=== PATIENT | female | born 1940 | race Caucasian/White ===

== ENCOUNTER 2016-03-27 18:59 | Inpatient (IN) | payer OTHER, BC ==
[~2016-03-27] VITALS: Ht 162.6 cm; Wt 83.5 kg
[~2016-03-27 18:59] MED LIST: AMLO-114 PO; ASCA500 PO; BISA10SU7 RE; BUSP15TA70 PO; CALC500C27 PO; CARB0.5D28 OPB; CLON0.5T3 PO; DOCU-94 PO; FENT1DIS85 TD; FLUO40CA8 PO; FOLI1TAB7 PO; FRRS300 PO; GABA600T PO; HYDR-4079 PO; IBAN150T PO; IBUP-1450 PO; LACT10SO17 PO; MIRT30TA2 PO; OMEG10007 PO; OMEP40CA PO; PRD/1 PO; PRED1SUS3 OPB; SUVO1TAB PO; TRAM-10 PO; VTMD PO
[2016-03-27 20:26] LABS: BUN/CREATININE RATIO 11.2 (10-20); CREATININE 0.92 mg/dl (0.60-1.20); POTASSIUM 4.3 mmol/L (3.5-5.1)
[2016-03-27 20:28] LABS: ALB/GLOB RATIO 0.8 (0.9-2)
[2016-03-27 20:29] LABS: BASO % 0.1 %; BASO ABS # 0.01 K/uL (0-0.2); COMPLETE YES; EOS % 2.5 %; IG% 0.2 %; LYMPH % 4.7 %; LYMPH ABS # 0.38 K/uL (1.2-3.4); MEAN CELL VOLUME 86.2 fL (80-100); MEAN CORPUSCULAR HEMOGLOBIN 27.4 pg (25-34); MEAN CORPUSCULAR HGB CONC 31.8 g/dl (32-36); MEAN PLATELET VOLUME 8.3 fL (7.4-10.4); MONO % 6.3 %; NEUT % 86.2 %; PLATELET COUNT 190 K/uL (130-400); RED BLOOD COUNT 4.64 M/uL (4.2-5.4); WHITE BLOOD COUNT 8.06 K/uL (4.8-10.8)
[2016-03-27] MEDS ORDERED: SODIUM CHLORIDE 0.9% 1000ML 1,000 ML IV STA ×2 (20:52)
[2016-03-27] MEDS ORDERED: FAMOTIDINE 20MG/102 ML D5W IV STA (20:52)
[2016-03-27] MEDS ORDERED: PROMETHAZINE HCL INJ 6.25 MG in SODIUM CHLORIDE 0.9% 50ML 50 ML IV STA (20:52)
[2016-03-27] MEDS ORDERED: ONDANSETRON INJ 2 MG/ML 2 ML VIAL IV STA ×2 (20:52→23:06)
[2016-03-27] MEDS ORDERED: HYDROCORTISONE SOD SUCCINATE 100 MG/2 ML VIAL IV STA (20:52)
[2016-03-27] MEDS ORDERED: MoRPHine SULFATE 4 MG/ML 1 ML CARP\\VIAL IV PRN (21:00)
[2016-03-27] MEDS ORDERED: PROMETHAZINE HCL INJ 25 MG/ML 1 ML VIAL ONE (21:01)
--- NOTE | 2016-03-27 21:02 | EMERGENCY ROOM VISIT NOTE ---
History Report prepared by Delta: Issac Rueda Under the Supervision of: Dr. Stevie Serrano M.D. First contact with patient: 20:47 Chief Complaint: GI ASSESSMENT Stated Complaint: FLU LIKE SX, VOMITING Nursing Triage Summary: patient brought in by ems patient from [facility] and patient reports incontinent diarrhea five times patient had episode of vomiting x4 in room History of Present Illness The patient is a 75 year old female who presents to the Emergency Room via EMS from [facility] with complaints of persistent diarrhea beginning several hours prior to arrival. She associates nausea, vomiting, and abdominal pain with today 's symptoms. The patient states she has experienced five episodes of diarrhea today. She began vomiting in the ED. The patient notes her vomit appeared black , but she eats chocolate daily. She notes she did not feel well yesterday. The patient notes she has been in contact with sick people in her senior community. She states she has chronic pain issues, for which, she has a 37 mcg Fentanyl patch. The patient notes she tried taking TUMS without relief today. She denies a fever, chills, cough, and urinary symptoms. It is noted the patient is DNR. 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 A total of 10 systems reviewed and were otherwise negative. Past Medical & Surgical Medical Problems: (1) Anxiety (2) COPD (chronic obstructive pulmonary disease) (3) Corticoadrenal insufficiency (4) Depression (5) Fever (6) Fibromyalgia (7) Hypertension Nos (8) Ileus (9) Mood disorder (10) Pneumonia involving right lung (11) Sepsis (12) Severe sepsis Surgical Problems: (1) Hx of tonsillectomy Family History Diabetes mellitus Lung cancer Pancreatic cancer FATHER Social History Smoking Status: Never Smoker Alcohol Use: none Drug Use: none Marital Status: Housing Status: fdc Occupation Status: retired Current/Historical Medications Scheduled Amlodipine (Norvasc), 10 MG PO QAM Ascorbic Acid (Vitamin C), 500 MG PO DAILY Carboxymethylcellulose Sodium (Refresh Tears), 1 DROP OPB QID Clonazepam (Klonopin), 0.5 MG PO HS Docusate Sodium (Colace), 1 CAP PO BID Ergocalciferol (Vitamin D), 50,000 INTERUNIT PO weekly Fentanyl (Fentanyl), 37.5 PATCH TD CQ72HR Ferrous Sulfate (Ferrous Sulfate), 325 MG PO TIDM Fish Oil ([place]-3), 1,000 MG PO DAILY@1700 Fluoxetine (Prozac), 40 MG PO DAILY Folic Acid (Folvite), 1 TAB PO DAILY@1700 Gabapentin (Neurontin), 600 MG PO TID Hydrocodone/Acetaminophen 10MG/325MG ([place] 10MG/325MG), 1 TAB PO BID Ibandronate Sodium (Boniva), 150 MG PO MONTHLY Ibuprofen (Motrin), 600 MG PO TIDM Lactulose (Chronulac), 15 ML PO TID Mirtazapine Soltab (Remeron Soltab), 30 MG PO HS Omeprazole (Prilosec), 40 MG PO DAILY Prednisolone Acetate 1% Oph (Pred Forte 1% Oph), 1 DROP OPB DAILY Prednisone (Prednisone), 1 MG PO DAILY Scheduled PRN Bisacodyl (Bisac-Evac), 1 SUPP RE DAILY PRN for Constipation Buspirone Hcl (Buspar), 7.5 MG PO BID PRN for Anxiety Calcium Carbonate (Antacid) (Chewable Antacid), 500-1,000 MG PO Q4 PRN for Heartburn Suvorexant (Belsomra), 5-15 MG PO HS PRN for Insomnia Tramadol (Ultram), 50 MG PO Q6H PRN for Pain Allergies Coded Allergies: No Known Allergies (Unverified , 03/27/16) Physical Exam Vital Signs Date Time Temp Pulse Resp B/P Pulse Ox O2 Delivery O2 Flow Rate FiO2 03/27/16 22:40 95 18 133/72 92 Nasal Cannula 2.0 03/27/16 19:42 103 03/27/16 19:18 37.4 125 18 177/94 92 Room Air Physical Exam GENERAL: Patient is in no acute distress. HEENT: No acute trauma, normocephalic atraumatic, mucous membranes dry, no nasal congestion, no scleral icterus. NECK: No stridor, no adenopathy, no meningismus, trachea is midline. LUNGS: Clear to auscultation bilaterally, no wheeze, no rhonchi, breath sounds equal. HEART: Tachycardic. No murmurs. Rhythm is regular. ABDOMEN: Soft, nontender, bowel sounds positive, no hernias, no peritonitis. EXTREMITIES: No cyanosis or edema, full range of motion of all the joints without pain or difficulty, no signs for acute trauma. NEUROLOGIC: Oriented x 3, no acute motor or sensory deficits, no focal weakness. SKIN: No rash, no jaundice, no diaphoresis. Medical Decision & Procedures ER Provider Diagnostic Interpretation: X-ray results as stated below per interpretation by me and the radiologist: CHEST AND ABDOMEN 2 VIEWS HISTORY: Generalized abdominal pain. Nausea. Vomiting. Diarrhea. COMPARISON: Chest 02/16/2016. Abdomen and pelvis CT 02/02/2016. FINDINGS: No pneumothorax. No pleural effusions. The heart remains mildly enlarged. There are coarse interstitial markings which are similar to the prior study. Right midlung zone and left basilar densities favor subsegmental atelectasis or scarring. No pneumoperitoneum. No pneumatosis. Moderate bilateral hip osteoarthritis. Round calcifications in the deep pelvis are consistent with phleboliths. Small fluid levels within the colon. Borderline dilated gas-filled loops of large and small bowel seen throughout the abdomen. IMPRESSION: 1. No change in the chronic interstitial thickening within the lungs. 2. Borderline distended gas-filled loops of large and small bowel. There are small fluid levels within the colon. Findings can be seen in the setting of an ileus or gastroenteritis. 3. No evidence for bowel obstruction. Electronically signed by: Delfin Gasca M.D. 03/27/2016 10:22 PM Dictated Date/Time: 03/27/2016 10:19 PM Laboratory Results 03/27/16 19:50 Red Blood Count 4.64, Mean Corpuscular Volume 86.2, Mean Corpuscular Hemoglobin 27.4, Mean Corpuscular Hemoglobin Concent 31.8, Mean Platelet Volume 8.3, Neutrophils (%) (Auto) 86.2, Lymphocytes (%) (Auto) 4.7, Monocytes (%) (Auto) 6.3, Eosinophils (%) (Auto) 2.5, Basophils (%) (Auto) 0.1, Neutrophils # (Auto) 6.94, Lymphocytes # (Auto) 0.38, Monocytes # (Auto) 0.51, Eosinophils # (Auto) 0.20, Basophils # (Auto) 0.01 03/27/16 19:50 Test 03/27/16 19:50 White Blood Count 8.06 K/uL (4.8-10.8) Red Blood Count 4.64 M/uL (4.2-5.4) Hemoglobin 12.7 g/dL (12.0-16.0) Hematocrit 40.0 % (37-47) Mean Corpuscular Volume 86.2 fL (80-100) Mean Corpuscular Hemoglobin 27.4 pg (25-34) Mean Corpuscular Hemoglobin Concent 31.8 g/dl (32-36) Platelet Count 190 K/uL (130-400) Mean Platelet Volume 8.3 fL (7.4-10.4) Neutrophils (%) (Auto) 86.2 % Lymphocytes (%) (Auto) 4.7 % Monocytes (%) (Auto) 6.3 % Eosinophils (%) (Auto) 2.5 % Basophils (%) (Auto) 0.1 % Neutrophils # (Auto) 6.94 K/uL (1.4-6.5) Lymphocytes # (Auto) 0.38 K/uL (1.2-3.4) Monocytes # (Auto) 0.51 K/uL (0.11-0.59) Eosinophils # (Auto) 0.20 K/uL (0-0.5) Basophils # (Auto) 0.01 K/uL (0-0.2) RDW Standard Deviation 50.2 fL (36.4-46.3) RDW Coefficient of Variation 15.8 % (11.5-14.5) Immature Granulocyte % (Auto) 0.2 % Immature Granulocyte # (Auto) 0.02 K/uL (0.00-0.02) Anion Gap 6.0 mmol/L (3-11) Est Creatinine Clear Calc Drug Dose 56.0 ml/min Estimated GFR () 70.6 Estimated GFR (Non- 60.9 BUN/Creatinine Ratio 11.2 (10-20) Calcium Level 9.0 mg/dl (8.5-10.1) Total Bilirubin 0.5 mg/dl (0.2-1) Aspartate Amino Transf (AST/SGOT) 14 U/L (15-37) Alanine Aminotransferase (ALT/SGPT) 18 U/L (12-78) Alkaline Phosphatase 90 U/L (45-117) Total Protein 7.3 gm/dl (6.4-8.2) Albumin 3.3 gm/dl (3.4-5.0) Globulin 4.0 gm/dl (2.5-4.0) Albumin/Globulin Ratio 0.8 (0.9-2) Lipase 72 U/L (73-393) Digoxin Level 0.2 ng/ml (0.8-2.0) Laboratory results reviewed by me. Medications Administered Medications (Trade) Dose Ordered Sig/Larry Route Start Time Stop Time Status Last Admin Dose Admin Sodium Chloride (Nss 1000ml) 1,000 ml @ 999 mls/hr Q1H1M STAT IV 03/27/16 20:52 03/27/16 21:52 DC 03/27/16 21:13 999 MLS/HR Ondansetron HCl (Zofran Inj) 4 mg NOW STAT IV 03/27/16 20:52 03/27/16 20:57 DC 03/27/16 21:13 4 MG Morphine Sulfate 4 mg 4 mg Q15M PRN IV 03/27/16 21:00 03/28/16 01:38 DC 03/27/16 21:14 4 MG Promethazine HCl/ Sodium Chloride (Phenergan Inj/ Nss 50ml) 50.25 ml @ 204 mls/hr NOW STAT IV 03/27/16 20:52 03/27/16 21:06 DC 03/27/16 21:13 204 MLS/HR Hydrocortisone Sodium Succinate (Solu-Cortef IV) 100 mg NOW STAT IV 03/27/16 20:52 03/27/16 20:57 DC 03/27/16 21:13 100 MG Famotidine 20 mg 20 mg ONE STAT IV 03/27/16 20:52 03/27/16 20:57 DC 03/27/16 21:13 20 MG Sodium Chloride (Nss 1000ml) 1,000 ml @ 200 mls/hr Q5H STAT IV 03/27/16 20:52 03/28/16 01:38 DC 03/27/16 20:52 200 MLS/HR Ondansetron HCl 4 mg 4 mg NOW STAT IV 03/27/16 23:06 03/27/16 23:07 DC 03/27/16 23:53 4 MG Sodium Chloride (Nss 500ml) 500 ml @ 999 mls/hr Q31M STAT IV 03/27/16 23:06 03/27/16 23:36 DC 03/27/16 23:06 999 MLS/HR ED Course 2047: The patient was evaluated in room A4B. A complete history and physical exam was performed. 2051: Ordered Sodium Chloride 1,000 ml @ 200 mls/hr IV, Famotidine 20 mg IV, Solu-Cortef IV 100 mg IV, Promethazine HCl 6.25 mg/Sodium Chloride 50.25 ml @ 204 mls/hr IV, Zofran Inj 4 mg IV, Sodium Chloride 1,000 ml @ 999 mls/hr IV. 2099: Ordered Morphine Sulfate 4 mg IV. 2301: Reevaluated the patient at this time and updated her on the treatment plan. She verbalized complete understanding and agreement. 2304: I spoke to EZ Becker (Hospitalist) about the patient's case, and he will follow the patient for further evaluation. 2305: Ordered Sodium Chloride 500 ml @ 999 mls/hr IV, Zofran Inj 4 mg IV. Medical Decision The differential diagnoses include but are not limited to: dehydration, viral illness, electrolyte imbalance, anemia, bowel obstruction, pneumonia, UTI, adrenal insufficiency. There is no leukocytosis or concerning anemia. No significant electrolyte abnormality, kidney failure or hepatitis. There is no pancreatitis. Digoxin level is not toxic. Obstruction series shows evidence for gastroenteritis, no bowel obstruction, free air or pneumonia. The patient received IV saline, IV Phenergan and IV Zofran, she required a second dose of IV Zofran. She received IV morphine for pain. The patient was given IV hydrocortisone as stress dose steroids. She received a dose of IV Pepcid. The patient presents tachycardic with vomiting, diarrhea and some abdominal pain. She appears to have a viral gastroenteritis. She remains symptomatic despite treatment in the emergency room, admission/observation is warranted. I spoke to the patient and case management. The on-call hospitalist was consulted. Consults Time Called: 2303 Consulting Physician: EZ Becker (Hospitalist) Returned Call: 2304 I spoke to EZ Becker (Hospitalist) about the patient's case, and he will follow the patient for further evaluation. Impression Primary Impression: Dehydration Additional Impression: Nausea, vomiting, and diarrhea Scribe Attestation The scribe's documentation has been prepared under my direction and personally reviewed by me in its entirety. I confirm that the note above accurately reflects all work, treatment, procedures, and medical decision making performed by me. Departure Information Dispostion Being Evaluated By Hospitalist (Dr. Lilly, [facility] (Hospitalist)) Referrals Kalie Bauer M.D. (PCP) Problem Qualifiers
--- NOTE | 2016-03-27 22:24 | DIAGNOSTIC IMAGING REPORT ---
CHEST AND ABDOMEN 2 VIEWS HISTORY: Generalized abdominal pain. Nausea. Vomiting. Diarrhea. COMPARISON: Chest 02/16/2016. Abdomen and pelvis CT 02/02/2016. FINDINGS: No pneumothorax. No pleural effusions. The heart remains mildly enlarged. There are coarse interstitial markings which are similar to the prior study. Right midlung zone and left basilar densities favor subsegmental atelectasis or scarring. No pneumoperitoneum. No pneumatosis. Moderate bilateral hip osteoarthritis. Round calcifications in the deep pelvis are consistent with phleboliths. Small fluid levels within the colon. Borderline dilated gas-filled loops of large and small bowel seen throughout the abdomen. IMPRESSION: 1. No change in the chronic interstitial thickening within the lungs. 2. Borderline distended gas-filled loops of large and small bowel. There are small fluid levels within the colon. Findings can be seen in the setting of an ileus or gastroenteritis. 3. No evidence for bowel obstruction. Electronically signed by: Delfin Gasca M.D. 03/27/2016 10:22 PM Dictated Date/Time: 03/27/2016 10:19 PM
[2016-03-27] MEDS ORDERED: SODIUM CHLORIDE 0.9% 500ML 500 ML IV STA (23:06)
[2016-03-28] MEDS ORDERED: SUVOREXANT 5 MG PO PRN (01:00)
[2016-03-28] MEDS ORDERED: TRAMADOL HCL 50 MG TAB PO PRN (01:00)
[2016-03-28] MEDS ORDERED: ACETAMINOPHEN 325 MG TAB PO PRN (01:00)
[2016-03-28] MEDS ORDERED: ONDANSETRON INJ 2 MG/ML 2 ML VIAL IV PRN (01:00)
[2016-03-28] MEDS ORDERED: BusPIRone 15 MG TAB PO PRN (01:00)
[2016-03-28] MEDS ORDERED: FENTANYL TD SCH (01:00)
[2016-03-28] MEDS ORDERED: ZOLPIDEM TARTRATE 5 MG TAB PO PRN (01:00)
[2016-03-28] MEDS: NSS + 20MEQ KCL 1000ML 1,000 ML IV SCH ×3 (01:30→11:39)
[2016-03-28 01:43] VITALS: BP 113/64; PULSE 93; TEMP 36.9; O2SAT 95; Ht 162.6 cm; Wt 83.5 kg
--- NOTE | 2016-03-28 02:38 | History and Physical ---
History & Physical Date & Time of Service: Mar 28, 2016 at 02:26 Chief Complaint: Ileus, Nausea, Vomiting, And Diarrhea Primary Care Physician: Kalie Bauer M.D. History of Present Illness Source: patient The patient is a 75-year-old female who presents to the emergency department via EMS from [facility] with persistent nausea, vomiting, abdominal pain and diarrhea that began earlier in the day today. She has had 5 episodes of diarrhea today. She reports that there are number of sick people in her senior community. She did try to take Tums today without relief. Past Medical/Surgical History Medical Problems: (1) Anxiety Status: Chronic (2) COPD (chronic obstructive pulmonary disease) Status: Chronic (3) Corticoadrenal insufficiency Status: Chronic (4) Depression Status: Chronic (5) Fibromyalgia Status: Chronic (6) Hypertension Nos Status: Chronic (7) Mood disorder Status: Chronic Surgical Problems: (1) Hx of tonsillectomy Status: Chronic Family History Diabetes mellitus Lung cancer Pancreatic cancer FATHER Social History Smoking Status: Never Smoker Smokeless Tobacco Use: No Alcohol Use: none Drug Use: none Marital Status: Housing status: skilled nursing Occupational Status: retired Multi-Drug Resistant Organisms History of MDRO: No Allergies Coded Allergies: No Known Allergies (Unverified , 03/27/16) Home Medications Scheduled Amlodipine (Norvasc), 10 MG PO QAM Ascorbic Acid (Vitamin C), 500 MG PO DAILY Carboxymethylcellulose Sodium (Refresh Tears), 1 DROP OPB QID Clonazepam (Klonopin), 0.5 MG PO HS Docusate Sodium (Colace), 1 CAP PO BID Ergocalciferol (Vitamin D), 50,000 INTERUNIT PO weekly Fentanyl (Fentanyl), 37.5 PATCH TD CQ72HR Ferrous Sulfate (Ferrous Sulfate), 325 MG PO TIDM Fish Oil ([place]-3), 1,000 MG PO DAILY@1700 Fluoxetine (Prozac), 40 MG PO DAILY Folic Acid (Folvite), 1 TAB PO DAILY@1700 Gabapentin (Neurontin), 600 MG PO TID Hydrocodone/Acetaminophen 10MG/325MG ([place] 10MG/325MG), 1 TAB PO BID Ibandronate Sodium (Boniva), 150 MG PO MONTHLY Ibuprofen (Motrin), 600 MG PO TIDM Lactulose (Chronulac), 15 ML PO TID Mirtazapine Soltab (Remeron Soltab), 30 MG PO HS Omeprazole (Prilosec), 40 MG PO DAILY Prednisolone Acetate 1% Oph (Pred Forte 1% Oph), 1 DROP OPB DAILY Prednisone (Prednisone), 1 MG PO DAILY Scheduled PRN Bisacodyl (Bisac-Evac), 1 SUPP RE DAILY PRN for Constipation Buspirone Hcl (Buspar), 7.5 MG PO BID PRN for Anxiety Calcium Carbonate (Antacid) (Chewable Antacid), 500-1,000 MG PO Q4 PRN for Heartburn Suvorexant (Belsomra), 5-15 MG PO HS PRN for Insomnia Tramadol (Ultram), 50 MG PO Q6H PRN for Pain Review of Systems The patient denies chest pain, palpitations, shortness of breath, cough, lower extremity swelling, vision change, hearing change, sore throat, fevers, chills, sweats, weight change, blood in urine or stool, dysuria, urinary frequency or urgency, lightheadedness, dizziness, headache, memory loss, rash, abnormal bruising or bleeding, imbalance, focal weakness, numbness or tingling in arms or legs, arthralgias or myalgias, any change in her chronic back or neck pain, night sweats, or allergy symptoms. The review of systems is otherwise negative other than for that already noted above, and at least 10 systems have been reviewed. Physical Exam Vital Signs Date Time Temp Pulse Resp B/P Pulse Ox O2 Delivery O2 Flow Rate FiO2 03/28/16 01:43 36.9 93 18 113/64 95 Nasal Cannula 2.0 03/28/16 00:14 90 18 128/68 96 Nasal Cannula 3.0 03/27/16 22:40 95 18 133/72 92 Nasal Cannula 2.0 03/27/16 19:42 103 03/27/16 19:18 37.4 125 18 177/94 92 Room Air The patient is awake, alert and oriented 3, normocephalic and atraumatic, lying in bed and in mild acute distress secondary to abdominal pain. HEENT--PERRL, EOMI, mucous membranes and oropharynx dry. Neck--supple, no JVD or bruits, thyroid normal, trachea midline, no adenopathy. Heart--normal S1 and S2, no extra beats, no murmurs, rubs or gallops. Lungs--clear bilaterally with good air movement, no respiratory distress, no accessory muscle use. Abdomen--normal bowel sounds and soft, nontender and mildly distended, mildly tympanitic. Extremities--no cyanosis, clubbing or edema. There are good distal pulses b/l. Dermatologic--normal skin turgor, normal color, warm and dry, no abnormal lymph nodes, no rash. Neurologic--cranial nerves II through XII grossly intact. Psychiatric--normal affect. Diagnostics Laboratory Results Results Past 24 Hours Test 03/27/16 19:50 Range/Units White Blood Count 8.06 4.8-10.8 K/uL Red Blood Count 4.64 4.2-5.4 M/uL Hemoglobin 12.7 12.0-16.0 g/dL Hematocrit 40.0 37-47 % Mean Corpuscular Volume 86.2 80-100 fL Mean Corpuscular Hemoglobin 27.4 25-34 pg Mean Corpuscular Hemoglobin Concent 31.8 32-36 g/dl Platelet Count 190 130-400 K/uL Mean Platelet Volume 8.3 7.4-10.4 fL Neutrophils (%) (Auto) 86.2 % Lymphocytes (%) (Auto) 4.7 % Monocytes (%) (Auto) 6.3 % Eosinophils (%) (Auto) 2.5 % Basophils (%) (Auto) 0.1 % Neutrophils # (Auto) 6.94 1.4-6.5 K/uL Lymphocytes # (Auto) 0.38 1.2-3.4 K/uL Monocytes # (Auto) 0.51 0.11-0.59 K/uL Eosinophils # (Auto) 0.20 0-0.5 K/uL Basophils # (Auto) 0.01 0-0.2 K/uL RDW Standard Deviation 50.2 36.4-46.3 fL RDW Coefficient of Variation 15.8 11.5-14.5 % Immature Granulocyte % (Auto) 0.2 % Immature Granulocyte # (Auto) 0.02 0.00-0.02 K/uL Sodium Level 139 136-145 mmol/L Potassium Level 4.3 3.5-5.1 mmol/L Chloride Level 102 98-107 mmol/L Carbon Dioxide Level 31 21-32 mmol/L Anion Gap 6.0 3-11 mmol/L Blood Urea Nitrogen 10 7-18 mg/dl Creatinine 0.92 0.60-1.20 mg/dl Est Creatinine Clear Calc Drug Dose 56.0 ml/min Estimated GFR () 70.6 Estimated GFR (Non- 60.9 BUN/Creatinine Ratio 11.2 10-20 Random Glucose 124 70-99 mg/dl Calcium Level 9.0 8.5-10.1 mg/dl Total Bilirubin 0.5 0.2-1 mg/dl Aspartate Amino Transf (AST/SGOT) 14 15-37 U/L Alanine Aminotransferase (ALT/SGPT) 18 12-78 U/L Alkaline Phosphatase 90 45-117 U/L Total Protein 7.3 6.4-8.2 gm/dl Albumin 3.3 3.4-5.0 gm/dl Globulin 4.0 2.5-4.0 gm/dl Albumin/Globulin Ratio 0.8 0.9-2 Lipase 72 73-393 U/L Digoxin Level 0.2 0.8-2.0 ng/ml Diagnostic Radiology Patient Name: GUSTAVO THIBODEAUX Unit Number: [id number] Dictated: 03/27/162218 Transcribed: 03/27/162218 [employer] Printed Date/Time: [~ rep prt dt]/[~ rep prt tm] [~ rep ct labl] - [~ rep ct ivnm] [facility] [place] [address] Dictated: 03/27/162218 Transcribed: 03/27/162218 [employer] Printed Date/Time: [~ rep prt dt]/[~ rep prt tm] [~ rep ct labl] - [~ rep ct ivnm] CHEST AND ABDOMEN 2 VIEWS HISTORY: Generalized abdominal pain. Nausea. Vomiting. Diarrhea. COMPARISON: Chest 02/16/2016. Abdomen and pelvis CT 02/02/2016. FINDINGS: No pneumothorax. No pleural effusions. The heart remains mildly enlarged. There are coarse interstitial markings which are similar to the prior study. Right midlung zone and left basilar densities favor subsegmental atelectasis or scarring. No pneumoperitoneum. No pneumatosis. Moderate bilateral hip osteoarthritis. Round calcifications in the deep pelvis are consistent with phleboliths. Small fluid levels within the colon. Borderline dilated gas-filled loops of large and small bowel seen throughout the abdomen. IMPRESSION: 1. No change in the chronic interstitial thickening within the lungs. 2. Borderline distended gas-filled loops of large and small bowel. There are small fluid levels within the colon. Findings can be seen in the setting of an ileus or gastroenteritis. 3. No evidence for bowel obstruction. Electronically signed by: Delfin Gasca M.D. 03/27/2016 10:22 PM Dictated Date/Time: 03/27/2016 10:19 PM The status of this report is Signed. Draft = Not yet reviewed or approved by Radiologist. Signed = Reviewed and approved by Radiologist. <AttendingPhy></AttendingPhy> <FamilyPhy>Kalie Bauer M.D.</FamilyPhy> < PrimaryPhy>Kalie Bauer M.D.</PrimaryPhy> <UnitNumber>[id number]</UnitNumber> < VisitNumber>[id number]</VisitNumber> <PatientName>GUSTAVO THIBODEAUX</PatientName > <DateOfBirth>1940</DateOfBirth> <Location>[facility]</Location> <ServiceDate> 03/27/16</ServiceDate> <MNE>ESINDI</MNE> <OrderingPhy>Stevie Serrano M.D.</ OrderingPhy> <OrderingPhyMNE>f rep ord dr meyer</OrderingPhyMNE> <DictatingPhyMNE> f rep dict dr meyer</DictatingPhyMNE> <CCListMNE>f rep ct mitch</CCListMNE> < AdmittingPhyMNE>f pt admit dr meyer</AdmittingPhyMNE> <AttendingPhyMNE>f pt attend dr meyer</AttendingPhyMNE> <ConsultingPhyMNE>f pt consult dr meyer</ConsultingPhyMNE> <FamilyPhyMNE>f pt fam dr meyer</FamilyPhyMNE> <OtherPhyMNE>f pt other dr meyer</OtherPhyMNE> < PrimaryPhyMNE>f pt prim care dr mne</PrimaryPhyMNE> <ReferringPhyMNE>f pt referring dr meyer</ReferringPhyMNE> Impression Assessment and Plan Ileus, with intractable nausea, vomiting, diarrhea and abdominal pain, with most probably a viral etiology. The patient will be admitted to the medical floor. She'll be placed on a full liquid diet, normal saline with potassium chloride 20 mEq at 100 mils per hour, Zofran 4 mg IV every 6 hours when necessary, pantoprazole 40 mg by mouth daily. Her diet will be advanced as she improves. Hypertension--continue amlodipine 10 mg by mouth every morning with hold parameters. Chronic pain syndrome/fibromyalgia/mood disorder--continue Klonopin 0.5 mg by mouth at bedtime, fentanyl patch 37.5 mg every 72 hours, fluoxetine 40 mg by mouth daily, gabapentin 600 mg by mouth 3 times a day, Remeron SolTab 30 mg by mouth at bedtime, [place] 10/325 one by mouth twice a day, prednisone 1 mg by mouth daily We'll hold ibuprofen 600 mg by mouth 3 times a day with meals. GERD--change omeprazole 40 mg by mouth daily to pantoprazole 40 mg by mouth daily for formulary interchange. Ophthalmology--continue Pred forte 1% ophthalmic solution, 1 drop OPB daily. Level of Care Med/Surg Advanced Directives Existing Advance Directive: Yes Existing Living Will: Yes Existing Power of Supervisor Denture Department: Yes Resuscitation Status DO NOT RESUSCITATE VTE Prophylaxis VTE Risk Assessment Done? Y/N: Yes Risk Level: Moderate Given or contraindicated: SCD's Social Service Consult Lives in Jail
[2016-03-28] MEDS ORDERED: HYDROCODONE/ACETAMI 10/325 TAB PO PRN (02:45)
[2016-03-28 07:20] VITALS: BP 108/63; PULSE 75; TEMP 36.8; O2SAT 96
[2016-03-28] MEDS ORDERED: NURSING DECISION MEDICATION ORDER SCH (07:45)
[2016-03-28 08:00] VITALS: O2SAT 96
[2016-03-28] MEDS ORDERED: SODIUM CHLORIDE 0.65% NA SOLN 45 ML (OCEAN) PRN (08:00)
[2016-03-28] MEDS: CHECK FENTANYL PATCH PLACEMENT SCH ×6 (08:00→23:59)
[2016-03-28] MEDS: PrednisoLONE ACET 1% OP SUSP 5 ML BTL OPB SCH (08:37)
[2016-03-28] MEDS: GABAPENTIN 600 MG TAB PO SCH ×3 (08:38→21:24)
[2016-03-28] MEDS: PANTOprazole SOD 40 MG TAB PO SCH (08:39)
[2016-03-28] MEDS: ARTIFICIAL TEARS OP SOLN OPB SCH ×8 (08:40→21:00)
[2016-03-28] MEDS: FLUOXETINE HCL 20 MG CAP PO SCH (08:40)
[2016-03-28] MEDS: AMLODIPINE BESYLATE 5 MG TAB PO SCH (08:57)
[2016-03-28] MEDS ORDERED: FENTANYL PATCH REMOVE & WASTE SCH ×2 (08:59)
[2016-03-28] MEDS ORDERED: FENTANYL 50 MCG/HR TDSY TD SCH (09:00)
[2016-03-28] MEDS ORDERED: FENTANYL 12 MCG/HR TDSY TD SCH ×2 (09:00→11:15)
[2016-03-28] MEDS ORDERED: FENTANYL 25 MCG/HR TDSY TD SCH (11:15)
[2016-03-28 11:34] VITALS: BP 136/62; PULSE 89; TEMP 36.9; O2SAT 96
--- NOTE | 2016-03-28 14:48 | Progress Note ---
Subjective Date of Service: Mar 28, 2016. Subjective Pt evaluation today including: conversation w/ patient, physical exam, lab review, review of inpatient medication list Pain: chronic back pain, stable, no abdominal pain PO Intake: adequate Voiding: no voiding problems no further diarrhea or vomiting since admission, ate half of her breakfast overall says she is feeling well, her primary concern is getting her Fentanyl patch she is still weak, appetite could be better, discussed that we will plan for d/ c tomorrow AM Problem List Medical Problems: (1) Abnormal WBC count Status: Acute (2) Adrenal insufficiency Status: Acute (3) Anemia Status: Acute (4) Chest pain Status: Acute (5) Dehydration Status: Acute (6) Febrile illness, acute Status: Acute (7) Hypokalemia Status: Acute (8) Hypoxia Status: Acute (9) Nausea, vomiting, and diarrhea Status: Acute (10) Pneumonia Status: Acute (11) Pneumonia Status: Acute Review of Systems Constitutional: + fatigue, + weakness Musculoskeletal: + joint pain All Other Systems: Reviewed and Negative Medications Current Inpatient Medications Medications (Trade) Dose Ordered Sig/Larry Route Start Time Stop Time Status Last Admin Dose Admin Acetaminophen (Tylenol Tab) 650 mg Q4H PRN PO 03/28/16 01:00 04/27/16 00:59 Zolpidem Tartrate (Ambien Tab) 5 mg HSZ PRN PO 03/28/16 01:00 04/27/16 00:59 Buspirone HCl (BusPAR TAB) 7.5 mg BID PRN PO 03/28/16 01:00 04/27/16 00:59 Clonazepam (Klonopin Tab) 0.5 mg HS PO 03/28/16 21:00 04/27/16 20:59 Fluoxetine HCl (Prozac Cap) 40 mg DAILY PO 03/28/16 09:00 04/27/16 08:59 03/28/16 08:40 40 MG Folic Acid (Folvite Tab) 1 mg DAILY@1700 PO 03/28/16 17:00 04/27/16 16:59 Gabapentin (Neurontin Tab) 600 mg TID PO 03/28/16 09:00 04/27/16 08:59 03/28/16 13:53 600 MG Prednisolone Acetate (Pred Forte 1% Oph Susp) 1 drops DAILY OPB 03/28/16 09:00 04/27/16 08:59 03/28/16 08:37 1 DROPS Prednisone (PredniSONE TAB) 1 mg DAILY PO 03/28/16 09:00 04/27/16 08:59 03/28/16 08:39 1 MG Tramadol HCl (Ultram Tab) 50 mg Q6H PRN PO 03/28/16 01:00 04/27/16 00:59 Artificial Tears (Artificial Tears) 1 drops QID OPB 03/28/16 09:00 04/27/16 08:59 03/28/16 13:53 1 DROPS Mirtazapine (Remeron Tab) 30 mg HS PO 03/28/16 21:00 04/27/16 20:59 Pantoprazole Sodium (Protonix Tab) 40 mg QAM PO 03/28/16 09:00 04/27/16 08:59 03/28/16 08:39 40 MG Ondansetron HCl 4 mg 4 mg Q6H PRN IV 03/28/16 01:00 04/27/16 00:59 03/28/16 10:55 4 MG Potassium Chloride/Sodium Chloride (Nss + 20meq KCl 1000ml) 1,000 ml @ 100 mls/hr Q10H IV 03/28/16 01:30 04/27/16 01:29 03/28/16 11:39 100 MLS/HR Miscellaneous (Fentanyl Patch Remove & Waste) 1 ea Q3D N/A 03/28/16 08:59 04/27/16 08:58 Miscellaneous Information (Check Fentanyl Patch Placement) 1 ea QS N/A 03/28/16 08:00 04/27/16 07:59 03/28/16 08:00 1 EA Miscellaneous (Fentanyl Patch Remove & Waste) 1 ea Q3D N/A 03/28/16 08:59 04/27/16 08:58 03/28/16 09:26 1 EA Miscellaneous Information (Check Fentanyl Patch Placement) 1 ea QS N/A 03/28/16 08:00 04/27/16 07:59 Amlodipine Besylate (Norvasc Tab) 10 mg QAM PO 03/28/16 09:00 04/27/16 08:59 Acetaminophen/ Hydrocodone Bitart ([place] 10/325 Tab) 1 tab BID PRN PO 03/28/16 02:45 04/11/16 02:44 Sodium Chloride ([place] Nasal [place]) 1 sprays PRN PRN NA 03/28/16 08:00 04/27/16 07:59 03/28/16 10:58 1 SPRAYS Fentanyl (Duragesic Patch) 25 mcg Q3D@0900 TD 03/28/16 11:15 04/11/16 11:14 03/28/16 11:14 25 MCG Fentanyl (Duragesic Patch) 12 mcg Q3D@0900 TD 03/28/16 11:15 04/11/16 11:14 03/28/16 11:13 12 MCG Objective Vital Signs Date Time Temp Pulse Resp B/P Pulse Ox O2 Delivery O2 Flow Rate FiO2 03/28/16 11:34 36.9 89 16 136/62 96 Nasal Cannula 2.0 03/28/16 08:00 96 Nasal Cannula 2.0 03/28/16 07:20 36.8 75 16 108/63 96 Nasal Cannula 2.0 03/28/16 01:43 36.9 93 18 113/64 95 Nasal Cannula 2.0 03/28/16 00:14 90 18 128/68 96 Nasal Cannula 3.0 03/27/16 22:40 95 18 133/72 92 Nasal Cannula 2.0 03/27/16 19:42 103 03/27/16 19:18 37.4 125 18 177/94 92 Room Air Physical Exam General Appearance: WD/WN, no apparent distress Eyes: normal inspection, EOMI, sclerae normal Neck: supple, no adenopathy, no JVD, trachea midline Respiratory/Chest: chest non-tender, lungs clear, normal breath sounds, no respiratory distress, no accessory muscle use Cardiovascular: regular rate, rhythm, no edema, no gallop, no JVD, no murmur Abdomen: normal bowel sounds, non tender, soft, no organomegaly Extremities: normal range of motion, non-tender, normal inspection, no pedal edema, no calf tenderness, pelvis stable 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, no motor/sensory deficits, alert, normal mood/affect, oriented x 3 Skin: normal color, warm/dry, no rash Lymphatic: no adenopathy Laboratory Results Last 24 Hours Test 03/27/16 19:50 White Blood Count 8.06 K/uL Red Blood Count 4.64 M/uL Hemoglobin 12.7 g/dL Hematocrit 40.0 % Mean Corpuscular Volume 86.2 fL Mean Corpuscular Hemoglobin 27.4 pg Mean Corpuscular Hemoglobin Concent 31.8 g/dl Platelet Count 190 K/uL Mean Platelet Volume 8.3 fL Neutrophils (%) (Auto) 86.2 % Lymphocytes (%) (Auto) 4.7 % Monocytes (%) (Auto) 6.3 % Eosinophils (%) (Auto) 2.5 % Basophils (%) (Auto) 0.1 % Neutrophils # (Auto) 6.94 K/uL Lymphocytes # (Auto) 0.38 K/uL Monocytes # (Auto) 0.51 K/uL Eosinophils # (Auto) 0.20 K/uL Basophils # (Auto) 0.01 K/uL RDW Standard Deviation 50.2 fL RDW Coefficient of Variation 15.8 % Immature Granulocyte % (Auto) 0.2 % Immature Granulocyte # (Auto) 0.02 K/uL Sodium Level 139 mmol/L Potassium Level 4.3 mmol/L Chloride Level 102 mmol/L Carbon Dioxide Level 31 mmol/L Anion Gap 6.0 mmol/L Blood Urea Nitrogen 10 mg/dl Creatinine 0.92 mg/dl Est Creatinine Clear Calc Drug Dose 56.0 ml/min Estimated GFR () 70.6 Estimated GFR (Non- 60.9 BUN/Creatinine Ratio 11.2 Random Glucose 124 mg/dl Calcium Level 9.0 mg/dl Total Bilirubin 0.5 mg/dl Aspartate Amino Transf (AST/SGOT) 14 U/L Alanine Aminotransferase (ALT/SGPT) 18 U/L Alkaline Phosphatase 90 U/L Total Protein 7.3 gm/dl Albumin 3.3 gm/dl Globulin 4.0 gm/dl Albumin/Globulin Ratio 0.8 Lipase 72 U/L Digoxin Level 0.2 ng/ml Assessment and Plan 75 yo female with a history of chronic pain, fibromyalgia and HTN, presented with vomiting and diarrhea for 24 hours, weakness, dehydration - Acute gastroenteritis: supportive care with fluids, will d/c today since eating and drinking is improved anti-emetics PRN but has not needed imaging suggest gastroenteritis, no obstruction or free air tolerating regular diet Hypertension--continue amlodipine 10 mg by mouth every morning with hold parameters. Chronic pain syndrome/fibromyalgia/mood disorder--continue Klonopin 0.5 mg by mouth at bedtime, fentanyl patch 37.5 mg every 72 hours, fluoxetine 40 mg by mouth daily, gabapentin 600 mg by mouth 3 times a day, Remeron SolTab 30 mg by mouth at bedtime, [place] 10/325 one by mouth twice a day, prednisone 1 mg by mouth daily We'll hold ibuprofen 600 mg by mouth 3 times a day with meals. GERD--change omeprazole 40 mg by mouth daily to pantoprazole 40 mg by mouth daily for formulary interchange. Ophthalmology--continue Pred forte 1% ophthalmic solution, 1 drop OPB daily. Plan for d/c tomorrow AM if she continues to tolerate diet, no vomiting or diarrhea
[2016-03-28 15:26] VITALS: BP 147/79; PULSE 92; TEMP 36.8; O2SAT 91
[2016-03-28 16:00] VITALS: O2SAT 96
[2016-03-28] MEDS ORDERED: CLONAZEPAM 0.5 MG TAB PO SCH (21:00)
[2016-03-28] MEDS ORDERED: MIRTAZAPINE TAB 15 MG TAB PO SCH (21:00)
[2016-03-29 00:04] VITALS: BP 129/75; PULSE 86; TEMP 37.4; O2SAT 93
[2016-03-29 00:05] VITALS: O2SAT 93
[2016-03-29 06:32] LABS: BASO % 0.1 %; BASO ABS # 0.01 K/uL (0-0.2); COMPLETE YES; EOS % 1.8 %; HEMATOCRIT 37.7 % (37-47); IG% 0.4 %; LYMPH % 26.2 %; LYMPH ABS # 1.94 K/uL (1.2-3.4); MEAN CELL VOLUME 87.1 fL (80-100); MEAN CORPUSCULAR HEMOGLOBIN 27.7 pg (25-34); MEAN CORPUSCULAR HGB CONC 31.8 g/dl (32-36); MEAN PLATELET VOLUME 8.4 fL (7.4-10.4); MONO % 7.8 %; NEUT % 63.7 %; PLATELET COUNT 201 K/uL (130-400); RED BLOOD COUNT 4.33 M/uL (4.2-5.4)
[2016-03-29 07:22] LABS: BUN/CREATININE RATIO 7.8 (10-20); CREATININE 0.87 mg/dl (0.60-1.20); POTASSIUM 3.5 mmol/L (3.5-5.1)
[2016-03-29 07:28] VITALS: BP 146/74; PULSE 99; TEMP 37; O2SAT 92
[2016-03-29 08:00] VITALS: O2SAT 92
[2016-03-29] MEDS: ARTIFICIAL TEARS OP SOLN OPB SCH ×4 (08:20→12:20)
[2016-03-29] MEDS: CHECK FENTANYL PATCH PLACEMENT SCH ×2 (08:20)
[2016-03-29] MEDS: PrednisoLONE ACET 1% OP SUSP 5 ML BTL OPB SCH (08:22)
[2016-03-29] MEDS: GABAPENTIN 600 MG TAB PO SCH ×2 (08:23→14:05)
[2016-03-29] MEDS: PANTOprazole SOD 40 MG TAB PO SCH (08:24)
[2016-03-29] MEDS: AMLODIPINE BESYLATE 5 MG TAB PO SCH (08:24)
[2016-03-29] MEDS: FLUOXETINE HCL 20 MG CAP PO SCH (08:25)
--- NOTE | 2016-03-29 09:21 | Discharge Instructions ---
Discharge Instructions Admission Reason for Admission: Ileus, Nausea, Vomiting, And Diarrhea Discharge Discharge Diagnosis / Problem: Acute gastroenteritis, resolving Discharge Goals Goal(s): Decrease discomfort, Improve function Activity Recommendations Activity Limitations: resume your previous activity Lifting Limitations: none Exercise/Sports Limitations: as tolerated Shower/Bathe: no limitations . Instructions / Follow-Up Instructions / Follow-Up Medications: no changes made to chronic medications Stay well hydrated and get rest the next several days. You have an acute viral gastroenteritis which will resolve over next few days. Labs have been normal for 2 straight days, vital signs are stable, imaging of the abdomen was normal. Current Hospital Diet Patient's current hospital diet: Full Liquid Diet Discharge Diet Recommended Diet: Regular Diet Procedures Procedures Performed: none Pending Studies Studies pending at discharge: no Laboratory Results Last Resulted CBC 03/29/16 06:02 Red Blood Count 4.33, Mean Corpuscular Volume 87.1, Mean Corpuscular Hemoglobin 27.7, Mean Corpuscular Hemoglobin Concent 31.8, Mean Platelet Volume 8.4, Neutrophils (%) (Auto) 63.7, Lymphocytes (%) (Auto) 26.2, Monocytes (%) (Auto) 7.8, Eosinophils (%) (Auto) 1.8, Basophils (%) (Auto) 0.1, Neutrophils # (Auto) 4.71, Lymphocytes # (Auto) 1.94, Monocytes # (Auto) 0.58, Eosinophils # (Auto) 0.13, Basophils # (Auto) 0.01 Last Resulted BMP 03/29/16 06:02 Hemoglobin A1c Test 02/22/16 10:54 Range/Units Estimated Average Glucose 126 mg/dl Hemoglobin A1c 6.0 H 4.5-5.6 % Medical Emergencies . Who to Call and When: Medical Emergencies: If at any time you feel your situation is an emergency, please call 911 immediately. . Non-Emergent Contact Non-Emergency issues call your: Primary Care Provider Call Non-Emergent contact if: you have a fever, you have any medication questions . . "Provider Documentation" section prepared by Carlos Eduardo Nunez. VTE Core Measure Inpt VTE Proph given/why not?: SCD's [place] Drug Monitoring Program Search Results: no issues identified
[2016-03-29 11:46] VITALS: BP 100/55; PULSE 73; TEMP 37.5; O2SAT 95
[2016-03-29 13:56] VITALS: BP 100/55; PULSE 73; TEMP 37.5; O2SAT 95
--- NOTE | 2016-03-29 15:34 | Discharge Summary ---
Discharge Summary Admission Date: Mar 27, 2016 at 23:40 Discharge Date: Mar 29, 2016 Discharge Disposition: Personal care Principal Diagnosis: Acute gastroenteritis Problems/Secondary Diagnoses: Chronic pain fibromyalgia Procedures: none Consultations: none Medication Reconciliation Continued Medications: Amlodipine (Norvasc) 10 Mg Tab 10 MG PO QAM, TAB Ascorbic Acid (Vitamin C) 500 Mg Tab 500 MG PO DAILY, #30 TABS Bisacodyl (Bisac-Evac) 10 Mg Sup 1 SUPP RE DAILY PRN for Constipation Buspirone Hcl (Buspar) 15 Mg Tab 7.5 MG PO BID PRN for Anxiety 1/2 TABLET DOSE Calcium Carbonate (Antacid) (Chewable Antacid) 500 Mg Chw 500-1000 MG PO Q4 PRN for Heartburn Carboxymethylcellulose Sodium (Refresh Tears) 0.5 % [place] 1 DROP OPB QID Clonazepam (Klonopin) 0.5 Mg Tab 0.5 MG PO HS Docusate Sodium (Colace) 100 Mg Cap 1 CAP PO BID for 30 Days, #60 CAP 2 Refills Ergocalciferol (Vitamin D) 50,000 Interunit Cap 21327 INTERUNIT PO weekly, #8 TABS Fentanyl (Fentanyl) 37.5 Mcg/Hr Dis 37.5 PATCH TD [id number] Ferrous Sulfate (Ferrous Sulfate) 325 Mg Tab 325 MG PO TIDM, #90 TAB Fish Oil ([place]-3) 1 Ea Cap 1000 MG PO DAILY@1700 Fluoxetine (Prozac) 40 Mg Cap 40 MG PO DAILY, CAP Folic Acid (Folvite) 1 Mg Tab 1 TAB PO DAILY@1700 for 90 Days, TAB 1 Refill Gabapentin (Neurontin) 600 Mg Tab 600 MG PO TID, TAB Hydrocodone/Acetaminophen 10MG/325MG ([place] 10MG/325MG) Tab 1 TAB PO BID, TAB MAX OF 3GM APAP/24HRS Ibandronate Sodium (Boniva) 150 Mg Tab 150 MG PO MONTHLY 10 TH DAY OF EACH MONTH Ibuprofen (Motrin) 600 Mg Tab 600 MG PO TIDM Lactulose (Chronulac) 10 Gm/15 Ml Syrp 15 ML PO TID, #500 ML 3 Refills Mirtazapine Soltab (Remeron Soltab) 30 Mg Soltab 30 MG PO HS, TAB Omeprazole (Prilosec) 40 Mg Capcr 40 MG PO DAILY Prednisolone Acetate 1% Oph (Pred Forte 1% Oph) Susp 1 DROP OPB DAILY Prednisone (Prednisone) 1 Mg Tab 1 MG PO DAILY Suvorexant (Belsomra) 5 Mg Tab 5-15 MG PO HS PRN for Insomnia Tramadol (Ultram) 50 Mg Tab 50 MG PO Q6H PRN for Pain Discharge Exam patient feeling much better today, eating well, no vomiting, no diarrhea ambulating around the room without difficulty has chronic pain but nothing new overnight she agrees that she is ready for discharge today Review of Systems: Constitutional: No chills, No fatigue, No fever, No problem reported, No sweats, No weakness, No weight loss Eyes: No diplopia, No discharge, No eye pain, No problem reported, No redness, No worsening of vision ENT: No dental problems, No hearing loss, No nasal symptoms, No problem reported, No sore throat, No tinnitus, No trouble swallowing, No unusual epistaxis Respiratory: No cough, No dyspnea at rest, No dyspnea on exertion, No hemoptysis, No problem reported, No shortness of breath, No sputum, No wheezing Cardiovascular: No PND, No chest pain, No claudication, No edema, No orthopnea, No palpitations, No problem reported Abdomen: No GI bleeding, No constipation, No diarrhea, No nausea, No pain, No problem reported, No vomiting Musculoskeletal: + joint pain, + muscle pain, No calf pain, No swelling Genitourinary - Female: No dysuria, No hematuria, No urinary frequency, No urinary incontinence, No urinary retention, No urinary urgency Neurologic: No balance problems, No memory loss, No numbness/tingling, No paralysis, No problem reported, No vertigo, No weakness Psychiatric: No anhedonism, No anxiety, No depression symptoms, No insomnia , No problem reported, No substance abuse Endocrine: No excessive thirst, No excessive urination, No fatigue, No problem reported Hematologic / Lymphatic: No abnormal bleeding/bruising, No clotting problems , No night sweats, No problem reported, No swollen lymph nodes Integumentary: No bleeding, No color change, No itch, No new/changing skin lesions, No problem reported, No rash Physical Exam: General Appearance: WD/WN, no apparent distress Eyes: normal inspection, EOMI, sclerae normal ENT: normal ENT inspection, hearing grossly normal, pharynx normal Neck: supple, no adenopathy, no JVD, trachea midline Respiratory/Chest: chest non-tender, lungs clear, normal breath sounds, no respiratory distress, no accessory muscle use Cardiovascular: regular rate, rhythm, no edema, no gallop, no JVD, no murmur , normal peripheral pulses Abdomen / GI: normal bowel sounds, non tender, soft, no organomegaly Extremities: normal inspection, no calf tenderness, normal capillary refill , no pedal edema, normal range of motion 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, no motor/sensory deficits , alert, normal mood/affect, normal reflexes, oriented x 3 Skin: normal color, warm/dry, no rash Hospital Course 75 yo female with a history of chronic pain, fibromyalgia and HTN, presented with vomiting and diarrhea for 24 hours, weakness, dehydration - Acute gastroenteritis: supportive care with fluids, stopped fluids yesterday since eating and drinking is improved anti-emetics PRN but has not needed imaging suggest gastroenteritis, no obstruction or free air tolerating regular diet will d/c back to personal care today Hypertension--continue amlodipine 10 mg by mouth every morning with hold parameters. Chronic pain syndrome/fibromyalgia/mood disorder--continue Klonopin 0.5 mg by mouth at bedtime, fentanyl patch 37.5 mg every 72 hours, fluoxetine 40 mg by mouth daily, gabapentin 600 mg by mouth 3 times a day, Remeron SolTab 30 mg by mouth at bedtime, [place] 10/325 one by mouth twice a day, prednisone 1 mg by mouth daily We'll hold ibuprofen 600 mg by mouth 3 times a day with meals. GERD--change omeprazole 40 mg by mouth daily to pantoprazole 40 mg by mouth daily for formulary interchange. Ophthalmology--continue Pred forte 1% ophthalmic solution, 1 drop OPB daily. Total Time Spent: Less than 30 minutes This includes examination of the patient, discharge planning, medication reconciliation, and communication with other providers. Discharge Instructions Please refer to the electronic Patient Visit Report (Discharge Instructions) for additional information. Follow-Up PCP in one week Pain management this week as scheduled Additional Copies To Kalie Bauer M.D.
[2016-10-10] MEDS ORDERED: LEVO1TAB33 PO (09:52)
[2016-10-31] MEDS ORDERED: OMEG10007 PO (10:32)
[2016-10-31] MEDS ORDERED: IBUP-1450 PO (10:32)
== END 2016-03-29 14:32 | disposition home or self-care (01) | DRG 392 ==
LOC: ENRESERVTM → ENRESERVDT → EDBD 18:59 → C.EDA 18:59 → C.MED 23:40
PROVIDERS: ADMIT Hospitalist; ATTEND Internal Medicine
DX: K52.9 Noninfective gastroenteritis and colitis, unspecified (principal); K56.7 Ileus, unspecified; Z80.1 Family history of malignant neoplasm of trachea, bronchus and lung; E86.0 Dehydration; Z66 Do not resuscitate; F41.9 Anxiety disorder, unspecified; J44.9 Chronic obstructive pulmonary disease, unspecified; F32.9 Major depressive disorder, single episode, unspecified; M79.7 Fibromyalgia; I10 Essential (primary) hypertension; Z83.3 Family history of diabetes mellitus; Z80.0 Family history of malignant neoplasm of digestive organs; Z79.899 Other long term (current) drug therapy; G89.4 Chronic pain syndrome; K21.9 Gastro-esophageal reflux disease without esophagitis

== ENCOUNTER 2016-04-17 22:44 | Inpatient (IN) | payer OTHER, BC ==
[~2016-04-17] VITALS: Ht 160 cm; Wt 84.3 kg
[2016-04-17] MEDS ORDERED: SODIUM CHLORIDE 0.9% 1000ML 1,000 ML IV ONE (23:08)
[2016-04-17] MEDS ORDERED: ACETAMINOPHEN 500 MG TAB PO STA (23:08)
--- NOTE | 2016-04-17 23:22 | EMERGENCY ROOM VISIT NOTE ---
History Report prepared by Delta: Chiquita Lancaster Under the Supervision of: Dr. Govind Kimbrough D.O. First contact with patient: 23:03 Chief Complaint: FEVER Stated Complaint: FEVER History of Present Illness The patient is a 75 year old female who presents to the Emergency Room via ambulance with complaints of a persistent fever throughout the day today. Her fever was 103.7 at [facility] this evening. She also complains of shakes and a decreased appetite. She coughed about 3 times this evening but denies anything that has been persistent. She has not taken anything for her fever yet. She notes that there have been people ill with the flu at [facility]. Source of History: patient Onset: today Symptom Intensity: Tmax 103.7 Timing: other (persistent) Associated Symptoms: + cough Note: Other symptoms: shakes, decreased appetite Review of Systems See HPI for pertinent positives & negatives. A total of 10 systems reviewed and were otherwise negative. Past Medical & Surgical Medical Problems: (1) Anxiety (2) COPD (chronic obstructive pulmonary disease) (3) Corticoadrenal insufficiency (4) Depression (5) Fever (6) Fibromyalgia (7) Hypertension Nos (8) Ileus (9) Mood disorder (10) Pneumonia involving right lung (11) Sepsis (12) Severe sepsis Surgical Problems: (1) Hx of tonsillectomy Family History Diabetes mellitus Lung cancer Pancreatic cancer FATHER Social History Smoking Status: Never Smoker Alcohol Use: none Drug Use: none Marital Status: Housing Status: prison Occupation Status: retired Current/Historical Medications Scheduled Amlodipine (Norvasc), 10 MG PO QAM Ascorbic Acid (Vitamin C), 500 MG PO DAILY Carboxymethylcellulose Sodium (Refresh Tears), 1 DROP OPB QID Clonazepam (Klonopin), 0.5 MG PO HS Docusate Sodium (Colace), 1 CAP PO BID Ergocalciferol (Vitamin D), 50,000 INTERUNIT PO weekly Fentanyl (Duragesic), 50 MCG TD [id number] Ferrous Sulfate (Ferrous Sulfate), 325 MG PO TIDM Fish Oil ([place]-3), 1,000 MG PO DAILY@1700 Fluoxetine (Prozac), 40 MG PO DAILY Folic Acid (Folvite), 1 TAB PO DAILY@1700 Gabapentin (Neurontin), 600 MG PO TID Ibandronate Sodium (Boniva), 150 MG PO MONTHLY Ibuprofen (Motrin), 600 MG PO TIDM Lactulose (Chronulac), 15 ML PO TID Mirtazapine Soltab (Remeron Soltab), 30 MG PO HS Omeprazole (Prilosec), 40 MG PO DAILY Prednisolone Acetate (Ophth) (Pred Forte 1% Oph), 1 DROPS OPB DAILY Prednisone (Prednisone), 1 MG PO DAILY Scheduled PRN Bisacodyl (Bisac-Evac), 1 SUPP RE DAILY PRN for Constipation Buspirone Hcl (Buspar), 7.5 MG PO BID PRN for Anxiety Calcium Carbonate (Antacid) (Chewable Antacid), 500-1,000 MG PO Q4 PRN for Heartburn Oxycodone/Acetaminophen 7.5MG/325MG (Oxycodone/Acetaminophen 7.5MG/325MG), 1 TAB PO TID PRN for Pain Suvorexant (Belsomra), 5-15 MG PO HS PRN for Insomnia Tramadol (Ultram), 50 MG PO Q6H PRN for Pain Allergies Coded Allergies: No Known Allergies (Unverified , 04/18/16) Physical Exam Vital Signs Date Time Temp Pulse Resp B/P Pulse Ox O2 Delivery O2 Flow Rate FiO2 04/18/16 02:30 100 18 126/73 95 Nasal Cannula 2.0 04/18/16 02:01 37.9 04/18/16 01:29 98 18 122/63 95 Nasal Cannula 2.0 04/18/16 00:21 38.6 04/18/16 00:21 104 16 147/69 98 Nasal Cannula 2.0 04/17/16 23:50 108 20 98 Nasal Cannula 2.0 04/17/16 23:02 95 Nasal Cannula 2.0 04/17/16 23:02 116 04/17/16 22:58 39.5 115 18 165/77 88 Room Air Physical Exam GENERAL: Patient is awake, alert, very anxious appearing but comfortable. EYES: The conjunctivae are clear. The pupils are round and reactive. EARS, NOSE, MOUTH AND THROAT: The nose is without any evidence of any deformity. Mucous membranes are dry NECK: The neck is nontender and supple. RESPIRATORY: Lung sounds were diminished throughout. There were scattered rhonchi noted. Tachypnea was noted. CARDIOVASCULAR: Regular rate and rhythm noted there no murmurs rubs or gallops normal S1 normal S2 GASTROINTESTINAL: The abdomen is soft. Bowel sounds are present in all quadrants. Abdomen is nontender MUSCULOSKELETAL/EXTREMITIES: There is no evidence of gross deformity full range of motion is noted in the hips and shoulders SKIN: There is no obvious evidence of any rash. There are no petechiae, pallor or cyanosis noted. NEUROLOGIC: Patient is awake alert and oriented x3 Medical Decision & Procedures ER Provider Diagnostic Interpretation: X-ray results as stated below per interpretation by me. Chest x-ray: No definite infiltrate. Atelectasis was noted at both bases. Heart size is normal. No free air. No change from 02/16/2016. Laboratory Results 04/17/16 23:30 Red Blood Count 4.25, Mean Corpuscular Volume 87.8, Mean Corpuscular Hemoglobin 27.3, Mean Corpuscular Hemoglobin Concent 31.1, Mean Platelet Volume 8.4, Neutrophils (%) (Auto) 70.2, Lymphocytes (%) (Auto) 14.0, Monocytes (%) (Auto) 11.6, Eosinophils (%) (Auto) 3.8, Basophils (%) (Auto) 0.2, Neutrophils # (Auto ) 4.26, Lymphocytes # (Auto) 0.85, Monocytes # (Auto) 0.70, Eosinophils # (Auto ) 0.23, Basophils # (Auto) 0.01 04/17/16 23:30 Test 04/17/16 23:28 04/17/16 23:30 04/18/16 00:30 04/18/16 00:50 Bedside Lactic Acid Venous 1.12 mmol/L (0.90-1.70) White Blood Count 6.06 K/uL (4.8-10.8) Red Blood Count 4.25 M/uL (4.2-5.4) Hemoglobin 11.6 g/dL (12.0-16.0) Hematocrit 37.3 % (37-47) Mean Corpuscular Volume 87.8 fL (80-100) Mean Corpuscular Hemoglobin 27.3 pg (25-34) Mean Corpuscular Hemoglobin Concent 31.1 g/dl (32-36) Platelet Count 183 K/uL (130-400) Mean Platelet Volume 8.4 fL (7.4-10.4) Neutrophils (%) (Auto) 70.2 % Lymphocytes (%) (Auto) 14.0 % Monocytes (%) (Auto) 11.6 % Eosinophils (%) (Auto) 3.8 % Basophils (%) (Auto) 0.2 % Neutrophils # (Auto) 4.26 K/uL (1.4-6.5) Lymphocytes # (Auto) 0.85 K/uL (1.2-3.4) Monocytes # (Auto) 0.70 K/uL (0.11-0.59) Eosinophils # (Auto) 0.23 K/uL (0-0.5) Basophils # (Auto) 0.01 K/uL (0-0.2) RDW Standard Deviation 50.5 fL (36.4-46.3) RDW Coefficient of Variation 15.7 % (11.5-14.5) Immature Granulocyte % (Auto) 0.2 % Immature Granulocyte # (Auto) 0.01 K/uL (0.00-0.02) Erythrocyte Sedimentation Rate 58 mm/hr (0-21) Prothrombin Time 10.7 SECONDS (9.0-12.0) Prothromb Time International Ratio 1.0 (0.9-1.1) Activated Partial Thromboplast Time 27.3 SECONDS (21.0-31.0) Partial Thromboplastin Ratio 1.1 Venous Blood pH 7.45 (7.36-7.41) Venous Blood Partial Pressure CO2 47 mmHg (38.0-50.0) Venous Blood Partial Pressure O2 32 mmHg Venous Blood HCO3 32 mmol/L Venous Blood Oxygen Saturation 63.1 % Venous Blood Base Excess 7.1 mmol/L Anion Gap 9.0 mmol/L (3-11) Est Creatinine Clear Calc Drug Dose 63.7 ml/min Estimated GFR () 84.9 Estimated GFR (Non- 73.2 BUN/Creatinine Ratio 10.1 (10-20) Calcium Level 8.7 mg/dl (8.5-10.1) Phosphorus Level 2.1 mg/dl (2.5-4.9) Magnesium Level 1.8 mg/dl (1.8-2.4) Total Bilirubin 0.4 mg/dl (0.2-1) Aspartate Amino Transf (AST/SGOT) 20 U/L (15-37) Alanine Aminotransferase (ALT/SGPT) 17 U/L (12-78) Alkaline Phosphatase 75 U/L (45-117) Total Creatine Kinase 32 U/L (26-192) Creatine Kinase MB < 0.5 ng/ml (0.5-3.6) Creatine Kinase MB Ratio (0-3.0) Troponin I < 0.015 ng/ml (0-0.045) C-Reactive Protein 3.61 mg/dl (0-0.29) Pro-B-Type Natriuretic Peptide 252 pg/ml (0-900) Total Protein 7.3 gm/dl (6.4-8.2) Albumin 3.2 gm/dl (3.4-5.0) Globulin 4.1 gm/dl (2.5-4.0) Albumin/Globulin Ratio 0.8 (0.9-2) Lipase 79 U/L (73-393) Influenza Type A Antigen Neg for Influ A (NEG) Influenza Type B Antigen Neg for Influ B (NEG) Urine Color YELLOW Urine Appearance CLEAR (CLEAR) Urine pH 8.0 (4.5-7.5) Urine Specific [place] 1.007 (1.000-1.030) Urine Protein NEG (NEG) Urine Glucose (UA) NEG (NEG) Urine Ketones NEG (NEG) Urine Occult Blood NEG (NEG) Urine Nitrite NEG (NEG) Urine Bilirubin NEG (NEG) Urine Urobilinogen NEG (NEG) Urine Leukocyte Esterase NEG (NEG) Urine WBC (Auto) 0 /hpf (0-5) Urine RBC (Auto) 0-4 /hpf (0-4) Urine Hyaline Casts (Auto) 0 /lpf (0-5) Urine Epithelial Cells (Auto) 0-5 /lpf (0-5) Urine Bacteria (Auto) NEG (NEG) Laboratory results per my review. Medications Administered Medications (Trade) Dose Ordered Sig/Larry Route Start Time Stop Time Status Last Admin Dose Admin Sodium Chloride (Nss 1000ml) 1,000 ml @ 999 mls/hr Q1H1M ONCE IV 04/17/16 23:08 04/18/16 00:08 DC 04/17/16 23:25 999 MLS/HR Acetaminophen (Tylenol Tab) 1,000 mg NOW STAT PO 04/17/16 23:08 04/17/16 23:09 DC 04/17/16 23:26 1,000 MG Levofloxacin (Levaquin / D5W) 750 mg NOW STAT IV 04/18/16 01:26 04/18/16 01:27 DC 04/18/16 01:33 750 MG ECG Indication: tachycardia Rate (beats per minute): 115 Rhythm: sinus tachycardia Findings: Q waves (Inferior), no ectopy, other (no acute ST segment abnormalities) Comparison ECG Date: 02/16/16 Change: no significant change ED Course 2307: The patient was evaluated in room A3. A complete history and physical examination were performed. Ordered Tylenol Tab 1000 mg PO, NSS 1000 ml @ 999 mls/hr IV. 0126: Ordered Levofloxacin 750 mg IV. 0206: Upon reevaluation, the patient is resting comfortably. I discussed results and treatment plan with the patient. She verbalizes agreement and understanding. I spoke with Dr. Sheldon of the [facility] Hospitalist Service. The patient will be evaluated for further management and care. Medical Decision Prior records/ancillary studies reviewed. Triage Nursing notes reviewed. The patient's history was concerning for fever. Differential diagnosis: Etiologies such as viral syndrome, otitis, pharyngitis, pneumonia, influenza, meningitis, urinary tract infection, sepsis, bacteremia, as well as others were entertained. The patient is a 75-year-old female who presented to the emergency department for an evaluation of fever. The patient had a fever and cough. She also had hypoxia. Clinically she may be suffering from pneumonia but her chest x-ray did not appear to show any definite infiltrate. The patient was treated with IV fluids Tylenol and IV antibiotic. On subsequent reevaluation she was somewhat improved. She was placed on supple and oxygen and her oxygen saturation was acceptable. I discussed the patient's laboratory and radiographic studies with her. I also discussed his case with the on-call [facility] hospitalist. They' ve agreed to evaluate the patient in the emergency department for further management and disposition. Consults Time Called: [phone] Consulting Physician: Dr. Sheldon - [facility] Hospitalist Returned Call: [phone] I discussed the case with him. The patient will be evaluated for further management. Impression Primary Impression: Acute bronchitis Additional Impressions: Fever Hypoxia Scribe Attestation The scribe's documentation has been prepared under my direction and personally reviewed by me in its entirety. I confirm that the note above accurately reflects all work, treatment, procedures, and medical decision making performed by me. Departure Information Dispostion Being Evaluated By Hospitalist Referrals Kalie Bauer M.D. (PCP) Patient Instructions My [facility] Problem Qualifiers
[2016-04-17 23:45] LABS: BASO % 0.2 %; BASO ABS # 0.01 K/uL (0-0.2); COMPLETE YES; EOS % 3.8 %; HEMATOCRIT 37.3 % (37-47); IG% 0.2 %; LYMPH ABS # 0.85 K/uL (1.2-3.4); MEAN CELL VOLUME 87.8 fL (80-100); MEAN CORPUSCULAR HEMOGLOBIN 27.3 pg (25-34); MEAN CORPUSCULAR HGB CONC 31.1 g/dl (32-36); MEAN PLATELET VOLUME 8.4 fL (7.4-10.4); MONO % 11.6 %; NEUT % 70.2 %; PLATELET COUNT 183 K/uL (130-400); RED BLOOD COUNT 4.25 M/uL (4.2-5.4); WHITE BLOOD COUNT 6.06 K/uL (4.8-10.8)
[2016-04-17 23:52] LABS: VEN BLD GAS O2 SATURATION 63.1 %; VEN BLOOD GAS BASE EXCESS 7.1 mmol/L; VENOUS BLOOD GAS PCO2 47 mmHg (38.0-50.0); VENOUS BLOOD GAS PO2 32 mmHg
[2016-04-18 00:03] LABS: ALT/SGPT 17 U/L (12-78); BLOOD UREA NITROGEN 8 mg/dl (7-18); BUN/CREATININE RATIO 10.1 (10-20); C-REACTIVE PROTEIN 3.61 mg/dl (0-0.29); CALCIUM 8.7 mg/dl (8.5-10.1); CARBON DIOXIDE 28 mmol/L (21-32); CHLORIDE 103 mmol/L (98-107); CREATININE 0.79 mg/dl (0.60-1.20); GLUCOSE 97 mg/dl (70-99); MAGNESIUM 1.8 mg/dl (1.8-2.4); PARTIAL THROMBOPLASTIN RATIO 1.1; POTASSIUM 3.7 mmol/L (3.5-5.1); PROTHROMBIN TIME (PATIENT) 10.7 SECONDS (9.0-12.0); SODIUM 140 mmol/L (136-145)
[2016-04-18 00:06] LABS: ALB/GLOB RATIO 0.8 (0.9-2); ALKALINE PHOSPHATASE 75 U/L (45-117); AST/SGOT 20 U/L (15-37); PHOSPHORUS 2.1 mg/dl (2.5-4.9)
[2016-04-18 01:07] LABS: URINE APPEARANCE CLEAR (CLEAR); URINE BILIRUBIN NEG (NEG); URINE COLOR YELLOW; URINE EPITHELIAL CELL AUTO 0-5 /lpf (0-5); URINE NITRITE NEG (NEG); URINE SPECIFIC GRAVITY 1.007 (1.000-1.030); UROBILINOGEN NEG (NEG); ZZUR CULT IF INDIC CLEAN CATCH NO
[2016-04-18 01:10] LABS: MANUAL MICROSCOPIC REQUIRED? NO; REVIEW REQ? NO
[2016-04-18] MEDS ORDERED: LEVAQUIN 750MG / 150ML D5W IV STA (01:26)
[2016-04-18] MEDS ORDERED: FNTTP50 TD (01:48)
[2016-04-18] MEDS ORDERED: OMEP40CA41 PO (01:54)
[2016-04-18] MEDS ORDERED: PRED1SUS3 OPB (01:54)
[2016-04-18] MEDS ORDERED: OXYC7.5T66 PO (01:57)
[2016-04-18] MEDS ORDERED: ALBUTEROL 0.083% NEBU SOLN 3 ML VIAL INH PRN (02:00)
[2016-04-18] MEDS ORDERED: ONDANSETRON INJ 2 MG/ML 2 ML VIAL IV PRN (02:00)
[2016-04-18] MEDS ORDERED: BISACODYL 10 MG SUPP PR PRN (02:00)
[2016-04-18] MEDS ORDERED: ALUMINUM/MAGNESIUM/SIMETH (MAALOX MAX) 30 ML UDC PO PRN (02:00)
[2016-04-18] MEDS ORDERED: OXYCODONE/ACETAMINOPHEN 7.5-325 TAB PO PRN (02:00)
[2016-04-18] MEDS ORDERED: MAGNESIUM HYDROXIDE SUSP 30 ML UDC PO PRN (02:00)
[2016-04-18] MEDS ORDERED: ACETAMINOPHEN 325 MG TAB PO PRN (02:00)
[2016-04-18] MEDS ORDERED: POLYETHYLENE (MIRALAX) 17 GM PACK PO PRN (02:00)
[2016-04-18] MEDS ORDERED: TRAMADOL HCL 50 MG TAB PO PRN (02:00)
[2016-04-18] MEDS ORDERED: CALCIUM CARBONATE 500 MG CHEWABLE PO PRN (02:00)
--- NOTE | 2016-04-18 02:21 | History and Physical ---
History & Physical Date & Time of Service: Apr 18, 2016 at 02:09 Chief Complaint: FEVER Primary Care Physician: Kalie Bauer M.D. History of Present Illness Source: patient 75 y/o F Hx COPD, HTN, adrenal insufficiency - presents with high fever and weakness from a nursing facility. Pt had not complained of excessive SOB but had an oxygen sat of 84% on arrival to the ER. She denied a productive cough. Denies N/V, diarrhea or dysuria. She had difficulty ambulating and needed assistance transferring due to the degree of weakness she was feeling. There is no pneumonia or clear focus of infection on initial evaluation or imaging. The pt is difficult to interview due to multiple tangential complaints. She was for example focusing on recent pain and numbness in her distal upper extremities. She wears a fentanyl patch for what she states is "constant pain all over my body". 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 (6) Hypertension Nos Status: Chronic (7) Mood disorder Status: Chronic Surgical Problems: (1) Hx of tonsillectomy Status: Chronic Family History Diabetes mellitus Lung cancer Pancreatic cancer FATHER Social History Smoking Status: Never Smoker Drug Use: none Marital Status: Housing status: residential Occupational Status: retired Multi-Drug Resistant Organisms History of MDRO: No Allergies Coded Allergies: No Known Allergies (Unverified , 04/18/16) Home Medications Scheduled Amlodipine (Norvasc), 10 MG PO QAM Ascorbic Acid (Vitamin C), 500 MG PO DAILY Carboxymethylcellulose Sodium (Refresh Tears), 1 DROP OPB QID Clonazepam (Klonopin), 0.5 MG PO HS Docusate Sodium (Colace), 1 CAP PO BID Ergocalciferol (Vitamin D), 50,000 INTERUNIT PO weekly Fentanyl (Duragesic), 50 MCG TD CQ72HR Ferrous Sulfate (Ferrous Sulfate), 325 MG PO TIDM Fish Oil ([place]-3), 1,000 MG PO DAILY@1700 Fluoxetine (Prozac), 40 MG PO DAILY Folic Acid (Folvite), 1 TAB PO DAILY@1700 Gabapentin (Neurontin), 600 MG PO TID Ibandronate Sodium (Boniva), 150 MG PO MONTHLY Ibuprofen (Motrin), 600 MG PO TIDM Lactulose (Chronulac), 15 ML PO TID Mirtazapine Soltab (Remeron Soltab), 30 MG PO HS Omeprazole (Prilosec), 40 MG PO DAILY Prednisolone Acetate (Ophth) (Pred Forte 1% Oph), 1 DROPS OPB DAILY Prednisone (Prednisone), 1 MG PO DAILY Scheduled PRN Bisacodyl (Bisac-Evac), 1 SUPP RE DAILY PRN for Constipation Buspirone Hcl (Buspar), 7.5 MG PO BID PRN for Anxiety Calcium Carbonate (Antacid) (Chewable Antacid), 500-1,000 MG PO Q4 PRN for Heartburn Oxycodone/Acetaminophen 7.5MG/325MG (Oxycodone/Acetaminophen 7.5MG/325MG), 1 TAB PO TID PRN for Pain Suvorexant (Belsomra), 5-15 MG PO HS PRN for Insomnia Tramadol (Ultram), 50 MG PO Q6H PRN for Pain Review of Systems Constitutional: + chills, + fatigue, + fever, + sweats, + weakness, No weight loss Eyes: No eye pain, No worsening of vision ENT: No hearing loss, No nasal symptoms, No unusual epistaxis Respiratory: No cough, No dyspnea at rest, No dyspnea on exertion, No shortness of breath, No sputum, No wheezing Cardiovascular: No PND, No chest pain, No orthopnea Abdomen: No nausea, No pain, No vomiting Musculoskeletal: + joint pain, + muscle pain (chronic) Genitourinary - Female: No dysuria, No urinary frequency, No urinary urgency Neurologic: No memory loss, No paralysis, No weakness Psychiatric: No depression symptoms Endocrine: No fatigue Hematologic / Lymphatic: No abnormal bleeding/bruising Integumentary: No rash Allergic / Immunologic: No environmental allergies Physical Exam Vital Signs Date Time Temp Pulse Resp B/P Pulse Ox O2 Delivery O2 Flow Rate FiO2 04/18/16 02:01 37.9 04/18/16 01:29 98 18 122/63 95 Nasal Cannula 2.0 04/18/16 00:21 38.6 04/18/16 00:21 104 16 147/69 98 Nasal Cannula 2.0 04/17/16 23:50 108 20 98 Nasal Cannula 2.0 04/17/16 23:02 95 Nasal Cannula 2.0 04/17/16 23:02 116 04/17/16 22:58 39.5 115 18 165/77 88 Room Air General Appearance: WD/WN, no apparent distress Head: normocephalic, atraumatic Eyes: normal inspection, PERRL, EOMI ENT: normal ENT inspection, hearing grossly normal Neck: supple, no JVD Respiratory/Chest: chest non-tender, no respiratory distress, no accessory muscle use, + decreased breath sounds Cardiovascular: regular rate, rhythm, no edema, no gallop, no JVD Abdomen/GI: normal bowel sounds, non tender, soft Back: normal inspection Extremities/Musculoskelatal: normal inspection, no calf tenderness, normal capillary refill, no pedal edema, normal range of motion 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: 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, no motor/sensory deficits, alert, normal reflexes, oriented x 3, + depressed affect Skin: normal color, warm/dry, no rash Diagnostics Laboratory Results Results Past 24 Hours Test 04/17/16 23:28 04/17/16 23:30 04/18/16 00:30 04/18/16 00:50 Range/Units Bedside Lactic Acid Venous 1.12 0.90-1.70 mmol/L White Blood Count 6.06 4.8-10.8 K/uL Red Blood Count 4.25 4.2-5.4 M/uL Hemoglobin 11.6 12.0-16.0 g/dL Hematocrit 37.3 37-47 % Mean Corpuscular Volume 87.8 80-100 fL Mean Corpuscular Hemoglobin 27.3 25-34 pg Mean Corpuscular Hemoglobin Concent 31.1 32-36 g/dl Platelet Count 183 130-400 K/uL Mean Platelet Volume 8.4 7.4-10.4 fL Neutrophils (%) (Auto) 70.2 % Lymphocytes (%) (Auto) 14.0 % Monocytes (%) (Auto) 11.6 % Eosinophils (%) (Auto) 3.8 % Basophils (%) (Auto) 0.2 % Neutrophils # (Auto) 4.26 1.4-6.5 K/uL Lymphocytes # (Auto) 0.85 1.2-3.4 K/uL Monocytes # (Auto) 0.70 0.11-0.59 K/uL Eosinophils # (Auto) 0.23 0-0.5 K/uL Basophils # (Auto) 0.01 0-0.2 K/uL RDW Standard Deviation 50.5 36.4-46.3 fL RDW Coefficient of Variation 15.7 11.5-14.5 % Immature Granulocyte % (Auto) 0.2 % Immature Granulocyte # (Auto) 0.01 0.00-0.02 K/uL Erythrocyte Sedimentation Rate 58 0-21 mm/hr Prothrombin Time 10.7 9.0-12.0 SECONDS Prothromb Time International Ratio 1.0 0.9-1.1 Activated Partial Thromboplast Time 27.3 21.0-31.0 SECONDS Partial Thromboplastin Ratio 1.1 Venous Blood pH 7.45 7.36-7.41 Venous Blood Partial Pressure CO2 47 38.0-50.0 mmHg Venous Blood Partial Pressure O2 32 mmHg Venous Blood HCO3 32 mmol/L Venous Blood Oxygen Saturation 63.1 % Venous Blood Base Excess 7.1 mmol/L Sodium Level 140 136-145 mmol/L Potassium Level 3.7 3.5-5.1 mmol/L Chloride Level 103 98-107 mmol/L Carbon Dioxide Level 28 21-32 mmol/L Anion Gap 9.0 3-11 mmol/L Blood Urea Nitrogen 8 7-18 mg/dl Creatinine 0.79 0.60-1.20 mg/dl Est Creatinine Clear Calc Drug Dose 63.7 ml/min Estimated GFR () 84.9 Estimated GFR (Non- 73.2 BUN/Creatinine Ratio 10.1 10-20 Random Glucose 97 70-99 mg/dl Calcium Level 8.7 8.5-10.1 mg/dl Phosphorus Level 2.1 2.5-4.9 mg/dl Magnesium Level 1.8 1.8-2.4 mg/dl Total Bilirubin 0.4 0.2-1 mg/dl Aspartate Amino Transf (AST/SGOT) 20 15-37 U/L Alanine Aminotransferase (ALT/SGPT) 17 12-78 U/L Alkaline Phosphatase 75 45-117 U/L Total Creatine Kinase 32 26-192 U/L Creatine Kinase MB < 0.5 0.5-3.6 ng/ml Creatine Kinase MB Ratio 0-3.0 Troponin I < 0.015 0-0.045 ng/ml C-Reactive Protein 3.61 0-0.29 mg/dl Pro-B-Type Natriuretic Peptide 252 0-900 pg/ml Total Protein 7.3 6.4-8.2 gm/dl Albumin 3.2 3.4-5.0 gm/dl Globulin 4.1 2.5-4.0 gm/dl Albumin/Globulin Ratio 0.8 0.9-2 Lipase 79 73-393 U/L Influenza Type A Antigen Neg for Influ A NEG Influenza Type B Antigen Neg for Influ B NEG Urine Color YELLOW Urine Appearance CLEAR CLEAR Urine pH 8.0 4.5-7.5 Urine Specific [place] 1.007 1.000-1.030 Urine Protein NEG NEG Urine Glucose (UA) NEG NEG Urine Ketones NEG NEG Urine Occult Blood NEG NEG Urine Nitrite NEG NEG Urine Bilirubin NEG NEG Urine Urobilinogen NEG NEG Urine Leukocyte Esterase NEG NEG Urine WBC (Auto) 0 0-5 /hpf Urine RBC (Auto) 0-4 0-4 /hpf Urine Hyaline Casts (Auto) 0 0-5 /lpf Urine Epithelial Cells (Auto) 0-5 0-5 /lpf Urine Bacteria (Auto) NEG NEG Microbiology Results 04/17/16 Blood Culture, Received Pending 04/17/16 Blood Culture, Received Pending Diagnostic Radiology CXR: COPD - no well defined infiltrate EKG Sinus tach Impression Assessment and Plan 75 y/o F Hx COPD, HTN, adrenal insufficiency - presents with high fever and hypoxia form a nursing facility. Pt had not complained of excessive SOB but had an oxygen sat of 84% on arrival to the ER. She denied a productive cough. Denies N/V, diarrhea or dysuria. There is no pneumonia or clear focus of infection on initial evaluation. 1) Fever - no clear source - Influ PCR pending - initial rapid test was negative , UA negative - noncontrast chest CT pending - pt received one dose of Levaquin in the ER - would await CT and culture results prior to additional dosing. It is also noted that the pt is on multiple psychoactive meds so that development of neuroleptic or serotonergic syndrome should be included in the differential if infection is ruled out. We will check a CK. 2) COPD - hypoxia - despite low 02 she has not complained of SOB - will provide breathing treatments and place pt on an 02 protocol - she is maintaining a sat of over 92% on 4l. She is not currently wheezing but will receive steroids regardless due to her adrenal insufficiency 3) Adrenal insufficiency - will increase prednisone dose due to acute illness 4) HTN - cont Norvasc Full code - Lovenox prophylaxis Total time for this admit including review of records, labs, meds, imaging - discussion with pt and ER MD - 35 min 5) Chronic pain - cont ROJELIO, Percocet, Fentanyl per home dose Level of Care Med/Surg Resuscitation Status FULL RESUSCITATION VTE Prophylaxis VTE Risk Assessment Done? Y/N: Yes Risk Level: Moderate Given or contraindicated: Enoxaparin (Lovenox)SQ
[2016-04-18 02:39] LABS: INFLUENZA A PCR Neg for Influ A (NEG); INFLUENZA B PCR Neg for Influ B (NEG)
[2016-04-18 03:54] VITALS: BP 124/80; PULSE 97; TEMP 36.6; O2SAT 92; Ht 160 cm; Wt 84.3 kg
--- NOTE | 2016-04-18 06:18 | DIAGNOSTIC IMAGING REPORT ---
CHEST ONE VIEW PORTABLE CLINICAL HISTORY: Sepsis fever COMPARISON STUDY: 03/27/2016 FINDINGS: The bones soft tissues and hemidiaphragms are normal. The cardiomediastinal silhouette is normal. The lungs are clear. The pulmonary vasculature is normal. IMPRESSION: Negative chest. Electronically signed by: John Smith M.D. 04/18/2016 6:17 AM Dictated Date/Time: 04/18/2016 6:17 AM
--- NOTE | 2016-04-18 06:33 | DIAGNOSTIC IMAGING REPORT ---
CHEST CT WITHOUT CONTRAST CT DOSE: 243.94 mGy.cm HISTORY: Dyspnea occult pneumonia TECHNIQUE: Multiaxial CT images of the chest were performed without contrast. COMPARISON: 02/16/2016 FINDINGS: Minimal right perihilar parenchymal infiltrative change. Minimal right middle lobe involvement. Minimal dependent bibasilar atelectatic change. Degenerative change thoracic spine. Mild distal esophageal wall thickening associated with a small lateral hernia. IMPRESSION: 1. Minimal parenchymal infiltrative change right perihilar and right middle lobe regions. 2. Minimal dependent bibasilar atelectatic change. 3. Mild wall thickening distal esophagus associated with a small hiatal hernia. Electronically signed by: John Smith M.D. 04/18/2016 6:32 AM Dictated Date/Time: 04/18/2016 6:30 AM
[2016-04-18 07:23] VITALS: BP 133/74; PULSE 85; TEMP 37.1; O2SAT 94
[2016-04-18] MEDS: ALBUT/IPRATROP 3MG/0.5MG NEB 3 ML VIAL INH SCH ×3 (07:39→19:29)
[2016-04-18] MEDS: FENTANYL PATCH REMOVE & WASTE SCH (07:59)
[2016-04-18 08:00] VITALS: O2SAT 94
[2016-04-18] MEDS: FERROUS SULFATE 325 MG TAB PO SCH ×3 (08:00→17:14)
[2016-04-18] MEDS: POT PHOSPHATE MONOBASIC W/ SOD TAB PO SCH ×4 (08:00→19:52)
[2016-04-18] MEDS ORDERED: LACTULOSE SYRUP 10 GM/15 ML BTL 473 ML PO SCH ×2 (08:00→14:00)
--- NOTE | 2016-04-18 08:02 | Hospitalist Progress Note ---
Hospitalist Progress Note Date of Service Apr 18, 2016. (Janki Fernandez PA-C) Subjective Pt evaluation today including: conversation w/ patient, physical exam, chart review (f), lab review, review of studies, review of inpatient medication list Pain: Moderate, generalized PO Intake: Fair Voiding: no voiding problems The patient was seen and examined this morning. Pt reports feeling extremely weak with pain everywhere. She reports hx of fibromyalgia and chronic pain and says she can barely more. Pt has been admitted 3 times in the past 2 months for similar presentation of weakness dx with pna. Constitutional: + chills, + fatigue, + fever, + sweats, + weakness All Other Systems: Reviewed and Negative (other than in HPI. Essentially unchanged from H&P.) (Janki Fernandez PA-C) Objective Vital Signs Date Time Temp Pulse Resp B/P Pulse Ox O2 Delivery O2 Flow Rate FiO2 04/18/16 07:23 37.1 85 20 133/74 94 Nasal Cannula 2.0 04/18/16 03:54 36.6 97 28 124/80 92 Nasal Cannula 2.0 04/18/16 02:30 100 18 126/73 95 Nasal Cannula 2.0 04/18/16 02:01 37.9 04/18/16 01:29 98 18 122/63 95 Nasal Cannula 2.0 04/18/16 00:21 38.6 04/18/16 00:21 104 16 147/69 98 Nasal Cannula 2.0 04/17/16 23:50 108 20 98 Nasal Cannula 2.0 04/17/16 23:02 95 Nasal Cannula 2.0 04/17/16 23:02 116 04/17/16 22:58 39.5 115 18 165/77 88 Room Air (Janki Fernandez PA-C) Physical Exam General Appearance: WD/WN, no apparent distress, + obese Eyes: PERRL, EOMI ENT: hearing grossly normal, pharynx normal Neck: supple, no adenopathy, no JVD Respiratory/Chest: lungs clear, normal breath sounds, no respiratory distress, no accessory muscle use, + pertinent finding (wearing 2 L O2 via NC) Cardiovascular: regular rate, rhythm, no murmur Abdomen: normal bowel sounds, non tender, soft Extremities: non-tender, no calf tenderness, + pedal edema (2+ pitting up to knees bilaterally) 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iatric: alert, oriented x 3, + depressed affect Skin: normal color, warm/dry (Janki Fernandez, MARQUIS) Laboratory Results Last 24 Hours Test 04/17/16 23:28 04/17/16 23:30 04/18/16 00:30 04/18/16 00:50 Bedside Lactic Acid Venous 1.12 mmol/L White Blood Count 6.06 K/uL Red Blood Count 4.25 M/uL Hemoglobin 11.6 g/dL Hematocrit 37.3 % Mean Corpuscular Volume 87.8 fL Mean Corpuscular Hemoglobin 27.3 pg Mean Corpuscular Hemoglobin Concent 31.1 g/dl Platelet Count 183 K/uL Mean Platelet Volume 8.4 fL Neutrophils (%) (Auto) 70.2 % Lymphocytes (%) (Auto) 14.0 % Monocytes (%) (Auto) 11.6 % Eosinophils (%) (Auto) 3.8 % Basophils (%) (Auto) 0.2 % Neutrophils # (Auto) 4.26 K/uL Lymphocytes # (Auto) 0.85 K/uL Monocytes # (Auto) 0.70 K/uL Eosinophils # (Auto) 0.23 K/uL Basophils # (Auto) 0.01 K/uL RDW Standard Deviation 50.5 fL RDW Coefficient of Variation 15.7 % Immature Granulocyte % (Auto) 0.2 % Immature Granulocyte # (Auto) 0.01 K/uL Erythrocyte Sedimentation Rate 58 mm/hr Prothrombin Time 10.7 SECONDS Prothromb Time International Ratio 1.0 Activated Partial Thromboplast Time 27.3 SECONDS Partial Thromboplastin Ratio 1.1 Venous Blood pH 7.45 Venous Blood Partial Pressure CO2 47 mmHg Venous Blood Partial Pressure O2 32 mmHg Venous Blood HCO3 32 mmol/L Venous Blood Oxygen Saturation 63.1 % Venous Blood Base Excess 7.1 mmol/L Sodium Level 140 mmol/L Potassium Level 3.7 mmol/L Chloride Level 103 mmol/L Carbon Dioxide Level 28 mmol/L Anion Gap 9.0 mmol/L Blood Urea Nitrogen 8 mg/dl Creatinine 0.79 mg/dl Est Creatinine Clear Calc Drug Dose 63.7 ml/min Estimated GFR () 84.9 Estimated GFR (Non- 73.2 BUN/Creatinine Ratio 10.1 Random Glucose 97 mg/dl Calcium Level 8.7 mg/dl Phosphorus Level 2.1 mg/dl Magnesium Level 1.8 mg/dl Total Bilirubin 0.4 mg/dl Aspartate Amino Transf (AST/SGOT) 20 U/L Alanine Aminotransferase (ALT/SGPT) 17 U/L Alkaline Phosphatase 75 U/L Total Creatine Kinase 32 U/L Creatine Kinase MB < 0.5 ng/ml Creatine Kinase MB Ratio Troponin I < 0.015 ng/ml C-Reactive Protein 3.61 mg/dl Pro-B-Type Natriuretic Peptide 252 pg/ml Total Protein 7.3 gm/dl Albumin 3.2 gm/dl Globulin 4.1 gm/dl Albumin/Globulin Ratio 0.8 Lipase 79 U/L Influenza Type A (RT-PCR) Neg for Influ A Influenza Type A Antigen Neg for Influ A Influenza Type B Antigen Neg for Influ B Influenza Type B (RT-PCR) Neg for Influ B Urine Color YELLOW Urine Appearance CLEAR Urine pH 8.0 Urine Specific [place] 1.007 Urine Protein NEG Urine Glucose (UA) NEG Urine Ketones NEG Urine Occult Blood NEG Urine Nitrite NEG Urine Bilirubin NEG Urine Urobilinogen NEG Urine Leukocyte Esterase NEG Urine WBC (Auto) 0 /hpf Urine RBC (Auto) 0-4 /hpf Urine Hyaline Casts (Auto) 0 /lpf Urine Epithelial Cells (Auto) 0-5 /lpf Urine Bacteria (Auto) NEG (Janki Fernandez, MARQUIS) Assessment and Plan 75 y/o F Hx COPD, HTN, adrenal insufficiency - presents with high fever and weakness from [facility]. RLL Pneumonia, meets SEPSIS criteria COPD - Initially tachycardic, hypoxic and febrile without known source now found to be pneumonia. - pt has been admitted now 3 times with similar presentation diagnosed with pneumonia, Nov 2015, Jan 2016 and now. - Rapid and PCR flu negative, UA negative. - Started on Levaquin, will continue for now. Will also start zosyn for possible MRSA since she has been admitted so many times in the past year. Follow MRSA swab. - Consult pulmonology for recommendations on recurrent pna. - Continue on IVFs - CXR obtained and reviewed. - CT chest: IMPRESSION: 1. Minimal parenchymal infiltrative change right perihilar and right middle lobe regions. 2. Minimal dependent bibasilar atelectatic change. 3. Mild wall thickening distal esophagus associated with a small hiatal hernia. - Pt with adequate sats on 2L O2. - She is not currently wheezing but will receive steroids regardless due to her adrenal insufficiency Adrenal insufficiency - will increase prednisone dose due to acute illness to 40 mg BID po HTN - cont Norvasc 10 mg QAM Chronic pain - cont ROJELIO, Percocet, Fentanyl 50 mcg per home dose DVT ppx: - Lovenox CODE STATUS: Full code (Janki Fernandez PA-C) Reviewed: Pt Seen/Exam by Me, STEFANIA Notes, Labs, RAD, EKG (Tahira Holley MD) History Agree with above PA HPI/ROS. I had a very length 30 min conversation with pt today about her long h/o chronic pain. She has pain all over but mostly in knees , back and neck, hands, breasts. Also has c/o profound fatigue worsening in the last 3-4 months which I pointed out corresponds to when she has been started on Duragesic patch and had escalating doses. She sleeps for 12 hours and then takes a morning nap till 10 AM. She has severe dry mouth and dry eyes. Pointed out these, again, are all side effects of chronic opioids. She says her QOL is a "1/10" due to her pain and fatigue. SHe saw Endocrine recently who said she does not have adrenal insufficiency, and has seen Rheum in the past who she states "wanted nothing to do with me," and told her she had OA. As for her current status, she was febrile, hypoxic, starting to cough now, and felt weaker than usual. This is her third PNA admission in the last 4 months. She does have a h/o having what sounds like a thoracentesis in the past during a previous PNA when she lived in [place]. She was never a smoker and has no secondhand smoke exposure, yet was told she had COPD when she lived in [place]. (Tahira Holley MD) All Other Systems: as per HPI and PA note (Tahira Holley MD) General Appearance: WD/WN, no apparent distress, obese Eye Exam: bilateral eye EOMI, bilateral eye other (watery discharge) Ears, Nose, Throat: hearing grossly normal, other (dry lips and mucus membranes ) Neck: trachea midline Respiratory: no respiratory distress, no accessory muscle use, crackles (at right base) Cardiovascular: regular rate, rhythm, no edema, no gallop, no murmur Gastrointestinal: normal bowel sounds, non tender, soft, no organomegaly, no pulsatile mass Extremities: normal inspection, no pedal edema, no calf tenderness 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iatric: alert, oriented x 3, depressed affect Skin Characteristics: normal color, warm/dry (Tahira Holley MD) Assessment/Plan Agree with above PA A/P with the following exceptions/additions: RML and right perihilar PNA, HCAP, recurrent PNA, Sepsis: Flu swab negative -Added on VANCO for MRSA coverage (not Zosyn as above), but also added Zosyn to cover for HCAP given multiple recent admissions as well as that she resides in an Assisted Living facility. -Continue triple therapy for abx for now and consider deescalating if can get sputum cx. -Consult Pulmonology given recurrent PNAs and persistent abnormalities on chest imaging -follow CBC -supplemental O2 prn Chronic pain, fatigue,FM- fatigue worked up by Endo as outpt and told she does not have Dwayne's but can remain on prednisone 1mg daily. Does have mild Fe- def anemia and is on po iron. Need to see if has had GI workup for anemia. Random cortisol 16 last fall and TSH normal 01/2016. Probably all related to her chronic opioid use -hemoccult stool -continue FeSO4 tabs -continue prednisone and giving stress dose now but decrease to 40mg once daily tomorrow -continue pain meds per home dosing-Fentanyl TD 50 and oxycodone/APAP 7.5/325 for breakthrough -continue gabapentin Lovenox for DVT proph (Tahira Holley MD)
[2016-04-18] MEDS: FENTANYL 50 MCG/HR TDSY TD SCH (09:46)
[2016-04-18] MEDS: PrednisoLONE ACET 1% OP SUSP 5 ML BTL OPB SCH (09:47)
[2016-04-18] MEDS: GABAPENTIN 600 MG TAB PO SCH ×3 (09:48→19:52)
[2016-04-18] MEDS: FLUOXETINE HCL 20 MG CAP PO SCH (09:49)
[2016-04-18] MEDS: AMLODIPINE BESYLATE 5 MG TAB PO SCH (09:50)
[2016-04-18] MEDS: ENOXAPARIN 40 MG/0.4 ML SYR SQ SCH (09:51)
[2016-04-18] MEDS: DOCUSATE SODIUM 100 MG CAP PO SCH ×2 (09:53→19:50)
[2016-04-18] MEDS: SODIUM CHLORIDE 0.9% 1000ML 1,000 ML IV SCH ×2 (09:54→17:23)
[2016-04-18] MEDS ORDERED: PIPERACILL/TAZOBAC IV 4.5 GM in DEXTROSE 5% 100ML 100 ML IV ONE (13:00)
[2016-04-18] MEDS ORDERED: PIPERACILL/TAZOBAC CONSULT ACTIVE PRN (14:45)
[2016-04-18 15:10] VITALS: PULSE 92; O2SAT 92
[2016-04-18 15:23] VITALS: BP 129/71; PULSE 95; TEMP 36.8; O2SAT 94
[2016-04-18] MEDS ORDERED: ARTIFICIAL TEARS OP SOLN OP PRN ×2 (16:45)
[2016-04-18] MEDS ORDERED: VANCOMYCIN CONSULT ACTIVE PRN (17:00)
[2016-04-18] MEDS: CHECK FENTANYL PATCH PLACEMENT SCH ×2 (17:14→23:44)
[2016-04-18] MEDS: OMEGA-3 (PURIFIED FISH OIL) 1 GM CAP PO SCH (17:18)
[2016-04-18] MEDS ORDERED: VANCOMYCIN INJ 2,100 MG in SODIUM CHLORIDE 0.9% 500ML 500 ML IV SCH (17:30)
[2016-04-18] MEDS ORDERED: NURSING VERBAL MED ORDER ONE (18:15)
[2016-04-18 19:29] VITALS: PULSE 82; O2SAT 94
[2016-04-18] MEDS: LACTULOSE SYRUP 10 GM/15 ML BTL 473 ML PO SCH (19:48)
[2016-04-18] MEDS: BusPIRone 15 MG TAB PO PRN (19:55)
[2016-04-18] MEDS: PIPERACILL/TAZOBAC IV 3.375 GM in DEXTROSE 5% 100ML 100 ML IV SCH (20:00)
--- NOTE | 2016-04-18 20:39 | Pharmacy Progress Note ---
Pharmacy Antibiotic Consult Date of Service: Apr 18, 2016. Pharmacy Dosing Scope Pharmacy is consulted to initiate Vancomycin and Zosyn IV dosing therapy, order appropriate labs and adjust drug dose/frequency. Subjective The patient is a 75 year old female admitted on Apr 18, 2016 at 02:09. Objective Height (Feet): 5 Height (Inches): 3.00 Weight (Kilograms): 84.300 Lab Results (24hrs): Laboratory Tests Test 04/17/16 23:30 BUN/Creatinine Ratio 10.1 Blood Urea Nitrogen 8 mg/dl Creatinine 0.79 mg/dl White Blood Count 6.06 K/uL Red Blood Count 4.25 M/uL Hemoglobin 11.6 g/dL Hematocrit 37.3 % Mean Corpuscular Volume 87.8 fL Mean Corpuscular Hemoglobin 27.3 pg Mean Corpuscular Hemoglobin Concent 31.1 g/dl Platelet Count 183 K/uL Mean Platelet Volume 8.4 fL Neutrophils (%) (Auto) 70.2 % Lymphocytes (%) (Auto) 14.0 % Monocytes (%) (Auto) 11.6 % Eosinophils (%) (Auto) 3.8 % Basophils (%) (Auto) 0.2 % Neutrophils # (Auto) 4.26 K/uL Lymphocytes # (Auto) 0.85 K/uL Monocytes # (Auto) 0.70 K/uL Eosinophils # (Auto) 0.23 K/uL Basophils # (Auto) 0.01 K/uL Micro Results: Item Value Date Time MRSA DNA Surveillance Screen - Final Complete 04/18/16 1420 Nasal Specimen Negative for MRSA by DNA Probe Blood Culture Received 04/17/16 2332 Blood Pending Blood Culture Received 04/17/16 2330 Blood Pending Assessment & Plan * 75 yo female admitted with RLL PNA and meets sepsis criteria. Pt is a resident of [facility]. She has also had recent hospital admissions. * Begin Vancomycin, Zosyn, and Levaquin IV. Vancomycin: * Start loading dose of Vancomycin 2100 mg (25mg/kg) IV x 1 * Half life is estimated to be 12 hours. Will begin maintenance dose of Vancomycin 1250 mg (15mg/kg) IV u32pupco. * Pt's body habitus increases risk for drug accumulation. * Obtain a trough level prior to the 3rd maintenance dose on 04/20 at 1400. Goal trough 15-20 mcg/ml. Zosyn: * Pt received Zosyn 4.5gm IV x 1 bolus. * Will begin Zosyn 3.375gm IV q8h EI for BMI < 35, non-ICU status, and Crcl > 20 ml/min. Levaquin: * Per provider dosing. Pharmacy will continue to follow and will adjust dose/frequency as necessary. Thank you
[2016-04-18] MEDS: CLONAZEPAM 0.5 MG TAB PO SCH (21:43)
[2016-04-18] MEDS: MIRTAZAPINE SOLTAB 15 MG PO SCH (21:43)
[2016-04-19] VITALS (11 sets, daily range): BP systolic 98–151; BP diastolic 58–76; PULSE 75–89; TEMP 36.5–37; O2SAT 92–95
[2016-04-19] MEDS: ALBUT/IPRATROP 3MG/0.5MG NEB 3 ML VIAL INH SCH ×4 (02:10→19:35)
[2016-04-19] MEDS: LEVOFLOXACIN / D5W 750 MG in PREMIXED IN D5W 150 ML IV SCH (02:39)
[2016-04-19] MEDS: PIPERACILL/TAZOBAC IV 3.375 GM in DEXTROSE 5% 100ML 100 ML IV SCH ×3 (04:52→20:29)
[2016-04-19 07:57] LABS: COMPLETE YES; EOS % 0.3 %; HEMATOCRIT 30.9 % (37-47); LYMPH % 28.4 %; LYMPH ABS # 0.98 K/uL (1.2-3.4); MEAN CELL VOLUME 87.8 fL (80-100); MEAN CORPUSCULAR HGB CONC 30.7 g/dl (32-36); MEAN PLATELET VOLUME 8.4 fL (7.4-10.4); MONO % 16.8 %; NEUT % 54.5 %; PLATELET COUNT 148 K/uL (130-400); RED BLOOD COUNT 3.52 M/uL (4.2-5.4); WHITE BLOOD COUNT 3.45 K/uL (4.8-10.8)
[2016-04-19] MEDS: FERROUS SULFATE 325 MG TAB PO SCH ×2 (08:00→12:00)
[2016-04-19 08:36] LABS: ALT/SGPT 15 U/L (12-78); BLOOD UREA NITROGEN 10 mg/dl (7-18); BUN/CREATININE RATIO 13.6 (10-20); CARBON DIOXIDE 25 mmol/L (21-32); CHLORIDE 108 mmol/L (98-107); CREATININE 0.74 mg/dl (0.60-1.20); GLUCOSE 93 mg/dl (70-99); MAGNESIUM 2.3 mg/dl (1.8-2.4); POTASSIUM 3.4 mmol/L (3.5-5.1); SODIUM 145 mmol/L (136-145)
[2016-04-19] MEDS: SODIUM CHLORIDE 0.9% 1000ML 1,000 ML IV SCH (08:53)
[2016-04-19] MEDS: DOCUSATE SODIUM 100 MG CAP PO SCH ×2 (08:55→20:29)
[2016-04-19] MEDS: GABAPENTIN 600 MG TAB PO SCH ×3 (08:57→20:29)
[2016-04-19 08:58] LABS: ALKALINE PHOSPHATASE 55 U/L (45-117); AST/SGOT 14 U/L (15-37)
[2016-04-19] MEDS: POT PHOSPHATE MONOBASIC W/ SOD TAB PO SCH ×2 (08:58→13:54)
[2016-04-19] MEDS: FLUOXETINE HCL 20 MG CAP PO SCH (08:59)
[2016-04-19] MEDS: ENOXAPARIN 40 MG/0.4 ML SYR SQ SCH (09:00)
[2016-04-19] MEDS: PrednisoLONE ACET 1% OP SUSP 5 ML BTL OPB SCH (09:01)
[2016-04-19] MEDS: LACTULOSE SYRUP 10 GM/15 ML BTL 473 ML PO SCH ×3 (09:18→20:00)
[2016-04-19] MEDS: CHECK FENTANYL PATCH PLACEMENT SCH ×3 (09:18→23:09)
[2016-04-19] MEDS: BusPIRone 15 MG TAB PO PRN (09:38)
[2016-04-19] MEDS: VANCOMYCIN INJ 1,250 MG in SODIUM CHLORIDE 0.9% 250ML 250 ML IV SCH ×2 (10:47→23:54)
--- NOTE | 2016-04-19 13:27 | CONSULTATION REPORT ---
DATE OF CONSULTATION: 04/19/2016 REASON FOR CONSULTATION: Recurrent pneumonia. HISTORY OF PRESENT ILLNESS: The patient is a 75-year-old female with past medical history by report of COPD, hypertension, adrenal insufficiency, anxiety, depression, chronic pain, who presented to the hospital Emergency Room on 04/17/2016. She was brought to the Emergency Room from [facility] where she is currently residing. She was brought via ambulance due to hypoxia and low-grade fever. Fever was 103.7 which was her max temperature. Oxygen saturation was in the mid to upper 80% range on room air. Because of this, she was transported to [facility] via EMS. She also has been having complaints of shakiness and decreased appetite. She did have some ill contacts at [facility], which consisted of people who had influenza. Per the ER report, the patient states that she coughed about 3 times the evening that she came to the ER but did not have anything prior to that, did not really have a mucus. She had a workup in the ER which consisted of imaging including a chest x-ray which was essentially unremarkable. She had lab work done which showed a normal white count of 6000, H\T\H of 11.6 and 37.3. She had a venous blood gas done which showed a slightly elevated pH, otherwise unremarkable, pCO2 of 47, pO2 of 32, bicarbonate of 32. She did have flu titers done which were unremarkable. She had a lactic acid level of 1.12. It was felt the patient did have pneumonia, and because of her hypoxia and fever, she was admitted. This is the patient's third admission since January of 2016. Her last admission was 03/27/2016 through 03/29/2016. At that time, the patient was diagnosed with dehydration. When I spoke with the patient today, she states that she has not really been having any cough or wheezing. She has not had any shortness of breath that she is aware of. She did have fevers reported in the ER note with a maximum temperature of 103.7. She states she did feel a little bit shaky but was not bad and her appetite has been diminished. She has not had any nausea or vomiting, no indigestion or heartburn. She has not had any diarrhea. She has not had any dysuria. She has not had any swelling in her extremities. She reports that she is having some difficulty with fatigue. She states that the last 3 times she has been in the hospital, she has been feeling much more rundown and tired. She states this has been going on for about 2 months. She states they have done blood work on previous hospitalizations but have not really found a cause of her fatigue. In regard to her breathing, she states that she has not really noticed anything major. She states that approximately 2 months ago she started feeling a little bit short of breath with exertion and she is not sure why. She states that prior to that she has not really noticed any significant changes in her breathing. She states that she has been diagnosed with COPD but she does not know what the symptoms of COPD are. She states that she has never really had a cough. She has never really had wheezing. She has never really been short of breath. She has never really had chest congestion. She reports that she was followed in [place] for a while by pulmonology there but she does not remember his name. She states that this was approximately 15 years ago. She also states that she lived in [place] approximately 12-14 years ago and had a procedure done at a hospital there where they went in between her ribs to her lungs but she does not know what the procedure was and she does not recall them telling her what the results were. The patient is very frustrated at this time as she has fatigue and run down and she cannot seem to find the root cause of it. She does have a lot of pain secondary due to some fibromyalgia and is on medication for this. She is not really on any breathing medicines at this time. She is on chronic prednisone therapy at 1 mg a day secondary to her adrenal insufficiency. Otherwise, she denies any problems. Did discuss with her if she has had any difficulty with her swallowing, she reports that she has not. She has not had any choking on food that she is aware of. No chronic problems with indigestion or heartburn. No difficulty with her bowels. No difficulty voiding. She has not had any problems with swelling in her extremities. She is a lifelong nonsmoker. Her parents did not smoke. She has 1 sibling who smoked. PAST MEDICAL HISTORY: Includes COPD, hypertension, adrenal insufficiency, anxiety, depression, chronic pain, fibromyalgia. It has been noted over the past several hospitalizations that she has a repeatedly elevated sed rate. Rheumatoid arthritis. SURGICAL HISTORY: Includes tonsillectomy, also includes past lung procedure that she had done in [place], she does not remember what it was. FAMILY HISTORY: Includes diabetes mellitus, lung cancer, pancreatic cancer, COPD. SOCIAL HISTORY: The patient is a lifelong nonsmoker, occasional alcohol. 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 The patient does have significant travel history where she has traveled out of country to [place], [place], [place], [place], but she has not traveled for the past 5-6 years. She has been on a cruise to the [facility] as well. REVIEW OF SYSTEMS: As above, otherwise unremarkable. PHYSICAL EXAMINATION: GENERAL: The patient is a 75-year-old female lying in bed, appears not to be feeling well but does not appear in any acute distress, no respiratory distress. She is alert and oriented x3. Mood is good. Affect is good. VITAL SIGNS: Temp 36.5, pulse 75, respirations 20, blood pressure 98/58, pulse ox 92% on 2 liters. HEENT: Normocephalic, atraumatic. Pupils equal, round and reactive to light and accommodation. Extraocular movements are intact. [place]ois moist gingival and buccal mucosa. NECK: Supple. No mass. No adenopathy. No bruit. Short neck. CHEST: Diminished breath sounds. She does have some coarse wheezes in right middle lobe area. No rale or rhonchi noted. CARDIOVASCULAR: Regular rate and rhythm. No murmurs, gallops or rubs appreciated. ABDOMEN: Bowel sounds are present. Abdomen is soft, nontender. No guarding, rigidity or organomegaly. EXTREMITIES: No erythema, no edema. NEUROLOGIC: Cranial nerves II-XII are intact. There is no focal deficit noted. LABORATORY DATA: Shows a white count of 3.45, H\T\H 9.5 and 30.9, platelet count 148,000. BUN 10, creatinine 0.74. Lactic acid on admission was 1.12. C-reactive protein is 3.61. Flu titers were negative. Blood cultures negative to date. Chest CT shows some small infiltrative changes in the right perihilar and right middle lobe regions, and going back, it looks like she did have some changes in these areas previously, although these are a little bit different. She also has some thickening of the distal esophagus. IMPRESSION: This is a 75-year-old female who has been admitted at least twice in the past 2-3 months with pneumonia. At this point, I question if the patient may be aspirating, although she denies any cough or choking associated with eating. I almost wonder if there may be some silent aspiration. I would like to get a barium swallow and see if we can determine this. I would also like for the patient to have a sputum culture to see if there is anything unusual in the mucus. The patient has a reported history of COPD, although she states she has not had a breathing test done for about 20 years. Would like to get the old records from [place] and see what exactly her pulmonary function testing was. Also, she reports having a procedure on her left side where they put a needle in between her ribs. It almost sounds like she had a lung biopsy of some type or a thoracentesis, the patient does not remember. I would like to get the records from this, this was done at [facility] in [place] about 12-14 years ago. After reviewing her medications for now, agree with the triple antibiotic coverage as the patient has been hospitalized multiple times recently and also comes from a group living facility. Also agree with the pulmonary toilet. If the patient starts coughing more, has difficulty expectorating the mucus, we can increase the frequency of nebulization. The patient has been complaining of fatigue as well. During previous hospitalization, she did have her thyroid and iron checked. In reviewing her thyroid labs, her TSH from I believe it was June or July of last year through her last hospitalization in March has trended down. It may be prudent to recheck this during this hospitalization to see if it is rebounded or to see if it is continuing to trend down. It also was noted that her iron saturation was a little bit low. This may bear following also. At this point, continue current medications as they are. Would like to get old records so we have a better idea of what lung problem she has. It was reported that the patient did have a negative PPD in July of 2015. We will continue to follow through her hospitalization. Thank you for the consultation on this patient. This plan was discussed with provider Supa Goldberg the patient was also seen and evaluated agree with the plan above. [id number]
[2016-04-19] MEDS ORDERED: POTASSIUM CHLORIDE 20 MEQ TABCR PO ONE (13:30)
[2016-04-19] MEDS: AMLODIPINE BESYLATE 5 MG TAB PO SCH (14:03)
--- NOTE | 2016-04-19 16:56 | Hospitalist Progress Note ---
Hospitalist Progress Note Date of Service Apr 19, 2016. Subjective Pt evaluation today including: conversation w/ patient, physical exam, chart review, lab review, review of studies, conversation w/ farm consultant (Pulm), review of inpatient medication list Voiding: no voiding problems Afebrile today, feeling a bit better. May have silent aspiration secondary to chronic opioid use. She is interested in trying to come off her opioids but wants to know what other meds she can take. She has never tried lidocaine patches and can't recall if she's ever used TCAs for pain. Most of her pain in medial knees and has received pes anserine bursa injections. Eating food, no N/V, had a large BM today. Minimal cough and sputum As for her anemia, reports she was told to take iron but wants to come off of it in an effort to get rid of her polypharmacy. Had colonoscopy in [id number] and was normal as per pt Constitutional: No fever Eyes: + problem reported (dry eyes with watery discharge) ENT: + problem reported (dry mouth) Respiratory: + cough, + sputum Cardiovascular: No chest pain Abdomen: No GI bleeding, No constipation, No diarrhea, No nausea, No pain, No vomiting Musculoskeletal: + joint pain, + muscle pain Female : No problem reported Neurologic: No problem reported Psychiatric: + depression symptoms Heme: No problem reported Endo: No problem reported Skin: No problem reported Objective Vital Signs Date Time Temp Pulse Resp B/P Pulse Ox O2 Delivery O2 Flow Rate FiO2 04/19/16 16:06 37.0 89 18 151/76 92 Nasal Cannula 2.0 04/19/16 14:12 80 16 95 Room Air 04/19/16 14:06 79 143/69 04/19/16 09:30 92 Nasal Cannula 2.0 04/19/16 09:30 75 98/58 04/19/16 08:16 36.5 75 20 98/58 92 Nasal Cannula 2.0 04/19/16 07:36 88 16 95 Room Air 04/19/16 00:50 36.9 84 18 131/70 93 Nasal Cannula 2.0 04/19/16 00:00 94 Nasal Cannula 2.0 04/18/16 21:30 Room Air 2.0 04/18/16 19:29 82 16 94 Room Air Physical Exam General Appearance: WD/WN, no apparent distress Eyes: normal inspection, sclerae normal ENT: hearing grossly normal Neck: trachea midline Respiratory/Chest: no respiratory distress, no accessory muscle use, + crackles (in right middle lung field and bases) Cardiovascular: regular rate, rhythm, no edema, no gallop, + systolic murmur (2 /6 PAULO at RUSB) Abdomen: normal bowel sounds, non tender, soft, no organomegaly, no pulsatile mass Extremities: no pedal edema, no calf tenderness, + pertinent finding (+TTP over medial knees bilat, diffuse tenderness over multiple points in extremities) 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iatric: alert, normal mood/affect, oriented x 3 Skin: normal color, warm/dry, no rash Laboratory Results Last 24 Hours Test 04/19/16 07:06 04/19/16 11:35 04/19/16 14:27 04/19/16 16:03 White Blood Count 3.45 K/uL Red Blood Count 3.52 M/uL Hemoglobin 9.5 g/dL Hematocrit 30.9 % Mean Corpuscular Volume 87.8 fL Mean Corpuscular Hemoglobin 27.0 pg Mean Corpuscular Hemoglobin Concent 30.7 g/dl Platelet Count 148 K/uL Mean Platelet Volume 8.4 fL Neutrophils (%) (Auto) 54.5 % Lymphocytes (%) (Auto) 28.4 % Monocytes (%) (Auto) 16.8 % Eosinophils (%) (Auto) 0.3 % Basophils (%) (Auto) 0.0 % Neutrophils # (Auto) 1.88 K/uL Lymphocytes # (Auto) 0.98 K/uL Monocytes # (Auto) 0.58 K/uL Eosinophils # (Auto) 0.01 K/uL Basophils # (Auto) 0.00 K/uL RDW Standard Deviation 51.3 fL RDW Coefficient of Variation 15.9 % Immature Granulocyte % (Auto) 0.0 % Immature Granulocyte # (Auto) 0.00 K/uL Sodium Level 145 mmol/L Potassium Level 3.4 mmol/L Chloride Level 108 mmol/L Carbon Dioxide Level 25 mmol/L Anion Gap 12.0 mmol/L Blood Urea Nitrogen 10 mg/dl Creatinine 0.74 mg/dl Est Creatinine Clear Calc Drug Dose 67.6 ml/min Estimated GFR () 91.9 Estimated GFR (Non- 79.3 BUN/Creatinine Ratio 13.6 Random Glucose 93 mg/dl Calcium Level 8.0 mg/dl Magnesium Level 2.3 mg/dl Total Bilirubin 0.4 mg/dl Direct Bilirubin < 0.1 mg/dl Aspartate Amino Transf (AST/SGOT) 14 U/L Alanine Aminotransferase (ALT/SGPT) 15 U/L Alkaline Phosphatase 55 U/L Total Protein 6.0 gm/dl Albumin 2.5 gm/dl Stool Occult Blood NEGATIVE Test 04/19/16 16:04 04/19/16 16:05 Transferrin % Saturation % Assessment and Plan 75 y/o F Hx COPD, FM, opioid dependence, chronic pain syndrome, HTN, adrenal insufficiency - presents with recurrent PNA and sepsis from [facility]. RML and right perihilar PNA, HCAP, recurrent PNA, Sepsis, COPD by report (but no PFTs available): Flu swab negative. Initially tachycardic, hypoxic and febrile. May be silently aspirating as has been sleeping a lot more since being on opioids and may be suppressing cough reflex with opioids. CT chest: IMPRESSION: 1. Minimal parenchymal infiltrative change right perihilar and right middle lobe regions. 2. Minimal dependent bibasilar atelectatic change. 3. Mild wall thickening distal esophagus associated with a small hiatal hernia. -Continue Vanco for MRSA coverage, Zosyn, Levaquin all to cover for HCAP given multiple recent admissions as well as that she resides in an Assisted Living facility. - consider deescalating if can get sputum cx -Consult Pulmonology given recurrent PNAs and persistent abnormalities on chest imaging--> appreciate recommendations -obtain previous Pulm records from [facility] and [place] -barium swallow to assess for aspiration, may need Video Swallow -supplemental O2 prn - on prednisone chronically 1 mg but gave 40mg bid and now tapering down Adrenal insufficiency - will increase prednisone dose due to acute illness--> taper down today HTN - cont Norvasc 10 mg QAM Chronic pain, FM - cont ROJELIO, Percocet, Fentanyl 50 mcg per home dose but discussed weaning off opioids as she reports percocet not even really doing anythign for her and may be causing her excessive drowsiness, recurrent PNAs from aspiration? -trial of Elavil, watch for serotonin syndrome given other serotonergic agents on board -keep percocet on but she blake try not to ask for it -Lidoderm patches to knees Fatigue, Anemia- fatigue worked up by Endo as outpt and told she does not have [place]'s but can remain on prednisone 1mg daily. Does have mild Fe-def anemia and is on po iron. Wants to stop po Fe, Hemoccult stool negative here. Is UTD on colonoscopy. Is on PPI at home but states she hasn't had GERD in years, wants to come off it. Random cortisol 16 last fall and TSH normal 01/2016. Fatigue probably all related to her chronic opioid use and FM -d/c FeSO4 tabs -check Fe studies, B12, folate, TSH -continue prednisone and giving stress dose now but decrease to 20mg once daily tomorrow -plan to decrease opioid use slowly as above DVT ppx: - Lovenox CODE STATUS: Full code
[2016-04-19] MEDS ORDERED: LIDODERM (LIDOCAINE) PATCH 5% TD ONE (17:00)
[2016-04-19 17:17] LABS: THYROID STIMULATING HORMONE 0.769 uIu/ml (0.300-4.500)
[2016-04-19] MEDS: OMEGA-3 (PURIFIED FISH OIL) 1 GM CAP PO SCH (17:25)
[2016-04-19] MEDS: MIRTAZAPINE SOLTAB 15 MG PO SCH (20:29)
[2016-04-19] MEDS: CLONAZEPAM 0.5 MG TAB PO SCH (20:30)
[2016-04-19] MEDS: AMITRIPTYLINE HCL 10 MG TAB PO SCH (20:30)
[2016-04-20] VITALS (10 sets, daily range): BP systolic 125–131; BP diastolic 65–72; PULSE 66–85; TEMP 36.4–37.1; O2SAT 91–97
[2016-04-20] MEDS: ALBUT/IPRATROP 3MG/0.5MG NEB 3 ML VIAL INH SCH ×4 (01:52→19:00)
[2016-04-20] MEDS: LEVOFLOXACIN / D5W 750 MG in PREMIXED IN D5W 150 ML IV SCH (02:14)
[2016-04-20] MEDS: PIPERACILL/TAZOBAC IV 3.375 GM in DEXTROSE 5% 100ML 100 ML IV SCH ×3 (04:20→19:37)
[2016-04-20 06:48] LABS: COMPLETE YES; HEMATOCRIT 34.4 % (37-47); IG% 0.3 %; LYMPH % 14.7 %; LYMPH ABS # 0.53 K/uL (1.2-3.4); MEAN CELL VOLUME 87.5 fL (80-100); MEAN CORPUSCULAR HEMOGLOBIN 26.7 pg (25-34); MEAN CORPUSCULAR HGB CONC 30.5 g/dl (32-36); MEAN PLATELET VOLUME 8.7 fL (7.4-10.4); MONO % 12.2 %; NEUT % 72.8 %; PLATELET COUNT 166 K/uL (130-400); RED BLOOD COUNT 3.93 M/uL (4.2-5.4)
[2016-04-20 07:22] LABS: BUN/CREATININE RATIO 16.1 (10-20); CALCIUM 9.2 mg/dl (8.5-10.1); CREATININE 0.85 mg/dl (0.60-1.20); MAGNESIUM 2.5 mg/dl (1.8-2.4); POTASSIUM 4.3 mmol/L (3.5-5.1)
[2016-04-20] MEDS ORDERED: LIDODERM (LIDOCAINE) PATCH 5% TD SCH (08:00)
[2016-04-20] MEDS: PrednisoLONE ACET 1% OP SUSP 5 ML BTL OPB SCH (08:23)
[2016-04-20] MEDS: CHECK FENTANYL PATCH PLACEMENT SCH ×2 (08:23→16:00)
[2016-04-20] MEDS: DOCUSATE SODIUM 100 MG CAP PO SCH ×2 (08:28→19:37)
[2016-04-20] MEDS: GABAPENTIN 600 MG TAB PO SCH ×2 (08:28→19:38)
[2016-04-20] MEDS: LACTULOSE SYRUP 10 GM/15 ML BTL 473 ML PO SCH ×3 (08:28→19:36)
[2016-04-20] MEDS: FLUOXETINE HCL 20 MG CAP PO SCH (08:29)
[2016-04-20] MEDS: ENOXAPARIN 40 MG/0.4 ML SYR SQ SCH (08:30)
[2016-04-20] MEDS: AMLODIPINE BESYLATE 5 MG TAB PO SCH (08:32)
[2016-04-20] MEDS ORDERED: VANCOMYCIN TROUGH ONE (13:30)
--- NOTE | 2016-04-20 14:14 | Hospitalist Progress Note ---
Hospitalist Progress Note Date of Service Apr 20, 2016. Subjective Pt evaluation today including: conversation w/ patient, physical exam PO Intake: lanette po Voiding: no voiding problems Pt very pleased with the lidocaine patches on her knees and said it helped immensely with her pain. She can't tell if Elavil helped much. POx on RA 92-93% today at rest. SHe has ambulated only to BR but feels her energy level is better and wants to get OOB to chair today. Was able to cough up some yellow sputum today. Afebrile Constitutional: No fever Respiratory: + cough, + sputum Cardiovascular: No chest pain Abdomen: No pain Musculoskeletal: + joint pain, + muscle pain Skin: No rash All Other Systems: Reviewed and Negative Objective Vital Signs Date Time Temp Pulse Resp B/P Pulse Ox O2 Delivery O2 Flow Rate FiO2 04/20/16 08:30 96 Nasal Cannula 2.0 04/20/16 07:40 36.4 81 18 125/72 96 Nasal Cannula 2.0 04/20/16 06:53 66 18 93 Nasal Cannula 3.0 04/20/16 03:00 93 Nasal Cannula 2.0 04/20/16 00:00 37.1 77 20 128/65 97 2.0 04/19/16 21:50 93 Nasal Cannula 2.0 04/19/16 19:35 84 18 92 Room Air 04/19/16 16:30 94 Nasal Cannula 2.0 04/19/16 16:06 37.0 89 18 151/76 92 Nasal Cannula 2.0 04/19/16 14:12 80 16 95 Room Air 04/19/16 14:06 79 143/69 Physical Exam General Appearance: WD/WN, no apparent distress Eyes: normal inspection, sclerae normal ENT: hearing grossly normal Neck: trachea midline Respiratory/Chest: no respiratory distress, no accessory muscle use, + crackles (in right lower lung field, otherwise CTAB) Cardiovascular: regular rate, rhythm, no edema, no gallop, + systolic murmur (2 /6 PAULO at RUSB) Abdomen: normal bowel sounds, non tender, soft, no organomegaly Extremities: no pedal edema, no calf tenderness, + pertinent finding (+TTP over medial knees bilat) 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iatric: alert, normal mood/affect, oriented x 3 Skin: normal color, warm/dry, no rash Laboratory Results Last 24 Hours Test 04/19/16 14:27 04/19/16 16:53 04/20/16 06:24 04/20/16 13:50 Vitamin B12 Level 993 pg/mL Folate > 24.00 ng/mL White Blood Count 3.60 K/uL Red Blood Count 3.93 M/uL Hemoglobin 10.5 g/dL Hematocrit 34.4 % Mean Corpuscular Volume 87.5 fL Mean Corpuscular Hemoglobin 26.7 pg Mean Corpuscular Hemoglobin Concent 30.5 g/dl Platelet Count 166 K/uL Mean Platelet Volume 8.7 fL Neutrophils (%) (Auto) 72.8 % Lymphocytes (%) (Auto) 14.7 % Monocytes (%) (Auto) 12.2 % Eosinophils (%) (Auto) 0.0 % Basophils (%) (Auto) 0.0 % Neutrophils # (Auto) 2.62 K/uL Lymphocytes # (Auto) 0.53 K/uL Monocytes # (Auto) 0.44 K/uL Eosinophils # (Auto) 0.00 K/uL Basophils # (Auto) 0.00 K/uL RDW Standard Deviation 51.3 fL RDW Coefficient of Variation 15.8 % Immature Granulocyte % (Auto) 0.3 % Immature Granulocyte # (Auto) 0.01 K/uL Sodium Level 143 mmol/L Potassium Level 4.3 mmol/L Chloride Level 105 mmol/L Carbon Dioxide Level 29 mmol/L Anion Gap 9.0 mmol/L Blood Urea Nitrogen 14 mg/dl Creatinine 0.85 mg/dl Est Creatinine Clear Calc Drug Dose 58.8 ml/min Estimated GFR () 77.7 Estimated GFR (Non- 67.0 BUN/Creatinine Ratio 16.1 Random Glucose 117 mg/dl Calcium Level 9.2 mg/dl Magnesium Level 2.5 mg/dl Assessment and Plan 75 y/o F Hx COPD, FM, opioid dependence, chronic pain syndrome, HTN, adrenal insufficiency - presents with recurrent PNA and sepsis from [facility]. RML and right perihilar PNA, HCAP, recurrent PNA, Sepsis, COPD by report (but no PFTs available): Flu swab negative. Initially tachycardic, hypoxic and febrile. May be silently aspirating as has been sleeping a lot more since being on opioids and may be suppressing cough reflex with opioids. CT chest: IMPRESSION: 1. Minimal parenchymal infiltrative change right perihilar and right middle lobe regions. 2. Minimal dependent bibasilar atelectatic change. 3. Mild wall thickening distal esophagus associated with a small hiatal hernia. -Continue Vanco for MRSA coverage x 1 more day but nasal swab neg for MRSA so can lkely stop tomorrow, Zosyn, Levaquin all to cover for HCAP given multiple recent admissions as well as that she resides in an Assisted Living facility. - consider deescalating based on results of sputum cx -Consult Pulmonology given recurrent PNAs and persistent abnormalities on chest imaging--> appreciate recommendations -obtain previous Pulm records from [facility] and [place] -barium swallow to assess for aspiration, may need Video Swallow--> can't be done till Friday -supplemental O2 prn during day and qhs chronically - on prednisone chronically 1 mg but now tapering down to 10mg for tomorrow -encouraged ambulation today -f/u ECHO for murmur in setting of recurrent fevers, looking for vegetation although BCxs remain negative Adrenal insufficiency by history but Ophelia choudhury recently ruled this out, on prednisone 1mg daily as outpt -received stress dosed steroids on admission and now with rapid taper HTN -stable - cont Norvasc 10 mg QAM Chronic pain, FM - cont ROJELIO, Percocet, Fentanyl 50 mcg per home dose but discussed weaning off opioids as she reports percocet not even really doing anything for her and may be causing her excessive drowsiness, recurrent PNAs from aspiration? -began trial of Elavil low dose 10mg qhs, watch for serotonin syndrome given other serotonergic agents on board -d/c percocet as per pt's request and hasn't needed -pt requests to taper neurontin down to bid from tid -Lidoderm patches to knees really helping -follows with Pain Man Mohan Marquez in [place] Fatigue, Anemia- fatigue worked up by Endo as outpt and told she does not have [place]'s but can remain on prednisone 1mg daily. Does have mild Fe-def anemia and is on po iron. Wants to stop po Fe, Hemoccult stool negative here. Is UTD on colonoscopy. Is on PPI at home but states she hasn't had GERD in years, wants to come off it. Fe studies here are fairly normal, B12 and folate normal. Random cortisol 16 last fall and TSH normal 01/2016. Fatigue probably all related to her chronic opioid use and FM -d/c'd FeSO4 tabs -tapering prednisone down to 1mg daily -plan to decrease opioid and other sedating med use slowly as above DVT ppx: - Lovenox CODE STATUS: Full code
[2016-04-20] MEDS: VANCOMYCIN INJ 1,250 MG in SODIUM CHLORIDE 0.9% 250ML 250 ML IV SCH ×2 (14:20→22:45)
--- NOTE | 2016-04-20 14:20 | ECHOCARDIOGRAM REPORT ---
*NOTICE TO RECEIVING [employer] This information is strictly Confidential and protected under [place] law. [place] law prohibits you from making any further disclosure of this information unless further disclosure is expressly permitted by the written consent of the person to whom it pertains or is authorized by law. A general authorization for the release of medical or other information is not sufficient for this purpose. Hospital accepts no responsibility if the information is made available to any other person, INCLUDING THE PATIENT. Interpretation Summary * Name: GUSTAVO THIBODEAUX Study Date: 04/20/2016 01:31 PM BP: 125/72 mmHg * Patient Location: [id number] HR: 81 * : 1940 (M/d/yyyy) Gender: Female Height: 63 in * Age: 75 yrs Ethnicity: CA Weight: 185 lb * Ordering Physician: Tahira Holley * Performed By: Phoebe Steward * * Reason For Study: MURMURS * BSA: 1.9 m2 * -- Conclusions -- * The left ventricle is normal in size. * Left ventricular systolic function is normal. * Ejection Fraction = 65-70%. * The left ventricular wall motion is normal. * There is mild concentric left ventricular hypertrophy. * Grade I diastolic dysfunction, (abnormal relaxation pattern). * Aortic valve sclerosis mild, without significant aortic valvular stenosis. * Mild aortic regurgitation. * There is mild tricuspid regurgitation. * Right ventricular systolic pressure is elevated at 30-40mmHg. Procedure Details * A complete two-dimensional transthoracic echocardiogram was performed (2D, M-mode, Doppler and color flow Doppler). Left Ventricle * The left ventricle is normal in size. * There is mild concentric left ventricular hypertrophy. * Ejection Fraction = 65-70%. * Left ventricular systolic function is normal. * The left ventricular wall motion is normal. Right Ventricle * The right ventricle is normal in size and function. Atria * The left atrium is mildly dilated. * Right atrial size is normal. * The interatrial septum is intact with no evidence for an atrial septal defect. Mitral Valve * The mitral valve is normal in structure and function. * Significant mitral regurgitation is absent. Tricuspid Valve * The tricuspid valve is normal in structure and function. * There is mild tricuspid regurgitation. * Right ventricular systolic pressure is elevated at 30-40mmHg. Aortic Valve * The aortic valve is trileaflet. * Aortic valve sclerosis mild, without significant aortic valvular stenosis. * Mild aortic regurgitation. Pulmonic Valve * The pulmonic valve is not well seen, but is grossly normal. * Trace pulmonic valvular regurgitation. Great Vessels * The aortic root is normal size. * Aortic arch of normal dimension. * No obvious dissection could be visualized. * The pulmonary artery is normal size. Pericardium/Pleural * There is no pericardial effusion. Great Vessels * The inferior vena cava is mildly dilated. Left Ventricular Diastolic Function * Grade I diastolic dysfunction, (abnormal relaxation pattern). MMode 2D Measurements and Calculations IVSd 1.6 cm IVSs 2.1 cm LVIDd 3.3 cm LVIDs 2.0 cm LVPWd 1.3 cm LVPWs 1.4 cm IVS/LVPW 1.2 FS 40.1 % EDV(Teich) 45.5 ml ESV(Teich) 12.8 ml EF(Teich) 72.0 % EDV(cubed) 37.3 ml ESV(cubed) 8.0 ml EF(cubed) 78.5 % % IVS thick 35.3 % % LVPW thick 8.2 % LV mass(C)d 168.2 grams LV mass(C)dI 89.9 grams/m\S\2 LV mass(C)s 134.0 grams LV mass(C)sI 71.6 grams/m\S\2 CO(Teich) 2.5 l/min CI(Teich) 1.3 l/min/m\S\2 SV(Teich) 32.8 ml SI(Teich) 17.5 ml/m\S\2 CO(cubed) 2.3 l/min CI(cubed) 1.2 l/min/m\S\2 SV(cubed) 29.3 ml SI(cubed) 15.7 ml/m\S\2 ACS 1.2 cm LA dimension 4.0 cm asc Aorta Diam 2.4 cm LVOT diam 1.7 cm LVOT area 2.4 cm\S\2 LVAd ap4 24.0 cm\S\2 LVLd ap4 7.4 cm EDV(MOD-sp4) 65.0 ml LVAs ap4 11.4 cm\S\2 LVLs ap4 5.5 cm ESV(MOD-sp4) 21.0 ml EF(MOD-sp4) 67.7 % LVAd ap2 22.2 cm\S\2 LVLd ap2 7.0 cm EDV(MOD-sp2) 59.0 ml LVAs ap2 10.7 cm\S\2 LVLs ap2 5.3 cm ESV(MOD-sp2) 19.0 ml EF(MOD-sp2) 67.8 % CO(MOD-sp4) 3.4 l/min CI(MOD-sp4) 1.8 l/min/m\S\2 SV(MOD-sp4) 44.0 ml SI(MOD-sp4) 23.5 ml/m\S\2 CO(MOD-sp2) 3.1 l/min CI(MOD-sp2) 1.6 l/min/m\S\2 SV(MOD-sp2) 40.0 ml SI(MOD-sp2) 21.4 ml/m\S\2 Doppler Measurements and Calculations MV E max fortunato 99.2 cm/sec MV A max fortunato 100.2 cm/sec MV E/A 0.99 MV dec time 0.20 sec Ao V2 max 167.2 cm/sec Ao max PG 11.2 mmHg Ao max PG (full) 1.9 mmHg Ao V2 mean 100.5 cm/sec Ao mean PG 4.9 mmHg Ao mean PG (full) 0.13 mmHg Ao V2 VTI 35.0 cm AVILA(I,A) 2.2 cm\S\2 AVILA(I,D) 2.2 cm\S\2 AVILA(V,A) 2.2 cm\S\2 AVILA(V,D) 2.2 cm\S\2 AI max fortunato 362.0 cm/sec AI max PG 52.7 mmHg AI dec slope 203.9 cm/sec\S\2 AI P1/2t 519.9 msec LV V1 max PG 9.3 mmHg LV V1 mean PG 4.7 mmHg LV V1 max 152.5 cm/sec LV V1 mean 97.9 cm/sec LV V1 VTI 32.4 cm SV(LVOT) 76.4 ml SI(LVOT) 40.8 ml/m\S\2 PA V2 max 77.0 cm/sec PA max PG 2.4 mmHg PI end-d fortunato 99.1 cm/sec TR max fortunato 260.4 cm/sec
[2016-04-20] MEDS: OMEGA-3 (PURIFIED FISH OIL) 1 GM CAP PO SCH (17:08)
--- NOTE | 2016-04-20 17:50 | Pulmonology Progress Note ---
Pulmonary Progress Note Date of Service Apr 20, 2016. Attending Enrique Rosa Subjective Patient doing much better today notes decreasing cough and dyspnea on exertion Objective 75-year-old female admitted with shortness of breath fever productive cough/ continue acquired pneumonia: Vital signs: Reviewed Respiratory: Minimal rhonchi is appreciated on the right hemithorax minimal wheezing on the left Cardiac: S1-S2 regular rate and rhythm CT reviewed discussed with patient Assessment & Plan 75-year-old female admitted with community acquired pneumonia and hypoxia: #1 abnormal CAT scan: Was able to review the CAT scan with the patient and she did note in [place] she had a collapsed lung requiring chest tube placement. Her findings on her CAT scan as well as on her physical exam are consistent with tube thoracotomy no further workup necessary. #2 acquired pneumonia: Patient noted to have community acquired pneumonia suggest we continue antibiotics for a 5-7 day course. Levaquin 750 mg oral for total 5 days would be appropriate. #3 hypoxia: Patient is been placed on nocturnal oxygen requires further workup. This can be done as an outpatient the [facility] At this time will sign off please contact us if new issues arise. Data Medications: Current Inpatient Medications Medications (Trade) Dose Ordered Sig/Larry Route Start Time Stop Time Status Last Admin Dose Admin Enoxaparin Sodium (Lovenox Inj) 40 mg Q24H SQ 04/18/16 08:00 05/18/16 07:59 04/20/16 08:30 40 MG Acetaminophen (Tylenol Tab) 650 mg Q4H PRN PO 04/18/16 02:00 05/18/16 01:59 Al Hydrox/Mg Hydrox/Simethicone (Maalox Max Susp) 15 ml Q4H PRN PO 04/18/16 02:00 05/18/16 01:59 Magnesium Hydroxide (Milk Of Magnesia Susp) 30 ml Q6H PRN PO 04/18/16 02:00 05/18/16 01:59 Polyethylene (Miralax Powder Packet) 17 gm DAILY PRN PO 04/18/16 02:00 05/18/16 01:59 Ondansetron HCl (Zofran Inj) 4 mg Q6H PRN IV 04/18/16 02:00 05/18/16 01:59 Amlodipine Besylate (Norvasc Tab) 10 mg QAM PO 04/18/16 08:00 05/18/16 08:59 2/4/17 08:32 10 MG Bisacodyl (Dulcolax Supp) 10 mg DAILY PRN OK 04/18/16 02:00 05/18/16 01:59 Buspirone HCl (BusPAR TAB) 7.5 mg BID PRN PO 04/18/16 02:00 05/18/16 01:59 04/19/16 09:38 7.5 MG Calcium Carbonate (Tums Chew Tab) 500 mg Q4 PRN PO 04/18/16 02:00 05/18/16 01:59 Clonazepam (Klonopin Tab) 0.5 mg HS PO 04/18/16 21:00 05/18/16 20:59 04/19/16 20:30 0.5 MG Docusate Sodium (coLACE CAP) 100 mg BID PO 04/18/16 08:00 05/18/16 08:59 04/20/16 08:28 100 MG Fentanyl (Duragesic Patch) 50 mcg Q72H TD 04/18/16 08:00 05/02/16 07:59 04/18/16 09:46 50 MCG Fish Oil ([place]-3 (Purified Fish Oil) Cap) 1 gm DAILY@1700 PO 04/18/16 17:00 05/18/16 16:59 04/20/16 17:08 1 GM Fluoxetine HCl (Prozac Cap) 40 mg DAILY PO 04/18/16 08:00 05/18/16 08:59 04/20/16 08:29 40 MG Folic Acid (Folvite Tab) 1 mg DAILY@1700 PO 04/18/16 17:00 05/18/16 16:59 04/20/16 17:07 1 MG Prednisolone Acetate (Pred Forte 1% Oph Susp) 1 drops DAILY OPB 04/18/16 08:00 05/18/16 08:59 04/20/16 08:23 1 DROPS Mirtazapine (Remeron Solutab) 30 mg HS PO 04/18/16 21:00 05/18/16 20:59 04/19/16 20:29 30 MG Albuterol/ Ipratropium (Duoneb) 3 ml Q6R INH 04/18/16 09:00 05/18/16 08:59 04/20/16 14:08 3 ML Albuterol Sulfate (Ventolin 0.083% 2.5MG/3ML Neb) 2.5 mg Q4H PRN INH 04/18/16 02:00 05/18/16 01:59 Miscellaneous (Fentanyl Patch Remove & Waste) 1 ea Q72H N/A 04/18/16 07:59 05/18/16 07:58 04/18/16 07:59 1 EA Miscellaneous Information 1 ea 1 ea QS N/A 04/18/16 16:00 05/18/16 15:59 04/20/16 16:00 1 EA Levofloxacin 750 mg/Prmx 150 ml @ 100 mls/hr Q24H IV 04/19/16 02:00 04/24/16 03:29 04/20/16 02:14 100 MLS/HR Piperacillin Sod/ Tazobactam Sod/ Dextrose (Zosyn Iv/D5 100ml) 115 ml @ 28.75 mls/ hr Q8H IV 04/18/16 20:00 04/25/16 19:59 04/20/16 14:14 28.75 MLS/HR Piperacillin Sod/ Tazobactam Sod 1 ea 1 ea UD PRN N/A 04/18/16 14:45 05/18/16 14:44 Vancomycin HCl/ Sodium Chloride (Vancomycin Inj/ Nss 250ml) 275 ml @ 125 mls/hr Q14H IV 04/19/16 10:00 04/26/16 09:59 04/20/16 14:20 125 MLS/HR Artificial Tears (Artificial Tears) 2 drops TID PRN OP 04/18/16 16:45 05/18/16 16:44 Vancomycin HCl (Consult) 1 ea UD PRN N/A 04/18/16 17:00 05/18/16 16:59 Lactulose (Chronulac Syrup) 10 gm TID PO 04/18/16 20:00 05/18/16 19:59 04/20/16 15:11 10 GM Amitriptyline HCl (Elavil Tab) 10 mg HS PO 04/19/16 22:00 05/19/16 21:59 04/19/16 20:30 10 MG Gabapentin (Neurontin Tab) 600 mg BID PO 04/20/16 20:00 05/20/16 19:59 Prednisone (PredniSONE TAB) 10 mg DAILY PO 04/21/16 08:00 05/21/16 07:59 Miscellaneous (Remove Patch) 1 ea QAM N/A 04/21/16 08:00 05/21/16 07:59 Lidocaine (Lidoderm Patch 5%) 2 patch HS TD 04/20/16 22:00 05/20/16 21:59 Miscellaneous (Remove Patch) 1 ea QAM N/A 04/21/16 08:00 05/21/16 07:59 I & O: 24-Hour Column 04/20/16 08:00 Intake Total 4143 ml Output Total 4400 ml Balance -257 ml Vital Signs: Date Time Temp Pulse Resp B/P Pulse Ox O2 Delivery O2 Flow Rate FiO2 04/20/16 17:10 92 Room Air 04/20/16 15:21 36.9 85 18 131/71 91 Room Air 04/20/16 14:08 77 18 92 Room Air 04/20/16 08:30 96 Nasal Cannula 2.0 04/20/16 07:40 36.4 81 18 125/72 96 Nasal Cannula 2.0 04/20/16 06:53 66 18 93 Nasal Cannula 3.0 04/20/16 03:00 93 Nasal Cannula 2.0 04/20/16 00:00 37.1 77 20 128/65 97 2.0 04/19/16 21:50 93 Nasal Cannula 2.0 04/19/16 19:35 84 18 92 Room Air Laboratory Results: Last 24 Hours Test 04/20/16 06:24 04/20/16 13:50 White Blood Count 3.60 K/uL Red Blood Count 3.93 M/uL Hemoglobin 10.5 g/dL Hematocrit 34.4 % Mean Corpuscular Volume 87.5 fL Mean Corpuscular Hemoglobin 26.7 pg Mean Corpuscular Hemoglobin Concent 30.5 g/dl Platelet Count 166 K/uL Mean Platelet Volume 8.7 fL Neutrophils (%) (Auto) 72.8 % Lymphocytes (%) (Auto) 14.7 % Monocytes (%) (Auto) 12.2 % Eosinophils (%) (Auto) 0.0 % Basophils (%) (Auto) 0.0 % Neutrophils # (Auto) 2.62 K/uL Lymphocytes # (Auto) 0.53 K/uL Monocytes # (Auto) 0.44 K/uL Eosinophils # (Auto) 0.00 K/uL Basophils # (Auto) 0.00 K/uL RDW Standard Deviation 51.3 fL RDW Coefficient of Variation 15.8 % Immature Granulocyte % (Auto) 0.3 % Immature Granulocyte # (Auto) 0.01 K/uL Sodium Level 143 mmol/L Potassium Level 4.3 mmol/L Chloride Level 105 mmol/L Carbon Dioxide Level 29 mmol/L Anion Gap 9.0 mmol/L Blood Urea Nitrogen 14 mg/dl Creatinine 0.85 mg/dl Est Creatinine Clear Calc Drug Dose 58.8 ml/min Estimated GFR () 77.7 Estimated GFR (Non- 67.0 BUN/Creatinine Ratio 16.1 Random Glucose 117 mg/dl Calcium Level 9.2 mg/dl Magnesium Level 2.5 mg/dl
--- NOTE | 2016-04-20 18:52 | Pharmacy Progress Note ---
Pharmacy Antibiotic Prog Note Date of Service: Apr 20, 2016. Subjective: The patient is currently receiving vancomycin 1250 mg IV every 14 hours. The patient is currently on day # 3 of IV therapy. Objective: Height (Feet): 5 Height (Inches): 3.00 Weight (Kilograms): 84.300 Levels: Item Value Date Time Vancomycin Level Trough 12.7 mcg/ml 04/20/16 1350 Lab Results (24hrs): Laboratory Tests Test 04/20/16 06:24 BUN/Creatinine Ratio 16.1 Blood Urea Nitrogen 14 mg/dl Creatinine 0.85 mg/dl White Blood Count 3.60 K/uL Red Blood Count 3.93 M/uL Hemoglobin 10.5 g/dL Hematocrit 34.4 % Mean Corpuscular Volume 87.5 fL Mean Corpuscular Hemoglobin 26.7 pg Mean Corpuscular Hemoglobin Concent 30.5 g/dl Platelet Count 166 K/uL Mean Platelet Volume 8.7 fL Neutrophils (%) (Auto) 72.8 % Lymphocytes (%) (Auto) 14.7 % Monocytes (%) (Auto) 12.2 % Eosinophils (%) (Auto) 0.0 % Basophils (%) (Auto) 0.0 % Neutrophils # (Auto) 2.62 K/uL Lymphocytes # (Auto) 0.53 K/uL Monocytes # (Auto) 0.44 K/uL Eosinophils # (Auto) 0.00 K/uL Basophils # (Auto) 0.00 K/uL Assessment & Plan: This drug level is: Subtherapeutic Change to vancomycin 1250 mg IV every 12 hours (this represents a 20% increase which should produce therapeutic levels for a pneumonia. I was not too aggressive in this dose adjustment because the MRSA nasal swab is negative and the patient is improving without therapeutic level). Goal peak level estimate: between 35 - 40 mcg/mL. Goal trough level estimate: between 15 - 20 mcg/mL (indication: pneumonia). Trough has been ordered for: (previous trough was reported around 1830. I spoke with the lab who stated that the blood was clotted and took longer than expected to report). Pharmacy will continue to follow and will adjust dose/frequency as necessary. Thank you
[2016-04-20] MEDS: AMITRIPTYLINE HCL 10 MG TAB PO SCH (19:38)
[2016-04-20] MEDS: MIRTAZAPINE SOLTAB 15 MG PO SCH (19:39)
[2016-04-20] MEDS: LIDODERM (LIDOCAINE) PATCH 5% TD SCH (22:00)
[2016-04-20] MEDS: CLONAZEPAM 0.5 MG TAB PO SCH (22:30)
[2016-04-21] VITALS (8 sets, daily range): BP systolic 125–144; BP diastolic 62–79; PULSE 78–97; TEMP 36.4–37.3; O2SAT 90–97
[2016-04-21] MEDS: CHECK FENTANYL PATCH PLACEMENT SCH ×3 (00:07→17:41)
[2016-04-21] MEDS: LEVOFLOXACIN / D5W 750 MG in PREMIXED IN D5W 150 ML IV SCH (01:42)
[2016-04-21] MEDS: ALBUT/IPRATROP 3MG/0.5MG NEB 3 ML VIAL INH SCH ×4 (01:45→18:30)
[2016-04-21] MEDS: PIPERACILL/TAZOBAC IV 3.375 GM in DEXTROSE 5% 100ML 100 ML IV SCH ×2 (04:20→12:26)
[2016-04-21 06:24] LABS: BASO % 0.2 %; BASO ABS # 0.01 K/uL (0-0.2); COMPLETE YES; HEMATOCRIT 33.2 % (37-47); LYMPH % 26.1 %; LYMPH ABS # 1.05 K/uL (1.2-3.4); MEAN CELL VOLUME 87.6 fL (80-100); MEAN CORPUSCULAR HEMOGLOBIN 27.2 pg (25-34); MEAN PLATELET VOLUME 8.5 fL (7.4-10.4); MONO % 13.2 %; NEUT % 60.5 %; PLATELET COUNT 177 K/uL (130-400); RED BLOOD COUNT 3.79 M/uL (4.2-5.4); WHITE BLOOD COUNT 4.03 K/uL (4.8-10.8)
[2016-04-21 07:02] LABS: BUN/CREATININE RATIO 20.7 (10-20); CALCIUM 8.4 mg/dl (8.5-10.1); CREATININE 0.88 mg/dl (0.60-1.20); MAGNESIUM 2.2 mg/dl (1.8-2.4); POTASSIUM 3.2 mmol/L (3.5-5.1)
[2016-04-21] MEDS ORDERED: POTASSIUM CHLORIDE 10 MEQ TABCR PO STA (07:32)
[2016-04-21] MEDS: GABAPENTIN 600 MG TAB PO SCH ×3 (08:00→21:23)
[2016-04-21] MEDS: DOCUSATE SODIUM 100 MG CAP PO SCH ×2 (08:00→20:00)
[2016-04-21] MEDS: LACTULOSE SYRUP 10 GM/15 ML BTL 473 ML PO SCH ×3 (08:00→20:00)
[2016-04-21] MEDS: FENTANYL 50 MCG/HR TDSY TD SCH (08:28)
[2016-04-21] MEDS: FENTANYL PATCH REMOVE & WASTE SCH (08:29)
[2016-04-21] MEDS: PrednisoLONE ACET 1% OP SUSP 5 ML BTL OPB SCH (08:42)
[2016-04-21] MEDS: FLUOXETINE HCL 20 MG CAP PO SCH (08:44)
[2016-04-21] MEDS: ENOXAPARIN 40 MG/0.4 ML SYR SQ SCH (08:45)
[2016-04-21] MEDS: AMLODIPINE BESYLATE 5 MG TAB PO SCH (08:47)
[2016-04-21] MEDS: VANCOMYCIN INJ 1,250 MG in SODIUM CHLORIDE 0.9% 250ML 250 ML IV SCH (12:26)
--- NOTE | 2016-04-21 13:45 | Hospitalist Progress Note ---
Hospitalist Progress Note Date of Service Apr 21, 2016. Subjective Pt evaluation today including: conversation w/ patient, physical exam, chart review, lab review, conversation w/ healthcare network consultant (Pulm), review of inpatient medication list Voiding: no voiding problems Having some loose stools today and last night had incontinence to loose stool. Feeling fatigued. Having right ankle pain burning now but declined her AM dose of gabapentin. Just took it again and waiting to see if has relief. Coughing up some sputum a bit but overall improved, afebrile. Constitutional: No fever Respiratory: + cough, + sputum Cardiovascular: No chest pain Abdomen: + diarrhea, No GI bleeding, No pain Musculoskeletal: + joint pain, + muscle pain Skin: No rash Objective Vital Signs Date Time Temp Pulse Resp B/P Pulse Ox O2 Delivery O2 Flow Rate FiO2 04/21/16 09:33 94 Room Air 04/21/16 07:09 36.4 79 18 125/62 94 Room Air 04/21/16 07:03 78 18 97 Nasal Cannula 2.0 04/21/16 02:00 95 Room Air 04/21/16 00:07 37.2 81 20 144/70 94 2.0 04/20/16 21:30 95 Room Air 04/20/16 19:00 70 18 94 Room Air 04/20/16 17:10 92 Room Air 04/20/16 15:21 36.9 85 18 131/71 91 Room Air 04/20/16 14:08 77 18 92 Room Air Physical Exam General Appearance: WD/WN, no apparent distress Eyes: normal inspection, sclerae normal ENT: hearing grossly normal Neck: trachea midline Respiratory/Chest: no respiratory distress, no accessory muscle use, + wheezing (scattered exp wheezes upper lung rollins, +crackles right mid lung field) Cardiovascular: regular rate, rhythm, no edema, no gallop, + systolic murmur (1 /6 systolic at RUSB) Abdomen: normal bowel sounds, non tender, soft, no organomegaly Extremities: normal inspection, no pedal edema, no calf tenderness 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iatric: alert, normal mood/affect, oriented x 3 Skin: normal color, warm/dry, no rash Laboratory Results Last 24 Hours Test 04/20/16 13:50 04/21/16 05:54 Vancomycin Level Trough 12.7 mcg/ml White Blood Count 4.03 K/uL Red Blood Count 3.79 M/uL Hemoglobin 10.3 g/dL Hematocrit 33.2 % Mean Corpuscular Volume 87.6 fL Mean Corpuscular Hemoglobin 27.2 pg Mean Corpuscular Hemoglobin Concent 31.0 g/dl Platelet Count 177 K/uL Mean Platelet Volume 8.5 fL Neutrophils (%) (Auto) 60.5 % Lymphocytes (%) (Auto) 26.1 % Monocytes (%) (Auto) 13.2 % Eosinophils (%) (Auto) 0.0 % Basophils (%) (Auto) 0.2 % Neutrophils # (Auto) 2.44 K/uL Lymphocytes # (Auto) 1.05 K/uL Monocytes # (Auto) 0.53 K/uL Eosinophils # (Auto) 0.00 K/uL Basophils # (Auto) 0.01 K/uL RDW Standard Deviation 51.4 fL RDW Coefficient of Variation 15.9 % Immature Granulocyte % (Auto) 0.0 % Immature Granulocyte # (Auto) 0.00 K/uL Erythrocyte Sedimentation Rate 41 mm/hr Sodium Level 143 mmol/L Potassium Level 3.2 mmol/L Chloride Level 106 mmol/L Carbon Dioxide Level 26 mmol/L Anion Gap 11.0 mmol/L Blood Urea Nitrogen 18 mg/dl Creatinine 0.88 mg/dl Est Creatinine Clear Calc Drug Dose 56.8 ml/min Estimated GFR () 74.5 Estimated GFR (Non- 64.3 BUN/Creatinine Ratio 20.7 Random Glucose 85 mg/dl Calcium Level 8.4 mg/dl Magnesium Level 2.2 mg/dl Assessment and Plan 75 y/o F Hx COPD, FM, opioid dependence, chronic pain syndrome, HTN, adrenal insufficiency - presents with recurrent PNA and sepsis from [facility]. RML and right perihilar PNA, HCAP, recurrent PNA, Sepsis, COPD by report (but no PFTs available): Flu swab negative. Initially tachycardic, hypoxic and febrile. May be silently aspirating as has been sleeping a lot more since being on opioids and may be suppressing cough reflex with opioids. However Pulmonology ascertained from deeper history that pt did have a chest tube placed on the right side in the past and CT scan findings are likely scarring from previous chest tube, NOT likely recurrent PNA. However, given initial presentation, will complete 5 day course of Levaquin for PNA. Sputum cx normal yolanda, no growth on BCxs Much improved clinically from admission. CT chest: IMPRESSION: 1. Minimal parenchymal infiltrative change right perihilar and right middle lobe regions. 2. Minimal dependent bibasilar atelectatic change. 3. Mild wall thickening distal esophagus associated with a small hiatal hernia. -d/c Vanco fand Zosyn -continue Levaquin for 1 more day and then stop after last dose on 04/22 -Consult Pulmonology given recurrent PNAs and persistent abnormalities on chest imaging--> appreciate recommendations--> suspect chronic scarring from previous chest tube, no longer thought to be aspiration -obtain previous Pulm records from [facility] and [place]-not obtained yet due to weekend -barium swallow to assess for aspiration, may need Video Swallow--> can't be done till Friday but question if still needs?? -supplemental O2 prn during day and qhs chronically - on prednisone chronically 1 mg but now tapering down rapidly to 5mg for tomorrow -encouraged ambulation today -ECHO for murmur in setting of recurrent fevers, looking for vegetation although BCxs remain negative: ECHO: The left ventricle is normal in size. * Left ventricular systolic function is normal. * Ejection Fraction = 65-70%. * The left ventricular wall motion is normal. * There is mild concentric left ventricular hypertrophy. * Grade I diastolic dysfunction, (abnormal relaxation pattern). * Aortic valve sclerosis mild, without significant aortic valvular stenosis. * Mild aortic regurgitation. * There is mild tricuspid regurgitation. * Right ventricular systolic pressure is elevated at 30-40mmHg. 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 -began trial of Elavil low dose 10mg qhs, watch for serotonin syndrome given other serotonergic agents on board -d/c percocet as per pt's request and hasn't needed -pt requests to taper neurontin down to bid from tid -Lidoderm patches to knees really helping -follows with Pain Man Mohan Marquez in [place] Fatigue, Anemia- fatigue worked up by Endo as outpt and told she does not have De Baca's but can remain on prednisone 1mg daily. Does have mild Fe-def anemia and is on po iron. Wants to stop po Fe, Hemoccult stool negative here. Is UTD on colonoscopy. Is on PPI at home but states she hasn't had GERD in years, wants to come off it. Fe studies here are fairly normal, B12 and folate normal. Random cortisol 16 last fall and TSH normal 01/2016. Fatigue probably all related to her chronic opioid use and FM -d/c'd FeSO4 tabs -tapering prednisone down to 1mg daily -plan to decrease opioid and other sedating med use slowly as above DVT ppx: - Lovenox CODE STATUS: Full code Dispo-to Rehab vs back to Friday PT/OT evals needed
[2016-04-21] MEDS: OMEGA-3 (PURIFIED FISH OIL) 1 GM CAP PO SCH (17:42)
[2016-04-21] MEDS: MIRTAZAPINE SOLTAB 15 MG PO SCH (21:23)
[2016-04-21] MEDS: AMITRIPTYLINE HCL 10 MG TAB PO SCH (21:23)
[2016-04-21] MEDS: LIDODERM (LIDOCAINE) PATCH 5% TD SCH (21:24)
[2016-04-21] MEDS: CLONAZEPAM 0.5 MG TAB PO SCH (21:31)
[2016-04-22] VITALS: BP 132/79; PULSE 82; TEMP 37.2; O2SAT 95
[2016-04-22] MEDS: LEVOFLOXACIN / D5W 750 MG in PREMIXED IN D5W 150 ML IV SCH (02:06)
[2016-04-22] MEDS: ALBUT/IPRATROP 3MG/0.5MG NEB 3 ML VIAL INH SCH ×4 (03:00→19:04)
[2016-04-22 07:00] VITALS: PULSE 81; O2SAT 94
[2016-04-22 07:16] LABS: BASO % 0.3 %; BASO ABS # 0.01 K/uL (0-0.2); COMPLETE YES; EOS % 0.6 %; HEMATOCRIT 36.1 % (37-47); LYMPH % 38.6 %; MEAN PLATELET VOLUME 8.8 fL (7.4-10.4); MONO % 16.7 %; NEUT % 43.8 %; PLATELET COUNT 170 K/uL (130-400); RED BLOOD COUNT 4.15 M/uL (4.2-5.4); WHITE BLOOD COUNT 3.11 K/uL (4.8-10.8)
[2016-04-22 07:31] VITALS: BP 121/70; PULSE 81; TEMP 36.9; O2SAT 94
[2016-04-22] MEDS: CHECK FENTANYL PATCH PLACEMENT SCH ×4 (07:42→23:31)
[2016-04-22 07:44] LABS: BUN/CREATININE RATIO 24.3 (10-20); CALCIUM 8.5 mg/dl (8.5-10.1); CREATININE 0.82 mg/dl (0.60-1.20); MAGNESIUM 2.3 mg/dl (1.8-2.4); POTASSIUM 3.6 mmol/L (3.5-5.1)
[2016-04-22] MEDS: GABAPENTIN 600 MG TAB PO SCH ×2 (07:46→19:39)
[2016-04-22] MEDS: DOCUSATE SODIUM 100 MG CAP PO SCH ×2 (07:46→19:39)
[2016-04-22] MEDS: PrednisoLONE ACET 1% OP SUSP 5 ML BTL OPB SCH (07:46)
[2016-04-22] MEDS: AMLODIPINE BESYLATE 5 MG TAB PO SCH (07:46)
[2016-04-22] MEDS: ENOXAPARIN 40 MG/0.4 ML SYR SQ SCH (07:47)
[2016-04-22] MEDS: LACTULOSE SYRUP 10 GM/15 ML BTL 473 ML PO SCH ×3 (07:47→19:39)
[2016-04-22] MEDS: FLUOXETINE HCL 20 MG CAP PO SCH (07:47)
[2016-04-22] MEDS ORDERED: VANCOMYCIN TROUGH SCH (10:30)
--- NOTE | 2016-04-22 13:17 | Progress Note ---
Subjective Date of Service: Apr 22, 2016. Subjective Pt evaluation today including: conversation w/ patient, physical exam, lab review, review of inpatient medication list Pain: chronic pain, rates at a 5 out of 10 now PO Intake: adequate Voiding: no voiding problems breathing stable, no fever, no cough participated in PT, felt winded and a little shaky reports that at baseline she really just sits all day at assisted living discussed other options, says she is not interested in looking at other SNF's Problem List Medical Problems: (1) Abnormal WBC count Status: Acute (2) Acute bronchitis Status: Acute (3) Adrenal insufficiency Status: Acute (4) Anemia Status: Acute (5) Chest pain Status: Acute (6) Dehydration Status: Acute (7) Febrile illness, acute Status: Acute (8) Hypokalemia Status: Acute (9) Hypoxia Status: Acute (10) Hypoxia Status: Acute (11) Nausea, vomiting, and diarrhea Status: Acute (12) Pneumonia Status: Acute (13) Pneumonia Status: Acute Review of Systems Constitutional: + fatigue, + weakness Musculoskeletal: + joint pain (chronic) All Other Systems: Reviewed and Negative Medications Current Inpatient Medications Medications (Trade) Dose Ordered Sig/Larry Route Start Time Stop Time Status Last Admin Dose Admin Enoxaparin Sodium (Lovenox Inj) 40 mg Q24H SQ 04/18/16 08:00 05/18/16 07:59 04/22/16 07:47 40 MG Acetaminophen (Tylenol Tab) 650 mg Q4H PRN PO 04/18/16 02:00 05/18/16 01:59 04/21/16 04:22 650 MG Al Hydrox/Mg Hydrox/Simethicone (Maalox Max Susp) 15 ml Q4H PRN PO 04/18/16 02:00 05/18/16 01:59 Magnesium Hydroxide (Milk Of Magnesia Susp) 30 ml Q6H PRN PO 04/18/16 02:00 05/18/16 01:59 Polyethylene (Miralax Powder Packet) 17 gm DAILY PRN PO 04/18/16 02:00 05/18/16 01:59 Ondansetron HCl (Zofran Inj) 4 mg Q6H PRN IV 04/18/16 02:00 05/18/16 01:59 Amlodipine Besylate (Norvasc Tab) 10 mg QAM PO 04/18/16 08:00 05/18/16 08:59 04/22/16 07:46 10 MG Bisacodyl (Dulcolax Supp) 10 mg DAILY PRN DE 04/18/16 02:00 05/18/16 01:59 Buspirone HCl (BusPAR TAB) 7.5 mg BID PRN PO 04/18/16 02:00 05/18/16 01:59 04/19/16 09:38 7.5 MG Calcium Carbonate (Tums Chew Tab) 500 mg Q4 PRN PO 04/18/16 02:00 05/18/16 01:59 Clonazepam (Klonopin Tab) 0.5 mg HS PO 04/18/16 21:00 05/18/16 20:59 04/21/16 21:31 0.5 MG Docusate Sodium (coLACE CAP) 100 mg BID PO 04/18/16 08:00 05/18/16 08:59 04/22/16 07:46 100 MG Fentanyl (Duragesic Patch) 50 mcg Q72H TD 04/18/16 08:00 05/02/16 07:59 04/21/16 08:28 50 MCG Fish Oil ([place]-3 (Purified Fish Oil) Cap) 1 gm DAILY@1700 PO 04/18/16 17:00 05/18/16 16:59 04/21/16 17:42 1 GM Fluoxetine HCl (Prozac Cap) 40 mg DAILY PO 04/18/16 08:00 05/18/16 08:59 04/22/16 07:47 40 MG Folic Acid (Folvite Tab) 1 mg DAILY@1700 PO 04/18/16 17:00 05/18/16 16:59 04/21/16 17:41 1 MG Prednisolone Acetate (Pred Forte 1% Oph Susp) 1 drops DAILY OPB 04/18/16 08:00 05/18/16 08:59 04/22/16 07:46 1 DROPS Mirtazapine (Remeron Solutab) 30 mg HS PO 04/18/16 21:00 05/18/16 20:59 04/21/16 21:23 30 MG Albuterol/ Ipratropium (Duoneb) 3 ml Q6R INH 04/18/16 09:00 05/18/16 08:59 04/22/16 07:00 3 ML Albuterol Sulfate (Ventolin 0.083% 2.5MG/3ML Neb) 2.5 mg Q4H PRN INH 04/18/16 02:00 05/18/16 01:59 Miscellaneous (Fentanyl Patch Remove & Waste) 1 ea Q72H N/A 04/18/16 07:59 05/18/16 07:58 04/21/16 08:29 1 EA Miscellaneous Information 1 ea 1 ea QS N/A 04/18/16 16:00 05/18/16 15:59 04/22/16 07:42 1 EA Levofloxacin/Prmx (Levaquin / D5W/ Premixed D5W) 150 ml @ 100 mls/hr Q24H IV 04/19/16 02:00 04/24/16 03:29 04/22/16 02:06 100 MLS/HR Artificial Tears (Artificial Tears) 2 drops TID PRN OP 04/18/16 16:45 05/18/16 16:44 Lactulose (Chronulac Syrup) 10 gm TID PO 04/18/16 20:00 05/18/16 19:59 04/20/16 15:11 10 GM Amitriptyline HCl (Elavil Tab) 10 mg HS PO 04/19/16 22:00 05/19/16 21:59 04/21/16 21:23 10 MG Gabapentin (Neurontin Tab) 600 mg BID PO 04/20/16 20:00 05/20/16 19:59 04/22/16 07:46 600 MG Miscellaneous (Remove Patch) 1 ea QAM N/A 04/21/16 08:00 05/21/16 07:59 04/22/16 08:39 1 EA Lidocaine (Lidoderm Patch 5%) 2 patch HS TD 04/20/16 22:00 05/20/16 21:59 04/21/16 21:24 1 PATCH Miscellaneous (Remove Patch) 1 ea QAM N/A 04/21/16 08:00 05/21/16 07:59 04/21/16 14:00 1 EA Prednisone (PredniSONE TAB) 5 mg DAILY PO 04/22/16 08:00 05/22/16 07:59 04/22/16 07:46 5 MG Objective Vital Signs Date Time Temp Pulse Resp B/P Pulse Ox O2 Delivery O2 Flow Rate FiO2 04/22/16 07:40 Nasal Cannula 2.0 04/22/16 07:31 36.9 81 18 121/70 94 Nasal Cannula 2.0 04/22/16 07:00 81 16 94 Nasal Cannula 2.0 04/22/16 01:00 Nasal Cannula 2.0 Humidified Oxygen 04/22/16 00:00 37.2 82 20 132/79 95 2.0 04/21/16 18:30 80 18 95 Room Air 04/21/16 16:19 37.3 86 16 138/79 90 Room Air 04/21/16 16:00 Room Air 04/21/16 14:13 97 18 94 Room Air Physical Exam General Appearance: WD/WN, no apparent distress Eyes: normal inspection, EOMI, sclerae normal Neck: supple, no adenopathy, no JVD, trachea midline Respiratory/Chest: chest non-tender, lungs clear, normal breath sounds, no respiratory distress, no accessory muscle use Cardiovascular: regular rate, rhythm, no edema, no gallop, no JVD, no murmur Abdomen: normal bowel sounds, non tender, soft, no organomegaly Extremities: normal range of motion, non-tender, normal inspection, no pedal edema, no calf tenderness 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iatric: allergy physician II-XII nml as tested, no motor/sensory deficits, alert, normal mood/affect, oriented x 3 Skin: normal color, warm/dry, no rash Laboratory Results Last 24 Hours Test 04/22/16 06:50 White Blood Count 3.11 K/uL Red Blood Count 4.15 M/uL Hemoglobin 11.2 g/dL Hematocrit 36.1 % Mean Corpuscular Volume 87.0 fL Mean Corpuscular Hemoglobin 27.0 pg Mean Corpuscular Hemoglobin Concent 31.0 g/dl Platelet Count 170 K/uL Mean Platelet Volume 8.8 fL Neutrophils (%) (Auto) 43.8 % Lymphocytes (%) (Auto) 38.6 % Monocytes (%) (Auto) 16.7 % Eosinophils (%) (Auto) 0.6 % Basophils (%) (Auto) 0.3 % Neutrophils # (Auto) 1.36 K/uL Lymphocytes # (Auto) 1.20 K/uL Monocytes # (Auto) 0.52 K/uL Eosinophils # (Auto) 0.02 K/uL Basophils # (Auto) 0.01 K/uL RDW Standard Deviation 51.8 fL RDW Coefficient of Variation 16.2 % Immature Granulocyte % (Auto) 0.0 % Immature Granulocyte # (Auto) 0.00 K/uL Sodium Level 140 mmol/L Potassium Level 3.6 mmol/L Chloride Level 105 mmol/L Carbon Dioxide Level 26 mmol/L Anion Gap 9.0 mmol/L Blood Urea Nitrogen 20 mg/dl Creatinine 0.82 mg/dl Est Creatinine Clear Calc Drug Dose 61.0 ml/min Estimated GFR () 81.1 Estimated GFR (Non- 70.0 BUN/Creatinine Ratio 24.3 Random Glucose 88 mg/dl Calcium Level 8.5 mg/dl Magnesium Level 2.3 mg/dl Assessment and Plan 75 y/o F Hx COPD, FM, opioid dependence, chronic pain syndrome, HTN, adrenal insufficiency - presents with recurrent PNA and sepsis from [facility]. - HCAP and sepsis: sepsis component resolved, responding well to Levaquin, today is day 5, no further antibiotics appreciate pulmonology consultation, changes on CT chest due to prior chest tube from prior pneumothorax Sputum cx normal yolanda, no growth on BCxs video swallow today to r/o silent aspiration as a contributing factor Adrenal insufficiency by history but Endo eval recently ruled this out, on prednisone 1mg daily as outpt -received stress dosed steroids on admission and now with rapid taper HTN, Aortic Insufficiency (mild), increased RVSP 30-40 suggestive of Pulm HTN, Chronic diastolic CHF -BP stable - cont Norvasc 10 mg QAM -follow AI on ECHO -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 -began trial of Elavil low dose 10mg qhs, watch for serotonin syndrome given other serotonergic agents on board -d/c percocet as per pt's request and hasn't needed -pt requests to taper neurontin down to bid from tid -Lidoderm patches to knees really helping -follows with Pain Man Mohan Marquez in [place] Fatigue, Anemia- fatigue worked up by Ophelia as outpt and told she does not have [place]'s but can remain on prednisone 1mg daily. Does have mild Fe-def anemia and is on po iron. Wants to stop po Fe, Hemoccult stool negative here. Is UTD on colonoscopy. Is on PPI at home but states she hasn't had GERD in years, wants to come off it. Fe studies here are fairly normal, B12 and folate normal. Random cortisol 16 last fall and TSH normal 01/2016. Fatigue probably all related to her chronic opioid use and FM -d/c'd FeSO4 tabs -tapering prednisone down to 1mg daily -plan to decrease opioid and other sedating med use slowly as above DVT ppx: - Lovenox CODE STATUS: Full code Dispo- probably will return to [place] tomorrow, will look into rehab but patient not sure she would want to go PT/OT evals needed
--- NOTE | 2016-04-22 14:37 | DIAGNOSTIC IMAGING REPORT ---
(BARIUM SWALLOW) ESOPHAGUS CLINICAL HISTORY: dysphagia, recurrent pneumonia, R/O aspiration COMPARISON STUDY: None FLUOROSCOPY TIME: 1 minute. FINDINGS: Patient initiated swallowing function well. Trace amount of penetration with no evidence for lisset aspiration. Generalized esophageal dysmotility and/or spasm. Small hiatal hernia. Moderate reflux. IMPRESSION: 1. Moderate gastroesophageal reflux. 2. Moderate esophageal irritability and/or spasm. 3. Trace amount of penetration. No evidence for lisset aspiration. Electronically signed by: John Smith M.D. 04/22/2016 2:36 PM Dictated Date/Time: 04/22/2016 2:27 PM
[2016-04-22 15:28] VITALS: BP 104/70; PULSE 88; TEMP 37.3; O2SAT 91
[2016-04-22] MEDS: OMEGA-3 (PURIFIED FISH OIL) 1 GM CAP PO SCH (16:58)
[2016-04-22 19:04] VITALS: PULSE 79; O2SAT 95
[2016-04-22] MEDS: AMITRIPTYLINE HCL 10 MG TAB PO SCH (19:39)
[2016-04-22] MEDS: CLONAZEPAM 0.5 MG TAB PO SCH (19:39)
[2016-04-22] MEDS: MIRTAZAPINE SOLTAB 15 MG PO SCH (19:39)
[2016-04-22] MEDS: LIDODERM (LIDOCAINE) PATCH 5% TD SCH (22:00)
[2016-04-22 23:34] VITALS: BP 143/80; PULSE 76; TEMP 36.5; O2SAT 90
[2016-04-23] MEDS: ALBUT/IPRATROP 3MG/0.5MG NEB 3 ML VIAL INH SCH ×2 (02:10→07:26)
[2016-04-23] MEDS: LEVOFLOXACIN / D5W 750 MG in PREMIXED IN D5W 150 ML IV SCH (02:12)
[2016-04-23 07:12] VITALS: BP 104/67; TEMP 37; O2SAT 90
[2016-04-23 07:26] VITALS: PULSE 89; O2SAT 87
[2016-04-23] MEDS: DOCUSATE SODIUM 100 MG CAP PO SCH (07:51)
[2016-04-23] MEDS: PrednisoLONE ACET 1% OP SUSP 5 ML BTL OPB SCH (07:51)
[2016-04-23] MEDS: GABAPENTIN 600 MG TAB PO SCH (07:52)
[2016-04-23] MEDS: LACTULOSE SYRUP 10 GM/15 ML BTL 473 ML PO SCH (07:53)
[2016-04-23] MEDS: CHECK FENTANYL PATCH PLACEMENT SCH (07:54)
[2016-04-23] MEDS: FLUOXETINE HCL 20 MG CAP PO SCH (07:56)
[2016-04-23] MEDS: AMLODIPINE BESYLATE 5 MG TAB PO SCH (07:57)
[2016-04-23] MEDS: ENOXAPARIN 40 MG/0.4 ML SYR SQ SCH (07:57)
[2016-04-23] MEDS ORDERED: AMT10 PO (10:04)
[2016-04-23] MEDS ORDERED: NRN600 PO (10:04)
[2016-04-23] MEDS ORDERED: LDDP5 TD (10:04)
--- NOTE | 2016-04-23 10:11 | Discharge Instructions ---
Discharge Instructions Admission Reason for Admission: Copd, Fever Discharge Discharge Diagnosis / Problem: Pneumonia, COPD, chronic pain, depression Discharge Goals Goal(s): Decrease discomfort, Improve function Activity Recommendations Activity Level: Ambulates in room Therapies: Physical Therapy, Occupational Therapy Lifting Limitations: none Exercise/Sports Limitations: as tolerated Shower/Bathe: no limitations . Additional Information Patient informed of condition: Yes Advance Directives: Yes DNR: No Level of Care: Acute Rehab Communicable Disease: No Prognosis: Improving Oxygen at (LPM): 2L at night and as needed River Catheter: No Instructions / Follow-Up Instructions / Follow-Up Medications: - GABAPENTIN: frequency decreased from three times a day to twice a day, tolerating well, should taper further in a few days or a week, perhaps 300mg BID ? - LIDODERM: patches have really helped lower extremity neuropathy, apply NEEDED, once applied stay on for 12 hours, then off for 12 hours, patient aware of this plan - PERCOCET: this was stopped completely, no increase in pain, patient wishes to be off completely, use Ultram for any breakthrough pain - ELAVIL: started at 10mg dose at bedtime, tolerating well, started for fibromyalgia, could consider titrating up to 25mg in the future Pneumonia: no need for further antibiotics, she complete 5 day course while hospitalized FOLLOW UP - physician at [facility] this week - PCP one week after discharge from rehab - Pain specialist, Dr. Preston, in [place], as previously scheduled Current Hospital Diet Patient's current hospital diet: AHA Diet (Heart Healthy) Discharge Diet Recommended Diet: AHA Diet (Heart Healthy) Pending Studies Studies pending at discharge: no Physician Orders On Transfer POLST Discussion: Not Applicable Laboratory Results Hemoglobin A1c Test 02/22/16 10:54 Range/Units Estimated Average Glucose 126 mg/dl Hemoglobin A1c 6.0 H 4.5-5.6 % Medical Emergencies . Who to Call and When: Medical Emergencies: If at any time you feel your situation is an emergency, please call 911 immediately. . Non-Emergent Contact Non-Emergency issues call your: Primary Care Provider Call Non-Emergent contact if: you have a fever, your pain is not controlled, your pain is worsening, you have any medication questions . . "Provider Documentation" section prepared by Carlos Eduardo Nunez. Core Measure Problem Core Measures: None [place] Drug Monitoring Program Search Results: no issues identified
[2016-04-23 10:35] VITALS: BP 104/67; PULSE 89; TEMP 37; O2SAT 87
--- NOTE | 2016-04-23 14:46 | Discharge Summary ---
Discharge Summary Admission Date: Apr 18, 2016 at 02:09 Discharge Date: Apr 23, 2016 Discharge Disposition: Rehab Principal Diagnosis: Pneumonia Problems/Secondary Diagnoses: Fibromyalgia Chronic pain syndrome Insomnia Depression HTN COPD chronic diastolic HF question of adrenal insufficiency Procedures: Echocardiogram - EF 65-70%, mild AI, aortic sclerosis, elevated pulmonary arterial pressure 30-40mmHg Video barium swallow - no lisset aspiration, + esophageal dysmotility Consultations: Pulmonary Medication Reconciliation New Medications: Amitriptyline HCl (Amitriptyline HCl) 10 Mg Tab 10 MG PO HS, #30 TAB 3 Refills Gabapentin (Gabapentin) 600 Mg Tab 600 MG PO BID, #60 TAB 2 Refills Lidocaine (Lidocaine) 1 Patch Tdsy 2 PATCH TD HS, #60 PATCH 3 Refills Continued Medications: Amlodipine (Norvasc) 10 Mg Tab 10 MG PO QAM, TAB Ascorbic Acid (Vitamin C) 500 Mg Tab 500 MG PO DAILY, #30 TABS Bisacodyl (Bisac-Evac) 10 Mg Sup 1 SUPP RE DAILY PRN for Constipation Buspirone Hcl (Buspar) 15 Mg Tab 7.5 MG PO BID PRN for Anxiety 1/2 TABLET DOSE Calcium Carbonate (Antacid) (Chewable Antacid) 500 Mg Chw 500-1000 MG PO Q4 PRN for Heartburn Carboxymethylcellulose Sodium (Refresh Tears) 0.5 % Kel[place] 1 DROP OPB QID Clonazepam (Klonopin) 0.5 Mg Tab 0.5 MG PO HS Docusate Sodium (Colace) 100 Mg Cap 1 CAP PO BID for 30 Days, #60 CAP 2 Refills Ergocalciferol (Vitamin D) 50,000 Interunit Cap 29928 INTERUNIT PO weekly, #8 TABS Fentanyl (Duragesic) 50 Mcg Tdsy 50 MCG TD CQ72HR, PATCH Ferrous Sulfate (Ferrous Sulfate) 325 Mg Tab 325 MG PO TIDM, #90 TAB Fish Oil ([place]-3) 1 Ea Cap 1000 MG PO DAILY@1700 Fluoxetine (Prozac) 40 Mg Cap 40 MG PO DAILY, CAP Folic Acid (Folvite) 1 Mg Tab 1 TAB PO DAILY@1700 for 90 Days, TAB 1 Refill Ibandronate Sodium (Boniva) 150 Mg Tab 150 MG PO MONTHLY 10 TH DAY OF EACH MONTH TAKE ON EMPTY STOMACH WITH 8OZ PLAIN WATER,SWALLOW WHOLE,DO NOT LAY DOWN FOR 60 MIN AFTER Ibuprofen (Motrin) 600 Mg Tab 600 MG PO TIDM Lactulose (Chronulac) 10 Gm/15 Ml Syrp 15 ML PO TID, #500 ML 3 Refills Mirtazapine Soltab (Remeron Soltab) 30 Mg Soltab 30 MG PO HS, TAB Omeprazole (Prilosec) 40 Mg Cap 40 MG PO DAILY Prednisolone Acetate (Ophth) (Pred Forte 1% Oph) 1 % Rupali 1 DROPS OPB DAILY Prednisone (Prednisone) 1 Mg Tab 1 MG PO DAILY Suvorexant (Belsomra) 5 Mg Tab 5-15 MG PO HS PRN for Insomnia Tramadol (Ultram) 50 Mg Tab 50 MG PO Q6H PRN for Pain Discontinued Medications: Gabapentin (Neurontin) 600 Mg Tab 600 MG PO TID, TAB Oxycodone/Acetaminophen 7.5MG/325MG (Oxycodone/Acetaminophen 7.5MG/325MG) 1 Tab Tab 1 TAB PO TID PRN for Pain MAX 3GM APAP/24HR Discharge Exam Patient feeling well today, no issues overnight. Reports that lidocaine patch working well for her, requests that she can use it PRN. Explained that once it is on it works for 12 hours then removed for 12 hours, she understands this plan. Breathing is stable. Eating well. Feels ready for rehabilitation. Review of Systems: Constitutional: + fatigue, + weakness, No chills, No fever, No problem reported, No sweats, No weight loss Eyes: No diplopia, No discharge, No eye pain, No problem reported, No redness, No worsening of vision ENT: No dental problems, No hearing loss, No nasal symptoms, No problem reported, No sore throat, No tinnitus, No trouble swallowing, No unusual epistaxis Respiratory: + dyspnea on exertion, No cough, No dyspnea at rest, No hemoptysis, No problem reported, No shortness of breath, No sputum, No wheezing Cardiovascular: No PND, No chest pain, No claudication, No edema, No orthopnea, No palpitations, No problem reported Abdomen: No GI bleeding, No constipation, No diarrhea, No nausea, No pain, No problem reported, No vomiting Musculoskeletal: + joint pain (knees, ankles, hands, back), + muscle pain ( diffuse, chronic) Genitourinary - Female: No dysuria, No hematuria, No urinary frequency, No urinary incontinence, No urinary retention, No urinary urgency Neurologic: + balance problems, + problem reported (neuropathy in lower extremities), + weakness, No memory loss, No numbness/tingling, No paralysis, No vertigo Psychiatric: + anxiety, + depression symptoms, + insomnia, No anhedonism Endocrine: No excessive thirst, No excessive urination, No fatigue, No problem reported Hematologic / Lymphatic: No abnormal bleeding/bruising, No clotting problems , No night sweats, No problem reported, No swollen lymph nodes Integumentary: No bleeding, No color change, No itch, No new/changing skin lesions, No problem reported, No rash Physical Exam: General Appearance: WD/WN, no apparent distress Eyes: normal inspection, EOMI, sclerae normal Neck: supple, no adenopathy, no JVD, trachea midline Respiratory/Chest: chest non-tender, lungs clear, normal breath sounds, no respiratory distress, no accessory muscle use Cardiovascular: regular rate, rhythm, no edema, no gallop, no JVD, no murmur , normal peripheral pulses Abdomen / GI: normal bowel sounds, non tender, soft, no organomegaly Extremities: normal inspection, no calf tenderness, normal capillary refill , no pedal edema, normal range of motion, pelvis stable 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iatric: [employer] consultant II-XII nml as tested, alert, normal reflexes, oriented x 3, + motor weakness, + depressed affect Skin: normal color, warm/dry, no rash Hospital Course 75 y/o F Hx COPD, FM, opioid dependence, chronic pain syndrome, HTN, adrenal insufficiency - presents with recurrent PNA and sepsis from [facility]. Responded very quickly to Levaquin, completed 5 day course and all of her respiratory symptoms were resolved. During hospitalization she expressed interest in stopping Percocet that she had been using for some time, following with pain clinic. It was thought that the Percocet in addition to other sedatives could have made her more prone to silent aspiration and perhaps recurrent pneumonias. The Percocet was stopped and she did not see an increase in her pain. Her Gabapentin was decreased from 600mg TID to BID and could be titrated further. She gained relief intermittently from neuropathy by applying Lidoderm patches for 12 hours. Also, she was started on Elavil 10mg at bedtime to try to help with chronic pain issues. She remained on Fentanyl patch 50mcg q72 hours and the next logical step will be to gradually wean off the patch but that will be done outpatient. After therapy evaluations, rehab was recommended and she agreed to [facility]. - HCAP and sepsis: sepsis component resolved, responded well to Levaquin, received 5 days total, no further antibiotics appreciate pulmonology consultation, changes on CT chest due to prior chest tube from prior pneumothorax Sputum cx normal yolanda, no growth on BCxs video swallow 04/22 - negative for lisset aspiration, she did have some esophageal dysmotility Adrenal insufficiency by history but Endo eval recently ruled this out, on prednisone 1mg daily as outpt -received stress dosed steroids on admission and now with rapid taper HTN, Aortic Insufficiency (mild), increased RVSP 30-40 suggestive of Pulm HTN, Chronic diastolic CHF -BP stable - cont Norvasc 10 mg QAM -follow AI on ECHO (only mild) -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 -began trial of Elavil low dose 10mg qhs, watch for serotonin syndrome given other serotonergic agents on board -discontinued Percocet as per pt's request and hasn't needed -pt requests to taper Neurontin - went from 600mg TID to BID -Lidoderm patches to knees really helping, continue q12 PRN -follows with Pain Man Dr. Preston in [place] Fatigue, Anemia- fatigue worked up by Endo as outpt and told she does not have [place]'s but can remain on prednisone 1mg daily. Does have mild Fe-def anemia and is on po iron. Wants to stop po Fe, Hemoccult stool negative here. Is UTD on colonoscopy. Is on PPI at home but states she hasn't had GERD in years, wants to come off it. Fe studies here are fairly normal, B12 and folate normal. Random cortisol 16 last fall and TSH normal 01/2016. Fatigue probably all related to her chronic opioid use and FM -d/c'd FeSO4 tabs -tapering prednisone down to 1mg daily -plan to decrease opioid and other sedating med use slowly as above DVT ppx: - Lovenox CODE STATUS: Full code Dispo- acute rehab at [facility] Total Time Spent: Greater than 30 minutes This includes examination of the patient, discharge planning, medication reconciliation, and communication with other providers. Discharge Instructions Please refer to the electronic Patient Visit Report (Discharge Instructions) for additional information. Follow-Up PCP one week after d/c from rehab Dr. Preston with pain management as previously scheduled [facility] [address] pulmonary medicine in several weeks for follow up Additional Copies To [facility]; Kalie Bauer M.D.; [facility]; Enrique Roas MD
[2016-04-30 14:33] LABS: FUNGITELL (1-3)-B-D-GLUCAN* 37 pg/mL; FUNGITELL INTERP NEGATIVE
[2016-10-10] MEDS ORDERED: LEVO1TAB33 PO (09:52)
[2016-10-31] MEDS ORDERED: IBUP-1450 PO (10:32)
[2016-10-31] MEDS ORDERED: OMEG10007 PO (10:32)
== END 2016-04-23 12:15 | DRG 871 ==
LOC: ENRESERVDT → ENRESERVTM → EDBD 22:44 → C.EDA 22:45 → C.MS4W 04-18 02:09
PROVIDERS: ADMIT Internal Medicine; ATTEND Internal Medicine
DX: A41.9 Sepsis, unspecified organism (principal); J18.9 Pneumonia, unspecified organism; E27.40 Unspecified adrenocortical insufficiency; F11.20 Opioid dependence, uncomplicated; I50.32 Chronic diastolic (congestive) heart failure; R09.02 Hypoxemia; M79.7 Fibromyalgia; G89.4 Chronic pain syndrome; G47.00 Insomnia, unspecified; F32.9 Major depressive disorder, single episode, unspecified; Y95 Nosocomial condition; I27.2 Other secondary pulmonary hypertension; D64.9 Anemia, unspecified; M06.9 Rheumatoid arthritis, unspecified; J44.9 Chronic obstructive pulmonary disease, unspecified; I35.1 Nonrheumatic aortic (valve) insufficiency; R91.8 Other nonspecific abnormal finding of lung field; I11.0 Hypertensive heart disease with heart failure; K44.9 Diaphragmatic hernia without obstruction or gangrene; K21.9 Gastro-esophageal reflux disease without esophagitis; G62.9 Polyneuropathy, unspecified; Z79.899 Other long term (current) drug therapy; Z79.1 Long term (current) use of non-steroidal anti-inflammatories (NSAID); Z79.52 Long term (current) use of systemic steroids

== ENCOUNTER → 2016-06-06 | Outpatient (CLI) | payer OTHER, BC ==
[~2016-06-06] MED LIST changes: +ACET-1311 PO; +AMITRIPTYLINE; +AMT10 PO; +ASCO500T16 PO; +ERGO500037 PO; -FENT1DIS85 TD; +FERR1TAB13 PO; +FLUD0.1T10 PO; +FNTTP50 TD; -GABA600T PO; -HYDR-4079 PO; +LDDP5 TD; +LEVO-366 PO; +LEVO1TAB33 PO; +LIDO1PAD2 TOP; +LIDOCAINE PAD; +MIRT30TA PO; +NALO1SPR; +NRN/600 PO; +NRN600 PO; -OMEP40CA PO; +OMEP40CA41 PO; +OXGN
== END | disposition home or self-care (01) ==
LOC: C.MAMM 11:04
PROVIDERS: ATTEND Internal Medicine Endocrinology, Diabetes & Metabolism
DX: M85.852 Other specified disorders of bone density and structure, left thigh (principal); M85.851 Other specified disorders of bone density and structure, right thigh

== ENCOUNTER → 2016-06-27 | Day surgery (SDC) | payer OTHER, BC ==
[~2016-06-27] VITALS: Ht 161.3 cm; Wt 78.0 kg
[~2016-06-27] MED LIST changes: +AMT50 PO; +CARB0.5D28 PO; +COSYNTROPIN INJ 1 MCG in SYRINGE 0 ML IV SCH; +LEVO25TA5 PO; +MENTOIN TOP; +NAPR500T3 PO; +SYMIN160 INH
[2016-06-27 07:46] VITALS: BP 139/61; PULSE 87; TEMP 36.8; O2SAT 100; Ht 161.3 cm; Wt 78.0 kg
[2016-06-27 08:44] LABS: ESTIMATED AVERAGE GLUCOSE 126 mg/dl; HA1C FLAG Normal (Normal)
[2016-06-27 09:35] VITALS: BP 123/55; PULSE 83; O2SAT 96
--- NOTE | 2016-07-03 12:00 | CODING QUERY MEDICAL NECESSITY ---
CQSUPPORTING DIAGNOSIS NEEDED A supporting diagnosis is required for the test/procedure performed on this patient in order for us to be reimbursed by the patient's insurance. Please provide a supporting diagnosis for the following test/procedure listed below next to the test name along with your signature. *If there is no additional diagnosis for this patient that would support the following test/procedure please document that below next to the test/procedure. Test(s)/Procedure(s) that require a supporting diagnosis: DOS 06/27/16 GLYCATED HEMOGLOBIN Provider Signature: Date: Thank you Flor Fernandes [facility] Information Management Once completed, please kindly fax back to [phone] For questions please call [phone]
== END | disposition home or self-care (01) ==
LOC: C.MTU 07:31
PROVIDERS: ATTEND Internal Medicine Endocrinology, Diabetes & Metabolism
DX: E27.40 Unspecified adrenocortical insufficiency (principal); Z79.52 Long term (current) use of systemic steroids

== ENCOUNTER 2016-07-18 10:10 | Emergency (ER) | payer OTHER, BC ==
[~2016-07-18] VITALS: Ht 161.3 cm; Wt 78.0 kg
[~2016-07-18 10:10] MED LIST changes: -ACET-1311 PO; -AMITRIPTYLINE; -AMT50 PO; -ASCO500T16 PO; -CARB0.5D28 PO; -COSYNTROPIN INJ 1 MCG in SYRINGE 0 ML IV SCH; -ERGO500037 PO; -FERR1TAB13 PO; -FLUD0.1T10 PO; -LEVO-366 PO; -LEVO1TAB33 PO; -LEVO25TA5 PO; -LIDO1PAD2 TOP; -LIDOCAINE PAD; -MENTOIN TOP; -MIRT30TA PO; -NALO1SPR; -NAPR500T3 PO; -NRN/600 PO; -OXGN; -SYMIN160 INH
[2016-07-18 10:26] VITALS: TEMP 37.1; Ht 161.3 cm; Wt 78.0 kg
[2016-07-18] MEDS ORDERED: ALBUT/IPRATROP 3MG/0.5MG NEB 3 ML VIAL INH STA (11:10)
--- NOTE | 2016-07-18 11:36 | DIAGNOSTIC IMAGING REPORT ---
TWO VIEW CHEST CLINICAL HISTORY: Cough. FINDINGS: PA and lateral chest radiographs are compared to study dated 04/17/2016. Correlation is made with chest CT dated 04/18/16. The PA view is degraded by patient rotation. The heart is mild enlarged and there is atherosclerotic calcification of the thoracic aorta. The pulmonary vasculature is noncongested. Linear atelectasis is present in the lower lungs bilaterally. No airspace consolidation is seen typical for pneumonia and there is no pleural effusion. No pneumothorax is seen. The skeletal structures are osteopenic. Degenerative change is noted throughout the thoracic spine. IMPRESSION: Mild cardiac enlargement with no acute cardiopulmonary abnormality. Electronically signed by: Stevie Rashid M.D. 07/18/2016 11:34 AM Dictated Date/Time: 07/18/2016 11:32 AM
[2016-07-18] MEDS ORDERED: FERR1TAB13 PO (11:56)
[2016-07-18] MEDS ORDERED: AMT10 PO (11:56)
[2016-07-18] MEDS ORDERED: NRN/600 PO (12:00)
[2016-07-18] MEDS ORDERED: FLUD0.1T10 PO (12:00)
[2016-07-18] MEDS ORDERED: LACT10SO17 PO (12:00)
[2016-07-18] MEDS ORDERED: MIRT30TA PO (12:00)
[2016-07-18] MEDS ORDERED: ASCO500T16 PO (12:05)
[2016-07-18] MEDS ORDERED: ERGO500037 PO (12:05)
[2016-07-18] MEDS ORDERED: NALO1SPR (12:10)
[2016-07-18] MEDS ORDERED: LIDO1PAD2 TOP (12:10)
[2016-07-18] MEDS ORDERED: ACET-1311 PO (12:10)
[2016-07-18] MEDS ORDERED: OXGN (12:10)
[2016-07-18 12:27] VITALS: O2SAT 93
[2016-07-18 13:42] LABS: BASO % 0.1 %; BASO ABS # 0.01 K/uL (0-0.2); COMPLETE YES; EOS % 3.3 %; HEMATOCRIT 41.2 % (37-47); IG% 0.1 %; LYMPH % 23.3 %; LYMPH ABS # 1.62 K/uL (1.2-3.4); MEAN CELL VOLUME 87.1 fL (80-100); MEAN CORPUSCULAR HEMOGLOBIN 27.7 pg (25-34); MEAN CORPUSCULAR HGB CONC 31.8 g/dl (32-36); MEAN PLATELET VOLUME 8.7 fL (7.4-10.4); MONO % 7.3 %; NEUT % 65.9 %; PLATELET COUNT 186 K/uL (130-400); RED BLOOD COUNT 4.73 M/uL (4.2-5.4); WHITE BLOOD COUNT 6.96 K/uL (4.8-10.8)
[2016-07-18 13:51] LABS: PROTHROMBIN TIME (PATIENT) 10.5 SECONDS (9.0-12.0)
[2016-07-18 14:01] LABS: BUN/CREATININE RATIO 12.6 (10-20); CALCIUM 9.2 mg/dl (8.5-10.1); CREATININE 0.87 mg/dl (0.60-1.20); POTASSIUM 3.6 mmol/L (3.5-5.1)
[2016-07-18] MEDS ORDERED: OPTIRAY 320 IV PRN (14:30)
--- NOTE | 2016-07-18 14:54 | DIAGNOSTIC IMAGING REPORT ---
CT ANGIOGRAM OF THE CHEST CLINICAL HISTORY: Decreased oxygen saturation. COPD. History of recurrent pneumonia. COMPARISON STUDY: Chest x-ray dated 07/18/2016, CT scan dated April 18, 2016 TECHNIQUE: Following the IV administration of 88 mL of Optiray-320, CT angiogram of the thorax was performed from the thoracic inlet to the lung bases utilizing the pulmonary embolus protocol. Images are reviewed in the axial, sagittal, and coronal planes. IV contrast was administered without complication. MIP imaging was performed. CT DOSE: 228.04 mGy.cm FINDINGS: There are borderline enlarged precarinal and AP window lymph nodes. There is no evidence of pathologic axillary or hilar lymphadenopathy. There was no evidence of thoracic aortic dilatation. There were no pulmonary artery filling defects to indicate acute pulmonary embolism. No pleural effusions are visualized. There is respiratory motion artifact. There are lingular and right upper lobe opacities, likely atelectatic. There is no lobar consolidation. IMPRESSION: 1. No evidence of acute pulmonary embolism 2. Borderline enlarged precarinal AP window lymph nodes 3. Lingular and right upper lobe opacities, likely atelectatic Electronically signed by: Bony Soto M.D. 07/18/2016 2:53 PM Dictated Date/Time: 07/18/2016 2:49 PM
[2016-07-18] MEDS ORDERED: LEVO-366 PO (15:27)
--- NOTE | 2016-07-18 15:34 | EMERGENCY ROOM VISIT NOTE ---
ED Visit Note First contact with patient: 11:00 I did evaluate and examine this patient myself. I did guide management for the patient. I agree with the APC's assessment as discussed. Please see the APC's dictation for further details. I did independently review the CT scan, x-rays and blood work. The patient is presenting here mostly for cough. She had some chest tightness with some wheezing earlier which resolved after a DuoNeb. She was noted by the nurses to have an O2 saturation in the high 80s on room air and so she was placed on oxygen. Because of her symptoms and prior history of occult pneumonia we did obtain a CT scan of the chest. She has no evidence of pulmonary embolism but there was some mild infiltrates that could be possibly pneumonia versus atelectasis. On reevaluation her O2 saturation is 90-91 on room air. She did not wish to be hospitalized at this time. She does have an appointment on Friday to see her doctor. She will be placed on Levaquin and was discharged in good condition.
[2016-07-18 15:47] VITALS: BP 113/67; PULSE 90; O2SAT 90
--- NOTE | 2016-07-18 16:00 | EMERGENCY ROOM VISIT NOTE ---
History First contact with patient: 11:00 Chief Complaint: COUGH Stated Complaint: COUGH History of Present Illness The patient is a 75 year old female who presents to the Emergency Room with complaints of a productive cough and weakness. The patient reports that she started to feel weak and rundown on Friday, 5 days ago. On Friday, she then started to develop a mild cough. Yesterday morning she noticed some yellowish/ greenish phlegm after coughing. She has also had a low-grade fever for the past few days. The patient reports that she has been admitted to our hospital several times for pneumonia. She denies any significant shortness of breath. She reports that her chest feels tight from the coughing. She denies any headache, neck pain, back pain, abdominal pain, diarrhea or urinary symptoms. She rates her overall discomfort a 2 out of 10. The patient does have a history of COPD. Review of Systems 10 system review was performed and was negative except for pertinent positives and negatives as indicated in history of present illness Past Medical/Surgical History Medical Problems: (1) Anxiety (2) COPD (chronic obstructive pulmonary disease) (3) Corticoadrenal insufficiency (4) Depression (5) Fever (6) Fibromyalgia (7) Hypertension Nos (8) Ileus (9) Mood disorder (10) Pneumonia involving right lung (11) Sepsis (12) Severe sepsis Surgical Problems: (1) Hx of tonsillectomy Family History Diabetes mellitus Lung cancer Pancreatic cancer FATHER Social History Smoking Status: Never Smoker Alcohol Use: none Drug Use: none Marital Status: Housing Status: [facility] Occupation Status: retired Current/Historical Medications Scheduled Amitriptyline HCl (Amitriptyline HCl), 10 MG PO HS Amlodipine (Norvasc), 10 MG PO QAM Ascorbic Acid (Ascorbic Acid), 500 MG PO QAM Carboxymethylcellulose Sodium (Refresh Tears), 1 DROP OPB QID Clonazepam (Klonopin), 0.5 MG PO HS Ergocalciferol (Vitamin D 37278 Unit), 50,000 UNIT PO WK Fentanyl (Duragesic), 50 MCG TD [id number] Ferrous Sulfate (Kp Ferrous Sulfate), 325 MG PO TID Fludrocortisone Acetate (Florinef), 0.1 MG PO QAM Fluoxetine (Prozac), 40 MG PO DAILY Folic Acid (Folvite), 1 TAB PO DAILY@1700 Gabapentin (Neurontin), 600 MG PO TID Ibandronate Sodium (Boniva), 150 MG PO MONTHLY Lactulose (Chronulac), 10 GM PO TIDM Levofloxacin (Levaquin), 500 MG PO DAILY Lidocaine (Lidocaine), 1-2 PATCH TOP QAM Mirtazapine (Remeron), 30 MG PO HS Omeprazole (Prilosec), 40 MG PO DAILY Prednisolone Acetate (Ophth) (Pred Forte 1% Oph), 1 DROPS OPB DAILY Prednisone (Prednisone), 1 MG PO DAILY Scheduled PRN Acetaminophen (Tylenol), 650 MG PO Q4H PRN for Pain Buspirone Hcl (Buspar), 7.5 MG PO BID PRN for Anxiety Oxygen (Oxygen), 1 LITER NA PRN PRN for Shortness of Breath Tramadol (Ultram), 50 MG PO Q6H PRN for Pain Miscellaneous Medications Naloxone HCl (Narcan), 1 DOSE NA Allergies Coded Allergies: No Known Allergies (Unverified , 07/18/16) Physical Exam Vital Signs Date Time Temp Pulse Resp B/P Pulse Ox O2 Delivery O2 Flow Rate FiO2 07/18/16 15:47 90 20 113/67 90 07/18/16 14:30 88 18 131/76 95 Room Air 07/18/16 12:31 93 18 144/76 94 Nasal Cannula 2.0 07/18/16 12:27 93 Nasal Cannula 2.0 07/18/16 11:32 93 Room Air 07/18/16 11:05 94 07/18/16 11:00 82 18 135/62 93 Room Air 07/18/16 10:26 37.1 105 18 106/60 94 Physical Exam CONSTITUTIONAL: Healthy and well nourished. Alert and oriented X 3 with positive affect. Patient does not appear in any significant distress on exam. HEENT: Normocephalic, atraumatic. Pupils equal, round and reactive. Ears and nares are clear. NECK: Full active range of motion without discomfort. No JVD or carotid bruits. RESPIRATORY: Patient has mild expiratory wheezing in all rollins. No crackles, rhonchi or stridor. CARDIOVASCULAR: Regular rate and rhythm with no murmurs, rubs or gallops. GASTROINTESTINAL: Bowel sounds present in all quadrants. Soft and nontender to palpation. MUSCULOSKELETAL: Full range of motion of all joints without discomfort. INTEGUMENTARY: No rash or other significant dermatologic conditions noted. NEUROLOGIC: No focal neurologic deficits noted. Medical Decision & Procedures ER Provider Diagnostic Interpretation: My interpretation of an ECG shows a sinus tachycardia of [address] elevations or other conduction abnormalities appreciated. My interpretation of a two-view chest x-ray does not show any consolidations or pneumothorax. Mild cardiac enlargement is noted. Radiologist report is as follows: TWO VIEW CHEST CLINICAL HISTORY: Cough. FINDINGS: PA and lateral chest radiographs are compared to study dated 04/17/2016. Correlation is made with chest CT dated 04/18/16. The PA view is degraded by patient rotation. The heart is mild enlarged and there is atherosclerotic calcification of the thoracic aorta. The pulmonary vasculature is noncongested. Linear atelectasis is present in the lower lungs bilaterally. No airspace consolidation is seen typical for pneumonia and there is no pleural effusion. No pneumothorax is seen. The skeletal structures are osteopenic. Degenerative change is noted throughout the thoracic spine. IMPRESSION: Mild cardiac enlargement with no acute cardiopulmonary abnormality. CT angiography of the chest does not show any evidence for pulmonary emboli or consolidations. Radiologist report is as follows: CT ANGIOGRAM OF THE CHEST CLINICAL HISTORY: Decreased oxygen saturation. COPD. History of recurrent pneumonia. COMPARISON STUDY: Chest x-ray dated 07/18/2016, CT scan dated April 18, 2016 TECHNIQUE: Following the IV administration of 88 mL of Optiray-320, CT angiogram of the thorax was performed from the thoracic inlet to the lung bases utilizing the pulmonary embolus protocol. Images are reviewed in the axial, sagittal, and coronal planes. IV contrast was administered without complication. MIP imaging was performed. CT DOSE: 228.04 mGy.cm FINDINGS: There are borderline enlarged precarinal and AP window lymph nodes. There is no evidence of pathologic axillary or hilar lymphadenopathy. There was no evidence of thoracic aortic dilatation. There were no pulmonary artery filling defects to indicate acute pulmonary embolism. No pleural effusions are visualized. There is respiratory motion artifact. There are lingular and right upper lobe opacities, likely atelectatic. There is no lobar consolidation. IMPRESSION: 1. No evidence of acute pulmonary embolism 2. Borderline enlarged precarinal AP window lymph nodes 3. Lingular and right upper lobe opacities, likely atelectatic Laboratory Results 07/18/16 13:08 Red Blood Count 4.73, Mean Corpuscular Volume 87.1, Mean Corpuscular Hemoglobin 27.7, Mean Corpuscular Hemoglobin Concent 31.8, Mean Platelet Volume 8.7, Neutrophils (%) (Auto) 65.9, Lymphocytes (%) (Auto) 23.3, Monocytes (%) (Auto) 7.3, Eosinophils (%) (Auto) 3.3, Basophils (%) (Auto) 0.1, Neutrophils # (Auto) 4.58, Lymphocytes # (Auto) 1.62, Monocytes # (Auto) 0.51, Eosinophils # (Auto) 0.23, Basophils # (Auto) 0.01 07/18/16 13:08 Test 07/18/16 13:08 07/18/16 13:17 White Blood Count 6.96 K/uL (4.8-10.8) Red Blood Count 4.73 M/uL (4.2-5.4) Hemoglobin 13.1 g/dL (12.0-16.0) Hematocrit 41.2 % (37-47) Mean Corpuscular Volume 87.1 fL (80-100) Mean Corpuscular Hemoglobin 27.7 pg (25-34) Mean Corpuscular Hemoglobin Concent 31.8 g/dl (32-36) Platelet Count 186 K/uL (130-400) Mean Platelet Volume 8.7 fL (7.4-10.4) Neutrophils (%) (Auto) 65.9 % Lymphocytes (%) (Auto) 23.3 % Monocytes (%) (Auto) 7.3 % Eosinophils (%) (Auto) 3.3 % Basophils (%) (Auto) 0.1 % Neutrophils # (Auto) 4.58 K/uL (1.4-6.5) Lymphocytes # (Auto) 1.62 K/uL (1.2-3.4) Monocytes # (Auto) 0.51 K/uL (0.11-0.59) Eosinophils # (Auto) 0.23 K/uL (0-0.5) Basophils # (Auto) 0.01 K/uL (0-0.2) RDW Standard Deviation 51.5 fL (36.4-46.3) RDW Coefficient of Variation 16.1 % (11.5-14.5) Immature Granulocyte % (Auto) 0.1 % Immature Granulocyte # (Auto) 0.01 K/uL (0.00-0.02) Prothrombin Time 10.5 SECONDS (9.0-12.0) Prothromb Time International Ratio 1.0 (0.9-1.1) Activated Partial Thromboplast Time 27.0 SECONDS (21.0-31.0) Partial Thromboplastin Ratio 1.0 Anion Gap 6.0 mmol/L (3-11) Est Creatinine Clear Calc Drug Dose 55.9 ml/min Estimated GFR () 75.5 Estimated GFR (Non- 65.2 BUN/Creatinine Ratio 12.6 (10-20) Calcium Level 9.2 mg/dl (8.5-10.1) Bedside Troponin I 0.000 ng/ml (0-0.045) The above labs were reviewed. The patient has no leukocytosis. Bedside troponin is normal. Medications Administered Medications (Trade) Dose Ordered Sig/Larry Route Start Time Stop Time Status Last Admin Dose Admin Albuterol/ Ipratropium (Duoneb) 3 ml NOW STAT INH 07/18/16 11:10 07/18/16 11:12 DC 07/18/16 11:17 3 ML ED Course Patient history and physical exam were performed. Nurse's notes were reviewed. Vital signs were reviewed. The patient is afebrile. Pulse rate is 105, and O2 saturation 94% on nasal cannula at 4 L/m. The patient did not appear in any acute respiratory distress, and had no cough while in the emergency department. A two-view chest x-ray did not show any consolidations or failure pattern. The patient also received a unit dose DuoNeb treatment and did not make her feel any better. Re-auscultation of the lungs does show improvement of her wheezing.. The patient was advised of her normal chest x-ray findings. Given her prior history of CHF and weakness, I did suggest additional workup. The case was also discussed with Dr. Ward, ED attending physician, who also suggested further workup. I did spend approximately 20 minutes explaining to the patient why we wanted to perform additional testing. IV access was established, and labs were drawn. An ECG was performed, showing a sinus tachycardia. Review of labs shows a normal troponin. She has no leukocytosis or other electrolyte abnormality. After further discussion with attending physician, we elected to perform chest CT angiography which did not show any evidence for pulmonary emboli. She does have upper respiratory opacities that the radiologist characterizes as probable atelectasis. Upon reevaluation, the patient reports that she does not use home O2 during the day. She does use a nasal cannula at 2 L/m overnight. We did take her nasal cannula off while in the emergency department, and she desaturated to the upper 80s. On final reevaluation, the patient requested discharge home. She reports that she is "into tune" with her body and does not feel that she requires admission. I did explain that she is hypoxic, possibly secondary to her upper respiratory infection. The patient again feels that she does not require admission, and would prefer to follow-up with her family doctor. I did offer to call her PCP, Dr. Bauer, however was advised by the patient that she is teaching classes today. I did suggest that the patient follow up tomorrow in her office, however the patient again does not feel that she requires back quick of a follow-up. Our Senior Integration Architect did call their office and asked that they call the patient today to set up an appointment for reevaluation. When the patient got out of bed to change her clothing, Dr. Ward reevaluated the patient, having her get back into bed. Her O2 saturation at that time was 87%. After resting on the bed for approximately one to 2 minutes, her O2 saturation was 90-91%. The patient again requested her desire to be discharged home. The patient will be provided a prescription for Levaquin 500 mg daily 7 days. She was instructed to return to the emergency department for any progressively worsening symptoms, otherwise she will follow-up closely with Dr. Bauer. The patient was happy with plan of care, and voiced understanding of all discharge instructions. Medical Decision Patient presents to the emergency Department with primary complaint of weakness and productive cough. She denies any significant shortness of breath. She has been admitted in the past for pneumonia, and also has a known history of COPD and CHF. The patient's physical exam at this time is not suggestive of heart failure. Her chest CT does not show any consolidations consistent with pneumonia. She is afebrile and has no leukocytosis. She is, however, hypoxic in the emergency department, yet is requesting discharge home. She does report that she will return to the emergency department if her symptoms worsen, but feels that she will improve with Levaquin antibiotics, which has helped her prior infections. Impression Primary Impression: Hypoxia Additional Impressions: Upper respiratory infection COPD (chronic obstructive pulmonary disease) Departure Information Prescriptions Levofloxacin (Levaquin) 500 Mg Tab 500 MG PO DAILY for 7 Days, #7 TAB Prov: Brian Galindo PA 07/18/16 Referrals No Doctor, Assigned (PCP) Patient Instructions [facility] Problem Qualifiers Additional Impressions: Upper respiratory infection URI type: unspecified URI Qualified Codes: J06.9 - Acute upper respiratory infection, unspecified COPD (chronic obstructive pulmonary disease) COPD type: COPD with acute lower respiratory infection Qualified Codes: J44.0 - Chronic obstructive pulmonary disease with acute lower respiratory infection
[2016-10-10] MEDS ORDERED: LEVO1TAB33 PO (09:52)
[2016-10-31] MEDS ORDERED: OMEG10007 PO (10:32)
[2016-10-31] MEDS ORDERED: IBUP-1450 PO (10:32)
[2017-01-16] MEDS ORDERED: DOCU-94 PO (09:13)
[2017-01-16] MEDS ORDERED: AMT50 PO (09:14)
== END 2016-07-18 15:48 | disposition home or self-care (01) ==
LOC: C.EDB 10:11
DX: J06.9 Acute upper respiratory infection, unspecified (principal); J44.9 Chronic obstructive pulmonary disease, unspecified; R09.02 Hypoxemia; I50.9 Heart failure, unspecified; I10 Essential (primary) hypertension; F41.9 Anxiety disorder, unspecified; F32.9 Major depressive disorder, single episode, unspecified; Z98.890 Other specified postprocedural states; Z79.899 Other long term (current) drug therapy; Z83.3 Family history of diabetes mellitus; Z80.9 Family history of malignant neoplasm, unspecified

== ENCOUNTER → 2016-07-31 | Outpatient (CLI) | payer OTHER, BC ==
[~2016-07-31] MED LIST changes: +ACET-1311 PO; +AMITRIPTYLINE; +AMT50 PO; +ASCO500T16 PO; -BISA10SU7 RE; -CALC500C27 PO; +CARB0.5D28 PO; +ERGO500037 PO; +FERR1TAB13 PO; +FLUD0.1T10 PO; -FRRS300 PO; +LEVO1TAB33 PO; +LEVO25TA5 PO; +LIDO1PAD2 TOP; +LIDOCAINE PAD; +MENTOIN TOP; +MIRT30TA PO; -MIRT30TA2 PO; +NALO1SPR; +NAPR500T3 PO; +NRN/600 PO; -NRN600 PO; +OXGN; -SUVO1TAB PO; +SYMIN160 INH; -VTMD PO
--- NOTE | 2016-07-31 17:19 | ECHOCARDIOGRAM REPORT ---
*NOTICE TO RECEIVING [employer] This information is strictly Confidential and protected under [place] law. [place] law prohibits you from making any further disclosure of this information unless further disclosure is expressly permitted by the written consent of the person to whom it pertains or is authorized by law. A general authorization for the release of medical or other information is not sufficient for this purpose. Hospital accepts no responsibility if the information is made available to any other person, INCLUDING THE PATIENT. Interpretation Summary * One view was obtained * Agitated saline injection did NOT demonstrate any R-L shunting. Procedure Details * A saline contrast injection was performed to assess for cardiac shunting. * The injection was performed through an intravenous line in the left arm. * The attending nurse who injected the saline contrast was LUDY BAIN RN. * A total of 30 cc of agitated saline was given.
== END | disposition home or self-care (01) ==
LOC: C.CPL 12:01
PROVIDERS: ATTEND Internal Medicine Critical Care Medicine
DX: R91.8 Other nonspecific abnormal finding of lung field (principal); R09.02 Hypoxemia

== ENCOUNTER → 2016-09-05 | Day surgery (SDC) | payer OTHER, BC ==
--- NOTE | 2016-09-05 07:21 | History and Physical ---
History & Physical Date Sep 05, 2016. Chief Complaint 75-year-old female here for follow-up on hypoxia: History of Present Illness The patient is a 75 year old female with complaints of hypoxemia: Patient is a 75-year-old female with past medical history significant for chronic diastolic heart failure, under define COPD and multiple hospital admissions for repeat pneumonia. Patient is doing well today she has no active pulmonary complaints. She was recently seen in the emergency room on 06/19/2016 with complaints of productive sputum and started on Levaquin 500 milligrams daily for 7 days. During that admission/ED visit as well as previous admissions she has been documented to have her pulse oximetry dropped into the low 90s with no symptomatic correlation. Denies: Fever, chills, productive cough, classic cardiac chest pain, syncope, pleurisy or unintentional weight loss Medical Problems: (1) Anxiety (2) COPD (no PFTs) (3) Corticoadrenal insufficiency (4) Depression (5) Fever (6) Fibromyalgia Cardiac Echo (04/20/2016) LV: EF=65-70%, mild concentric LVH, grade I diastolic HF AV: valve sclerosis without significant aortic valvular stenosis, mild AR TR: mild RVSP: 30-40mmHg CT ANGIOGRAM OF THE CHEST ( 07/18/2016) COMPARISON STUDY: Chest x-ray dated 2016 No evidence of acute pulmonary embolism Borderline enlarged precarinal AP window lymph nodes Lingular and right upper lobe opacities, likely atelectatic Increased scar vs. atelectasis changes in the Lingula and RML as compared to previous CTs of the thorax 02/02/2016 Video barium swallow - no lisset aspiration, + esophageal dysmotility Gastroesophageal reflux Moderate esophageal irritablility and/or spasm CT Thorax (04/18/2016) Minimal parenchymal infiltrative change right perihilar and right middle lobe regions. Past Medical/Surgical History Medical Problems: (1) Anxiety (2) COPD (chronic obstructive pulmonary disease) (3) Corticoadrenal insufficiency (4) Depression (5) Fever (6) Fibromyalgia (7) Hypertension Nos (8) Ileus (9) Mood disorder (10) Pneumonia involving right lung (11) Sepsis (12) Severe sepsis Surgical Problems: (1) Hx of tonsillectomy Additional History Hepatic Disease: No Endocrine Disorder: Yes (adrenal insuffiency) Kidney Disease: No Hypertension: No Heart Disease: No Bleeding Tendencies: No Infectious Diseases: No Allergies Coded Allergies: No Known Allergies (Unverified , 07/18/16) Home Medications Scheduled Amitriptyline HCl (Amitriptyline HCl), 10 MG PO HS Amlodipine (Norvasc), 10 MG PO QAM Ascorbic Acid (Ascorbic Acid), 500 MG PO QAM Carboxymethylcellulose Sodium (Refresh Tears), 1 DROP OPB QID Clonazepam (Klonopin), 0.5 MG PO HS Ergocalciferol (Vitamin D 11211 Unit), 50,000 UNIT PO WK Fentanyl (Duragesic), 50 MCG TD [id number] Ferrous Sulfate (Kp Ferrous Sulfate), 325 MG PO TID Fludrocortisone Acetate (Florinef), 0.1 MG PO QAM Fluoxetine (Prozac), 40 MG PO DAILY Folic Acid (Folvite), 1 TAB PO DAILY@1700 Gabapentin (Neurontin), 600 MG PO TID Ibandronate Sodium (Boniva), 150 MG PO MONTHLY Lactulose (Chronulac), 10 GM PO TIDM Lidocaine (Lidocaine), 1-2 PATCH TOP QAM Mirtazapine (Remeron), 30 MG PO HS Omeprazole (Prilosec), 40 MG PO DAILY Prednisolone Acetate (Ophth) (Pred Forte 1% Oph), 1 DROPS OPB DAILY Prednisone (Prednisone), 1 MG PO DAILY Scheduled PRN Acetaminophen (Tylenol), 650 MG PO Q4H PRN for Pain Buspirone Hcl (Buspar), 7.5 MG PO BID PRN for Anxiety Home O2 Therapy (Oxygen), 1 LITER NA PRN PRN for Shortness of Breath Tramadol (Ultram), 50 MG PO Q6H PRN for Pain Miscellaneous Medications Naloxone HCl (Narcan), 1 DOSE NA Physical Examination Skin: warm/dry, no rash Eyes: normal inspection, EOMI, sclerae normal ENT: normal ENT inspection, pharynx normal Head: normocephalic, atraumatic Neck: supple, no adenopathy, trachea midline Respiratory/Chest: lungs clear, normal breath sounds, no respiratory distress Cardiovascular: regular rate, rhythm, no edema, no murmur Abdomen / GI: normal bowel sounds, non tender Back: normal inspection Extremities: normal inspection, normal range of motion 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: no motor/sensory deficits, alert, normal reflexes, oriented x 3 Diagnosis Mild Hypoxemia with abnormal CT of the thorax ASA Classification: ASA Class II Plan of Treatment Bronchoscopy with BAL for further evaluation of her abnormal CT findings
== END | disposition home or self-care (01) ==
LOC: C.ACU 06:43
PROVIDERS: ATTEND Internal Medicine Critical Care Medicine
DX: R91.8 Other nonspecific abnormal finding of lung field (principal); Z53.9 Procedure and treatment not carried out, unspecified reason; R09.02 Hypoxemia

== ENCOUNTER → 2016-09-10 | Outpatient (CLI) | payer OTHER, BC ==
[~2016-09-10] MED LIST changes: -AMITRIPTYLINE; -AMT50 PO; -ASCA500 PO; -CARB0.5D28 PO; -DOCU-94 PO; -FERR1TAB13 PO; -IBAN150T PO; -IBUP-1450 PO; -LDDP5 TD; -LEVO1TAB33 PO; -LEVO25TA5 PO; -LIDOCAINE PAD; -MENTOIN TOP; -NAPR500T3 PO; -OMEG10007 PO; -SYMIN160 INH
== END | disposition home or self-care (01) ==
LOC: C.RC 12:42
PROVIDERS: ATTEND Internal Medicine Critical Care Medicine
DX: J31.0 Chronic rhinitis (principal); R91.8 Other nonspecific abnormal finding of lung field; R09.02 Hypoxemia

== ENCOUNTER → 2016-10-04 | Outpatient (CLI) | payer OTHER, BC ==
[~2016-10-04] MED LIST changes: +AMITRIPTYLINE; +IBUP-1450 PO; +LEVO1TAB33 PO; +LIDOCAINE PAD; +OMEG10007 PO
--- NOTE | 2016-10-04 15:38 | DIAGNOSTIC IMAGING REPORT ---
CHEST 2 VIEWS ROUTINE CLINICAL HISTORY: Fatigue. Fever. COMPARISON STUDY: Chest radiograph and chest CT July 18, 2016. FINDINGS: There is no pneumothorax or pleural effusion. Cardiomediastinal silhouette is stable. There is no evidence of pulmonary edema. There may be mild left perihilar opacity. There are minimal bibasilar opacities. IMPRESSION: 1. Possible left perihilar opacity. This likely reflects normal vessels although pneumonia could appear similar. If progressive symptoms, radiographic follow up is recommended. 2. Mild bibasilar opacities which favor atelectasis. Electronically signed by: Venkat Dean M.D. 10/04/2016 3:37 PM Dictated Date/Time: 10/04/2016 3:31 PM
== END | disposition home or self-care (01) ==
LOC: C.RAD 15:13
PROVIDERS: ATTEND Physician Assistant
DX: R50.9 Fever, unspecified (principal); R53.83 Other fatigue; R42 Dizziness and giddiness

== ENCOUNTER → 2016-10-07 | Outpatient (CLI) | payer OTHER, BC ==
--- NOTE | 2016-10-07 09:01 | DIAGNOSTIC IMAGING REPORT ---
(CHEST) THORAX WITHOUT CT DOSE: 270.41 mGy.cm CLINICAL HISTORY: 75 years-old Female with HYPOXEMIA R09.02. TECHNIQUE: Multiaxial CT images of the chest were performed without contrast. A dose lowering technique was utilized adhering to the principles of ALARA. COMPARISON: CTA 07/18/2016. FINDINGS: No dominant thyroid nodule is identified. Mildly prominent AP window lymph node is again seen, 1.5 x 0.9 cm, likely physiologic. Heart is normal in size without pericardial effusion. Coronary arterial calcifications are seen. Thoracic aorta appears to be normal in course and caliber with moderate atherosclerotic plaquing noted. There is no pneumothorax or pleural effusion. Mild biapical pleural parenchymal scarring is redemonstrated. There are multifocal groundglass opacities throughout the left upper lobe and lingula and to lesser extent within the right middle lobe. Linear subsegmental pleural based opacities present within the bilateral lung bases suggest atelectasis and/or scarring. 9 mm area of pleural-based nodularity level of the left lower lobe also suggest atelectasis. There is a 1 mm calcified granuloma the superior segment left lower lobe. There is minimal geographic attenuation of the bilateral lung apices suggesting some air trapping. There is minimal mucous plugging in the right upper lobe. Central airways appear patent. Phrygian cap of the gallbladder noted. There is moderate pancreatic atrophy. Soft tissues are unremarkable. Multilevel endplate spurring is noted throughout the spine. Hemangioma noted within the T12 vertebral body. IMPRESSION: 1. Multifocal subsegmental distribution of groundglass opacities throughout the left upper lobe, lingula and to lesser extent within the right middle lobe with areas of probable air trapping suggest pneumonitis without lobar consolidation identified. 2. Minimal mucous plugging of the right upper lobe subsegmental bronchi. 3. Bibasilar linear subsegmental opacities suggest areas of atelectasis/scarring. Electronically signed by: Sathya Bustamante M.D. 10/07/2016 8:59 AM Dictated Date/Time: 10/07/2016 8:50 AM
== END | disposition home or self-care (01) ==
LOC: C.CTS 08:28
PROVIDERS: ATTEND Internal Medicine Critical Care Medicine
DX: R09.02 Hypoxemia (principal)

== ENCOUNTER → 2016-10-10 | Day surgery (SDC) | payer OTHER, BC ==
[~2016-10-10] VITALS: Ht 161.3 cm; Wt 77.5 kg
--- NOTE | 2016-10-10 08:51 | History and Physical ---
History & Physical Date Oct 10, 2016. Chief Complaint Abnormal CAT scan with hypoxemia History of Present Illness The patient is a 75 year old female with complaints of abnormal CAT scan with hypoxemia [id number] 75- year-old female here for follow-up on hypoxia: Patient is a 75-year-old female with past medical history significant for chronic diastolic heart failure, under define COPD and multiple hospital admissions for repeat pneumonia. Patient is doing well today she has no active pulmonary complaints. She was recently seen in the emergency room on 06/19/2016 with complaints of productive sputum and started on Levaquin 500 milligrams daily for 7 days. During that admission/ED visit as well as previous admissions she has been documented to have her pulse oximetry dropped into the low 90s with no symptomatic correlation. Denies: Fever, chills, productive cough, classic cardiac chest pain, syncope, pleurisy or unintentional weight loss Medical Problems: Cardiac Echo (04/20/2016) LV: EF=65-70%, mild concentric LVH, grade I diastolic HF AV: valve sclerosis without significant aortic valvular stenosis, mild AR TR: mild RVSP: 30-40mmHg CT ANGIOGRAM OF THE CHEST (07/18/2016) COMPARISON STUDY: Chest x-ray dated 07/18/2016, CT scan dated April 18, 2016 No evidence of acute pulmonary embolism Borderline enlarged precarinal AP window lymph nodes Lingular and right upper lobe opacities, likely atelectatic Increased scar vs. atelectasis changes in the Lingula and RML as compared to previous CTs of the thorax 02/02/2016 Echocardiogram - EF 65-70%, mild AI, aortic sclerosis, elevated pulmonary arterial pressure 30-40mmHg Video barium swallow - no lisset aspiration, + esophageal dysmotility Gastroesophageal reflux Moderate esophageal irritablility and/or spasm CT Thorax (04/18/2016) Minimal parenchymal infiltrative change right perihilar and right middle lobe regions CT ANGIOGRAM OF THE CHEST (10/07/16) Groundglass distribution the left upper lobe and lingual Mild mucous plugging associated in the right middle lobe Bibasilar subsegmental atelectasis/scarring right greater than left Past Medical/Surgical History Medical Problems: (1) Anxiety (2) COPD (chronic obstructive pulmonary disease) (3) Corticoadrenal insufficiency (4) Depression (5) Fever (6) Fibromyalgia (7) Hypertension Nos (8) Ileus (9) Mood disorder (10) Pneumonia involving right lung (11) Sepsis (12) Severe sepsis Surgical Problems: (1) Hx of tonsillectomy Additional History Hepatic Disease: No Endocrine Disorder: Yes (adrenal insufficiency) Kidney Disease: No Hypertension: No Heart Disease: No Bleeding Tendencies: No Infectious Diseases: No Allergies Coded Allergies: No Known Allergies (Unverified , 10/10/16) Home Medications Scheduled Amitriptyline HCl (Amitriptyline HCl), 10 MG PO HS Amlodipine (Norvasc), 10 MG PO QAM Ascorbic Acid (Ascorbic Acid), 500 MG PO QAM Carboxymethylcellulose Sodium (Refresh Tears), 1 DROP OPB QID Clonazepam (Klonopin), 0.5 MG PO HS Ergocalciferol (Vitamin D 04970 Unit), 50,000 UNIT PO WK Fentanyl (Duragesic), 50 MCG TD CQ72HR Fludrocortisone Acetate (Florinef), 0.1 MG PO QAM Fluoxetine (Prozac), 40 MG PO DAILY Folic Acid (Folvite), 1 TAB PO DAILY@1700 Gabapentin (Neurontin), 600 MG PO TID Lactulose (Chronulac), 10 GM PO TIDM Lidocaine (Lidocaine), 1-2 PATCH TOP QAM Mirtazapine (Remeron), 30 MG PO HS Omeprazole (Prilosec), 40 MG PO DAILY Prednisolone Acetate (Ophth) (Pred Forte 1% Oph), 1 DROPS OPB DAILY Prednisone (Prednisone), 1 MG PO DAILY Scheduled PRN Acetaminophen (Tylenol), 650 MG PO Q4H PRN for Pain Buspirone Hcl (Buspar), 7.5 MG PO BID PRN for Anxiety Home O2 Therapy (Oxygen), 1 LITER NA PRN PRN for Shortness of Breath Tramadol (Ultram), 50 MG PO Q6H PRN for Pain Miscellaneous Medications Naloxone HCl (Narcan), 1 DOSE NA Physical Examination Skin: warm/dry, no rash Eyes: normal inspection, EOMI, sclerae normal ENT: normal ENT inspection, pharynx normal Head: normocephalic, atraumatic Neck: supple, no adenopathy, trachea midline Respiratory/Chest: lungs clear, normal breath sounds, no respiratory distress Cardiovascular: regular rate, rhythm, no edema, no murmur Abdomen / GI: normal bowel sounds, non tender Back: normal inspection Extremities: normal inspection, normal range of motion 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: no motor/sensory deficits, alert, normal reflexes, oriented x 3 Diagnosis Evaluation of hypoxemia with abnormal CAT scan ASA Classification: ASA Class II Plan of Treatment Bronchoscopy with bronchial alveolar lavage for abnormal CAT scan
[2016-10-10 08:52] VITALS: BP 148/69; PULSE 89; TEMP 37.3; O2SAT 94; Ht 161.3 cm; Wt 77.5 kg
--- NOTE | 2016-10-10 10:06 | Discharge Instructions ---
Discharge Instructions Date of Service Oct 10, 2016. Admission Reason for Admission: Abnormal Ct Scan On Lung, Hypoxemia Discharge Discharge Diagnosis / Problem: abnormal CAT scan and hypoxemia. Bronchoscopy was canceled Discharge Goals Goal(s): Diagnostic testing Activity Recommendations Activity Limitations: resume your previous activity . Instructions / Follow-Up Instructions / Follow-Up This follow-up in the pulmonary clinic for a [facility] Current Hospital Diet Patient's current hospital diet: Discharge Diet Recommended Diet: Regular Diet Procedures Procedures Performed: None: Procedure was discontinued as the patient is on Levaquin Pending Studies Studies pending at discharge: no Medical Emergencies . Who to Call and When: Medical Emergencies: If at any time you feel your situation is an emergency, please call 911 immediately. . Non-Emergent Contact Non-Emergency issues call your: Primary Care Provider . . "Provider Documentation" section prepared by Enrique Rosa. . VTE Core Measure Inpt VTE Proph given/why not?: Treatment not indicated
== END | disposition home or self-care (01) ==
LOC: C.ACU 08:17
PROVIDERS: ATTEND Internal Medicine Critical Care Medicine
DX: Z53.09 Procedure and treatment not carried out because of other contraindication (principal); R09.02 Hypoxemia; I50.32 Chronic diastolic (congestive) heart failure; J44.9 Chronic obstructive pulmonary disease, unspecified; Z87.01 Personal history of pneumonia (recurrent); K21.9 Gastro-esophageal reflux disease without esophagitis; F41.9 Anxiety disorder, unspecified; F32.9 Major depressive disorder, single episode, unspecified; I10 Essential (primary) hypertension; Z90.89 Acquired absence of other organs

== ENCOUNTER → 2016-10-30 | Outpatient (CLI) | payer OTHER, BC ==
[2016-10-30 09:24] LABS: THYROID STIMULATING HORMONE 5.41 uIu/ml (0.300-4.500)
--- NOTE | 2016-11-06 12:41 | CODING QUERY NO DIAGNOSIS ---
TREATMENT RENDERED WITHOUT A DIAGNOSIS Dr. Bauer, To promote full compliance with coding requirements relating to patient care, physician participation is requested in all cases of coremaker bench uncertainty. Please assist us with providing a diagnosis/symptom for the test(s) below: A diagnosis/symptom was not documented on your Order. A valid diagnosis/symptom is required to bill all insurances. Please remember that we are unable to code a diagnosis of rule out, probable, possible, questionable, or suspected. Tests that require a diagnosis: * PRO-B-TYPE NATRIURETIC PEPTIDE DIAGNOSIS: * TSH DIAGNOSIS: DATE OF SERVICE: 10/30/16 Provider Signature: Date: Thank you Gael Sanchez [facility] Information Management Once completed, please kindly fax back to [phone] For questions please call [phone]
== END | disposition home or self-care (01) ==
LOC: C.LABOUTLO 08:30
PROVIDERS: ATTEND Family Medicine
DX: M25.473 Effusion, unspecified ankle (principal); J44.9 Chronic obstructive pulmonary disease, unspecified

== ENCOUNTER → 2016-10-31 | Day surgery (SDC) | payer OTHER, BC ==
[~2016-10-31] VITALS: Ht 162.6 cm; Wt 78.0 kg
[~2016-10-31] MED LIST changes: +FENTANYL CITRATE INJ 50 MCG/1 ML 2 ML VIAL ONE; +MIDAZOLAM HCL 1 MG/ML 2ML VIAL ONE
[2016-10-31 08:47] VITALS: Ht 162.6 cm; Wt 78.0 kg
[2016-10-31 08:48] VITALS: BP 141/67; PULSE 95; TEMP 37; O2SAT 92
--- NOTE | 2016-10-31 10:39 | History & Physical Bridge Note ---
H&P Re-Evaluation Bridge Note: I have examined the patient, reviewed the History & Physical and in the interval since the performance of the History & Physical I have noted the following changes of clinical significance: No changes noted
--- NOTE | 2016-10-31 10:39 | Procedure Note ---
Pre-Mod Sedation Assessment General Date of Moderate Sedation: Oct 31, 2016. Vital Signs: Vital Signs Past 12 Hours Date Time Temp Pulse Resp B/P (MAP) Pulse Ox O2 Delivery O2 Flow Rate FiO2 10/31/16 08:48 37 95 16 141/67 92 Room Air Review Cardiovascular: regular rate, rhythm, no edema Abdomen: normal bowel sounds, non tender Lungs: chest non-tender, lungs clear Airway Class: III Pre-Sedation Airway Assessment Oral Cavity: WNL Able to Visualize Vocal Cords: No Short Thick Neck: No Hx of Sleep Apnea: No Smoking Status: Never Smoker Mallampati Classification: Class II ASA Classification: Class III Procedure Planning Contraindications-for Mod Sed: None Yes Notes The planned sedation has been discussed with the patient and consent obtained. I have identified the patient, determined the appropriateness of sedation and have assessed the patient immediately prior to the procedure. All medicine(s) and interventions are by my order.
--- NOTE | 2016-10-31 10:40 | Procedure Note ---
Post-Mod Sedation Assessment General Date of Moderate Sedation Oct 31, 2016. Vital Signs: Vital Signs Past 12 Hours Date Time Temp Pulse Resp B/P (MAP) Pulse Ox O2 Delivery O2 Flow Rate FiO2 10/31/16 08:48 37 95 16 141/67 92 Room Air Review - Discharge Criteria Vital Signs Stable: Yes Alert/Oriented/Conversant: Yes Returned to Baseline Mental St: Yes Nausea Absent/Minimal: Yes Pain/Discomfort/Absent/Minimal: Yes Normal/Baseline Respirations: Yes Active Bleeding?: No Pt Received D/C Instructions: N/A Prescriptions Given: Transmitted Specific Proced. D/C Criteria Distal Pulses Present (Cardiac: N/A Groin site assessed-Card Cath: N/A Voided Prior To Discharge: N/A Discharged Patients Adult Escort/Transportation: Yes
--- NOTE | 2016-10-31 10:46 | Discharge Instructions ---
Discharge Instructions Procedure Procedure Date: Oct 31, 2016. Reason for Visit: Hypoxemia Dr Alex To Do. Discharge Discharge Date: Oct 31, 2016. Discharge Diagnosis: Hypoxemia Last Recorded Wt (Kilograms): 78 Anesthesia Post Anesthesia Instructions: If you have had IV Sedation: * Do not drive today. * Resume driving when surgeon permits. * Do not make important decisions or sign legal documents today. * Call surgeon for: 1. Temperature elevations greater than 101 degrees F. 2. Uncontrollable pain. 3. Excessive bleeding. 4. Persistent nausea and vomiting. 5. Medication intolerance (nausea, vomiting or rash). * For nausea and vomiting use only clear liquids such as: tea, soda, bouillon until nausea subsides, then gradually increase diet as tolerated. * If you have any concerns or questions, call your surgeon's office. If physician is unavailable and it is an emergency, call 911 or go to the nearest emergency room. Instructions Activity Recommendations: resume regular activity Recommended Home Diet: resume previous diet Allergies: Coded Allergies: No Known Allergies (Unverified , 10/10/16) Follow Up Follow-up with: Dr. Rosa [facility] Recommendations: Call your doctor if: * Temperature above 101 degrees * Pain not relieved by pain medicine ordered * There is increased drainage or redness from any incision * You have any unanswered questions or concerns. Your Doctors Instructions noted above were prepared by provider Bandar Alex. Patient Signature Section: Patient Instructions Signature Page Parvin Carrillo Patient (or Guardian) Signature/Date: I have read and understand the instructions given to me by my caregivers. Caregiver/RN/Doctor Signature/Date: The above-named patient and/or guardian has received patient instructions on this date. + Original Patient Signature Page (only) stays with chart. Please make copy for patient.
[2016-10-31 10:56] LABS: ISTAT ARTERIAL BLOOD GAS HCO3 30 meq/L (19-24); ISTAT ARTERIAL BLOOD GAS PCO2 56 mmHg (35-46); ISTAT ARTERIAL BLOOD GAS PO2 35 mmHg (80-95); ISTAT ARTERIAL BLOOD GAS pH 7.34 (7.35-7.45); ISTAT CARBON DIOXIDE 32 mEq/l (24-31)
[2016-10-31 10:56] LABS: ISTAT CARBON DIOXIDE VENOUS 31 mEq/l (24-31); ISTAT VENOUS BLOOD GAS HCO3 29 meq/L (23-28); ISTAT VENOUS BLOOD GAS PCO2 56 mmHg (38.0-50.0); ISTAT VENOUS BLOOD GAS PO2 44 mmHg (30-55); ISTAT VENOUS BLOOD GAS pH 7.33 (7.36-7.41)
[2016-10-31 10:57] LABS: ISTAT ARTERIAL BLOOD GAS HCO3 32 meq/L (19-24); ISTAT ARTERIAL BLOOD GAS PCO2 62 mmHg (35-46); ISTAT ARTERIAL BLOOD GAS PO2 44 mmHg (80-95); ISTAT ARTERIAL BLOOD GAS pH 7.32 (7.35-7.45); ISTAT CARBON DIOXIDE 33 mEq/l (24-31)
[2016-10-31 10:57] LABS: ISTAT ARTERIAL BLOOD GAS HCO3 32 meq/L (19-24); ISTAT ARTERIAL BLOOD GAS PCO2 60 mmHg (35-46); ISTAT ARTERIAL BLOOD GAS PO2 46 mmHg (80-95); ISTAT ARTERIAL BLOOD GAS pH 7.34 (7.35-7.45); ISTAT CARBON DIOXIDE 34 mEq/l (24-31)
[2016-10-31 11:43] VITALS: BP 142/60; PULSE 95; O2SAT 98
[2016-10-31 11:44] LABS: ISTAT CARBON DIOXIDE VENOUS 33 mEq/l (24-31); ISTAT VENOUS BLOOD GAS HCO3 31 meq/L (23-28); ISTAT VENOUS BLOOD GAS PCO2 58 mmHg (38.0-50.0); ISTAT VENOUS BLOOD GAS PO2 49 mmHg (30-55); ISTAT VENOUS BLOOD GAS pH 7.34 (7.36-7.41)
[2016-10-31 13:38] LABS: ISTAT CARBON DIOXIDE VENOUS 32 mEq/l (24-31); ISTAT VENOUS BLOOD GAS HCO3 31 meq/L (23-28); ISTAT VENOUS BLOOD GAS PCO2 58 mmHg (38.0-50.0); ISTAT VENOUS BLOOD GAS PO2 47 mmHg (30-55); ISTAT VENOUS BLOOD GAS pH 7.33 (7.36-7.41)
[2016-10-31 13:39] LABS: ISTAT CREATININE 0.8 mg/dl (0.6-1.3); ISTAT HEMOGLOBIN 12.9 g/dl (12.0-16.0); ISTAT IONIZED CALCIUM 1.25 mmol/l (1.12-1.32)
[2016-10-31 13:39] LABS: ISTAT CARBON DIOXIDE VENOUS 33 mEq/l (24-31); ISTAT VENOUS BLOOD GAS HCO3 32 meq/L (23-28); ISTAT VENOUS BLOOD GAS PCO2 58 mmHg (38.0-50.0); ISTAT VENOUS BLOOD GAS PO2 36 mmHg (30-55); ISTAT VENOUS BLOOD GAS pH 7.34 (7.36-7.41)
--- NOTE | 2016-10-31 22:28 | Cardiac Catheterization ---
Procedure Note Procedure Date Oct 31, 2016. Pre-Procedure Diagnosis CHF AUC Score RHC Post-Procedure Diagnosis Elevated Intracardiac Pressures Procedure(s) Performed Right Heart Cath Emergency Department Nurse Isai Fraternity Adviser(s) Lesviat Estimated Blood Loss Medication(s) Fentanyl, Versed, Lidocaine 1% Summary of Findings Indication: Hypoxemia/Dyspnea on exertion/Evaluate for PH or shunt Access: 6Fr antecubital vein Catheters: 6Fr swan, 4Fr multipurpose catheter Findings: RA 6 RV 40/9 PA 40/18 (27) PCW 17 On room air PaSat 62% AoSat 90% Herbie CO/CI 4.0/2.1 Thermo CO/CI 7.8/4.3 TPG 1 mmHg PVR <1 Wood unit On 10 L 02 PaSat 75% AoSat 100% Herbie CO/CI 4.33/2.3 SVC 74% IVC 78% Low RA 81% RV 79% PA 75% Qp/Qs: 1 Summary: 1. Preserved cardiac output. Mildly elevated left and right sided filling pressures 2. Mild post-capillary pulmonary hypertension (PH-HFpEF) 3. No evidence of significant left to right shunt Recommendations: Follow-up with Dr. 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
== END | disposition home or self-care (01) ==
LOC: C.CATH 08:37
PROVIDERS: ATTEND Internal Medicine Interventional Cardiology
DX: I50.32 Chronic diastolic (congestive) heart failure (principal); R91.8 Other nonspecific abnormal finding of lung field; R09.02 Hypoxemia; E66.9 Obesity, unspecified; J44.9 Chronic obstructive pulmonary disease, unspecified; K21.9 Gastro-esophageal reflux disease without esophagitis; M19.90 Unspecified osteoarthritis, unspecified site; Z82.49 Family history of ischemic heart disease and other diseases of the circulatory system; Z82.2 Family history of deafness and hearing loss; Z80.0 Family history of malignant neoplasm of digestive organs

== ENCOUNTER → 2016-11-06 | Outpatient (CLI) | payer OTHER, BC ==
[~2016-11-06] MED LIST changes: -AMT10 PO; -FENTANYL CITRATE INJ 50 MCG/1 ML 2 ML VIAL ONE; -LIDO1PAD2 TOP; -MIDAZOLAM HCL 1 MG/ML 2ML VIAL ONE
[2016-11-06 12:15] LABS: HEMATOCRIT 42.4 % (37-47); MEAN CELL VOLUME 92.2 fL (80-100); MEAN CORPUSCULAR HEMOGLOBIN 27.8 pg (25-34); MEAN CORPUSCULAR HGB CONC 30.2 g/dl (32-36); MEAN PLATELET VOLUME 9.1 fL (7.4-10.4); NEUT % 65.9 %; PLATELET COUNT 196 K/uL (130-400); WHITE BLOOD COUNT 6.86 K/uL (4.8-10.8)
[2016-11-06 12:16] LABS: BASO % 0.1 %; BASO ABS # 0.01 K/uL (0-0.2); COMPLETE YES; EOS % 4.8 %; IG% 0.3 %; LYMPH % 21.9 %
[2016-11-06 12:21] LABS: PROTHROMBIN TIME (PATIENT) 10.6 SECONDS (9.0-12.0)
[2016-11-06 12:45] LABS: ALT/SGPT 17 U/L (12-78); BLOOD UREA NITROGEN 10 mg/dl (7-18); BUN/CREATININE RATIO 12.1 (10-20); CALCIUM 9.5 mg/dl (8.5-10.1); CARBON DIOXIDE 32 mmol/L (21-32); CHLORIDE 103 mmol/L (98-107); GLUCOSE 104 mg/dl (70-99); POTASSIUM 3.7 mmol/L (3.5-5.1); SODIUM 140 mmol/L (136-145)
[2016-11-06 12:48] LABS: ALB/GLOB RATIO 0.9 (0.9-2); ALKALINE PHOSPHATASE 93 U/L (45-117); AST/SGOT 19 U/L (15-37)
== END | disposition home or self-care (01) ==
LOC: C.LAB 11:14
PROVIDERS: ATTEND Internal Medicine Critical Care Medicine
DX: D64.9 Anemia, unspecified (principal); R09.02 Hypoxemia

== ENCOUNTER 2016-11-21 08:35 | Day surgery (SDC) | payer OTHER, BC ==
[~2016-11-21] VITALS: Ht 162.6 cm; Wt 77.2 kg
[2016-11-21] VITALS (14 sets, daily range): BP systolic 101–133; BP diastolic 53–69; PULSE 74–92; TEMP 37–37.3; O2SAT 93–99; Ht 162.6 cm; Wt 77.2 kg
[~2016-11-21 08:35] MED LIST changes: -AMITRIPTYLINE; +DEXTROSE 5% 1000ML 1,000 ML IV SCH; -LIDOCAINE PAD; -TRAM-10 PO
[2016-11-21] MEDS ORDERED: MIDAZOLAM HCL 5 MG/ML 1 ML VIAL IV ONE (08:36)
[2016-11-21] MEDS ORDERED: FENTANYL CITRATE 100 MCG 2 ML CARP IV ONE (08:36)
--- NOTE | 2016-11-21 09:05 | History and Physical ---
History & Physical Date Nov 21, 2016. Chief Complaint Chronic cough with associated bronchitis and shortness of Breath History of Present Illness The patient is a 76 year old female with complaints of Chronic cough with associated bronchitis and shortness of Breath 76-year-old female here for bronchoscopy secondary to chronic bronchitis and shortness of breath and abnormal CT scan: Patient was initially seen in the hospital for out of proportion hypoxemia and abnormal CT scan. At that time the patient noted a history of of a collapsed lung requiring chest tube placement consistent with a CT scan findings. There hypoxia was notably out of proportion to her signs and symptoms. Since then I have try to perform bronchoscopy for further evaluation of the bronchiectatic changes in the lung but had cancel both procedures the last being secondary to the patient being on antibiotics. She has been worked up with a echocardiogram, pulmonary function tests as well as various radiologic evaluations including barium swallow. At this time the most significant findings are found on the echocardiogram with signs of grade 1 diastolic heart failure as well as the severely reduced diffusion capacity of 36% on her pulmonary function studies. The patient denies shortness of breath at rest or dyspnea on exertion but is unable to ambulate long distances secondary to osteoarthritis. At this time she denies: Fever, chills, productive cough, pleurisy, classic cardiac chest pain or unintentional weight loss. 1) chronic diastolic heart failure Cardiac Echo (04/20/2016) LV: EF=65-70%, mild concentric LVH, grade I diastolic HF AV: valve sclerosis without significant aortic valvular stenosis, mild AR TR: mild RVSP: 30-40mmHg 2) COPD Pulmonary function study 09/10/2016 Spirometry: Mild obstructive ventilatory disease with an FEV1 of 75 % Bronchodilator: No significant response Lung volumes: Hyperinflation with residual volume of 146 % Diffusion: Severely reduced at 36%, DLCO/VA ratio: 158% Interpretation: Suggest pulmonary vascular disorders 3) Radiology CT angiogram of the chest 07/18/2016 compared to 04/18/2016 No evidence of acute pulmonary emboli Borderline enlarged teresa carinal AP window lymph nodes Lingular and right upper lobe opacity, possible atelectasis CT chest 10/07/2016 Multifocal subsegmental distribution of ground-glass opacifications Minimal mucus plugging in the right upper lobe Bibasilar linear subsegmental opacifications, possible atelectasis 4) Studies Barium swallow 04/22/2016 Moderate gastroesophageal reflux Moderate esophageal irritability/spasm Trace amount of penetration. No evidence for lisset aspiration Active Problems 1. Abnormal CT scan, lung 2. Adrenal insufficiency 3. Anemia 4. Arthritis 5. Bilateral impacted cerumen 6. Carpal tunnel syndrome 7. Current chronic use of systemic steroids 8. Hypertension 9. Hypoxemia 10. Myalgia 11. Never smoked tobacco 12. Obesity 13. Osteopenia 14. Rhinitis Surgical History 1. History of Cataract Surgery Family History 1. cerebrovascular accident 2. deafness or hearing loss 3. malignant neoplasm 4. pancreatic cancer Social History Denied: History of Drug use Never smoked tobacco Never smoker No alcohol use No secondhand smoke exposure Retired Current Meds 1. Fludrocortisone Acetate 0.1 MG Oral Tablet; TAKE DIRECTED 2. PredniSONE 1 MG Oral Tablet; TAKE DIRECTED 3. Vitamin C 500 MG Oral Tablet; TAKE 1 TABLET DAILY 4. Acetaminophen 325 MG Oral Tablet; TAKE 1 TO 2 TABLETS EVERY 4 HOURS 5. AmLODIPine Besylate 10 MG Oral Tablet; take 1 tablet by mouth once daily 6. BusPIRone HCl - 15 MG Oral Tablet; TAKE 1/2 TABLET TWICE DAILY 7. ClonazePAM 1 MG Oral Tablet; TAKE 1 TABLET AT BEDTIME 8. FentaNYL 25 MCG/HR Transdermal Patch 72 Hour; APPLY 1 PATCH EVERY 3 DAYS 9. Fish Oil 1000 MG Oral Capsule; TAKE 1 CAPSULE DAILY 10. FLUoxetine HCl - 40 MG Oral Capsule; TAKE 1 CAPSULE DAILY 11. Folic Acid 1 MG Oral Tablet; TAKE 1 TABLET DAILY DIRECTED 12. Gabapentin 100 MG Oral Capsule; TAKE 2 CAPSULE Every 8 hours 13. Ibuprofen 600 MG Oral Tablet; TAKE 1 TABLET 4 TIMES DAILY NEEDED 14. Lactulose 10 GM/15ML Oral Solution; TAKE 15 ML DAILY 15. Levaquin 500 MG Oral Tablet; TAKE 1 TABLET DAILY 16. Mirtazapine 30 MG Oral Tablet; TAKE 1 TABLET AT BEDTIME 17. Omeprazole 40 MG Oral Capsule Delayed Release; Take one tablet before breakfast 18. PrednisoLONE Acetate 1 % Ophthalmic Suspension; INSTILL 1 DROP IN EACH EYE DAILY 19. Refresh Optive 0.5-0.9 % Ophthalmic Solution; INSTILL 1 DROP IN EACH EYE 4 TIMES A 20. Vitamin D (Ergocalciferol) 16357 UNIT Oral Capsule; TAKE 1 CAPSULE Weekly Allergies 1. No Known Drug Allergies Past Medical/Surgical History Medical Problems: (1) Anxiety (2) COPD (chronic obstructive pulmonary disease) (3) Corticoadrenal insufficiency (4) Depression (5) Fever (6) Fibromyalgia (7) Hypertension Nos (8) Ileus (9) Mood disorder (10) Pneumonia involving right lung (11) Sepsis (12) Severe sepsis Surgical Problems: (1) Hx of tonsillectomy Additional History Hepatic Disease: No Endocrine Disorder: No Kidney Disease: No Hypertension: Yes Heart Disease: No Bleeding Tendencies: No Infectious Diseases: No Allergies Coded Allergies: No Known Allergies (Unverified , 11/21/16) Home Medications Scheduled Amlodipine (Norvasc), 10 MG PO QAM Ascorbic Acid (Ascorbic Acid), 500 MG PO QAM Carboxymethylcellulose Sodium (Refresh Tears), 1 DROP OPB QID Clonazepam (Klonopin), 1 MG PO HS Ergocalciferol (Vitamin D 23075 Unit), 50,000 UNIT PO WK Fentanyl (Duragesic), 25 MCG TD CQ72HR Fish Oil ([place]-3), 1 CAP PO DAILY Fludrocortisone Acetate (Florinef), 0.1 MG PO QAM Fluoxetine (Prozac), 40 MG PO DAILY Folic Acid (Folvite), 1 TAB PO DAILY@1700 Gabapentin (Neurontin), 200 MG PO q8 hrs Lactulose (Chronulac), 10 GM PO TIDM Levofloxacin (Levaquin), 500 MG PO DAILY Mirtazapine (Remeron), 30 MG PO HS Omeprazole (Prilosec), 40 MG PO DAILY Prednisolone Acetate (Ophth) (Pred Forte 1% Oph), 1 DROPS OPB DAILY Prednisone (Prednisone), 1 MG PO DAILY Scheduled PRN Acetaminophen (Tylenol), 650 MG PO Q4H PRN for Pain Buspirone Hcl (Buspar), 7.5 MG PO BID PRN for Anxiety Home O2 Therapy (Oxygen), 1 LITER NA PRN PRN for Shortness of Breath Ibuprofen (Motrin), 600 MG PO Q6H PRN for Pain Miscellaneous Medications Naloxone HCl (Narcan), 1 DOSE NA Physical Examination Skin: warm/dry, no rash Eyes: normal inspection, EOMI, sclerae normal ENT: normal ENT inspection, pharynx normal Head: normocephalic, atraumatic Neck: supple, no adenopathy, trachea midline Respiratory/Chest: lungs clear, normal breath sounds, no respiratory distress Cardiovascular: regular rate, rhythm, no edema, no murmur Abdomen / GI: normal bowel sounds, non tender Back: normal inspection Extremities: normal inspection, normal range of motion 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: no motor/sensory deficits, alert, normal reflexes, oriented x 3 Diagnosis Chronic bronchitis with associated shortness of breath ASA Classification: ASA Class III Plan of Treatment Bronchoscopy with conscious sedation bronchial lavage
[2016-11-21] MEDS ORDERED: AMITRIPTYLINE (09:11)
[2016-11-21] MEDS ORDERED: TRAM-10 PO (09:11)
[2016-11-21] MEDS ORDERED: LIDOCAINE PAD (09:11)
--- NOTE | 2016-11-21 09:51 | Procedure Note ---
Pre-Mod Sedation Assessment General Date of Moderate Sedation: Nov 21, 2016. Vital Signs: Vital Signs Past 12 Hours Date Time Temp Pulse Resp B/P (MAP) Pulse Ox O2 Delivery O2 Flow Rate FiO2 11/21/16 09:37 37.3 91 18 130/61 97 Room Air 11/21/16 09:01 37.3 91 18 130/61 (84) 97 Room Air Review Cardiovascular: regular rate, rhythm, no edema, no gallop, no JVD, no murmur Abdomen: normal bowel sounds, non tender, soft, no organomegaly, no pulsatile mass Lungs: chest non-tender, lungs clear, normal breath sounds, no respiratory distress Airway Class: II Pre-Sedation Airway Assessment Able to Visualize Vocal Cords: Yes (but notably difficult gross redundant tissue and large epiglottis) Short Thick Neck: Yes Hx of Sleep Apnea: No Smoking Status: Never Smoker Mallampati Classification: Class III Procedure Planning Contraindications-for Mod Sed: None Yes Notes The planned sedation has been discussed with the patient and consent obtained. I have identified the patient, determined the appropriateness of sedation and have assessed the patient immediately prior to the procedure. All medicine(s) and interventions are by my order.
--- NOTE | 2016-11-21 10:34 | Procedure Note ---
Post-Moderate Sedation Plan General Date of Moderate Sedation Nov 21, 2016. Vital Signs: Vital Signs Past 12 Hours Date Time Temp Pulse Resp B/P (MAP) Pulse Ox O2 Delivery O2 Flow Rate FiO2 11/21/16 10:30 87 16 129/60 97 Mask 6.0 11/21/16 10:25 92 22 112/63 98 Mask 6.0 39 11/21/16 10:20 92 16 124/58 97 Mask 6.0 47 11/21/16 10:15 91 18 130/60 99 Mask 6.0 11/21/16 10:07 87 18 133/62 99 Mask 4.0 11/21/16 09:37 37.3 91 18 130/61 97 Room Air 11/21/16 09:01 37.3 91 18 130/61 (84) 97 Room Air Review - Discharge Plan Post Moderate Sedation Plan: On clinical assessment, the patient appears to have tolerated the conscious sedation without complications. Patient is recovering as anticipated. Patient will continue to be monitored by nursing and may be discharged when conscious sedation discharge criteria are met.
--- NOTE | 2016-11-21 10:37 | Bronchoscopy Procedure Note ---
Bronchoscopy Procedure Note Procedure: Bronchoscopy, conscious sedation, bronchial lavage lingula Consent: Obtained through the patient placed into the chart Pre-procedural diagnosis: Chronic bronchiectasis Post-procedural diagnosis: Chronic bronchiectasis Start time: 1018 End time: 1030 Total time: 12 minutes Analgesia: 2% liquid lidocaine: Via nebulizer 4% gel lidocaine: Via right naris 2% liquid lidocaine: Via bronchoscopy Sedation: Versed IV: 3 mg Fentanyl IV: 25 g Procedure: The Olympus video bronchoscope was used for this procedure and passed down through the right naris Right naris/posterior naris: Erythematous Posterior oropharynx: Notable redundant tissue Glottis: Anatomically within normal limits Vocal cords: Poor abduction and abduction of the right vocal cord Subglottis/trachea/Lynda: Anatomically within normal limits, diffuse small mucous plugs Right bronchial tree: Right mainstem bronchus: Anatomically within normal limits Right upper lobe: Anatomically within normal limits Bronchus intermedius: Anatomically within normal limits Right middle lobe: Anatomically within normal limits Right lower lobe: Anatomically within normal limits Findings: Diffuse small mucous plugs Left bronchial tree: Left mainstem bronchus: Anatomically within normal limits Left upper lobe: Anatomically within normal limits, but notable erythema Lingula: Anatomically within normal limits, but notable erythema Left lower lobe: Anatomically within normal limits Findings: No significant findings noted Bronchial alveolar lavage: Performed in the lingula EBL: None Complications: None Follow-up: In the [facility]
--- NOTE | 2016-11-21 10:41 | Discharge Instructions ---
Discharge Instructions Date of Service Nov 21, 2016. Admission Reason for Admission: Abn Ct Lung Scan, Hypoxemia Discharge Discharge Diagnosis / Problem: chronic bronchiectasis Discharge Goals Goal(s): Diagnostic testing Activity Recommendations Activity Limitations: resume your previous activity . Instructions / Follow-Up Instructions / Follow-Up Follow-up in the [facility] pulmonary clinic Current Hospital Diet Patient's current hospital diet: Discharge Diet Recommended Diet: Regular Diet Procedures Procedures Performed: Bronchoscopy, conscious sedation and bronchial lavage Pending Studies Studies pending at discharge: no Medical Emergencies . Who to Call and When: Medical Emergencies: If at any time you feel your situation is an emergency, please call 911 immediately. . Non-Emergent Contact Non-Emergency issues call your: Associate Professor Of Archaeology . . "Provider Documentation" section prepared by Enrique Rosa. . VTE Core Measure Inpt VTE Proph given/why not?: Treatment not indicated
[2016-11-21] MEDS ORDERED: NURSING VERBAL MED ORDER ONE (10:45)
[2016-11-21] MEDS ORDERED: FENTANYL CITRATE INJ 50 MCG/1 ML 2 ML VIAL IV SCH (11:30)
[2016-11-21] MEDS ORDERED: MIDAZOLAM HCL 5 MG/ML 1 ML VIAL IV SCH (11:30)
== END 2016-11-21 13:02 | disposition home or self-care (01) ==
LOC: C.ACU 08:35
PROVIDERS: ATTEND Internal Medicine Critical Care Medicine
DX: J47.9 Bronchiectasis, uncomplicated (principal); I11.0 Hypertensive heart disease with heart failure; I50.32 Chronic diastolic (congestive) heart failure; J44.9 Chronic obstructive pulmonary disease, unspecified; E27.40 Unspecified adrenocortical insufficiency; D64.9 Anemia, unspecified; E66.9 Obesity, unspecified; M79.7 Fibromyalgia; M19.90 Unspecified osteoarthritis, unspecified site; M85.80 Other specified disorders of bone density and structure, unspecified site; F32.9 Major depressive disorder, single episode, unspecified; Z79.52 Long term (current) use of systemic steroids; Z99.81 Dependence on supplemental oxygen; Z79.899 Other long term (current) drug therapy

== ENCOUNTER 2017-02-15 10:51 | Emergency (ER) | payer OTHER, BC ==
[~2017-02-15] VITALS: Ht 162.6 cm; Wt 77.0 kg
[~2017-02-15 10:51] MED LIST changes: +AMT50 PO; -ASCO500T16 PO; -BUSP15TA70 PO; -DEXTROSE 5% 1000ML 1,000 ML IV SCH; +DOCU-94 PO; -LEVO1TAB33 PO; +LIDOCAINE PAD; -OMEG10007 PO; -PRD/1 PO; +TRAM-10 PO
[2017-02-15 10:57] VITALS: TEMP 37.1; Ht 162.6 cm; Wt 77.0 kg
[2017-02-15 11:03] VITALS: O2SAT 98
[2017-02-15] MEDS ORDERED: SYMIN160 INH (11:33)
[2017-02-15] MEDS ORDERED: LEVO25TA5 PO (11:33)
[2017-02-15] MEDS ORDERED: CARB0.5D28 PO (11:33)
[2017-02-15] MEDS ORDERED: PRD/1 PO (11:33)
[2017-02-15] MEDS ORDERED: ASCA500 PO (11:40)
[2017-02-15] MEDS ORDERED: OXGN (11:40)
[2017-02-15] MEDS ORDERED: BUSP15TA70 PO (11:40)
[2017-02-15] MEDS ORDERED: LDDP5 TD (11:40)
[2017-02-15] MEDS ORDERED: TRAM-10 PO (11:40)
[2017-02-15] MEDS ORDERED: MENTOIN TOP (11:41)
[2017-02-15] MEDS ORDERED: HYDROmorphone INJ 1 MG/ML SYR IM STA (11:46)
[2017-02-15] MEDS ORDERED: NAPROXEN 250 MG TAB PO STA (11:46)
--- NOTE | 2017-02-15 12:20 | DIAGNOSTIC IMAGING REPORT ---
R HEEL MIN 2 VIEWS HISTORY: 76 years-old Female right heel pain, TTP at insertion of achilles acute right heel pain with tenderness to palpation. COMPARISON: None available TECHNIQUE: 2 views of the right calcaneus FINDINGS: Bones are mildly demineralized. Moderate enthesophytes are noted in both the kidneys and plantar insertion sites about the calcaneus. There is mild soft tissue swelling within the distribution of the mid and distal Achilles tendon. No acute fracture or dislocation. Moderate degenerative spurring is noted about the tibiotalar joint. No opaque foreign body. IMPRESSION: 1. No acute fracture or dislocation. 2. Moderate sized enthesophytes involve the plantar and Achilles insertion sites about the calcaneus. 3. Moderate soft tissue swelling within the distribution of the mid and distal Achilles tendon suggests possible tendinosis. The above report was generated using voice recognition software. It may contain grammatical, syntax or spelling errors. Electronically signed by: Sathya Bustamante M.D. 02/15/2017 12:18 PM Dictated Date/Time: 02/15/2017 12:16 PM
[2017-02-15] MEDS ORDERED: NAPR500T3 PO (13:20)
[2017-02-15 13:30] VITALS: BP 147/74; PULSE 84; O2SAT 86
--- NOTE | 2017-02-15 18:13 | EMERGENCY ROOM VISIT NOTE ---
History Report prepared by Delta: Michelle Sharpe Under the Supervision of: Dr. Theo Macario M.D. First contact with patient: 11:16 Chief Complaint: FOOT PAIN Stated Complaint: FOOT PAIN History of Present Illness The patient is a 76 year old female who presents to the Emergency Room with complaints of constant right foot pain beginning this morning. The patient rates the pain at a 9/10. She states that she was unable to put weight on her foot today.She denies calf pain. The patient states that she saw a Dr. Holliday 2 weeks ago and had inserts for her shoes made. She states that she wears oxygen at night. She states that she has not been on antibiotics recently. 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 The patient denies being diabetic. Pt denies headache, chest pain, breathing difficulties, nausea, vomiting, abdominal pain, back pain, other extremity pain, numbness, weakness, open wounds , active bleeding, or other complaints. Source of History: patient Onset: this morning Position: foot (right) Symptom Intensity: rated at a 9/10 Timing: constant Note: patient denies: calf pain Review of Systems See HPI for pertinent positives and negatives. A total of ten systems were reviewed and were otherwise negative. Past Medical & Surgical Medical Problems: (1) Anxiety (2) Chronic anemia (3) Chronic pain (4) COPD (chronic obstructive pulmonary disease) (5) Corticoadrenal insufficiency (6) Depression (7) Fever (8) Fibromyalgia (9) Hypertension Nos (10) Ileus (11) Mood disorder (12) Pneumonia involving right lung (13) Sepsis (14) Severe sepsis Surgical Problems: (1) Hx of tonsillectomy Family History Diabetes mellitus Lung cancer Pancreatic cancer FATHER Social History Smoking Status: Never Smoker Alcohol Use: none Drug Use: none Marital Status: single Housing Status: assisted living Occupation Status: retired Current/Historical Medications Scheduled Amitriptyline Hcl (Elavil), 10 MG PO HS Amlodipine (Norvasc), 10 MG PO QAM Ascorbic Acid (Vitamin C), 500 MG PO QAM Budesonide/Formoterol Fumarate (Symbicort 160/4.5 Inhaler), 2 PUFFS INH BID Carboxymethylcellulose Sodium (Refresh Tears), 1 DROP PO QID Clonazepam (Klonopin), 0.5 MG PO Q2D Ergocalciferol (Vitamin D 89861 Unit), 50,000 UNIT PO WK Fentanyl (Duragesic), 25 MCG TD CQ72HR Fludrocortisone Acetate (Florinef), 0.1 MG PO QAM Fluoxetine (Prozac), 40 MG PO DAILY Folic Acid (Folvite), 1 TAB PO DAILY@1700 Gabapentin (Neurontin), 600 MG PO TID Lactulose (Chronulac), 10 GM PO BID Levothyroxine Sodium (Levothyroxine Sodium), 25 MCG PO QAM Menthol-Zinc Oxide (Calmoseptine), 1 APPLN TOP DAILY Mirtazapine (Remeron), 30 MG PO HS Omeprazole (Prilosec), 40 MG PO DAILY Prednisolone Acetate (Ophth) (Pred Forte 1% Oph), 1 DROPS OPB DAILY Prednisone (Prednisone), 1 MG PO QAM Scheduled PRN Acetaminophen (Tylenol), 650 MG PO Q4H PRN for Pain Buspirone Hcl (Buspar), 7.5 MG PO BID PRN for Anxiety/Agitation Docusate Sodium (Colace), 1 CAP PO BID PRN for Constipation Home O2 Therapy (Oxygen), 1 LITER NA PRN PRN for Shortness of Breath Ibuprofen (Motrin), 600 MG PO Q6H PRN for Pain Lidocaine (Lidocaine), 1-2 PATCH TD QAM PRN for Pain Naloxone HCl (Narcan), 1 DOSE NA DIRECTED PRN for Naproxen (Naproxen), 1 TAB PO BID PRN for Pain Tramadol (Ultram), 50 MG PO Q6 PRN for Pain Allergies Coded Allergies: No Known Allergies (Unverified , 02/15/17) Physical Exam Vital Signs Date Time Temp Pulse Resp B/P (MAP) Pulse Ox O2 Delivery O2 Flow Rate FiO2 02/15/17 13:30 84 147/74 86 02/15/17 11:03 98 Nasal Cannula 2.0 02/15/17 10:57 37.1 93 147/74 97 Nasal Cannula 2.0 Physical Exam GENERAL: Awake, alert, well-appearing, in no distress HENT: Normocephalic, atraumatic. Oropharynx unremarkable. EYES: Normal conjunctiva. Sclera non-icteric. NECK: Supple. No nuchal rigidity. FROM. No JVD. RESPIRATORY: Clear to auscultation. CARDIAC: Regular rate, normal rhythm. Extremities warm and well perfused. Pulses equal. ABDOMEN: Soft, non-distended. No tenderness to palpation. No rebound or guarding. No masses. RECTAL: Deferred. MUSCULOSKELETAL: Chest examination reveals no tenderness. The back is symmetrical on inspection without obvious abnormality. There is no CVA tenderness to palpation. No joint edema. LOWER EXTREMITIES: Calves are equal size bilaterally and non-tender. No edema. No discoloration. Right foot appears normal, no redness or swelling. Right heel tenderness. Significant tenderness of the insertion of the right Achilles tendon , however function is completely normal. No tendon defects. NEURO: Normal sensorium. No sensory or motor deficits noted. SKIN: No rash or jaundice noted. Medical Decision & Procedures ER Provider Diagnostic Interpretation: Radiology results as stated below per my review and radiologist interpretation: R HEEL MIN 2 VIEWS HISTORY: 76 years-old Female right heel pain, TTP at insertion of achilles acute right heel pain with tenderness to palpation. COMPARISON: None available TECHNIQUE: 2 views of the right calcaneus FINDINGS: Bones are mildly demineralized. Moderate enthesophytes are noted in both the kidneys and plantar insertion sites about the calcaneus. There is mild soft tissue swelling within the distribution of the mid and distal Achilles tendon. No acute fracture or dislocation. Moderate degenerative spurring is noted about the tibiotalar joint. No opaque foreign body. IMPRESSION: 1. No acute fracture or dislocation. 2. Moderate sized enthesophytes involve the plantar and Achilles insertion sites about the calcaneus. 3. Moderate soft tissue swelling within the distribution of the mid and distal Achilles tendon suggests possible tendinosis. The above report was generated using voice recognition software. It may contain grammatical, syntax or spelling errors. Electronically signed by: Sathya Bustamante M.D. 02/15/2017 12:18 PM Dictated Date/Time: 02/15/2017 12:16 PM Medications Administered Medications (Trade) Dose Ordered Sig/Larry Route Start Time Stop Time Status Last Admin Dose Admin Hydromorphone HCl (Dilaudid Inj) 1 mg NOW STAT IM 02/15/17 11:46 02/15/17 11:49 DC 02/15/17 11:58 1 MG Naproxen (Naprosyn Tab) 500 mg NOW STAT PO 02/15/17 11:46 02/15/17 11:49 DC 12/2/17 11:56 500 MG ED Course 1130: The patient was evaluated in room C6. A complete history and physical exam was performed. 1146: Ordered Naproxen 500 mg PO, Dilaudid Inj 1 mg IM. 1254: I checked on the patient and she is feeling better. 1315: I reevaluated the patient. Discussed results and discharge instructions: She verbalized understanding and agreement. The patient is ready for discharge. Medical Decision Prior records reviewed and summarized above. Triage Nursing notes reviewed and agree them. The patient's history was concerning for foot pain. Differential diagnosis: Etiologies such as tendinitis, fasciitis, fracture, dislocation, neurovascular compromise, soft tissue injury, as well as others were entertained. Physical examination: Pain and tenderness at the insertions of the Achilles as well as heel tenderness. No clear evidence of trauma. No signs of infection. ER treatment provided: Dilaudid 1 mg IM Naprosyn 500 mg orally On reassessment the patient felt better. Diagnostics interpreted by me: Imaging studies: Xrays as above. Patient has a tendinitis. The patient has significant tolerance to pain medication. Additional narcotics will be prescribed. By the evaluation outlined above emergent etiologies such as fracture, dislocation, neurovascular compromise, compartment syndrome, infections, as well as others were deemed relatively unlikely. The patient was informed about the findings as listed above. All questions were answered and she was pleased with the treatment. Return instructions were outlined and the patient was discharged in stable condition. Prescription management: Naprosyn she will use NSAIDs for a few days and follow-up with her primary physician. She is on a PPI. Referral: The patient was referred to their primary care physician in 2 to 3 days for a recheck of your current condition. Medication Reconcilliation Current Medication List: was personally reviewed by me Blood Pressure Screening Patient's blood pressure: Elevated blood pressure Blood pressure disposition: Elevated BP felt to be situational Impression Primary Impression: Pain of right heel Additional Impression: Achilles tendinitis Scribe Attestation The scribe's documentation has been prepared under my direction and personally reviewed by me in its entirety. I confirm that the note above accurately reflects all work, treatment, procedures, and medical decision making performed by me. Departure Information Dispostion Home / Self-Care Prescriptions Naproxen (NAPROXEN) 500 Mg Tab 1 TAB PO BID Y for Pain, #14 TAB Prov: Theo Macario MD 02/15/17 Referrals Kalie Bauer M.D. (PCP) Forms HOME CARE DOCUMENTATION FORM, IMPORTANT VISIT INFORMATION Patient Instructions My [facility] Additional Instructions Naprosyn 500 mg twice daily with food as needed for pain. Do not use for more than 5 consecutive days without further physician direction. Prolonged inappropriate use can lead to stomach upset or ulcers. Continue current medications. Ice compresses for 20 minutes at a time four times daily for 2-3 days. Use a walker or cane for support. Elevate the leg throughout the day. Return to the ER immediately for spreading redness, fevers, pus-like drainage, severe pain, or as needed. Follow-up with your primary physician's office on Friday for recheck. Problem Qualifiers
== END 2017-02-15 13:30 | disposition home or self-care (01) ==
LOC: C.EDC 10:56
DX: M79.671 Pain in right foot (principal); M76.61 Achilles tendinitis, right leg; I10 Essential (primary) hypertension; J44.9 Chronic obstructive pulmonary disease, unspecified; F32.9 Major depressive disorder, single episode, unspecified; F41.9 Anxiety disorder, unspecified; G89.29 Other chronic pain; D64.9 Anemia, unspecified; Z86.19 Personal history of other infectious and parasitic diseases; Z98.890 Other specified postprocedural states; Z79.899 Other long term (current) drug therapy; Z83.3 Family history of diabetes mellitus; Z85.07 Personal history of malignant neoplasm of pancreas

== ENCOUNTER 2017-05-14 11:52 | Emergency (ER) | payer OTHER, BC ==
[~2017-05-14] VITALS: Ht 162.6 cm; Wt 75.0 kg
[~2017-05-14 11:52] MED LIST changes: +ASCA500 PO; +BUSP15TA70 PO; -CARB0.5D28 OPB; +CARB0.5D28 PO; -FOLI1TAB7 PO; +FOLI1TAB8 PO; +LDDP5 TD; +LEVO25TA5 PO; -LIDOCAINE PAD; +MENTOIN TOP; +NAPR500T3 PO; +PRD/1 PO; +SYMIN160 INH
[2017-05-14 12:14] VITALS: TEMP 36.8; Ht 162.6 cm; Wt 75.0 kg
[2017-05-14] MEDS ORDERED: OXYCODONE HCL IR 5 MG TAB (IMMEDIATE RELEASE) PO STA (12:26)
[2017-05-14 14:00] LABS: HEMATOCRIT 38.3 % (37-47); HEMOGLOBIN 12.7 g/dL (12.0-16.0); MEAN CELL VOLUME 89.7 fL (80-100); MEAN CORPUSCULAR HEMOGLOBIN 29.7 pg (25-34); MEAN CORPUSCULAR HGB CONC 33.2 g/dl (32-36); MEAN PLATELET VOLUME 8.3 fL (7.4-10.4); PLATELET COUNT 155 K/uL (130-400); RED CELL DISTRIBUTION WIDTH CV 14.4 % (11.5-14.5); WHITE BLOOD COUNT 6.51 K/uL (4.8-10.8)
[2017-05-14 14:19] LABS: ALBUMIN 3.5 gm/dl (3.4-5.0); CALCIUM 8.7 mg/dl (8.5-10.1); CREATININE 1.01 mg/dl (0.60-1.20); POTASSIUM 3.7 mmol/L (3.5-5.1)
[2017-05-14] MEDS ORDERED: ACET-1311 PO (14:26)
[2017-05-14] MEDS ORDERED: LCTS240 PO (14:26)
[2017-05-14] MEDS ORDERED: FNTTP50 TD (14:26)
[2017-05-14] MEDS ORDERED: AMLO-114 PO (14:26)
[2017-05-14] MEDS ORDERED: FOLI1TAB8 PO (14:26)
[2017-05-14] MEDS ORDERED: MIRT30TA3 PO (14:26)
[2017-05-14] MEDS ORDERED: FLUO40CA8 PO (14:26)
[2017-05-14] MEDS ORDERED: PRD/1 PO (14:26)
[2017-05-14] MEDS ORDERED: OMEP40CA41 PO (14:26)
[2017-05-14] MEDS ORDERED: FLUD0.1T10 PO (14:26)
[2017-05-14] MEDS ORDERED: ERGO500037 PO (14:26)
[2017-05-14 14:30] LABS: TOTAL PROTEIN 7.3 gm/dl (6.4-8.2)
--- NOTE | 2017-05-14 17:24 | EMERGENCY ROOM VISIT NOTE ---
History Report prepared by Delta: Rajan Hernandez Under the Supervision of: Dr. Stevie Serrano M.D. First contact with patient: 12:18 Chief Complaint: MENTAL HEALTH EVALUATION Stated Complaint: MENTAL HEALTH ASSESSMENT History of Present Illness The patient is a 76 year old female who presents to the Emergency Room with complaints of constant suicidal ideation beginning this week. The patient is a resident at [facility]. She has a history of depression and anxiety for which she is on medication. She has taken her medication as normal recently. The patient is reported to have been visibly upset and crying today at [facility]. She states that she has felt depressed for the past 2-3 weeks. She feels that her depression has to do with her living situation at [facility]. The patient has received inpatient psychiatric care in the past (10 days, five years ago). She does not have a specific plan for suicide. She does not feel that she would actually harm herself as she is methodist and suicide is against her anabaptist. Patient is listed as DNR. She denies urinary symptoms, cough, or cold-like symptoms. She is on a Fentanyl Patch at home for generalized pain. The patient states that her generalized body pain has increased recently. Source of History: patient Onset: This week Quality: other (suicidal ideation) Timing: constant Associated Symptoms: No cough, No urinary symptoms Note: Patient denies cold-like symptoms. Review of Systems See HPI for pertinent positives & negatives. A total of 10 systems reviewed and were otherwise negative. Past Medical & Surgical Medical Problems: (1) Anxiety (2) Chronic anemia (3) Chronic pain (4) COPD (chronic obstructive pulmonary disease) (5) Corticoadrenal insufficiency (6) Depression (7) Fever (8) Fibromyalgia (9) Hypertension Nos (10) Ileus (11) Mood disorder (12) Pneumonia involving right lung (13) Sepsis (14) Severe sepsis Surgical Problems: (1) Hx of tonsillectomy Family History Diabetes mellitus Lung cancer Pancreatic cancer FATHER Social History Smoking Status: Never Smoker Alcohol Use: none Drug Use: none Marital Status: single Housing Status: assisted living Occupation Status: retired Current/Historical Medications Scheduled Acetaminophen (Tylenol), 1-2 TAB PO Q4H Amitriptyline Hcl (Elavil), 10 MG PO HS Amlodipine (Norvasc), 10 MG PO DAILY Ascorbic Acid (Vitamin C), 500 MG PO QAM Budesonide/Formoterol Fumarate (Symbicort 160/4.5 Inhaler), 2 PUFFS INH BID Carboxymethylcellulose Sodium (Refresh Tears), 1 DROP PO QID Clonazepam (Klonopin), 0.5 MG PO Q2D Ergocalciferol (Vitamin D 51544 Unit), 50,000 UNIT PO WK Fentanyl (Duragesic), 50 MCG TD CQ72HR Fludrocortisone Acetate (Florinef), 0.1 MG PO DAILY Fluoxetine (Prozac), 40 MG PO DAILY Folic Acid (Folvite), 1 MG PO DAILY Gabapentin (Neurontin), 600 MG PO TID Lactulose (Chronulac), 10 GM PO BID Levothyroxine Sodium (Levothyroxine Sodium), 25 MCG PO QAM Mirtazapine (Remeron), 30 MG PO HS Omeprazole (Prilosec), 40 MG PO DAILY Prednisone (Prednisone), 1 MG PO DAILY Scheduled PRN Buspirone Hcl (Buspar), 7.5 MG PO BID PRN for Anxiety/Agitation Docusate Sodium (Colace), 1 CAP PO BID PRN for Constipation Ibuprofen (Motrin), 600 MG PO Q6H PRN for Pain Lidocaine (Lidocaine), 1-2 PATCH TD QAM PRN for Pain Naloxone HCl (Narcan), 1 DOSE NA DIRECTED PRN for Allergies Coded Allergies: No Known Allergies (Unverified , 05/14/17) Physical Exam Vital Signs Date Time Temp Pulse Resp B/P (MAP) Pulse Ox O2 Delivery O2 Flow Rate FiO2 05/14/17 17:52 84 20 141/49 94 Room Air 05/14/17 12:14 36.8 89 20 182/75 93 Room Air Physical Exam GENERAL: Patient is upset and tearful. HEENT: No acute trauma, normocephalic atraumatic, mucous membranes moist, no nasal congestion, no scleral icterus. NECK: No stridor, no adenopathy, no meningismus, trachea is midline. LUNGS: Clear to auscultation bilaterally, no wheeze, no rhonchi, breath sounds equal. HEART: Without murmurs gallops or rubs, regular rate and rhythm. ABDOMEN: Soft, nontender, bowel sounds positive, no hernias, no peritonitis. EXTREMITIES: No cyanosis or edema, full range of motion of all the joints without pain or difficulty, no signs for acute trauma. NEUROLOGIC: Oriented x 3, no acute motor or sensory deficits, no focal weakness. SKIN: No rash, no jaundice, no diaphoresis. PSYCH: Cooperative. Tearful. Admits to suicidal ideation with no plan. Medical Decision & Procedures Laboratory Results 05/14/17 13:39 05/14/17 13:39 Test 05/14/17 12:55 05/14/17 13:39 Urine Color YELLOW Urine Appearance CLEAR (CLEAR) Urine pH 6.0 (4.5-7.5) Urine Specific [place] 1.009 (1.000-1.030) Urine Protein NEG (NEG) Urine Glucose (UA) NEG (NEG) Urine Ketones NEG (NEG) Urine Occult Blood NEG (NEG) Urine Nitrite NEG (NEG) Urine Bilirubin NEG (NEG) Urine Urobilinogen NEG (NEG) Urine Leukocyte Esterase SMALL (NEG) Urine WBC (Auto) 1-5 /hpf (0-5) Urine RBC (Auto) 0-4 /hpf (0-4) Urine Hyaline Casts (Auto) 0 /lpf (0-5) Urine Epithelial Cells (Auto) >30 /lpf (0-5) Urine Bacteria (Auto) NEG (NEG) Urine Opiates Screen NEG (NEG) Urine Methadone, Qualitative NEG (NEG) Urine Barbiturates NEG (NEG) Urine Phencyclidine (PCP) Level NEG (NEG) Ur Amphetamine/Methamphetamine NEG (NEG) MDMA (Ecstasy) Screen NEG (NEG) Urine Benzodiazepines Screen NEG (NEG) Urine Cocaine Metabolite NEG (NEG) Urine Marijuana (THC) NEG (NEG) Red Blood Count 4.27 M/uL (4.2-5.4) Mean Corpuscular Volume 89.7 fL (80-100) Mean Corpuscular Hemoglobin 29.7 pg (25-34) Mean Corpuscular Hemoglobin Concent 33.2 g/dl (32-36) RDW Standard Deviation 47.0 fL (36.4-46.3) RDW Coefficient of Variation 14.4 % (11.5-14.5) Mean Platelet Volume 8.3 fL (7.4-10.4) Anion Gap 8.0 mmol/L (3-11) Est Creatinine Clear Calc Drug Dose 47.0 ml/min Estimated GFR () 62.6 Estimated GFR (Non- 54.0 BUN/Creatinine Ratio 10.9 (10-20) Calcium Level 8.7 mg/dl (8.5-10.1) Total Bilirubin 0.5 mg/dl (0.2-1) Aspartate Amino Transf (AST/SGOT) 17 U/L (15-37) Alanine Aminotransferase (ALT/SGPT) 20 U/L (12-78) Alkaline Phosphatase 114 U/L (45-117) Total Protein 7.3 gm/dl (6.4-8.2) Albumin 3.5 gm/dl (3.4-5.0) Globulin 3.8 gm/dl (2.5-4.0) Albumin/Globulin Ratio 0.9 (0.9-2) Thyroid Stimulating Hormone (TSH) 1.280 uIu/ml (0.300-4.500) Free Thyroxine 1.03 ng/dl (0.80-1.60) Salicylates Level < 1.7 mg/dl (2.8-20) Acetaminophen Level < 2 ug/ml (10-30) Ethyl Alcohol mg/dL < 3.0 mg/dl (0-3) Laboratory results reviewed by me. Medications Administered Medications (Trade) Dose Ordered Sig/Larry Route Start Time Stop Time Status Last Admin Dose Admin Oxycodone HCl (Roxicodone Immediate Rel Tab) 5 mg NOW STAT PO 05/14/17 12:26 05/14/17 12:27 DC 05/14/17 12:40 5 MG ED Course 1219: The patient was evaluated in room A7. A complete history and physical exam was performed. 1226: Ordered Roxicodone Immediate Rel Tab 5 mg PO. 1432: The patient is medically clear. She will be evaluated by the psychiatric casework manager. 1639: I checked on the patient. A bed search is underway. 1800: The patient was signed out to Dr. Andrade at the change of shift pending bed placement. Medical Decision The patient is a 76 year old female who presents to the ED with complaints of suicidal ideation. Differential diagnoses considered include drug and alcohol abuse, suicidal ideation, electrolyte imbalance, anemia, UTI, and thyroid disorder. There is no leukocytosis or concerning anemia. No significant electrolyte abnormality, kidney failure or hepatitis. The patient appears to be in a euthyroid state. Urinalysis does not show infection. Urine tox is negative. Aspirin, Tylenol and alcohol levels are undetectable. On exam, the patient was tearful and voluntary. She admits to suicidal ideation. She was not toxic or febrile. The patient was felt medically clear for a psychiatric evaluation. She is currently undergoing evaluation for potential voluntary bed placement. The bed search is still underway. The patient was given 5 mg of oral oxycodone for her chronic pain. The case is being assumed by Dr. Andrade, he has assumed care at the change of shift. Medication Reconcilliation Current Medication List: was personally reviewed by me Blood Pressure Screening Patient's blood pressure: Elevated blood pressure Blood pressure disposition: Referred to PCP Impression Primary Impression: Suicidal ideation Scribe Attestation The scribe's documentation has been prepared under my direction and personally reviewed by me in its entirety. I confirm that the note above accurately reflects all work, treatment, procedures, and medical decision making performed by me. Departure Information Dispostion Still a Patient (Signed out to Dr. Andrade pending bed placement) Referrals Kalie Bauer M.D. (PCP) Patient Instructions My [facility]
--- NOTE | 2017-05-14 19:41 | DIAGNOSTIC IMAGING REPORT ---
CHEST ONE VIEW PORTABLE CLINICAL HISTORY: Mental health assessment. COMPARISON STUDY: 10/04/2016 FINDINGS: The heart is enlarged. There is elevation interstitium, consistent with mild congestive failure or interstitial lung disease. There is no lobar consolidation. There are no pleural effusions.[ IMPRESSION: 1. Cardiomegaly 2. Diffuse elevation of the interstitium. This could indicate mild congestive failure, or infectious/inflammatory interstitial lung disease. Clinical and radiographic follow-up is recommended. Electronically signed by: Bony Soto M.D. 05/14/2017 7:39 PM Dictated Date/Time: 05/14/2017 7:38 PM
[2017-05-14 22:45] VITALS: BP 146/56; PULSE 86; O2SAT 96
--- NOTE | 2017-05-15 01:09 | EMERGENCY ROOM VISIT NOTE ---
ED Visit Note First contact with patient: 17:42 EKG per my interpretation shows sinus rhythm, rate 80, normal axis, no ectopy. Chest x-ray was unremarkable. 2035: Pt with no complaints at this time. EKG and chest x-ray were obtained per the request of psychiatric facilities for possible admission. She had no complaints. She was eventually accepted to [facility] and transferred for psychiatric evaluation.
== END 2017-05-14 22:47 ==
LOC: EDBD 11:52 → C.EDA 11:53
DX: R45.851 Suicidal ideations (principal); F41.9 Anxiety disorder, unspecified; G89.29 Other chronic pain; D64.9 Anemia, unspecified; J44.9 Chronic obstructive pulmonary disease, unspecified; E27.40 Unspecified adrenocortical insufficiency; F32.9 Major depressive disorder, single episode, unspecified; I10 Essential (primary) hypertension; K56.7 Ileus, unspecified; Z87.01 Personal history of pneumonia (recurrent); Z86.19 Personal history of other infectious and parasitic diseases; Z83.3 Family history of diabetes mellitus; Z80.9 Family history of malignant neoplasm, unspecified; Z79.899 Other long term (current) drug therapy; Z79.52 Long term (current) use of systemic steroids

== ENCOUNTER 2017-06-17 19:17 | Emergency (ER) | payer OTHER, BC ==
[~2017-06-17] VITALS: Ht 162.6 cm; Wt 80.7 kg
[~2017-06-17 19:17] MED LIST changes: -LACT10SO17 PO; +LCTS240 PO; -MENTOIN TOP; -MIRT30TA PO; +MIRT30TA3 PO; -NAPR500T3 PO; -OXGN; -PRED1SUS3 OPB; -TRAM-10 PO
[2017-06-17 19:25] VITALS: Ht 162.6 cm; Wt 80.7 kg
[2017-06-17] MEDS ORDERED: FENTANYL 50 MCG/HR TDSY TD STA (19:37)
[2017-06-17] MEDS ORDERED: FENTANYL CITRATE INJ 50 MCG/1 ML 2 ML VIAL IM ONE (19:45)
[2017-06-17] MEDS ORDERED: FENTANYL 12 MCG/HR TDSY TD SCH (19:45)
--- NOTE | 2017-06-17 19:52 | EMERGENCY ROOM VISIT NOTE ---
History Report prepared by Delta: Miah Rubin Under the Supervision of: Dr. Lance Bauer D.O. First contact with patient: 19:19 Stated Complaint: GENERALIZED PAIN ALL OVER History of Present Illness The patient is a 76 year old female who presents to the Emergency Room with complaints of worsening generalized pain that started four days ago. She rates her pain as a 9/10 in severity. She reports a history of chronic generalized pain problems. The patient states that she has been seeing pain management who gave her a Fentanyl patch, which she has been using. She reports that starting four days ago she developed some mild pain. The patient states that over the next two days, the pain worsened. She reports that her pain felt like her usual chronic pain she normally deals with. The patient states that she saw Dr. Tolentino at [place] two days ago and had a urinary analysis done to screen for drugs. She reports that the test could not find any Fentanyl in her system. The patient states that she was given 62 mcg Fentanyl patch that day, which she has been wearing for 35 hours. She reports that she has still not had any relief of pain since. The patient reports that she is concerned she is getting "second class stuff". She states she told Dr. Tolentino about her problem today who told her to come to the ER. Source of History: patient Onset: four days ago Position: other (diffuse) Symptom Intensity: 9/10 Timing: worsening Modifying Factors (Relieving): other (Fentanyl) Review of Systems See HPI for pertinent positives & negatives. A total of 10 systems reviewed and were otherwise negative. Past Medical & Surgical Medical Problems: (1) Anxiety (2) Chronic anemia (3) Chronic pain (4) COPD (chronic obstructive pulmonary disease) (5) Corticoadrenal insufficiency (6) Depression (7) Fever (8) Fibromyalgia (9) Hypertension Nos (10) Ileus (11) Mood disorder (12) Pneumonia involving right lung (13) Sepsis (14) Severe sepsis Surgical Problems: (1) Hx of tonsillectomy Family History Diabetes mellitus Lung cancer Pancreatic cancer FATHER Social History Smoking Status: Never Smoker Alcohol Use: none Drug Use: none Marital Status: single Housing Status: assisted living Occupation Status: retired Current/Historical Medications Scheduled Amitriptyline Hcl (Elavil), 10 MG PO HS Amlodipine (Norvasc), 10 MG PO DAILY Ascorbic Acid (Vitamin C), 500 MG PO QAM Budesonide/Formoterol Fumarate (Symbicort 160/4.5 Inhaler), 2 PUFFS INH BID Carboxymethylcellulose Sodium (Refresh Tears), 1 DROP PO QID Carboxymethylcellulose Sodium (Refresh Plus), 1 DROP OPB QID Clonazepam (Klonopin), 0.5 MG PO Q2D Docusate Sodium (Colace Clear), 50 MG PO BID Ergocalciferol (Vitamin D 93660 Unit), 50,000 UNIT PO WK Escitalopram Oxalate (Lexapro), 5 MG PO DAILY Fentanyl (Duragesic), 50 MCG TD CQ72HR Fentanyl (Fentanyl), 12 MCG TOP CQ72HR Fludrocortisone Acetate (Florinef), 0.5 MG PO DAILY Folic Acid (Folvite), 1 MG PO DAILY Gabapentin (Neurontin), 600 MG PO BID Lactulose (Chronulac), 30 ML PO BID Levothyroxine Sodium (Levothyroxine Sodium), 25 MCG PO QAM Mirtazapine (Mirtazapine), 15 MG PO DAILY Omeprazole (Prilosec), 40 MG PO DAILY Prednisolone Acetate (Ophth) (Prednisolone Acetate), 1 DROP OPB QID Prednisone (Prednisone), 1 MG PO DAILY Trazodone Hcl (Trazodone), 25 MG PO HS Scheduled PRN Acetaminophen (Tylenol), 650 TAB PO Q4H PRN for Pain Buspirone Hcl (Buspar), 7.5 MG PO BID PRN for Anxiety/Agitation Ibuprofen (Motrin), 600 MG PO QID PRN for Pain Ibuprofen (Ibu), 800 MG PO Q6 PRN for Pain Lidocaine (Lidocaine), 1-2 PATCH TD QAM PRN for Pain Naloxone HCl (Narcan), 1 DOSE NA DIRECTED PRN for Allergies Coded Allergies: No Known Allergies (Unverified , 05/14/17) Physical Exam Vital Signs Date Time Temp Pulse Resp B/P (MAP) Pulse Ox O2 Delivery O2 Flow Rate FiO2 06/17/17 20:38 73 20 166/78 95 Nasal Cannula 3.0 06/17/17 20:19 82 06/17/17 19:25 83 16 176/78 90 Room Air Physical Exam CONSTITUTIONAL/VITAL SIGNS: Reviewed / noted above. GENERAL: Non-toxic in appearance. INTEGUMENTARY: Warm, dry, and [place]. HEAD: Normocephalic. EYES: without scleral icterus or trauma. ENT/OROPHARYNX: clear and moist. LYMPHADENOPATHY/NECK: Is supple without lymphadenopathy or meningismus. RESPIRATORY: Lungs clear and equal. CARDIOVASCULAR: Regular rate and rhythm. GI/ABDOMEN: Soft and nontender. No organomegaly or pulsatile mass. No rebound or guarding. Normal bowel sounds. EXTREMITIES: Warm and well perfused. BACK: No CVA tenderness. NEUROLOGICAL: Intact without focal deficits. PSYCHIATRIC: normal affect. MUSCULOSKELETAL: Normally developed with good muscle tone. Medical Decision & Procedures Medications Administered Medications (Trade) Dose Ordered Sig/Larry Route Start Time Stop Time Status Last Admin Dose Admin Fentanyl (Duragesic Patch) 50 mcg NOW STAT TD 06/17/17 19:37 06/17/17 19:41 DC 06/17/17 20:08 50 MCG Fentanyl (Duragesic Patch) 12 mcg Q72H TD 06/17/17 19:45 07/01/17 19:44 06/17/17 20:07 12 MCG Fentanyl Citrate (Fentanyl Inj) 12.5 mcg NOW ONCE IM 06/17/17 19:45 06/17/17 19:46 DC 06/17/17 20:08 12.5 MCG ED Course 1925: Previous medical records were reviewed. The patient was evaluated in room A12B. A complete history and physical examination was performed. 1933: I discussed the treatment plan with the patient, which she agrees to. The patient is ready for discharge after medication administration. 1936: Ordered Fentanyl 50 mcg TD. 1944: Ordered Fentanyl Citrate 12.5 mcg IM, Fentanyl 12 mcg TD. Medical Decision Differential includes increase tolerance to current pain medications, unreliable absorption of pain medication currently using, increased generalized pain. This is a 76-year-old female who presents to the ED with a chief complaint of generalized pain. The patient does have a chronic history of generalized pain. She feels that her fentanyl patches are not working. She thinks that she may have got a "bad batch." She denies any new or specific pain. She states that is generalized. She actually saw her PCP yesterday for the same reason. The patch on her back reveals that it was applied 2 days ago. She uses 62 mcg/h total. Because of the increased pain today, she was given a 12.5 mg injection of IM fentanyl. She was also given a new 50 mcg/h and a new 12.5 mcg/h fentanyl patch and the ones that she is currently wearing were removed. She was felt to be stable for discharge. She will notify her doctor of her continued pain and of the function of her currently placed patches. Medication Reconcilliation Current Medication List: was personally reviewed by me Blood Pressure Screening Patient's blood pressure: Elevated blood pressure Blood pressure disposition: Referred to PCP Impression Primary Impression: Chronic pain disorder Scribe Attestation The scribe's documentation has been prepared under my direction and personally reviewed by me in its entirety. I confirm that the note above accurately reflects all work, treatment, procedures, and medical decision making performed by me. Departure Information Dispostion Home / Self-Care Referrals Kalie Bauer M.D. (PCP) Additional Instructions Follow-up with your doctor for further care and evaluation in 1-2 days. Return to the emergency department for worsening or new symptoms or any concerns. You have been examined and treated today on an emergency basis only. This is not a substitute for, or an effort to provide, complete comprehensive medical care. It is impossible to recognize and treat all injuries or illnesses in a single emergency department visit. It is therefore important that you follow up closely with your doctor. Call as soon as possible for an appointment.
[2017-06-17] MEDS ORDERED: PRED1SUS17 OPB (20:59)
[2017-06-17] MEDS ORDERED: DOCU50CA10 PO (20:59)
[2017-06-17] MEDS ORDERED: RMR15 PO (20:59)
[2017-06-17] MEDS ORDERED: DRGTP12 TOP (20:59)
[2017-06-17] MEDS ORDERED: TRAZ50TA35 PO (20:59)
[2017-06-17] MEDS ORDERED: [UNRECOGNIZED DRUG - CODE] PO (20:59)
[2017-06-17] MEDS ORDERED: ESCI1TAB6 PO (20:59)
[2017-06-17] MEDS ORDERED: CARB0.5D OPB (20:59)
[2017-06-17 22:32] VITALS: BP 125/53; PULSE 66; O2SAT 97
== END 2017-06-17 22:33 | disposition home or self-care (01) ==
LOC: EDBD 19:17 → C.EDA 19:18
DX: G89.29 Other chronic pain (principal); I10 Essential (primary) hypertension; M79.7 Fibromyalgia; F32.9 Major depressive disorder, single episode, unspecified; F41.9 Anxiety disorder, unspecified; E27.40 Unspecified adrenocortical insufficiency; D64.9 Anemia, unspecified; J44.9 Chronic obstructive pulmonary disease, unspecified; Z86.59 Personal history of other mental and behavioral disorders; Z87.01 Personal history of pneumonia (recurrent); Z86.19 Personal history of other infectious and parasitic diseases; Z87.19 Personal history of other diseases of the digestive system; Z83.3 Family history of diabetes mellitus; Z80.1 Family history of malignant neoplasm of trachea, bronchus and lung; Z80.8 Family history of malignant neoplasm of other organs or systems

== ENCOUNTER → 2017-06-26 | Outpatient (CLI) | payer OTHER, BC ==
[~2017-06-26] MED LIST changes: +CARB0.5D OPB; -CLON0.5T3 PO; -DOCU-94 PO; +DOCU50CA10 PO; +DRGTP12 TOP; +ESCI1TAB6 PO; -FLUO40CA8 PO; -IBUP-1450 PO; -MIRT30TA3 PO; +PRED1SUS17 OPB; +RMR15 PO; +TRAZ50TA35 PO; +[UNRECOGNIZED DRUG - CODE] PO
[2017-06-26 10:08] LABS: ALBUMIN 3.2 gm/dl (3.4-5.0); ALT/SGPT 18 U/L (12-78); AST/SGOT 16 U/L (15-37); BLOOD UREA NITROGEN 13 mg/dl (7-18); CALCIUM 8.7 mg/dl (8.5-10.1); CARBON DIOXIDE 33 mmol/L (21-32); CREATININE 0.95 mg/dl (0.60-1.20); GLUCOSE 107 mg/dl (70-99); POTASSIUM 4.3 mmol/L (3.5-5.1); SODIUM 137 mmol/L (136-145)
[2017-06-26 10:11] LABS: ALKALINE PHOSPHATASE 98 U/L (45-117); TOTAL PROTEIN 6.8 gm/dl (6.4-8.2)
--- NOTE | 2017-07-07 15:21 | CODING QUERY NO DIAGNOSIS ---
Valid Physician Order Needed A valid physician order must be submitted in order to properly bill for the service(s) provided, including date of service(s), valid diagnosis, and physician signature. If these tests are done on a recurring basis the original physician order must be submitted in order to code and bill for the service(s) provided. Please fax us the original, signed physician order so that we may expedite billing to [phone] DOS 06/26/17 (order was provided, but missing provider's signature) * Comprehensive Metabolic Panel * Urinalysis Thank you Poornima Leos [facility] Information Management
== END | disposition home or self-care (01) ==
LOC: C.LABOUTLO 08:18
PROVIDERS: ATTEND Family Medicine
DX: R41.0 Disorientation, unspecified (principal)

== ENCOUNTER → 2017-10-01 | Outpatient (CLI) | payer OTHER, BC ==
[~2017-10-01] MED LIST changes: +ACET-1693 PO; +ALPR0.254 PO; -AMLO-114 PO; +AMLO10TA3 PO; -AMT50 PO; -CARB0.5D28 PO; -DRGTP12 TOP; +IBUP-1450 PO; +LACT10SO53 PO; -LCTS240 PO; +LXP10 PO; -NRN/600 PO; +OXYC-57 PO; +RMRS/45 PO; -SYMIN160 INH; +[UNRECOGNIZED DRUG - CODE] PO; -[UNRECOGNIZED DRUG - CODE] PO
--- NOTE | 2017-10-01 10:02 | DIAGNOSTIC IMAGING REPORT ---
CHEST 2 VIEWS ROUTINE HISTORY: 76 years-old Female PAT preoperative exam. No acute chest complaints. COMPARISON: Chest radiograph 05/14/2017 TECHNIQUE: PA and lateral views of the chest FINDINGS: Cardiac silhouette is within the upper limits of normal in size. Atherosclerosis of the aorta. Lungs are hyperinflated without pneumothorax, pleural effusion or overt pulmonary edema. Improved aeration of the bilateral lungs from comparison. Minimal subsegmental left basilar opacities favor atelectasis. Degenerative changes of the shoulders and spine. IMPRESSION: Hyperinflation without acute process. The above report was generated using voice recognition software. It may contain grammatical, syntax or spelling errors. Electronically signed by: Sathya Bustamante M.D. 10/01/2017 10:01 AM Dictated Date/Time: 10/01/2017 10:00 AM
[2017-10-01 10:51] LABS: BASO % 0.3 %; BASO ABS # 0.02 K/uL (0-0.2); EOS ABS # 0.31 K/uL (0-0.5); HEMATOCRIT 41.1 % (37-47); HEMOGLOBIN 13.1 g/dL (12.0-16.0); IG# 0.01 K/uL (0.00-0.02); LYMPH % 36.7 %; LYMPH ABS # 2.26 K/uL (1.2-3.4); MEAN CELL VOLUME 89.9 fL (80-100); MEAN CORPUSCULAR HEMOGLOBIN 28.7 pg (25-34); MEAN CORPUSCULAR HGB CONC 31.9 g/dl (32-36); MEAN PLATELET VOLUME 9.2 fL (7.4-10.4); MONO % 6.2 %; MONO ABS # 0.38 K/uL (0.11-0.59); NEUT % 51.6 %; NEUT ABS # 3.18 K/uL (1.4-6.5); PLATELET COUNT 174 K/uL (130-400); RED CELL DISTRIBUTION WIDTH CV 14.4 % (11.5-14.5); RED CELL DISTRIBUTION WIDTH SD 47.6 fL (36.4-46.3); WHITE BLOOD COUNT 6.16 K/uL (4.8-10.8)
[2017-10-01 10:57] LABS: BLOOD UREA NITROGEN 8 mg/dl (7-18); CALCIUM 9.2 mg/dl (8.5-10.1); CARBON DIOXIDE 31 mmol/L (21-32); CREATININE 0.94 mg/dl (0.60-1.20); GLUCOSE 175 mg/dl (70-99); POTASSIUM 3.9 mmol/L (3.5-5.1); SODIUM 141 mmol/L (136-145)
[2017-10-01 11:02] LABS: PTT PATIENT 25.9 SECONDS (21.0-31.0)
== END | disposition home or self-care (01) ==
LOC: C.CPL 08:46
PROVIDERS: ATTEND Orthopaedic Surgery Sports Medicine
DX: Z01.812 Encounter for preprocedural laboratory examination (principal)

== ENCOUNTER → 2017-10-06 | Outpatient (CLI) | payer OTHER, BC | END | disposition home or self-care (01) | LOC: C.LAB1850 12:26 | PROVIDERS: ATTEND Internal Medicine Endocrinology, Diabetes & Metabolism | DX: R73.03 Prediabetes (principal); I10 Essential (primary) hypertension; M85.80 Other specified disorders of bone density and structure, unspecified site ==

== ENCOUNTER 2017-10-13 00:44 | Emergency (ER) | payer OTHER, BC ==
[~2017-10-13] VITALS: Ht 162.6 cm; Wt 75.0 kg
[~2017-10-13 00:44] MED LIST changes: -ACET-1693 PO; -ALPR0.254 PO; -IBUP-1450 PO; -LXP10 PO; -RMRS/45 PO
[2017-10-13 00:52] VITALS: TEMP 37.7; Ht 162.6 cm; Wt 75.0 kg
--- NOTE | 2017-10-13 01:14 | EMERGENCY ROOM VISIT NOTE ---
History Report prepared by Delta: Soledad Donald Under the Supervision of: Hill OlivasO. 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 The patient states she has pain in her feet, ankles, knees, legs, and back. She states she has chronic pain problems and she was prescribed a Fentanyl patch by the pain clinic to moderate her pain however today, her pain has worsened. She states in the past, she has been given a larger dose patch for 3 days and then gone back to her normal dosage but she feels she needs more Fentanyl to alleviate her pain. She denies having any chills. She reports she recently had orthotics fitted for her feet which increased her pain, so she stopped wearing them. She states she also developed light sensitivity due to her orthotics. The patient lives in [facility]. 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 A total of 10 systems reviewed and were otherwise negative. Past Medical & Surgical Medical Problems: (1) Anxiety (2) Chronic anemia (3) Chronic pain (4) COPD (chronic obstructive pulmonary disease) (5) Corticoadrenal insufficiency (6) Depression (7) Fever (8) Fibromyalgia (9) Hypertension Nos (10) Ileus (11) Mood disorder (12) Pneumonia involving right lung (13) Sepsis (14) Severe sepsis Surgical Problems: (1) Hx of tonsillectomy Family History Diabetes mellitus Lung cancer Pancreatic cancer FATHER Social History Smoking Status: Never Smoker Alcohol Use: none Drug Use: none Marital Status: single Housing Status: assisted living Occupation Status: retired Current/Historical Medications Scheduled Amlodipine (Norvasc), 10 MG PO QAM Ascorbic Acid (Vitamin C), 500 MG PO QAM Carboxymethylcellulose Sodium (Refresh Plus), 1 DROP OPB QID Ergocalciferol (Vitamin D 35592 Unit), 50,000 UNIT PO WK Escitalopram Oxalate (Escitalopram Oxalate), 10 MG PO DAILY Fentanyl (Duragesic), 50 MCG TD CQ72HR Fludrocortisone Acetate (Florinef), 0.05 MG PO QAM Folic Acid (Folvite), 1 MG PO QAM Lactulose (Chronulac), 30 ML PO BID Levothyroxine Sodium (Levothyroxine Sodium), 25 MCG PO QAM Mirtazapine (Mirtazapine), 45 MG PO HS Omeprazole (Prilosec), 40 MG PO QAM Prednisolone Acetate (Ophth) (Prednisolone Acetate), 1 DROP OPB DAILY Prednisone (Prednisone), 1 MG PO QAM Trazodone Hcl (Trazodone), 25 MG PO HS Scheduled PRN Acetaminophen Tab (Tylenol), 650 MG PO Q4 PRN for Pain Alprazolam (Alprazolam), 0.25 MG PO Q8 PRN for Anxiety Buspirone Hcl (Buspar), 7.5 MG PO BID PRN for Anxiety/Agitation Docusate Sodium (Colace Clear), 50 MG PO BID PRN for Constipation Ibuprofen (Motrin), 600 MG PO Q8 PRN for Pain Naloxone HCl (Narcan), 4 MG NA DIRECTED PRN for if unresponsive Allergies Coded Allergies: No Known Allergies (Unverified , 10/13/17) Physical Exam Vital Signs Date Time Temp Pulse Resp B/P (MAP) Pulse Ox O2 Delivery O2 Flow Rate FiO2 10/13/17 04:29 85 18 163/72 95 10/13/17 04:23 85 18 163/72 95 Room Air 10/13/17 03:58 70 148/62 92 Room Air 10/13/17 02:31 81 137/64 92 Room Air 10/13/17 00:52 37.7 94 18 93/59 96 Room Air Physical Exam HEENT: Head - normocephalic and atraumatic Pupils are equal, round, and reactive to light. Extraocular eye muscles are intact, and sclera are anicteric. Nose - moist nasal mucosa without discharge. Mouth - moist buccal mucosa. Oropharynx is nonerythematous and there is no tonsillar exudate or edema noted. Neck: Supple; no JVD, nuchal rigidity, cervical lymphadenopathy. Heart: Regular rate and rhythm. There is a normal S1 and S2 with no murmurs, clicks, or gallops appreciated. Lungs: Clear to auscultation bilaterally with no wheezes, rales, or rhonchi. Abdomen: Soft, completely nontender, nondistended, with good bowel sounds. There are no palpable pulsatile masses or hepatosplenomegaly. There is no guarding, rigidity, or rebound noted. Extremities: No evidence of cyanosis or clubbing. Trace pedal edema to her bilateral legs There are easily palpable peripheral pulses. Skin: warm and dry with good turgor and no rashes. Medical Decision & Procedures Laboratory Results 10/13/17 01:50 Red Blood Count 4.73, Mean Corpuscular Volume 88.8, Mean Corpuscular Hemoglobin 28.8, Mean Corpuscular Hemoglobin Concent 32.4, Mean Platelet Volume 8.4, Neutrophils (%) (Auto) 66.3, Lymphocytes (%) (Auto) 26.0, Monocytes (%) (Auto) 4.9, Eosinophils (%) (Auto) 2.5, Basophils (%) (Auto) 0.2, Neutrophils # (Auto) 5.32, Lymphocytes # (Auto) 2.09, Monocytes # (Auto) 0.39, Eosinophils # (Auto) 0.20, Basophils # (Auto) 0.02 10/13/17 01:50 Test 10/13/17 01:50 White Blood Count 8.03 K/uL (4.8-10.8) Red Blood Count 4.73 M/uL (4.2-5.4) Hemoglobin 13.6 g/dL (12.0-16.0) Hematocrit 42.0 % (37-47) Mean Corpuscular Volume 88.8 fL (80-100) Mean Corpuscular Hemoglobin 28.8 pg (25-34) Mean Corpuscular Hemoglobin Concent 32.4 g/dl (32-36) Platelet Count 172 K/uL (130-400) Mean Platelet Volume 8.4 fL (7.4-10.4) Neutrophils (%) (Auto) 66.3 % Lymphocytes (%) (Auto) 26.0 % Monocytes (%) (Auto) 4.9 % Eosinophils (%) (Auto) 2.5 % Basophils (%) (Auto) 0.2 % Neutrophils # (Auto) 5.32 K/uL (1.4-6.5) Lymphocytes # (Auto) 2.09 K/uL (1.2-3.4) Monocytes # (Auto) 0.39 K/uL (0.11-0.59) Eosinophils # (Auto) 0.20 K/uL (0-0.5) Basophils # (Auto) 0.02 K/uL (0-0.2) RDW Standard Deviation 46.2 fL (36.4-46.3) RDW Coefficient of Variation 14.2 % (11.5-14.5) Immature Granulocyte % (Auto) 0.1 % Immature Granulocyte # (Auto) 0.01 K/uL (0.00-0.02) Anion Gap 8.0 mmol/L (3-11) Est Creatinine Clear Calc Drug Dose 44.4 ml/min Estimated GFR () 58.4 Estimated GFR (Non- 50.4 BUN/Creatinine Ratio 11.5 (10-20) Calcium Level 8.5 mg/dl (8.5-10.1) Laboratory results per my review. ED Course 0102: Past medical records reviewed. The patient was evaluated in room B10. A complete history and physical exam was performed. The patient was noted to be hypotensive. She had an IV lock initiated and labs were drawn as above. 0410: Upon reevaluation, the patient is dissatisfied that I am unwilling to give her a shot of fentanyl. I offered her 5 mg of oxycodone and she refused stating she would only agree to accept 10 mg. I discussed my concerns with her and she will be discharged back to [facility]. 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 Differential diagnosis includes acute exacerbation of chronic pain, dehydration, sepsis, medication noncompliance, as well as others were entertained. Lab results show No leukocytosis Stable H and H Normal renal function Glucose 172 This is a 76-year-old female patient with a history of chronic pain who presents to the emergency department complaining of an exacerbation of her pain. I was concerned about administering any additional opioid pain medication since the patient presented with a low blood pressure. In reviewing previous records, the patient had been wearing a 37.5 mcg fentanyl patch. This had been increased by the pain management clinic. The patient states that she is having significant withdrawal at this time. I explained to the patient that she is exhibiting no withdrawal symptoms and she then went on to say that she simply felt that she required a higher dose of fentanyl to treat her pain. I spent some time reviewing the patient's medical records. I do not think it would be prudent for us to prescribe a higher level of fentanyl for this patient. I leave this up to the pain management clinic. I offered to give the patient 5 mg of oral oxycodone for her breakthrough pain but she declined stating that she would only accept 10 mg dose. I suggested the patient contact her PCP and the pain management clinic this morning since they are both more familiar with her than I am. Medication Reconcilliation Current Medication List: was personally reviewed by me Blood Pressure Screening Patient's blood pressure: Low blood pressure Blood pressure disposition: Did not require urgent referral Low BP felt to be situational Impression Primary Impression: Chronic pain Scribe Attestation The scribe's documentation has been prepared under my direction and personally reviewed by me in its entirety. I confirm that the note above accurately reflects all work, treatment, procedures, and medical decision making performed by me. Departure Information Dispostion Home / Self-Care Referrals Kalie Bauer M.D. (PCP) Forms HOME CARE DOCUMENTATION FORM, IMPORTANT VISIT INFORMATION, WORK / SCHOOL INSTRUCTIONS Patient Instructions My [facility] [address] Additional Instructions You should follow up with Dr. 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 Problem Qualifiers Primary Impression: Chronic pain Chronic pain type: chronic pain syndrome Qualified Codes: G89.4 - Chronic pain syndrome
[2017-10-13] MEDS ORDERED: ALPR0.254 PO (01:17)
[2017-10-13] MEDS ORDERED: RMRS/45 PO (01:20)
[2017-10-13] MEDS ORDERED: LXP10 PO (01:24)
[2017-10-13] MEDS ORDERED: IBUP-1450 PO (01:45)
[2017-10-13] MEDS ORDERED: ACET-1693 PO (01:48)
[2017-10-13 02:06] LABS: BASO % 0.2 %; BASO ABS # 0.02 K/uL (0-0.2); EOS % 2.5 %; HEMOGLOBIN 13.6 g/dL (12.0-16.0); IG# 0.01 K/uL (0.00-0.02); LYMPH ABS # 2.09 K/uL (1.2-3.4); MEAN CELL VOLUME 88.8 fL (80-100); MEAN CORPUSCULAR HEMOGLOBIN 28.8 pg (25-34); MEAN CORPUSCULAR HGB CONC 32.4 g/dl (32-36); MEAN PLATELET VOLUME 8.4 fL (7.4-10.4); MONO % 4.9 %; MONO ABS # 0.39 K/uL (0.11-0.59); NEUT % 66.3 %; NEUT ABS # 5.32 K/uL (1.4-6.5); PLATELET COUNT 172 K/uL (130-400); RED CELL DISTRIBUTION WIDTH CV 14.2 % (11.5-14.5); RED CELL DISTRIBUTION WIDTH SD 46.2 fL (36.4-46.3); WHITE BLOOD COUNT 8.03 K/uL (4.8-10.8)
[2017-10-13 02:23] LABS: CALCIUM 8.5 mg/dl (8.5-10.1); CREATININE 1.07 mg/dl (0.60-1.20); POTASSIUM 3.2 mmol/L (3.5-5.1)
[2017-10-13 04:29] VITALS: BP 163/72; PULSE 85; O2SAT 95
== END 2017-10-13 04:29 | disposition home or self-care (01) ==
LOC: C.EDB 00:45
DX: G89.29 Other chronic pain (principal); R03.1 Nonspecific low blood-pressure reading; J44.9 Chronic obstructive pulmonary disease, unspecified; I10 Essential (primary) hypertension; Z79.52 Long term (current) use of systemic steroids; Z79.891 Long term (current) use of opiate analgesic; Z79.899 Other long term (current) drug therapy

== ENCOUNTER → 2017-10-16 | Outpatient (CLI) | payer OTHER, BC ==
[~2017-10-16] MED LIST changes: -ACET-1311 PO; +ACET-1693 PO; +ALPR0.254 PO; +ASPI-320 PO; -ESCI1TAB6 PO; +IBUP-1450 PO; -LDDP5 TD; +LXP10 PO; -RMR15 PO; +RMRS/45 PO; -[UNRECOGNIZED DRUG - CODE] PO
--- NOTE | 2017-10-16 14:13 | DIAGNOSTIC IMAGING REPORT ---
CAROTID DOPPLER NECK ART HISTORY: PRE OP,BRUIT COMPARISON: None. TECHNIQUE: Real-time, grayscale, and color Doppler sonography of the carotid arteries was performed. Imaging reviewed in the transverse and longitudinal planes. All measurements were calculated based on NASCET criteria. FINDINGS: Antegrade flow is seen in the bilateral vertebral arteries. The brachial pressures are hemodynamically similar. Mild plaque formation bilaterally The peak systolic velocity within the right ICA is 101. The right systolic ratio is 0.8. The peak systolic velocity within the left ICA is 103. The left systolic ratio is 0.9. IMPRESSION: No hemodynamically significant stenosis seen within the carotid arteries. Mild plaque formation bilaterally The above report was generated using voice recognition software. It may contain grammatical, syntax or spelling errors. Electronically signed by: John Smith M.D. 10/16/2017 2:12 PM Dictated Date/Time: 10/16/2017 2:10 PM
== END | disposition home or self-care (01) ==
LOC: C.ULTRBC 13:21
PROVIDERS: ATTEND Family Medicine
DX: Z01.818 Encounter for other preprocedural examination (principal)

== ENCOUNTER 2017-10-17 05:23 | Day surgery (SDC) | payer OTHER, BC ==
--- NOTE | 2017-09-30 16:34 | PAT Medication Instructions ---
Service Date Sep 30, 2017. Current Home Medication List Acetaminophen (Tylenol), 650 TAB PO Q4H PRN for Pain Amlodipine (Norvasc), 10 MG PO QAM Ascorbic Acid (Vitamin C), 500 MG PO QAM Buspirone Hcl (Buspar), 7.5 MG PO BID PRN for Anxiety/Agitation Carboxymethylcellulose Sodium (Refresh Plus), 1 DROP OPB QID Docusate Sodium (Colace Clear), 50 MG PO BID Ergocalciferol (Vitamin D 38921 Unit), 50,000 UNIT PO WK Escitalopram Oxalate (Lexapro), 5 MG PO QAM Fentanyl (Duragesic), 50 MCG TD CQ72HR Fludrocortisone Acetate (Florinef), 0.5 MG PO QAM Folic Acid (Folvite), 1 MG PO QAM Ibuprofen (Ibu), 600 MG PO Q8 PRN for Pain Lactulose (Chronulac), 30 ML PO BID Levothyroxine Sodium (Levothyroxine Sodium), 25 MCG PO QAM Lidocaine (Lidocaine), 1-2 PATCH TD QAM PRN for Pain Mirtazapine (Mirtazapine), 15 MG PO HS Naloxone HCl (Narcan), 1 DOSE NA DIRECTED PRN for Omeprazole (Prilosec), 40 MG PO QAM Oxycodone/Acetaminophen 5MG/325MG (Percocet 5MG/325MG), 1 TABLETS PO Q6H PRN for Pain Prednisolone Acetate (Ophth) (Prednisolone Acetate), 1 DROP OPB TID UD Prednisone (Prednisone), 1 MG PO QAM Trazodone Hcl (Trazodone), 25 MG PO HS Medication Instructions For Your Scheduled Surgery -Continue as directed: Ergocalciferol (Vitamin D 98774 Unit), 50,000 UNIT PO WK Naloxone HCl (Narcan), 1 DOSE NA DIRECTED PRN -Check with surgeon: Ibuprofen (Ibu), 600 MG PO Q8 PRN for Pain - Avoid placement near the surgery site: Fentanyl (Duragesic), 50 MCG TD CQ72HR Lidocaine (Lidocaine), 1-2 PATCH TD QAM PRN for Pain - Hold the following medications the morning of surgery: Ascorbic Acid (Vitamin C), 500 MG PO QAM Docusate Sodium (Colace Clear), 50 MG PO BID Folic Acid (Folvite), 1 MG PO QAM Lactulose (Chronulac), 30 ML PO BID - Take the following medications the morning of surgery with a sip of water: Acetaminophen (Tylenol), 650 TAB PO Q4H PRN for Pain (if needed, may be taken up to four hours before surgery) Amlodipine (Norvasc), 10 MG PO QAM Buspirone Hcl (Buspar), 7.5 MG PO BID PRN for Anxiety/Agitation (if needed) Carboxymethylcellulose Sodium (Refresh Plus), 1 DROP OPB QID Escitalopram Oxalate (Lexapro), 5 MG PO QAM Fludrocortisone Acetate (Florinef), 0.5 MG PO QAM Levothyroxine Sodium (Levothyroxine Sodium), 25 MCG PO QAM Omeprazole (Prilosec), 40 MG PO QAM Oxycodone/Acetaminophen 5MG/325MG (Percocet 5MG/325MG), 1 TABLETS PO Q6H PRN for Pain (if needed, may be taken up to four hours before surgery) Prednisolone Acetate (Ophth) (Prednisolone Acetate), 1 DROP OPB TID UD Prednisone (Prednisone), 1 MG PO QAM - Take the following medications as scheduled the night before surgery: Acetaminophen (Tylenol), 650 TAB PO Q4H PRN for Pain (if needed) Buspirone Hcl (Buspar), 7.5 MG PO BID PRN for Anxiety/Agitation (if needed) Carboxymethylcellulose Sodium (Refresh Plus), 1 DROP OPB QID Docusate Sodium (Colace Clear), 50 MG PO BID Lactulose (Chronulac), 30 ML PO BID Mirtazapine (Mirtazapine), 15 MG PO HS Oxycodone/Acetaminophen 5MG/325MG (Percocet 5MG/325MG), 1 TABLETS PO Q6H PRN for Pain (if needed) Prednisolone Acetate (Ophth) (Prednisolone Acetate), 1 DROP OPB TID UD Trazodone Hcl (Trazodone), 25 MG PO HS If you have any questions please call us at [phone] or [phone] or [phone]
--- NOTE | 2017-10-16 15:09 | History and Physical ---
History & Physical Date Oct 16, 2017. Chief Complaint right foot pain History of Present Illness The patient is a 76 year old female with complaints of chronic right foot pain and deformity. The deformity has worsened over the past few months. She was treated conservatively with shoe wear modification and toe spacers but failed those treatments. She is being set up for surgical tx. Past Medical/Surgical History Medical Problems: (1) Anxiety (2) Chronic anemia (3) Chronic pain (4) COPD (chronic obstructive pulmonary disease) (5) Corticoadrenal insufficiency (6) Depression (7) Fever (8) Fibromyalgia (9) Hypertension Nos (10) Ileus (11) Mood disorder (12) Pneumonia involving right lung (13) Sepsis (14) Severe sepsis Surgical Problems: (1) Hx of tonsillectomy Allergies Coded Allergies: No Known Allergies (Unverified , 10/13/17) Home Medications Scheduled Amlodipine (Norvasc), 10 MG PO QAM Ascorbic Acid (Vitamin C), 500 MG PO QAM Carboxymethylcellulose Sodium (Refresh Plus), 1 DROP OPB QID Ergocalciferol (Vitamin D 87499 Unit), 50,000 UNIT PO WK Escitalopram Oxalate (Escitalopram Oxalate), 10 MG PO DAILY Fentanyl (Duragesic), 50 MCG TD [id number] Fludrocortisone Acetate (Florinef), 0.05 MG PO QAM Folic Acid (Folvite), 1 MG PO QAM Lactulose (Chronulac), 30 ML PO BID Levothyroxine Sodium (Levothyroxine Sodium), 25 MCG PO QAM Mirtazapine (Mirtazapine), 45 MG PO HS Omeprazole (Prilosec), 40 MG PO QAM Prednisolone Acetate (Ophth) (Prednisolone Acetate), 1 DROP OPB DAILY Prednisone (Prednisone), 1 MG PO QAM Trazodone Hcl (Trazodone), 25 MG PO HS Scheduled PRN Acetaminophen Tab (Tylenol), 650 MG PO Q4 PRN for Pain Alprazolam (Alprazolam), 0.25 MG PO Q8 PRN for Anxiety Buspirone Hcl (Buspar), 7.5 MG PO BID PRN for Anxiety/Agitation Docusate Sodium (Colace Clear), 50 MG PO BID PRN for Constipation Ibuprofen (Motrin), 600 MG PO Q8 PRN for Pain Naloxone HCl (Narcan), 4 MG NA DIRECTED PRN for if unresponsive Physical Examination Skin: warm/dry, no rash Eyes: normal inspection ENT: normal ENT inspection Head: normocephalic, atraumatic Neck: supple, no adenopathy, trachea midline Respiratory/Chest: lungs clear, normal breath sounds, no respiratory distress Cardiovascular: regular rate, rhythm Abdomen / GI: normal bowel sounds, non tender Extremities: + pertinent finding (Right foot: Hallux interphalangeus deformity , 2nd claw toe deformity. Painful 1st MTP and 2nd PIP joints. 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 Plan of Treatment Patient will be scheduled for a left foot great toe Nico osteotomy, 2nd DuVries arthroplasty, flexor tenotomy of the 2nd toe, possible extensor lengthening of 2nd toe. All potential risks, benefits, complications, alternatives, and rehab have been discussed with the patient and she wishes to proceed. She will be scheduled for 10.17.17.
[~2017-10-17] VITALS: Ht 160 cm; Wt 77.9 kg
[~2017-10-17 05:23] MED LIST changes: -ASPI-320 PO; -OXYC-57 PO
[2017-10-17 05:45] VITALS: BP 155/68; PULSE 79; TEMP 37; O2SAT 92; Ht 160 cm; Wt 77.9 kg
[2017-10-17] MEDS ORDERED: LACTATED RINGER'S 1000ML 1,000 ML IV SCH (06:00)
[2017-10-17] MEDS ORDERED: CEFAZOLIN 1000MG IV PUSH 7.5 ML IV SCH (06:00)
[2017-10-17] MEDS ORDERED: MIDAZOLAM HCL 1 MG/ML 2ML VIAL ONE (06:30)
[2017-10-17] MEDS ORDERED: FENTANYL CITRATE INJ 50 MCG/1 ML 2 ML VIAL ONE ×2 (06:31→08:25)
[2017-10-17] MEDS ORDERED: PROPOFOL IV EMULSION 10 MG/ML 20 ML VIAL ONE (06:34)
[2017-10-17] MEDS ORDERED: DEXAMETHASONE SOD INJ 4 MG/ML VIAL ONE (06:34)
[2017-10-17] MEDS ORDERED: ONDANSETRON INJ 2 MG/ML 2 ML VIAL ONE (06:34)
[2017-10-17] MEDS ORDERED: LIDOCAINE HCL 2% 2 ML VIAL (20MG/ML) ONE (06:34)
[2017-10-17] MEDS ORDERED: ROPIVACAINE 0.5% 5 MG/ML 30 ML VIAL ONE (06:39)
[2017-10-17] MEDS ORDERED: BACITRACIN 50000 UNIT VIAL ONE (07:01)
[2017-10-17] MEDS ORDERED: FENTANYL CITRATE INJ 50 MCG/1 ML 2 ML VIAL IV PRN (07:15)
[2017-10-17] MEDS ORDERED: EpHEDrine SULFATE INJ 50 MG/ML AMP IV PRN (07:15)
[2017-10-17] MEDS ORDERED: ONDANSETRON INJ 2 MG/ML 2 ML VIAL IV PRN (07:15)
[2017-10-17] MEDS ORDERED: ATROPINE SULFATE 0.1 MG/ML 5ML SYR IV PRN (07:15)
[2017-10-17] MEDS ORDERED: HYDROmorphone INJ 2 MG/ML SYR/VIAL ONE (08:58)
--- NOTE | 2017-10-17 09:29 | [facility] Post Operative Brief Note ---
Immediate Operative Summary Operative Date Oct 17, 2017. 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 Right Foot Great Toe [place] Osteotomy 2. Right 2nd DuVries Procedure 3. Flexor Tenotomy 2nd toe 4. Extensor Tendon Lengthening 2nd 5. 1st Metatarsophalangeal Joint Cheilectomy Surgeon Dr. Kostas Jaime Booking Prizer Surgeon(s) Yaya Pineda PA-C Estimated Blood Loss 1 ml Findings Consistent with Post-Op Diagnosis Specimens none per surgeon Drains None Anesthesia Type General Regional Complication(s) none Disposition Accompanied Pt To Recover: no Disposition: Recovery Room / PACU
[2017-10-17] MEDS ORDERED: OXYC-57 PO (09:32)
--- NOTE | 2017-10-17 09:36 | Discharge Instructions ---
Discharge Instructions Date of Service Oct 17, 2017. Admission Reason for Admission: Left Foot Other Hammer Toe(S), Hallux Valgus Discharge Discharge Diagnosis / Problem: left foot 2nd hammertoe Discharge Goals Goal(s): Decrease discomfort, Improve function Activity Recommendations Activity Limitations: per Instructions/Follow-up section Weightbearing Status: Left partial (Heel weightbearing only. If too painful, remain non-weightbearing) . Instructions / Follow-Up Instructions / Follow-Up ACTIVITY RECOMMENDATIONS: Limitations: Heel weight bearing only if able to tolerate. If too painful, remain non-weightbearing. SPECIAL CARE INSTRUCTIONS: * Take Aspirin 81 mg daily for 4 weeks after surgery. * Some drainage onto the dressing is normal and is no cause for alarm. * Some swelling is natural especially after walking. * When resting, keep your foot elevated above the level of your heart. * Call [facility] if you notice: -Increased drainage -Fever over 101 degrees F -Severe constant pain BANDAGE: * Leave bandage/cast in place unless otherwise directed. * Keep bandage/cast dry at all times. PIN CARE: * Leave pins alone. * If pins come loose or fall out, notify physician. FOLLOW UP VISIT WITH DR. VEGA If appointment is not already scheduled: Please call [facility] after you get home today to schedule a follow-up appointment for [address] Vega at . Current Hospital Diet Patient's current hospital diet: Discharge Diet Recommended Diet: Regular Diet Procedures Procedures Performed: 1. Right Foot Great Toe Obed Osteotomy 2. Right 2nd DuVries Procedure 3. Flexor Tenotomy 2nd toe 4. Extensor Tendon Lengthening 2nd 5. 1st Metatarsophalangeal Joint Cheilectomy Pending Studies Studies pending at discharge: no Laboratory Results Hemoglobin A1c Test 10/06/17 12:32 Range/Units Estimated Average Glucose 126 mg/dl Hemoglobin A1c 6.0 H 4.5-5.6 % Lipid Panel Test 10/06/17 12:32 Range/Units Triglycerides Level 158 H 0-150 mg/dl Cholesterol Level 199 0-200 mg/dl HDL Cholesterol 63 mg/dl Cholesterol/HDL Ratio 3.2 LDL Cholesterol, Calculated 104 mg/dl Medical Emergencies . Who to Call and When: Medical Emergencies: If at any time you feel your situation is an emergency, please call 911 immediately. . Non-Emergent Contact Non-Emergency issues call your: Surgeon Call Non-Emergent contact if: temperature is above 101, your pain is not controlled, your pain is worsening, wound has increased drainage . "Provider Documentation" section prepared by Yaya Pineda. .
[2017-10-17] MEDS ORDERED: ASPI-320 PO (09:37)
[2017-10-17] MEDS ORDERED: OXYCODONE/ACETAMINOPHEN 5-325 TAB PO PRN (09:45)
[2017-10-17] MEDS ORDERED: ACETAMINOPHEN 1000 MG/100 ML IV IV ONE (10:02)
[2017-10-17] MEDS ORDERED: NURSING VERBAL MED ORDER ONE (10:30)
--- NOTE | 2017-10-17 10:36 | DIAGNOSTIC IMAGING REPORT ---
L FOOT MIN 3 VIEWS ROUTINE CLINICAL HISTORY: post op COMPARISON: None. DISCUSSION: There are postsurgical changes of an osteotomy at the level of the proximal interphalangeal joint of the second toe. There are old fractures of the right second and third metatarsals. There is an orthopedic pin traversing the interphalangeal joints and metatarsal phalangeal joint of the second toe. There are postsurgical changes of a first metatarsal bunionectomy. There is a single screw within the distal first metatarsal. There are postsurgical changes of an osteotomy involving the proximal to the great toe traversed by a single screw. IMPRESSION: Postoperative changes as described above. Electronically signed by: Bony Stoo M.D. 10/17/2017 10:35 AM Dictated Date/Time: 10/17/2017 10:29 AM
--- NOTE | 2017-10-17 10:37 | Anesthesiology Progress Note ---
Anesthesia Post Op Note Date & Time Oct 17, 2017 at 10:37 Vital Signs Vital Signs Past 12 Hours Date Time Temp Pulse Resp B/P (MAP) Pulse Ox O2 Delivery O2 Flow Rate FiO2 10/17/17 10:30 73 16 121/45 96 Nasal Cannula 4 10/17/17 10:20 36.5 79 16 132/80 97 Nasal Cannula 4 10/17/17 10:10 79 16 139/82 98 Nasal Cannula 4 10/17/17 10:00 77 16 125/65 100 Nasal Cannula 4 10/17/17 09:50 85 15 92/77 100 Oxymask 10 10/17/17 09:40 62 14 120/47 99 Oxymask 10 10/17/17 09:31 36.3 79 16 154/56 99 Oxymask 10 10/17/17 05:45 37 79 18 155/68 (97) 92 Room Air Notes Mental Status: alert / awake / arousable, participated in evaluation Pt Amnestic to Procedure: Yes Nausea / Vomiting: adequately controlled Pain: adequately controlled Airway Patency, RR, SpO2: stable & adequate BP & HR: stable & adequate Hydration State: stable & adequate Anesthetic Complications: no major complications apparent
[2017-10-17 10:40] VITALS: BP 119/51; PULSE 64; TEMP 36.5; O2SAT 96
[2017-10-17 11:05] VITALS: BP 110/49; PULSE 72; TEMP 36.5; O2SAT 96
--- NOTE | 2017-10-17 12:01 | OPERATIVE REPORT ---
DATE OF OPERATION: 10/17/2017 PREOPERATIVE DIAGNOSES: 1. Right foot hallux interphalangeus. 2. Right second hammertoe deformity. 3. Second flexor contracture. 4. Second extensor contracture. 5. Exostoses of the first metatarsophalangeal joint. POSTOPERATIVE DIAGNOSES: 1. Right foot hallux interphalangeus. 2. Right second hammertoe deformity. 3. Second flexor contracture. 4. Second extensor contracture. 5. Exostoses of the first metatarsophalangeal joint. PROCEDURE: 1. Right foot Nico osteotomy of the great toe. 2. Second toe DuVries arthroplasty. 3. Second toe flexor tenotomy. 4. Second toe extensor lengthening. 5. Right foot first metatarsophalangeal joint cheilectomy. SURGEON: Dr. Jaime. LITHOGRAPH OPERATOR: Yaya Pineda PA-C who was present for patient positioning, sterile prep and drape, management of retractors and instruments. He was present through the critical portions of the case including wound closure, application of sterile dressing and transport of the patient to recovery. ANESTHESIA: General LMA with popliteal block. SPECIMENS: None. DRAINS: None. COMPLICATIONS: None. BLOOD LOSS: 1 mL. PERTINENT HISTORY: This is a 76-year-old female with chronic progressive and worsening pain and deformity of her right foot. She attempted and failed conservative management including shoe modification, activity modification, anti-inflammatories, rest, physician-directed home exercises, and use of toe spacers. She failed all measures and opted for surgical correction as indicated. Radiographs demonstrate hallux interphalangeus with claw toe deformity of the second toe. All potential risks, benefits, complications, alternatives, rehab, potential for incomplete relief of symptoms, need for further surgery, DVT, PE, , persistent pain, swelling, scarring, weakness, neurovascular injury, wound complications, hardware failure, nonunion, malunion were discussed with the patient. The patient decided to proceed with the procedure as indicated. DESCRIPTION OF PROCEDURE: After popliteal block was administered in preop holding area, the patient was taken to the operative suite, placed supine on the table. After reviewing consent and identification of proper operative site, the patient was anesthetized, LMA was placed. Right lower extremity was then sterilely prepped and draped in the usual fashion, elevated and exsanguinated with an Esmarch bandage and Esmarch tourniquet applied over sterile surgical towel at the level of the ankle. Next, a 15 blade scalpel was used to make a transverse incision over the dorsum of the PIP joint. The incision was deepened through subcutaneous tissue. Meticulous hemostasis was achieved with electrocautery. Full-thickness skin flaps developed. Dorsal capsule was incised with 15 blade scalpel. A small ellipse of dorsal tissue was incised and resected with a 15 blade scalpel. Next, the collateral ligaments were sacrificed with 15 blade scalpel. This revealed the distal aspect of the proximal phalanx and a bone biting rongeur was then used to resect the distal aspect of the proximal phalanx. Next, tenotomy scissors were then used to carefully dissect through the plantar plate revealing the flexor tendon. Ragnell rakes were placed in the incision and a 15 blade scalpel was used to release the second flexor tendon. Next, a 15 blade scalpel was then used to make an incision on the dorsum of the foot between the second and third metatarsals. The incision was deepened through subcutaneous tissue and meticulous hemostasis was achieved with electrocautery. Full-thickness skin flaps were developed. The second extensor tendon was then identified. An 11 blade scalpel was then used to perform a Z lengthening incision in the tendon. Tendon was then lengthened, then reapproximated in a slightly longer condition with interrupted horizontal mattress 3-0 mersilene sutures x3. Next, the dorsal capsule was also released with a 15 blade scalpel in second MTP, which corrected the position and alignment of the foot. Next, a 15 blade scalpel was used to make an incision along the medial aspect of the great toe and the incision was deepened through the subcutaneous tissue. Meticulous hemostasis was achieved with electrocautery and tenotomy scissors were then used to elevate soft tissue including the sensory cutaneous nerves both dorsal and plantar. Once this was completed, Ava rakes were placed in the incision. An 11 blade scalpel was then used to make a small ellipse incision medially in the joint capsule elevating the soft tissue of the first metatarsophalangeal joint. Exostoses were noted of the first metatarsal head and the proximal phalanx. At this point, a rongeur was then used to resect the exostoses of the first metatarsal head and the proximal phalanx performing a cheilectomy. Once this was completed, 15 blade was then used to elevate the periosteum at the base of the proximal phalanx and then Hohmann retractor was used to retract the dorsal and plantar soft tissues. A sagittal saw was then used to produce a medially based closing wedge osteotomy at the base of the proximal phalanx of the great toe. Osteotomy was then closed medially and secured and compressed with a 2.0 mm modular handset screw placed under live fluoroscopic assistance. Once this was completed, all incisions were copiously irrigated with sterile normal saline until clear. Next, 0.045 inch K-wire was then driven out the tip of the second toe in retrograde fashion, passed into the proximal phalanx of the second metatarsal under live fluoroscopic assistance. This pin was then bent, cut and capped with a Jergens ball. Next, final irrigation with sterile normal saline, the skin incisions were then closed with 4-0 nylon and the medial capsule was closed using interrupted 2-0 Vicryl sutures. The medial incision was then closed using 4-0 nylon. A sterile compressive dressing was applied overwrapped with a Coban. The tourniquet was released. Final radiographs were obtained, AP and lateral projections. The patient was awakened and taken to recovery in stable condition. I attest to the content of the Intraoperative Record and any orders documented therein. Any exception s are noted below.
--- NOTE | 2017-10-17 12:14 | DIAGNOSTIC IMAGING REPORT ---
L FOOT 2 VIEWS HISTORY: 76 years-old Female LT 1ST AND 2ND TOE RECONSTRUCTION status post surgery of the first and second digits COMPARISON: Left foot radiographs of same day at 10:02 AM TECHNIQUE: 3 spot fluoroscopic images of the left foot were obtained utilizing 35.2 seconds fluoroscopy time FINDINGS: Cortical thickening about the mid to distal diaphyseal second and third metatarsals suggests healed fracture deformities. Status post placement of a K wire about the second digit extending from the distal phalanx through the proximal metaphyseal portion of the metatarsal. Postsurgical changes of prior first metatarsal bunionectomy with single screw within the distal first metatarsal and first proximal phalanx from prior osteotomy. Moderate degenerative changes about the first MTP joint. Expected postsurgical soft tissue swelling and deep tissue air about the forefoot. IMPRESSION: Postoperative and chronic changes as above. Please see operative report for further details. The above report was generated using voice recognition software. It may contain grammatical, syntax or spelling errors. Electronically signed by: Sathya Bustamante M.D. 10/17/2017 12:13 PM Dictated Date/Time: 10/17/2017 12:10 PM
== END 2017-10-17 11:25 | disposition home or self-care (01) ==
LOC: C.ACU 05:23
PROVIDERS: ATTEND Orthopaedic Surgery Sports Medicine
DX: M20.41 Other hammer toe(s) (acquired), right foot (principal); M20.11 Hallux valgus (acquired), right foot; M20.5X1 Other deformities of toe(s) (acquired), right foot; M62.471 Contracture of muscle, right ankle and foot; J44.9 Chronic obstructive pulmonary disease, unspecified; I10 Essential (primary) hypertension; E27.1 Primary adrenocortical insufficiency; M19.90 Unspecified osteoarthritis, unspecified site; F32.9 Major depressive disorder, single episode, unspecified; M79.7 Fibromyalgia; Z87.01 Personal history of pneumonia (recurrent)

== ENCOUNTER 2021-08-08 14:50 | Inpatient (IN) ==
--- NOTE | 2021-08-08 16:05 | Emergency Department Note ---
Impression & Plan Hypoxemia, Constipation ED Provider Note NAME: GUSTAVO THIBODEAUX AGE: 80 SEX: F : 1940 ARRIVES VIA: Walk-In INFORMANT: Patient, ED PROVIDER(S): Hernesto Elise MD Chief Complaint: Constipation HPI: Patient presents due to concern for constipation. Patient states she has not had a bowel movement in 3 weeks time. No prior history of obstruction. Patient does use chronic narcotics. Patient denies any nausea vomiting or diarrhea. The patient states she was seen here recently and did have a CT completed. Patient states she has been taking Senokot and tried milk of magnesia and MiraLAX without improvement in symptoms. The patient is concerned she has not had a bowel movement. Patient passing flatus. Patient denies any shortness of breath but was noted to be hypoxemic in triage. No chest pains or shortness of breath. No history of DVT or PE and the patient denies any leg swelling or calf pain. Patient denies any remitting factors. The narcotics may be making her symptoms worse. Patient takes narcotics for chronic pain. ROS: See HPI for pertinent positives and negatives. A total of 10 systems were reviewed and otherwise negative. Past medical history: See below Surgical history: See below Social history: See below Physical Exam: GENERAL: NAD, wearing a mask, non-toxic. EYE EXAM: Normal conjunctiva. PERRL, no anisocoria and EOM's grossly intact w/o pain. OROPHARYNX: Moist mucus membranes. Grossly normal dentition. NECK: Supple, no nuchal rigidity, no adenopathy, non-tender. No signs of meningismus. LUNGS: Clear to auscultation. Normal chest wall mechanics. HEART: NSR, no MRG. ABDOMEN: Abdomen soft, non-tender, normo-active bowel sounds, no masses, no rebound or guarding. BACK: No CVA TTP. SKIN: No rashes and no bruising. UPPER EXTREMITIES: Upper extremities are grossly normal. LOWER EXTREMITIES: Grossly normal, no edema. NEURO EXAM: A&O x3, cranial nerves II-XII grossly intact, normal speech, moves all 4 extremities on command w/o issue. Differential diagnoses: Constipation, obstruction, mass, poor p.o. intake, pneumonia, pneumothorax, and others were considered Course: Patient was seen and evaluated the bedside. Full history physical exam was performed. Imaging Studies: See Below Cardiac monitoring: An order was placed for continuous cardiac monitoring. The monitor shows a rate of 82 with sinus rhythm. MDM: Patient was seen due to concern for constipation the patient was noted to be 88% in triage. I did place a pulse ox on the patient with good waveform the patient was in the mid 70s for a brief period but improved on 2 L nasal cannula. The patient is awake alert and otherwise asymptomatic. Patient did have blood work completed along with chest and abdominal x-rays. Patient is a normal white count H&H and platelet count. Kidney function is unremarkable. The patient's lipase is not elevated with normal LFTs. COVID-negative. Plain films are unremarkable. Patient was ordered a soapsuds enema. Given the patient's hypoxia CBO think the patient would benefit from staying in patient. I did speak with the on-call hospitalist Dr. Acharya and the patient was admitted to the medicine service. Critical Care: I have personally spent 45 minutes of critical care time in direct management of this patient. This includes bedside care, interpretation of diagnostic studies, and testing, discussion with consultants, patient, and family members, and other require inpatient management activities. This 45 minutes is in excess of all separately billable procedures. Past Med/Surg History Medical History Anxiety and depression Chronic anemia Chronic steroid use COPD (chronic obstructive pulmonary disease) Fibromyalgia Mood disorder Pneumonia involving right lung Surgical History Hx of tonsillectomy Family History Other Family history non-contributory Social History Smoking Status: Never smoker Preferred Language: Vietnamese Current Living Situation: Personal Care Facility Current Living Situation Comment: [facility] current occupational status: retired Feels Safe at Home: Yes Allergies Allergies Allergy/AdvReac Type Severity Reaction Status Date / Time No Known Allergies Allergy Verified 08/08/21 18:00 Home Meds Home Medications Medication Instructions Recorded Confirmed amlodipine 10 mg tablet (Norvasc) 10 mg PO QAM #90 tab 12/21/18 08/08/21 folic acid 1 mg tablet 1 mg PO QAM tab 12/21/18 08/08/21 levothyroxine 25 mcg tablet 25 mcg PO QAM tab 12/21/18 08/08/21 (Synthroid) lidocaine 5 % topical patch 1 patch TOPICAL UD PRN 02/18/19 08/08/21 peg 400-propylene glycol (PF) 0.4 1 drp OPHTHALMIC (EYE) QID PRN 02/18/19 08/08/21 %-0.3 % eye drops in a dropperette (Systane (PF)) pregabalin 100 mg capsule (Lyrica) 100 mg PO BID 04/01/19 08/08/21 ammonium lactate 12 % lotion (Skin 1 applic TOPICAL BID 04/10/19 08/08/21 Treatment) prednisolone acetate 1 % eye 1 drp OPB HS 04/10/19 08/08/21 drops,suspension (Pred Forte) buspirone 15 mg tablet 15 mg PO TID tab 06/19/20 08/08/21 mirtazapine 30 mg tablet 30 mg PO HS 06/19/20 08/08/21 oxymorphone 20 mg tablet,extended 20 mg PO BID 06/19/20 08/08/21 release,12 hr duloxetine 30 mg capsule,delayed 30 mg PO HS cap 04/12/21 08/08/21 release (Cymbalta) tolterodine 1 mg tablet (Detrol) 1 mg PO BID 04/12/21 08/08/21 Medical Marijuana 0 inh INHALATION TID 07/22/21 08/08/21 acetaminophen 500 mg tablet 500 mg PO Q6H PRN 07/22/21 08/08/21 (Tylenol Extra Strength) betamethasone dipropionate 0.05 % 1 applic TOPICAL DAILY PRN 07/22/21 08/08/21 topical cream diclofenac sodium 1 % topical gel 2 g TOPICAL QID PRN 07/22/21 08/08/21 duloxetine 60 mg capsule,delayed 60 mg PO DAILY 07/22/21 08/08/21 release ibuprofen 800 mg tablet 800 mg PO Q6 PRN 07/22/21 08/08/21 lamotrigine 25 mg tablet 50 mg PO HS 07/22/21 08/08/21 loratadine 10 mg tablet 10 mg PO DAILY PRN 07/22/21 08/08/21 magnesium hydroxide 400 mg/5 mL 30 ml PO DAILY PRN 07/22/21 08/08/21 oral suspension (Milk of Magnesia) menthol 0.44 %-zinc oxide 20.6 % 1 applic TOPICAL BID 07/22/21 08/08/21 topical ointment (Calmoseptine) polyethylene glycol 3350 17 gram 17 g PO DAILY 07/22/21 08/08/21 oral powder packet (Miralax) ascorbic acid (vitamin C) 500 mg 500 mg PO QAM 08/08/21 08/08/21 tablet (Vitamin C) Previous Rx's Medication Instructions Recorded calcitriol 0.5 mcg capsule 0.5 mcg PO DAILY #90 cap 04/25/21 sennosides 8.6 mg-docusate sodium 1 - 2 tab-cap PO BID PRN #60 tab 07/22/21 50 mg tablet (Senokot-S) Results & Data (ED) Vital Signs Vital Signs - 24 hr 08/08/21 14:52 08/08/21 16:30 08/08/21 16:41 Temperature 36.8 C Temperature Source Temporal Artery Scan Pulse Rate 93 H 84 Pulse Rate from SpO2 Sensor 84 Respiratory Rate 18 24 Blood Pressure 119/62 Blood Pressure Mean 81 Pulse Oximetry 88 L 99 94 Oxygen Delivery Method Room Air Nasal Cannula Oxygen Flow Rate 2 Sepsis Recent Fever Within 48 Hours No Sepsis New/Unexplained Change in Mental Status N/A Sepsis Action Taken by Nursing No Action Required 08/08/21 16:50 08/08/21 17:00 08/08/21 17:10 Temperature Temperature Source Pulse Rate 74 81 79 Pulse Rate from SpO2 Sensor 75 Respiratory Rate 15 13 18 Blood Pressure 121/58 L Blood Pressure Mean 79 Pulse Oximetry 95 Oxygen Delivery Method Oxygen Flow Rate Sepsis Recent Fever Within 48 Hours Sepsis New/Unexplained Change in Mental Status Sepsis Action Taken by Nursing 08/08/21 17:20 08/08/21 17:30 08/08/21 18:09 Temperature Temperature Source Pulse Rate 111 H 78 140 H Pulse Rate from SpO2 Sensor Respiratory Rate 21 19 25 H Blood Pressure 125/56 L Blood Pressure Mean 79 Pulse Oximetry Oxygen Delivery Method Oxygen Flow Rate Sepsis Recent Fever Within 48 Hours Sepsis New/Unexplained Change in Mental Status Sepsis Action Taken by Nursing 08/08/21 18:10 Temperature Temperature Source Pulse Rate 93 H Pulse Rate from SpO2 Sensor 92 H Respiratory Rate 21 Blood Pressure Blood Pressure Mean Pulse Oximetry 88 L Oxygen Delivery Method Oxygen Flow Rate Sepsis Recent Fever Within 48 Hours Sepsis New/Unexplained Change in Mental Status Sepsis Action Taken by Half-Way Medications Current Medication List: was personally reviewed by me Laboratory Data Attestation: I reviewed the patient's lab results. Result diagrams: 08/08/21 16:53 08/08/21 16:53 Lab Results 08/08/21 08/08/21 08/08/21 Range/Units 16:53 16:53 16:53 WBC 5.61 (4.8-10.8) K/uL RBC 4.83 (4.2-5.4) M/uL Hgb 13.6 (12.0-16.0) g/dL Hct 42.6 (37-47) % MCV 88.2 (80-100) fL MCH 28.2 (25-34) pg MCHC 31.9 L (32-36) g/dL RDW Std Deviation 49.3 H (36.4-46.3) fL RDW Coeff of Lloyd 15.3 H (11.5-14.5) % Plt Count 180 (130-400) K/uL MPV 8.8 (7.4-10.4) fL Immature Gran % (Auto) 0.0 % Neut % (Auto) 62.7 % Lymph % (Auto) 23.0 % [place] % (Auto) 9.8 % Eos % (Auto) 4.3 % Baso % (Auto) 0.2 % Neut # (Auto) 3.52 (1.4-6.5) K/uL Lymph # (Auto) 1.29 (1.2-3.4) K/uL [place] # (Auto) 0.55 (0.11-0.59) K/uL Eos # (Auto) 0.24 (0-0.5) K/uL Baso # (Auto) 0.01 (0-0.2) K/uL Immature Gran # (Auto) 0.00 (0.00-0.02) K/uL Sodium 136 (136-145) mmol/L Potassium 4.0 (3.5-5.1) mmol/L Chloride 97 L (98-107) mmol/L Carbon Dioxide 33 H (21-32) mmol/L Anion Gap 6 (3-11) BUN 8 (6-23) mg/dl Creatinine 0.98 (0.6-1.2) mg/dl Est Cr Clr Drug Dosing Not Reportable Est GFR ( Amer) 63.1 ml/min Est GFR (Non-Af Amer) 54.5 ml/min BUN/Creatinine Ratio 8.2 L (10-20) Glucose 93 (70-99(Fasting)) mg/dl Calcium 9.9 (8.5-10.1) mg/dl Total Bilirubin 0.8 (0.2-1.0) mg/dl AST 15 (13-39) U/L ALT 9 (7-52) U/L Alkaline Phosphatase 102 (34-104) U/L Troponin I High Sens 3.5 (0-14) pg/ml Total Protein 8.3 (6.0-8.3) gm/dl Albumin 4.5 (3.4-5.0) gm/dl Globulin 3.8 (2.5-4.0) gm/dl Albumin/Globulin Ratio 1.2 (0.9-2) Lipase 4 L (11-82) U/L SARS-CoV-2, RNA, NAAT NEGATIVE (NEGATIVE) Administered Medications Discontinued Medications Sodium Chloride (Nss) 500 mls @ 999 mls/hr IV .Q31M STA Stop: 08/08/21 17:00 Last Admin: 08/08/21 16:48 Dose: 999 mls/hr Documented by: [id number] Imaging Data Radiologist's Impression: Chest/Abdomen X-ray 08/08/21 16:30 XR abdomen 2V w PA chest CLINICAL HISTORY: constipation/hypoxia TECHNIQUE: 2 views of the abdomen were obtained. A single view of the chest was obtained. Comparison: Comparison is made to chest radiograph 04/10/2019 FINDINGS: No lines and tubes are seen. Cardiomegaly is noted. The lungs are clear. No evidence of pleural effusion or pneumothorax. The osseous structures are grossly unremarkable. The bowel gas pattern is nonobstructive. A moderate amount of stool is noted within the large bowel. IMPRESSION: Nonobstructive bowel gas pattern. ACT 112: Negative or not required by law. Electronically signed by: Carlos Eduardo Evans M.D. 08/08/2021 6:10 PM Discharge Plan Visit Data Chief Complaint: Constipation Stated Complaint: constipated ED Provider: Hernesto Elise Discharge Problem: Hypoxemia, Constipation Patient Disposition: Admitted As Inpatient Forms Stand Alone Forms: [facility] Prescriptions Prescriptions: No Action tolterodine [Detrol] 1 mg tablet 1 mg PO BID RF: 0 calcitriol 0.5 mcg capsule 0.5 mcg PO DAILY Qty: 90 RF: 3 amlodipine [Norvasc] 10 mg tablet 10 mg PO QAM Qty: 90 RF: 0 folic acid 1 mg tablet 1 mg PO QAM RF: 0 levothyroxine [Synthroid] 25 mcg tablet 25 mcg PO QAM RF: 0 pregabalin [Lyrica] 100 mg capsule 100 mg PO BID RF: 0 mirtazapine 30 mg tablet 30 mg PO HS RF: 0 oxymorphone 20 mg tablet extended release 12 hr 20 mg PO BID RF: 0 lidocaine 5 % Adhesive Patch,Medicated 1 patch TOPICAL UD PRN (Reason: Pain) RF: 0 Systane (PF) 0.4-0.3 % Dropperette 1 drp OPHTHALMIC (EYE) QID PRN (Reason: Dry Eyes) RF: 0 ammonium lactate [Skin Treatment] 12 % Lotion 1 applic TOPICAL BID RF: 0 prednisolone acetate [Pred Forte] 1 % drops,suspension 1 drp OPB HS RF: 0 buspirone 15 mg tablet 15 mg PO TID RF: 0 duloxetine [Cymbalta] 30 mg capsule,delayed release(DR/EC) 30 mg PO HS RF: 0 polyethylene glycol 3350 [Miralax] 17 gram Powder In Packet 17 g PO DAILY RF: 0 ibuprofen 800 mg tablet 800 mg PO Q6 PRN (Reason: Pain) RF: 0 acetaminophen [Tylenol Extra Strength] 500 mg Tablet 500 mg PO Q6H PRN (Reason: Fever Or Pain) RF: 0 lamotrigine 25 mg tablet 50 mg PO HS RF: 0 magnesium hydroxide [Milk of Magnesia] 400 mg/5 mL Suspension 30 ml PO DAILY PRN (Reason: Constipation) RF: 0 betamethasone dipropionate 0.05 % cream 1 applic TOPICAL DAILY PRN (Reason: Skin Irritation) RF: 0 loratadine 10 mg Tablet 10 mg PO DAILY PRN (Reason: allergies) RF: 0 duloxetine 60 mg capsule,delayed release(DR/EC) 60 mg PO DAILY RF: 0 diclofenac sodium 1 % gel 2 g TOPICAL QID PRN (Reason: Pain) RF: 0 menthol-zinc oxide [Calmoseptine] 0.44-20.6 % Ointment 1 applic TOPICAL BID RF: 0 Medical Marijuana 0 inh inhalation TID RF: 0 sennosides-docusate sodium [Senokot-S] 8.6-50 mg tablet 1 - 2 tab-cap PO BID PRN (Reason: constipation) Qty: 60 RF: 2 ascorbic acid (vitamin C) [Vitamin C] 500 mg Tablet 500 mg PO QAM RF: 0 [place] [[place] Care Provider] -
[2021-08-08] MEDS ORDERED: SODIUM CHLORIDE 0.9% 500 ML IV STA (16:30)
[2021-08-08 17:08] LABS: Basophils # (auto) 0.01 K/uL (0-0.2); Basophils % (auto) 0.2 %; Eosinophils # (auto) 0.24 K/uL (0-0.5); Eosinophils % (auto) 4.3 %; Hematocrit (blood only) 42.6 % (37-47); Hemoglobin 13.6 g/dL (12.0-16.0); Lymphocytes # (auto) 1.29 K/uL (1.2-3.4); Mean Corpuscular Hemoglobin 28.2 pg (25-34); Mean Corpuscular Hgb Conc 31.9 g/dL (32-36); Mean Corpuscular Volume 88.2 fL (80-100); Mean Platelet Volume 8.8 fL (7.4-10.4); Monocytes # (auto) 0.55 K/uL (0.11-0.59); Monocytes % (auto) 9.8 %; Neutrophils # (auto) 3.52 K/uL (1.4-6.5); Neutrophils % (auto) 62.7 %; Platelet Count 180 K/uL (130-400); RDW Coefficient of Variation 15.3 % (11.5-14.5); RDW Standard Deviation 49.3 fL (36.4-46.3); Red Blood Count 4.83 M/uL (4.2-5.4); White Blood Count 5.61 K/uL (4.8-10.8)
[2021-08-08 17:36] LABS: Troponin I High Sensitivity 3.5 pg/ml (0-14)
[2021-08-08 17:45] LABS: Alanine Aminotransferase 9 U/L (7-52); Albumin Globulin Ratio 1.2 (0.9-2); Albumin Level 4.5 gm/dl (3.4-5.0); Alkaline Phosphatase 102 U/L (34-104); Anion Gap 6 (3-11); Aspartate Aminotransferase 15 U/L (13-39); BUN Creatinine Ratio 8.2 (10-20); Bilirubin,Total 0.8 mg/dl (0.2-1.0); Blood Urea Nitrogen 8 mg/dl (6-23); Calcium 9.9 mg/dl (8.5-10.1); Carbon Dioxide 33 mmol/L (21-32); Chloride 97 mmol/L (98-107); Est GFR (African American) 63.1 ml/min; Est GFR (Non-African American) 54.5 ml/min; Globulin 3.8 gm/dl (2.5-4.0); Glucose 93 mg/dl (70-99(Fasting)); Lipase 4 U/L (11-82); Sodium 136 mmol/L (136-145); Total Protein 8.3 gm/dl (6.0-8.3)
--- NOTE | 2021-08-08 18:11 | XRay Report ---
XR abdomen 2V w PA chest CLINICAL HISTORY: constipation/hypoxia TECHNIQUE: 2 views of the abdomen were obtained. A single view of the chest was obtained. Comparison: Comparison is made to chest radiograph 04/10/2019 FINDINGS: No lines and tubes are seen. Cardiomegaly is noted. The lungs are clear. No evidence of pleural effus ion or pneumothorax. The osseous structures are grossly unremarkable. The bowel gas pattern is nonobstructive. A moderate amount of stool is noted within the large bowel. IMPRESSION: Nonobstructive bowel gas pattern. ACT 112: Negative or not required by law. Electronically signed by: Carlos Eduardo Evans M.D. 08/08/2021 6:10 PM
[2021-08-08] MEDS ORDERED: SOD PHOSPHATE/SOD BIPHOSPHATE ENEMA 132 ML BTL PR STA (20:00)
--- NOTE | 2021-08-08 20:19 | History & Physical Report ---
Date of Service August 08, 2021 Assessment & Plan (1) Hypoxemia: (2) Constipation: (3) Hypothyroidism: (4) Osteopenia: (5) Vitamin D deficiency: (6) Chronic pain: Plan: Parvin Cruz is an 80 year old female w/ PmHx of chronic pain on oxymorphone and medical marijuana, depression/anxiety, fibromyalgia, Vitamin D deficiency admitted for hypoxemia. Hypoxemia: -O2 87% on arrival. -O2 90's on 2L O2, down to mid 80's when NC taken off. -PFTs from 2019 show mildly reduced FVC and FEV1 w/ normal FEV1/FVC ratio. -May have residual fibrosis from previous pneumonia infections. -?past history of PAH, ordered TTE for possible contribution. -Patient will need continuous home O2. Explained rationale behind this with patient however patient with poor insight on necessity of continuous O2 at home. -Placed case management consult with request for home O2. -Continue to monitor vitals. Constipation: -X-ray abdomen: moderate amount stool in large bowel, non-obstructive bowel gas pattern. -Most likely chronic opioid induced. -Given 12mg Relistor. -Enema ordered. -Bowel prep - Golytely, Dulcolox, Senokot, Mg Hydroxide, Miralax. -Encourage hydration. -Continue home regimen upon discharge. Chronic Pain: -Continue home oxymorphone, duloxetine, pregabalin, tylenol. -Patient has medical marijuana (edible form) at [place], unable to have someone bring it in. Depression/Anxiety: -Continue home duloxetine, mirtazapine, buspirone. HTN: -Continue home amlodipine. Hypothyroidism: -Continue home levothyroxine. DVT Prophylaxis: If patient present for >24 hrs, can start lovenox. F/E/N/GI: Regular diet, bowel prep Code status: DNR/DNI Dispo: Med/Surg, will need case management input on home O2 before discharge. History of Present Illness Chief Complaint: Constipation Primary Care Provider: [facility] [place] Parvin Cruz is an 80 year old female w/ PmHx of chronic pain on oxymorphone and m edical marijuana, depression/anxiety, fibromyalgia, Vitamin D deficiency who presented to the ED with 3 weeks of constipation. Patient was recently in the ED on the 22 of July for similar complaint, given Senokot and told to follow up outpatient. She followed up with her PCP at [facility] soon after who told her to keep taking the milk of magnesia. She did not get much relief and did not have a bowel movement, so about a week and half ago had done an enema on herself with expulsion of some feces. She has not had any pain with the constipation, denies nausea, vomiting, diarrhea, chest pain, shortness of breath, headaches, dizziness. Patient states she had frequent bouts of pneumonia in the past with a total of 4 times she can remember. The last instance of pneumonia was 5 years ago. She does not recall any other pulmonary diagnosis and does not recall having a diagnosis of COPD. She is not a smoker and was never a smoker. She said she used to be on oxygen for a few years but did not want to continue the oxygen use and stopped using her O2 at home about a year ago. She has not felt symptomatic from discontinuing her home O2. She remains asymptomatic today. She was found to be hypoxic in the ED upon arrival at 87%. Allergies Allergy/AdvReac Type Severity Reaction Status Date / Time No Known Allergies Allergy Verified 08/08/21 18:00 Home Medications Medication Instructions Recorded Confirmed Type amlodipine 10 mg tablet (Norvasc) 10 mg PO QAM #90 tab 12/21/18 08/08/21 History folic acid 1 mg tablet 1 mg PO QAM tab 12/21/18 08/08/21 History levothyroxine 25 mcg tablet 25 mcg PO QAM tab 12/21/18 08/08/21 History (Synthroid) lidocaine 5 % topical patch 1 patch TOPICAL UD PRN 02/18/19 08/08/21 History peg 400-propylene glycol (PF) 0.4 1 drp OPHTHALMIC (EYE) QID PRN 02/18/19 08/08/21 History %-0.3 % eye drops in a dropperette (Systane (PF)) pregabalin 100 mg capsule (Lyrica) 100 mg PO BID 04/01/19 08/08/21 History ammonium lactate 12 % lotion (Skin 1 applic TOPICAL BID 04/10/19 08/08/21 Histo ry Treatment) prednisolone acetate 1 % eye 1 drp OPB HS 04/10/19 08/08/21 History drops,suspension (Pred Forte) buspirone 15 mg tablet 15 mg PO TID tab 04/05/21 05/25/22 History mirtazapine 30 mg tablet 30 mg PO HS 06/19/20 08/08/21 History oxymorphone 20 mg tablet,extended 20 mg PO BID 06/19/20 08/08/21 History release,12 hr duloxetine 30 mg capsule,delayed 30 mg PO HS cap 04/12/21 08/08/21 History release (Cymbalta) tolterodine 1 mg tablet (Detrol) 1 mg PO BID 04/12/21 08/08/21 History calcitriol 0.5 mcg capsule 0.5 mcg PO DAILY #90 cap 04/25/21 08/08/21 Rx Medical Marijuana 0 inh INHALATION TID 07/22/21 08/08/21 History acetaminophen 500 mg tablet 500 mg PO Q6H PRN 07/22/21 08/08/21 History (Tylenol Extra Strength) betamethasone dipropionate 0.05 % 1 applic TOPICAL DAILY PRN 07/22/21 08/08/21 History topical cream diclofenac sodium 1 % topical gel 2 g TOPICAL QID PRN 07/22/21 08/08/21 History duloxetine 60 mg capsule,delayed 60 mg PO DAILY 07/22/21 08/08/21 History release ibuprofen 800 mg tablet 800 mg PO Q6 PRN 07/22/21 08/08/21 History lamotrigine 25 mg tablet 50 mg PO HS 07/22/21 08/08/21 History loratadine 10 mg tablet 10 mg PO DAILY PRN 07/22/21 08/08/21 History magnesium hydroxide 400 mg/5 mL 30 ml PO DAILY PRN 07/22/21 08/08/21 History oral suspension (Milk of Magnesia) menthol 0.44 %-zinc oxide 20.6 % 1 applic TOPICAL BID 07/22/21 08/08/21 History topical ointment (Calmoseptine) polyethylene glycol 3350 17 gram 17 g PO DAILY 07/22/21 08/08/21 History oral powder packet (Miralax) sennosides 8.6 mg-docusate sodium 1 - 2 tab-cap PO BID PRN #60 tab 07/22/21 08/08/21 Rx 50 mg tablet (Senokot-S) ascorbic acid (vitamin C) 500 mg 500 mg PO QAM 08/08/21 08/08/21 History tablet (Vitamin C) Past Med/Surg History Medical History Anxiety and depression Chronic anemia Chronic steroid use COPD (chronic obstructive pulmonary disease) Fibromyalgia Mood disorder Pneumonia involving right lung Surgical History Hx of tonsillectomy Family History Other Family history non-contributory Social History Smoking Status: Never smoker Hx Alcohol Use: No Hx Substance Use: Yes (MEDICAL MARIJUANA) Last Used Substance: Hours (ago) Last Used Substance Other:: MORNING OF 08/08/21 Preferred Language: Greek Communication Ability: Effective Sagger Soak Required: No Beliefs That Will Affect Care: None Current Living Situation: Personal Care Facility Current Living Situation Comment: [facility] current occupational status: retired Feels Safe at Home: Yes Assistive Devices: Wheelchair Review of Systems Constitutional: as per Subjective / HPI Physical Exam Constitutional: WD/WN, vitals as above Eyes: PERRL, conjunctivae normal, anicteric sclerae Neck: trachea midline, no thyromegaly Respiratory: normal respiratory effort, lungs clear to auscultation Cardiovascular: Rate/Rhythm: regular rate and regular rhythm Heart Sounds: normal S1 and normal S2 II/ holosystolic murmur auscultated at the right s ternal border. Gastrointestinal (Abdomen): normal bowel sounds, soft, nontender, no hepatosplenomegaly Psychiatric: Orientation: alert and oriented x 3 Eye Contact: good eye contact Insight: + poor insight Results & Data Results & Data ([facility]) Vital Signs (Past 12 Hours) Vital Signs Temp Pulse Pulse Resp BP Pulse Ox 08/08/21 19:10 93 H 20 88 L 08/08/21 18:40 88 14 98 08/08/21 18:31 77 22 143/61 H 99 08/08/21 18:30 77 19 92 08/08/21 18:20 82 21 99 08/08/21 18:10 93 H 21 88 L 08/08/21 18:09 140 H 25 H 05/25/22 17:30 78 19 125/56 L 08/08/21 17:20 111 H 21 08/08/21 17:10 79 18 08/08/21 17:00 81 13 121/58 L 08/08/21 16:50 74 15 95 08/08/21 16:41 84 24 94 08/08/21 16:30 99 08/08/21 14:52 36.8 C 93 H 18 119/62 88 L Code Status & VTE Plan Code Status DNR/DNI VTE Prophylaxis Plan VTE Prophylaxis will be ordered: Yes Supervising Physician Co-Signing Physician Notes Attending Attestation & Admit Note: Pt seen/examined, chart reviewed, care plan d/w family specialist Dr Bg Roberto. I agree w/ the tolbert components of his admission documentation. 80yo female with chronic pain syndrome on medical THC as well as oxycontin BID who presents with 3+ weeks of severe constipation. No documented BM during that time period despite numerous meds to treat the constipation. While being worked up in the ER this evening she was noted to be hypoxic in the 80s in room air. O2 sats improved to mid 90s on 2 L NC O2. Despite the hypoxia she denies any pulmonary symptoms. Did wear NC O2 up until ~ 1 year ago; stopped it - "I didn't think I needed it." No prior h/o asthma/COPD. PMH/PSH/allergies/meds/sochx/famhx - reviewed VSS, afebrile gen - NAD, mild pleasant confusion neck - mild JVD present mouth - MMM heart - RRR, s1 s2, 2/6 systolic murmur LLSB lungs - CTA b/l abd - mildly distended, BS+, NT, no HSM ext - no edema, pulses 2+ b/l; no clubbing labs reviewed imaging reviewed A/P: 1. SEVERE opiate-induced constipation - Fleets enema x 1 NOW. Trial of relistor. If not effective then go-lytely prep/clean-out. 2. hypoxia - cxr unremarkable. Exam unremarkable. No clubbing on exam. Previous PFTs w/o obstruction. Pulmonary HTN?? Check echo in am. Will need formal 2-step before d/c. Wong Acharya MD Resident Activity Tracking Resident Involvement: Resident Care Provided Care Provided: Adult Hospital Medicine (1) Chronic pain Chronic pain type: other chronic pain Qualified Code(s): G89.29 - Other chronic pain (2) Constipation Constipation type: unspecified constipation type Qualified Code(s): K59.00 - Constipation, unspecified
[2021-08-08] MEDS ORDERED: METHYLNALTREXONE BROMIDE 12 MG/0.6 ML VIAL SQ SCH (22:00)
[2021-08-08] MEDS ORDERED: bisacodyL 5 MG TABEC PO PRN (22:02)
[2021-08-08] MEDS ORDERED: MAGNESIUM HYDROXIDE SUSP 30 ML UDC PO PRN (22:02)
[2021-08-08] MEDS ORDERED: ACETAMINOPHEN 325 MG TAB PO PRN (22:02)
[2021-08-08] MEDS ORDERED: DICLOFENAC SOD 1% GEL 100 GM TUBE EXT PRN (22:02)
[2021-08-08 23:29] LABS: Appearance Urine Clear (Clear); Bilirubin Urine Negative (Negative); Blood Urine Negative (Negative); Color Urine Yellow; Glucose Urine UA Negative (Negative); Ketones Urine Negative (Negative); Leukocyte Esterase Urine Negative (Negative); Nitrite Urine Negative (Negative); Protein Urine Negative (Negative); Specific Gravity Urine 1.006 (1.000-1.030); Urobilinogen Urine Negative (Negative); pH Urine 8.5 (4.5-7.5)
[2021-08-09] MEDS: PREGABALIN 100 MG CAP PO SCH ×3 (00:10→20:47)
[2021-08-09] MEDS: AMMONIUM LACTATE 12% LOTION 225 GM BTL EXT SCH ×3 (00:10→20:48)
[2021-08-09] MEDS: MENTHOL-ZINC OXIDE 360 APPLN/120 GM TUBE EXT SCH ×3 (00:11→20:49)
[2021-08-09] MEDS: MIRTAZAPINE TAB 15 MG TAB PO SCH ×2 (00:12→20:48)
[2021-08-09] MEDS: busPIRone 15 MG TAB PO SCH ×4 (00:13→22:42)
[2021-08-09] MEDS: DULoxetine HCL 30 MG CAP PO SCH ×2 (00:13→20:47)
[2021-08-09] MEDS: lamoTRIgine 25 MG TAB PO SCH ×2 (00:14→20:48)
[2021-08-09] MEDS: TOLTERODINE TARTRATE 1 MG TAB PO SCH ×3 (00:14→20:48)
[2021-08-09] MEDS: SENNA 8.6 MG TAB PO SCH ×2 (00:14→20:47)
[2021-08-09] MEDS: DOCUSATE SODIUM/SENNA 50/8.6MG TAB PO SCH ×2 (00:14→20:48)
[2021-08-09] MEDS: oxyCODONE HCL 15 MG TABCR (OxyCONTIN) PO SCH ×3 (01:26→22:42)
[2021-08-09] MEDS: LEVOTHYROXINE SODIUM 25 MCG TABLET PO SCH (05:35)
[2021-08-09] MEDS ORDERED: LAVAGE SOLUTION 4000ML PO SCH ×3 (06:00→09:30)
[2021-08-09] MEDS ORDERED: POLYETHYLENE (MIRALAX) 17 GM PACK PO SCH (08:00)
[2021-08-09] MEDS: amLODIPine BESYLATE 5 MG TAB PO SCH (08:54)
[2021-08-09] MEDS: CALCITRIOL 0.25 MCG CAPSULE PO SCH (08:55)
[2021-08-09] MEDS: DULoxetine HCL 60 MG CAP PO SCH (08:56)
[2021-08-09] MEDS: FOLIC ACID 1 MG TAB PO SCH (08:56)
[2021-08-09] MEDS ORDERED: bisacodyL 5 MG TABEC PO ONE (17:18)
[2021-08-09] MEDS ORDERED: SODIUM CHLORIDE 0.9% 1000ML 500 ML IV SCH (17:30)
--- NOTE | 2021-08-09 21:56 | Hospitalist Progress Note ---
Date of Service August 09, 2021 Assessment & Plan (1) Constipation: Plan: OPIATED-induced. Cont Go-lytely prep - may need to consume the entire jub. Give dulcolax PO X 1 now as well. once she is having regular BMs she will need a much more aggressive bowel regimen at home. Consider referral to GI to obtain Movantik since the chronic narcotics will continue to be used and her constipation will continue. (2) Hypoxemia: Plan: etiology? pulmonary HTN? other? await echo. formal 2-step at d/c. (3) Hypothyroidism: Plan: TSH 3.2 in 03/2021 cont synthroid (4) Osteopenia: (5) Vitamin D deficiency: (6) Chronic pain: Plan: on oxycontin 20mg BID on medical THC as well pain relatively controlled today no changes Plan: change obs status to full admission status needs PT eval to ensure safe for d/c back to [facility] at discharge Admission and Anticipated Discharge Date Admission Date: August 09, 2021 Subjective despite fleets enema no stool she refused the Relistor by the time of my rounds she had consumed nearly 1/2 jug of Go-lytely STILL NO BOWEL MOVEMENT despite such she said "I don't feel bad" - specifically no nausea, emesis, bloating, or PO intolerance denies any pulmonary symptoms today chronic pain is controlled Review of Systems Review of Systems: gen - no fevers, feels fine cv - no cp, no orthopnea pulm - no cough, no dyspnea GI - no pain Physical Exam Physical Exam: gen - NAD neck - mild JVD heart - RRR, s1 s2, 2/6 PAULO LLSB lungs - CTA b/l abd - soft, ongoing distension, BS+, NT, no HSM ext - no edema, pulses 2+ b/l psych - mild amount of pleasant confusion Results & Data Results & Data ([facility]) Vital Signs (Past 12 Hours) Vital Signs Temp Pulse Resp BP Pulse Ox 08/09/21 21:09 37.0 C 58 L 16 120/72 99 08/09/21 15:17 36.8 C 68 18 111/65 93 PG Care Time/CCT Total # of Minutes Spent Total Time Spent with Patient: Total time spent is greater than 50% in coordination of care (as documented) at patient's floor/unit and/or counseling patient: Coding Level of Care Code 77593 Subseq Hosp Care Lvl 2 Diagnoses Hypoxemia R09.02 Constipation K59.00 Constipation type: unspecified constipation type Hypothyroidism E03.9 Osteopenia M85.80 Vitamin D deficiency E55.9 Chronic pain G89.29 Chronic pain type: other chronic pain (1) Constipation Constipation type: unspecified constipation type Qualified Code(s): K59.00 - Constipation, unspecified (2) Chronic pain Chronic pain type: other chronic pain Qualified Code(s): G89.29 - Other chronic pain
[2021-08-10] MEDS: LEVOTHYROXINE SODIUM 25 MCG TABLET PO SCH (06:00)
[2021-08-10 07:22] LABS: BUN Creatinine Ratio 11.6 (10-20); Calcium 9.4 mg/dl (8.5-10.1); Creatinine Clr Calc Pharmacy 53.9 ml/min; Est GFR (African American) 73.9 ml/min; Est GFR (Non-African American) 63.8 ml/min
--- NOTE | 2021-08-10 09:50 | Billing Data ---
Date of Service August 08, 2021 Coding Level of Care Code INT OBSERVATION CARE 50M LVL 2
[2021-08-10] MEDS: amLODIPine BESYLATE 5 MG TAB PO SCH (10:08)
[2021-08-10] MEDS: AMMONIUM LACTATE 12% LOTION 225 GM BTL EXT SCH (10:09)
[2021-08-10] MEDS: CALCITRIOL 0.25 MCG CAPSULE PO SCH (10:09)
[2021-08-10] MEDS: FOLIC ACID 1 MG TAB PO SCH (10:10)
[2021-08-10] MEDS: DULoxetine HCL 60 MG CAP PO SCH (10:10)
[2021-08-10] MEDS: MENTHOL-ZINC OXIDE 360 APPLN/120 GM TUBE EXT SCH (10:10)
[2021-08-10] MEDS: TOLTERODINE TARTRATE 1 MG TAB PO SCH (10:11)
[2021-08-10] MEDS: PREGABALIN 100 MG CAP PO SCH (10:14)
[2021-08-10] MEDS: oxyCODONE HCL 15 MG TABCR (OxyCONTIN) PO SCH (10:35)
[2021-08-10] MEDS: busPIRone 15 MG TAB PO SCH ×2 (12:22→17:25)
--- NOTE | 2021-08-10 15:45 | XRay Report ---
KUB HISTORY: constipation, severe, eval fecal load/location COMPARISON: Chest and abdominal series 08/08/2021. FINDINGS: The bowel gas pattern is unremarkable. There are no dilated loops of small bowel to suggest an obstruction. No renal calculi. No ureteral calculi. Calcifications in the deep pelvis likely rep resent phleboliths. Advanced degenerative changes again noted within the bilateral hips. Small to mod erate amount of well-formed stool seen within the colon, unchanged. This is most pronounced within th e proximal colon. No pneumoperitoneum or pneumatosis. IMPRESSION: 1. No evidence for bowel obstruction. 2. Small to moderate amount of well-formed stool seen within the colon, unchanged. ACT 112: Negative or not required by law. Electronically signed by: Delfin Gasca M.D. 08/10/2021 3:44 PM
[2021-08-10] MEDS ORDERED: bisacodyL 5 MG TABEC PO ONE (16:07)
--- NOTE | 2021-08-10 16:23 | XCELERA ---
[id number]
--- NOTE | 2021-08-10 18:53 | Discharge Summary ---
Date of Service date of admission - August 08, 2021 date of discharge - August 10, 2021 Admission HPI Per Admitting Provider Parvin Cruz is an 80 year old female w/ PmHx of chronic pain on oxymorphone and medical marijuana, depression/anxiety, fibromyalgia, Vitamin D deficiency who presented to the ED with 3 weeks of constipation. Patient was recently in the ED on the 22 of July for similar complaint, given Senokot and told to follow up outpatient. She followed up with her PCP at [facility] soon after who told her to keep taking the milk of magnesia. She did not get much relief and did not have a bowel movement, so about a week and half ago had done an enema on herself with expulsion of some feces. She has not had any pain with the constipation, denies nausea, vomiting, diarrhea, chest pain, shortness of breath, headaches, dizziness. Patient states she had frequent bouts of pneumonia in the past with a total of 4 times she can remember. The last instance of pneumonia was 5 years ago. She does not recall any other pulmonary diagnosis and does not recall having a diagnosis of COPD. She is not a smoker and was never a smoker. She said she used to be on oxygen for a few years but did not want to continue the oxygen use and stopped using her O2 at home about a year ago. She has not felt symptomatic from discontinuing her home O2. She remains asymptomatic today. She was found to be hypoxic in the ED upon arrival at 87%. Principal Diagnosis 1. severe opiate-induced constipation 2. chronic hypoxic respiratory failure with need for home O2 supplementation Discharge Exam gen - NAD HENT - mouth with dry MM (Chronic) neck - no JVD heart - RRR, s1 s2, 2/6 PAULO LLSB lungs - CTA b/l abd - soft, minimal distension, BS+, NT, no HSM ext - no edema, pulses 2+ b/l psych - mild amount of pleasant confusion; anxiety; awake/alert Discharge Data Allergies Allergy/AdvReac Type Severity Reaction Status Date / Time No Known Allergies Allergy Verified 08/08/21 18:00 Consultations Physical Therapy Respiratory Therapy Procedures Performed Echocardiogram: EF 60-65%; mild LVH; mild-moderate mitral regurgitation; no pulmonary HTN Ambulatory 2-step oxygen test: need for 2 liters NC O2 Ordered Studies Chest/Abdomen X-ray 08/08/21 16:30 XR abdomen 2V w PA chest CLINICAL HISTORY: constipation/hypoxia TECHNIQUE: 2 views of the abdomen were obtained. A single view of the chest was obtained. Comparison: Comparison is made to chest radiograph 04/10/2019 FINDINGS: No lines and tubes are seen. Cardiomegaly is noted. The lungs are clear. No evidence of pleural effusion or pneumothorax. The osseous structures are grossly unremarkable. The bowel gas pattern is nonobstructive. A moderate amount of stool is noted within the large bowel. IMPRESSION: Nonobstructive bowel gas pattern. ACT 112: Negative or not required by law. Electronically signed by: Carlos Eduardo Evans M.D. 08/08/2021 6:10 PM KUB X-Ray 08/10/21 13:22 KUB HISTORY: constipation, severe, eval fecal load/location COMPARISON: Chest and abdominal series 08/08/2021. FINDINGS: The bowel gas pattern is unremarkable. There are no dilated loops of small bowel to suggest an obstruction. No renal calculi. No ureteral calculi. Calcifications in the deep pelvis likely represent phleboliths. Advanced degenerative changes again noted within the bilateral hips. Small to moderate amount of well-formed stool seen within the colon, unchanged. This is most pronounced within the proximal colon. No pneumoperitoneum or pneumatosis. IMPRESSION: 1. No evidence for bowel obstruction. 2. Small to moderate amount of well-formed stool seen within the colon, unchanged. ACT 112: Negative or not required by law. Electronically signed by: Delfin Gasca M.D. 08/10/2021 3:44 PM Hospital Course (1) Constipation: OPIATE-induced. Treated with multiple medications without relief. Ultimately underwent a Go-lytely prep with multiple bowel movements from such. However, KUB x-ray following the prep still showed a mild-moderate amount of fecal load. She refused Relistor during the hospitalization. The patient takes chronic Oxycontin twice daily and thus she will continue to suffer from constipation. Plan to refer to [facility] post-discharge for management of her opiate-induced constipation. She may be a candidate for Movantik or similar agent. In meantime I recommended the following regimen at discharge for bowel maintenance - * senokot 4 tabs daily * miralax twice daily She may also want to consider discontinuation of tolterodine as this agent can cause constipation as well. (2) Hypoxemia: Etiology is uncertain. Chest x-ray is normal. Echo did not show pulmonary HTN. Prior PFTs per records showed mild restriction but no obstruction. She has no prior history of pulmonary embolus. She had several oximeter readings of <88% at rest in room air with good wave form. Formal 2-step oxygen test showed she needed 2 liters of NC O2 with activity. I recommended to the patient to use NC O2 2 liters [id number]. On several occasions she voiced she was NOT going to comply with this recommendation to use oxygen, however. Discussed risks of chronic hypoxemia including its detrimental effects on the heart, brain, etc. Social work DID set up home O2 despite her stating she wouldn't use it. The O2 was delivered to [facility] at discharge. (3) Hypothyroidism: TSH 3.2 in 03/2021 cont synthroid (4) Osteopenia: (5) Vitamin D deficiency: (6) Chronic pain: on oxycontin 20mg BID on medical THC as well her pain is diffuse - fibromyalgia?? she will f/u with her PCP who manages her pain PT evaluation was completed and therapy felt she could safely return to [facility] at discharge Total Time Total Time Spent Total Time Spent (In Minutes): 45 Discharge Plan Discharge Items Patient Disposition: Personal [facility] Reason For Visit: CONSTIPATION, HYPOXIA (Low Oxygen Levels) Discharge Diagnosis: 1. severe constipation due to chronic narcotic use 2. hypoxia (low oxygen levels) - exact cause uncertain 3. chronic pain (joints, etc) Activity: Resume your previous activity Non-emergency contact: Primary Care Provider and Wardrobe Specialist Call non-emergency contact if: you have any medication questions, your symptoms worsen, your pain is not controlled and your pain is worsening Follow-up/Referrals: Milly Gregorio PA-C [Physician Director Of Land] - (see MARISABEL Blount - or any pulmonary provider - first available. Diagnosis - hypoxia, O2 dependency.) Yovani Trevino MD [Physician] - 09/06/21 1:00 pm [facility] [Primary Care Provider] - (please see your family doctor within 1 week for recheck of constipation, low oxygen, etc.) Diet: Regular Addtl Attending Provider Instructions: Adriel Waters were admitted to [facility] for severe constipation (no bowel movement in several weeks). While in the emergency room we noted that your oxygen levels at rest were less than 88% multiple times. From that point forward you required 2 liters of oxygen. Your constipation was treated aggressively with multiple medications including a go-lytely bowel prep. You did have several bowel movements with this. A repeat x-ray of your abdomen on 08/10 showed that the stool was improved. Your severe constipation is due to chronic opiates (pain killer medication). The pain medication slows down the usual motility of your intestinal tract. In addition, you are on a medication called tolterodine for your bladder which can also contribute to constipation. Further, I cannot rule out anything else going on in your colon. I would like for you to see [facility] for your severe constipation. They may be able to prescribe medication for you that is specifically designed for constipation related to pain medication. An appointment has been set up for you in August. As for the low oxygen please use nasal cannula oxygen 2 liters continuously. Ideally you use the oxygen [id number], but it will be most important when you walk or leave your home. The exact cause of the oxygen requirement is uncertain. Please plan to see [facility] for additional testing to determine the cause of this problem. Your echocardiogram returned normal on 08/10. We did not find a heart/cardiac cause for the oxygen problem. Constipation recommendations - Take the following every day: * 4 tablets of senna every day; start this tonight upon return home * miralax (glycolax) 1 serving twice daily; start this tonight upon return home Know that you may need additional medications above and beyond the senna/miralax for your constipation. Shoot for 1 soft bowel movement about every other day. Please speak to your family doctor about potentially stopping the tolterodine medication. This may help your constipation as well. Be sure to drink plenty of water on a daily basis. The miralax in particular works poorly if you are not getting enough water intake day-to-day. Follow-up - see separate section Return to [facility] if - * you have severe abdominal pain * you have worsening constipation despite taking the constipation aids listed above * you have severe nausea/vomiting * you have shortness of breath * any other concerns It was my pleasure to care for you. Please continue to feel better! Dr Siuta Pending Studies at Discharge: No Stand-Alone Forms: My [facility], Smoking Cessation Skilled Items Patient informed of condition?: Yes DNR: Yes Discharge Level of Care: Other Communicable Disease: No Discharge Prognosis: Stable Lines: None Urinary Catheter: No Medications and DC Order Prescriptions: New (DME) Oxygen Home Liters Per Minute See Rx Instructions .ROUTE .MEDSUPPLY Qty: 1 RF: 0 sennosides [Senokot] 8.6 mg Tablet 34.4 mg PO HS Qty: 120 RF: 2 Continued tolterodine [Detrol] 1 mg tablet 1 mg PO BID RF: 0 calcitriol 0.5 mcg capsule 0.5 mcg PO DAILY Qty: 90 RF: 3 amlodipine [Norvasc] 10 mg tablet 10 mg PO QAM Qty: 90 RF: 0 folic acid 1 mg tablet 1 mg PO QAM RF: 0 levothyroxine [Synthroid] 25 mcg tablet 25 mcg PO QAM RF: 0 pregabalin [Lyrica] 100 mg capsule 100 mg PO BID RF: 0 mirtazapine 30 mg tablet 30 mg PO HS RF: 0 oxymorphone 20 mg tablet extended release 12 hr 20 mg PO BID RF: 0 lidocaine 5 % Adhesive Patch,Medicated 1 patch TOPICAL UD PRN (Reason: Pain) RF: 0 Systane (PF) 0.4-0.3 % Dropperette 1 drp OPHTHALMIC (EYE) QID PRN (Reason: Dry Eyes) RF: 0 ammonium lactate [Skin Treatment] 12 % Lotion 1 applic TOPICAL BID RF: 0 prednisolone acetate [Pred Forte] 1 % drops,suspension 1 drp OPB HS RF: 0 buspirone 15 mg tablet 15 mg PO TID RF: 0 duloxetine [Cymbalta] 30 mg capsule,delayed release(DR/EC) 30 mg PO HS RF: 0 ibuprofen 800 mg tablet 800 mg PO Q6 PRN (Reason: Pain) RF: 0 acetaminophen [Tylenol Extra Strength] 500 mg Tablet 500 mg PO Q6H PRN (Reason: Fever Or Pain) RF: 0 lamotrigine 25 mg tablet 50 mg PO HS RF: 0 magnesium hydroxide [Milk of Magnesia] 400 mg/5 mL Suspension 30 ml PO DAILY PRN (Reason: Constipation) RF: 0 betamethasone dipropionate 0.05 % cream 1 applic TOPICAL DAILY PRN (Reason: Skin Irritation) RF: 0 loratadine 10 mg Tablet 10 mg PO DAILY PRN (Reason: allergies) RF: 0 duloxetine 60 mg capsule,delayed release(DR/EC) 60 mg PO DAILY RF: 0 diclofenac sodium 1 % gel 2 g TOPICAL QID PRN (Reason: Pain) RF: 0 menthol-zinc oxide [Calmoseptine] 0.44-20.6 % Ointment 1 applic TOPICAL BID RF: 0 Medical Marijuana 0 inh inhalation TID RF: 0 ascorbic acid (vitamin C) [Vitamin C] 500 mg Tablet 500 mg PO QAM RF: 0 Changed polyethylene glycol 3350 [Miralax] 17 gram Powder In Packet 17 g PO BID Qty: 60 RF: 2 Discontinued polyethylene glycol 3350 [Miralax] 17 gram Powder In Packet 17 g PO DAILY RF: 0 sennosides-docusate sodium [Senokot-S] 8.6-50 mg tablet 1 - 2 tab-cap PO BID PRN (Reason: constipation) Qty: 60 RF: 2 Discharge Orders: Discharge Order (Routine); Ordered 08/10/21 Ordered By: Wong Mckeon/Other Patient Handouts: Eating a High-Fiber Diet, Complementary Care for Pain, Chronic Pain Therapies Mind Body Admission Data Admit Date/Time: 08/09/21 17:19 Attending Provider: Wong Acharya Admit Provider: Wong Acharya Primary Care Provider: Vivi [place] Other Providers: Wong Acharya Other Interventions: Discharge Summary Assessment (RN) Last Done: 08/10/21 19:05 Coding Level of Care Code D/C DAY MANAGEMENT >30 MINS Diagnoses Constipation K59.00 Constipation type: unspecified constipation type Hypoxemia R09.02 Hypothyroidism E03.9 Osteopenia M85.80 Vitamin D deficiency E55.9 Chronic pain G89.29 Chronic pain type: other chronic pain
== END 2021-08-10 19:42 | disposition home or self-care (01) | DRG 392 ==
LOC: 3N 14:50 → ED 14:50 → 3N 21:30

== ENCOUNTER 2022-02-18 22:08 | Inpatient (IN) ==
[2022-02-18] MEDS ORDERED: dexAMETHasone**PF** 10 MG/ML VIAL IV ONE (22:21)
[2022-02-18 22:56] LABS: Basophils # (auto) 0.01 K/uL (0-0.2); Basophils % (auto) 0.1 %; Eosinophils # (auto) 0.02 K/uL (0-0.50); Eosinophils % (auto) 0.2 %; Hematocrit (blood only) 37.7 % (34.1-44.9); Hemoglobin 11.8 g/dl (12.0-16.0); Immature Granulocytes # (auto) 0.04 K/uL (0.00-0.02); Immature Granulocytes % (auto) 0.4 %; Lymphocytes # (auto) 1.71 K/uL (1.2-3.4); Mean Corpuscular Hemoglobin 27.3 pg (25.0-34.0); Mean Corpuscular Hgb Conc 31.3 g/dL (32.0-36.0); Mean Corpuscular Volume 87.3 fL (80.0-100.0); Monocytes # (auto) 1.13 K/uL (0.24-0.82); Monocytes % (auto) 11.9 %; Neutrophils # (auto) 6.58 K/uL (1.4-6.5); Neutrophils % (auto) 69.4 %; Platelet Count 169 K/uL (130-400); RDW Coefficient of Variation 15.1 % (11.5-14.5); RDW Standard Deviation 48.7 fL (36.4-46.3); Red Blood Count 4.32 M/uL (3.93-5.22); White Blood Count 9.49 K/ul (4.8-10.8)
--- NOTE | 2022-02-18 22:58 | Emergency Department Note ---
Impression & Plan COVID-19, COPD (chronic obstructive pulmonary disease), Respiratory failure, Pneumonia, Non-ST elevation HI (NSTEMI) ED Provider Note Provider: Khang Barajas MD DATE OF SERVICE: 02/18/2022 CHIEF COMPLAINT: COVID, confusion, hypoxia HISTORY OF PRESENT ILLNESS: Patient is a 81-year-old female history of COPD on home oxygen as well as fibromyalgia presenting here today from [place] where she resides. Contact with the facility as she is not the best historian. Evidently became ill overnight and tested positive for COVID last night. Is not started any COVID-specific medications yet. Was noted to be more confused and hypoxic this evening into the 40s and 50s with a pulse ox on her oxygen. Sent here for further care. No fevers or trauma reported today. Not eating as much and again facility staff states she is not herself. Patient here denies significant pain. States she feels fatigued. Unable to clearly give me a lot of other history and is a bit slow to respond and occasionally forgetting words. Moving all extremities however. Facility staff to confirm her DO NOT RESUSCITATE status. Comes with paperwork indicative of this. REVIEW OF SYSTEMS: A total of 10 review of systems was obtained and negative except as stated above in the HPI. PAST MEDICAL HISTORY: As noted above MEDICATIONS: Home medications reviewed SOCIAL HISTORY: Resides at [place], uses medical marijuana PHYSICAL EXAM: GENERAL: alert on the stretcher no acute distress. Slowly answer some quest ions. Head: normocephalic and atraumatic EYES: No injection, discharge or icterus. PERRL NECK: Trachea midline. Supple. ENT: Mucous membranes pink and moist. Pharynx without erythema or exudate. LUNGS: Airway patent. No retractions. Breath sounds generally diminished but no significant wheezing appreciated. HEART: Regular rate and rhythm. No chest wall tenderness ABDOMEN: Soft and non-tender, without guarding or rebound. SKIN: Acyanotic, warm, dry, without rashes EXTREMITIES: Without swelling, tenderness or deformity NEUROLOGICAL: No focal deficits moving all extremities. No facial droop. EK bpm normal sinus rhythm. No PVC or PAC. No acute ST segment elevation or depression. QTc 473. CONTINUOUS CARDIAC MONITORING: was ordered and showed a heart rate of 70s-80s bpm in normal sinus rhythm 1 view chest x-ray: Per my interpretation no evidence of pneumothorax with some blunted pacing but no significant fluid. Inflammatory changes predominantly in the right lower to middle lung rollins. Patient's laboratory studies and imaging reviewed. Differential includes Reactive airway disease, pneumonia, pneumothorax, COPD, CHF, infections, cardiac ischemia, pulmonary embolism, musculoskeletal, gastrointestinal, as well as other pathologies. IMPRESSION/MEDICAL DECISION MAKING: Patient is reportedly COVID. Significant hypoxia. History of COPD. Significant oxygen requirement here. Slight JOE but sent for CT scan given her significant hypoxia exclude PE. Report as below. No significant leukocytosis. Initially held on antibiotics pending CT results and procalcitonin which are somewhat concerning. CRP elevated consistent with a viral infection. VBG with minimal acidosis and hypercarbia. Question if she is a bit fatigued less so from this is more from the general illness. CT of the head was completed but again not having focal neurological deficits generally just more fatigued and slow to answer. Did receive a dose of dexamethasone steroids. Discussed with the hospitalist further care here at the hospital. They are awaiting antibiotics. Troponin elevated likely in demand setting and hypoxia earlier. Paperwork and facility state the patient is DNR. DIAGNOSIS: Acute hypoxic respiratory failure, COVID-19, confusion, elevated troponin, pneumonia DISPOSITION: Hospitalist will evaluate Patient was agreeable with this plan. Critical Care I have personally spent 50 minutes of critical care time in the direct manageme nt of this patient. This includes bedside care, interpretation of diagnostic studies, and testing, discussion with consultants, patient, and other required patient management activities. These 50 minutes is in excess of all separately billable procedures. Preliminary Findings Only See Final Report For Complete Findings CT HEAD: No ICH, mass effect or edema. No evidence of acute cortical stroke. Periventricular small vessel ischemic change. Visualized sinuses and mastoid air cells are clear. Radiologist: Carlos Eduardo Zamudio MD Study ready at 23:37 and initial results transmitted at 23:39 Preliminary Findings Only See Final Report For Complete Findings CTA CHEST: Negative for PE Peribronchial cuffing compatible with nonspecific bronchial inflammation Dense right lower lobe consolidation. The bronchus intermedius to the right lower lobe is opacified. This requires further pulmonology evaluation with differential endobronchial lesion or aspiration. Scattered groundglass and more dense pulmonary opacities in the right upper lobe as well as in the lingula and left lung base may reflect nonspecific pneumonia in the correct clinical setting Negative for CHF Moderately prominent nonspecific mediastinal and hilar lymphadenopathy noted most prominent on the right Radiologist: Carlos Eduardo Zamudio MD Study ready at 23:49 and initial results transmitted at 23:52 Past Med/Surg History Medical History Anxiety and depression Chronic anemia Chronic pain Chronic steroid use Constipation COPD (chronic obstructive pulmonary disease) Fibromyalgia Hypothyroidism Hypoxemia Mood disorder Osteopenia Pneumonia involving right lung Vitamin D deficiency Surgical History Hx of tonsillectomy Family History Other Family history non-contributory Social History Smoking Status: Never smoker Hx Alcohol Use: No Hx Substance Use: Yes (MEDICAL MARIJUANA) Last Used Substance: Hours (ago) Last Used Substance Other:: MORNING OF 08/08/21 Preferred Language: Irish Communication Ability: Effective 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 Officer Required: No Beliefs That Will Affect Care: None Current Living Situation: Personal Care Facility Current Living Situation Comment: [facility] current occupational status: retired Feels Safe at Home: Yes Assistive Devices: Wheelchair Allergies Allergies Allergy/AdvReac Type Severity Reaction Status Date / Time No Known Allergies Allergy Verified 02/19/22 00:22 Home Meds Home Medications Medication Instructions Recorded Confirmed amlodipine 10 mg tablet (Norvasc) 10 mg PO QAM Hypertension #90 tabs 12/21/18 02/18/22 folic acid 1 mg tablet 1 mg PO QAM 12/21/18 02/19/22 levothyroxine 25 mcg tablet 25 mcg PO QAM 12/21/18 02/18/22 (Synthroid) lidocaine 5 % topical patch 2 patch topical UD PRN Pain 02/18/19 02/19/22 peg 400-propylene glycol (PF) 0.4 1 drp ophthalmic (eye) QID PRN Dry 02/18/19 02/19/22 %-0.3 % eye drops in a dropperette Eyes (Systane (PF)) ammonium lactate 12 % lotion (Skin 1 applic topical BID Skin Care 04/10/19 02/19/22 Treatment) prednisolone acetate 1 % eye 1 drp OPB HS Inflamation 04/10/19 02/19/22 drops,suspension (Pred Forte) buspirone 15 mg tablet 15 mg PO TID 06/19/20 02/18/22 mirtazapine 30 mg tablet 30 mg PO HS 06/19/20 02/18/22 duloxetine 30 mg capsule,delayed 30 mg PO QPM Depression 04/12/21 02/18/22 release (Cymbalta) tolterodine 1 mg tablet (Detrol) 1 mg PO BID 04/12/21 02/19/22 Medical Marijuana 0 inh inhalation TID 07/22/21 02/19/22 acetaminophen 500 mg tablet 500 mg PO Q6H PRN Fever Or Pain 07/22/21 02/19/22 (Tylenol Extra Strength) betamethasone dipropionate 0.05 % 1 applic topical DAILY PRN Skin 07/22/21 02/19/22 topical cream Irritation diclofenac sodium 1 % topical gel 2 g topical QID PRN Pain 07/22/21 02/19/22 duloxetine 60 mg capsule,delayed 60 mg PO QAM 07/22/21 02/18/22 release ibuprofen 800 mg tablet 800 mg PO Q6 PRN Pain 07/22/21 02/19/22 lamotrigine 25 mg tablet 100 mg PO HS 07/22/21 02/19/22 loratadine 10 mg tablet 10 mg PO DAILY PRN allergies 07/22/21 02/19/22 magnesium hydroxide 400 mg/5 mL 30 ml PO DAILY PRN Constipation 07/22/21 02/19/22 oral suspension (Milk of Magnesia) menthol 0.44 %-zinc oxide 20.6 % 1 applic topical BID 07/22/21 02/18/22 topical ointment (Calmoseptine) ascorbic acid (vitamin C) 500 mg 500 mg PO QAM 08/08/21 02/18/22 tablet (Vitamin C) aspirin 81 mg chewable tablet 81 mg PO DAILY 02/18/22 02/18/22 (Aspirin Childrens) pregabalin 150 mg capsule 150 mg PO TID 02/18/22 02/18/22 tolterodine 1 mg tablet 1 mg PO BID 02/18/22 02/18/22 cholecalciferol (vitamin D3) 125 125 mcg PO DAILY 02/19/22 02/19/22 mcg (5,000 unit) tablet (Vitamin D3) loperamide 2 mg tablet (Imodium 2 mg PO QID PRN Loose Stool 02/19/22 02/19/22 A-D) molnupiravir 200 mg capsule (EUA) 800 mg PO Q12H 02/19/22 02/19/22 oxymorphone 30 mg tablet,extended 30 mg PO BID 02/19/22 02/19/22 release,12 hr sennosides 8.6 mg tablet (senna) 34.4 mg PO HS 02/19/22 02/19/22 sennosides 8.6 mg-docusate sodium 12 tab-cap PO BID 02/19/22 02/19/22 50 mg tablet (Senokot-S) zinc gluconate 50 mg tablet 50 mg PO DAILY 02/19/22 02/19/22 Previous Rx's Medication Instructions Recorded calcitriol 0.5 mcg capsule 0.5 mcg PO DAILY #90 caps 04/25/21 Oxygen Home #1 ea 08/10/21 polyethylene glycol 3350 17 gram 17 g PO BID #60 packets 08/10/21 oral powder packet (Miralax) Results & Data (ED) Vital Signs Vital Signs - 24 hr 02/18/22 22:22 02/18/22 23:25 02/18/22 23:36 Temperature 37.0 C Temperature Source Oral Pulse Rate 86 Pulse Rate [Apical] 74 Respiratory Rate 20 22 26 H Respiratory Effort / Characteristics Spontaneous Blood Pressure 110/49 L Blood Pressure [Right Arm] 123/51 L Blood Pressure Mean 69 Blood Pressure Mean [Right Arm] 75 Pulse Oximetry 88 L 96 95 Oxygen Delivery Method Oxymask Non-rebreather Non-rebreather Oxygen Flow Rate 6 15 15 Sepsis Recent Fever Within 48 Hours No Sepsis New/Unexplained Change in Mental Status N/A Sepsis Action Taken by Nursing No Action Required Laboratory Data Result diagrams: 02/18/22 22:29 02/18/22 22:29 Lab Results 02/18/22 02/18/22 02/18/22 Range/Units 22:29 22:29 22:29 WBC 9.49 (4.8-10.8) K/ul RBC 4.32 (3.93-5.22) M/uL Hgb 11.8 L (12.0-16.0) g/dl POC Hgb (12.0-16.0) g/dl Hct 37.7 (34.1-44.9) % POC Hct (37-47) % MCV 87.3 (80.0-100.0) fL MCH 27.3 (25.0-34.0) pg MCHC 31.3 L (32.0-36.0) g/dL RDW Std Deviation 48.7 H (36.4-46.3) fL RDW Coeff of Lloyd 15.1 H (11.5-14.5) % Plt Count 169 (130-400) K/uL MPV 9.0 L (9.4-12.3) fL Immature Gran % (Auto) 0.4 % Neut % (Auto) 69.4 % Lymph % (Auto) 18.0 % Benton % (Auto) 11.9 % Eos % (Auto) 0.2 % Baso % (Auto) 0.1 % Neut # (Auto) 6.58 H (1.4-6.5) K/uL Lymph # (Auto) 1.71 (1.2-3.4) K/uL Benton # (Auto) 1.13 H (0.24-0.82) K/uL Eos # (Auto) 0.02 (0-0.50) K/uL Baso # (Auto) 0.01 (0-0.2) K/uL Immature Gran # (Auto) 0.04 H (0.00-0.02) K/uL PT 11.0 (9.0-12.0) Seconds INR 1.0 (0.9-1.1) VBG pH (7.36-7.41) VBG pCO2 (38-50) mmHg VBG pO2 mmHg VBG HCO3 mmol/L VBG O2 Saturation % VBG Base Excess mEq/L POC Sodium (135-144) mmol/L Sodium 135 L (136-145) mmol/L POC Potassium (3.3-5.0) mmol/L Potassium 3.5 (3.5-5.1) mmol/L POC Chloride (101-112) mmol/L Chloride 99 (98-107) mmol/L Carbon Dioxide 30 (21-32) mmol/L POC Total CO2 (24-31) mmol/L Anion Gap 6 (3-11) POC Anion Gap (16-25) mmol/L POC BUN (7-18) mg/dl BUN 24 H (6-23) mg/dl Creatinine 1.27 H (0.6-1.2) mg/dl POC Creatinine (0.6-1.3) mg/dl Est Cr Clr Drug Dosing 35.2 ml/min Est GFR ( Amer) 45.8 ml/min Est GFR (Non-Af Amer) 39.5 ml/min BUN/Creatinine Ratio 18.9 (10-20) Glucose 137 H (70-99(Fasting)) mg/dl POC Glucose (other) (70-99) mg/dl Lactate (0.4-2.0) mmol/L Calcium 8.8 (8.5-10.1) mg/dl POC Ioniz Calcium Kirsten (1.12-1.32) mmol/l Total Bilirubin 0.6 (0.2-1.0) mg/dl AST 25 (13-39) U/L ALT 8 (7-52) U/L Alkaline Phosphatase 72 (34-104) U/L Troponin I High Sens 1649.9 H* (0-14) pg/ml C-Reactive Protein 15.54 H (0-0.5) mg/dl Total Protein 7.0 (6.0-8.3) gm/dl Albumin 3.7 (3.4-5.0) gm/dl Globulin 3.3 (2.5-4.0) gm/dl Albumin/Globulin Ratio 1.1 (0.9-2) Procalcitonin (0-0.5) ng/ml SARS-CoV-2, RNA, NAAT (NEGATIVE) 02/18/22 02/18/22 02/18/22 Range/Units 22:29 22:29 22:29 WBC (4.8-10.8) K/ul RBC (3.93-5.22) M/uL Hgb (12.0-16.0) g/dl POC Hgb (12.0-16.0) g/dl Hct (34.1-44.9) % POC Hct (37-47) % MCV (80.0-100.0) fL MCH (25.0-34.0) pg MCHC (32.0-36.0) g/dL RDW Std Deviation (36.4-46.3) fL RDW Coeff of Lloyd (11.5-14.5) % Plt Count (130-400) K/uL MPV (9.4-12.3) fL Immature Gran % (Auto) % Neut % (Auto) % Lymph % (Auto) % Benton % (Auto) % Eos % (Auto) % Baso % (Auto) % Neut # (Auto) (1.4-6.5) K/uL Lymph # (Auto) (1.2-3.4) K/uL Benton # (Auto) (0.24-0.82) K/uL Eos # (Auto) (0-0.50) K/uL Baso # (Auto) (0-0.2) K/uL Immature Gran # (Auto) (0.00-0.02) K/uL PT (9.0-12.0) Seconds INR (0.9-1.1) VBG pH 7.34 L (7.36-7.41) VBG pCO2 58 H (38-50) mmHg VBG pO2 49 mmHg VBG HCO3 31 mmol/L VBG O2 Saturation 79.0 % VBG Base Excess 3.9 mEq/L POC Sodium (135-144) mmol/L Sodium (136-145) mmol/L POC Potassium (3.3-5.0) mmol/L Potassium (3.5-5.1) mmol/L POC Chloride (101-112) mmol/L Chloride (98-107) mmol/L Carbon Dioxide (21-32) mmol/L POC Total CO2 (24-31) mmol/L Anion Gap (3-11) POC Anion Gap (16-25) mmol/L POC BUN (7-18) mg/dl BUN (6-23) mg/dl Creatinine (0.6-1.2) mg/dl POC Creatinine (0.6-1.3) mg/dl Est Cr Clr Drug Dosing ml/min Est GFR ( Amer) ml/min Est GFR (Non-Af Amer) ml/min BUN/Creatinine Ratio (10-20) Glucose (70-99(Fasting)) mg/dl POC Glucose (other) (70-99) mg/dl Lactate 1.3 (0.4-2.0) mmol/L Calcium (8.5-10.1) mg/dl POC Ioniz Calcium Kirsten (1.12-1.32) mmol/l Total Bilirubin (0.2-1.0) mg/dl AST (13-39) U/L ALT (7-52) U/L Alkaline Phosphatase (34-104) U/L Troponin I High Sens (0-14) pg/ml C-Reactive Protein (0-0.5) mg/dl Total Protein (6.0-8.3) gm/dl Albumin (3.4-5.0) gm/dl Globulin (2.5-4.0) gm/dl Albumin/Globulin Ratio (0.9-2) Procalcitonin 0.57 H (0-0.5) ng/ml SARS-CoV-2, RNA, NAAT (NEGATIVE) 02/18/22 02/18/22 Range/Units 22:49 23:25 WBC (4.8-10.8) K/ul RBC (3.93-5.22) M/uL Hgb (12.0-16.0) g/dl POC Hgb 12.6 (12.0-16.0) g/dl Hct (34.1-44.9) % POC Hct 37 (37-47) % MCV (80.0-100.0) fL MCH (25.0-34.0) pg MCHC (32.0-36.0) g/dL RDW Std Deviation (36.4-46.3) fL RDW Coeff of Lloyd (11.5-14.5) % Plt Count (130-400) K/uL MPV (9.4-12.3) fL Immature Gran % (Auto) % Neut % (Auto) % Lymph % (Auto) % Benton % (Auto) % Eos % (Auto) % Baso % (Auto) % Neut # (Auto) (1.4-6.5) K/uL Lymph # (Auto) (1.2-3.4) K/uL Benton # (Auto) (0.24-0.82) K/uL Eos # (Auto) (0-0.50) K/uL Baso # (Auto) (0-0.2) K/uL Immature Gran # (Auto) (0.00-0.02) K/uL PT (9.0-12.0) Seconds INR (0.9-1.1) VBG pH (7.36-7.41) VBG pCO2 (38-50) mmHg VBG pO2 mmHg VBG HCO3 mmol/L VBG O2 Saturation % VBG Base Excess mEq/L POC Sodium 137 (135-144) mmol/L Sodium (136-145) mmol/L POC Potassium 3.5 (3.3-5.0) mmol/L Potassium (3.5-5.1) mmol/L POC Chloride 98 L (101-112) mmol/L Chloride (98-107) mmol/L Carbon Dioxide (21-32) mmol/L POC Total CO2 29 (24-31) mmol/L Anion Gap (3-11) POC Anion Gap 15.0 L (16-25) mmol/L POC BUN 22 H (7-18) mg/dl BUN (6-23) mg/dl Creatinine (0.6-1.2) mg/dl POC Creatinine 1.5 H (0.6-1.3) mg/dl Est Cr Clr Drug Dosing ml/min Est GFR ( Amer) ml/min Est GFR (Non-Af Amer) ml/min BUN/Creatinine Ratio (10-20) Glucose (70-99(Fasting)) mg/dl POC Glucose (other) 144 H (70-99) mg/dl Lactate (0.4-2.0) mmol/L Calcium (8.5-10.1) mg/dl POC Ioniz Calcium Kirsten 1.09 L (1.12-1.32) mmol/l Total Bilirubin (0.2-1.0) mg/dl AST (13-39) U/L ALT (7-52) U/L Alkaline Phosphatase (34-104) U/L Troponin I High Sens (0-14) pg/ml C-Reactive Protein (0-0.5) mg/dl Total Protein (6.0-8.3) gm/dl Albumin (3.4-5.0) gm/dl Globulin (2.5-4.0) gm/dl Albumin/Globulin Ratio (0.9-2) Procalcitonin (0-0.5) ng/ml SARS-CoV-2, RNA, NAAT POSITIVE A* (NEGATIVE) Administered Medications Discontinued Medications Dexamethasone Sodium Phosphate (DexamethasonePf 10 Mg/Ml Vial) 6 mg IV NOW ONE Stop: 02/18/22 22:22 Last Admin: 02/18/22 23:27 Dose: 6 mg Documented By: NELSON Ioversol (Optiray 320 500ml) 107 ml IV ONCE ONE Stop: 02/18/22 23:24 Last Admin: 02/18/22 23:24 Dose: 107 ml Documented By: DERIC Discharge Plan Visit Data Chief Complaint: Illness Stated Complaint: low o2, covid + ED Provider: Khang Barajas Discharge Problem: COVID-19, COPD (chronic obstructive pulmonary disease), Respiratory failure, Pneumonia, Non-ST elevation HI (NSTEMI) Patient Disposition: Admitted As Inpatient Forms Stand Alone Forms: [facility] Prescriptions Prescriptions: No Action tolterodine [Detrol] 1 mg tablet 1 mg PO BID calcitriol 0.5 mcg capsule 0.5 mcg PO DAILY Qty: 90 3RF amlodipine [Norvasc] 10 mg tablet 10 mg PO QAM Qty: 90 folic acid 1 mg tablet 1 mg PO QAM levothyroxine [Synthroid] 25 mcg tablet 25 mcg PO QAM mirtazapine 30 mg tablet 30 mg PO HS lidocaine 5 % Adhesive Patch,Medicated 2 patch TOPICAL UD PRN (Reason: Pain) Rx Instructions: remove patches after 12 hours Systane (PF) 0.4-0.3 % Dropperette 1 drp OPHTHALMIC (EYE) QID PRN (Reason: Dry Eyes) ammonium lactate [Skin Treatment] 12 % Lotion 1 applic TOPICAL BID prednisolone acetate [Pred Forte] 1 % drops,suspension 1 drp OPB HS buspirone 15 mg tablet 15 mg PO TID Rx Instructions: TAKES AT 1100, 1700, & 2300 duloxetine [Cymbalta] 30 mg capsule,delayed release(DR/EC) 30 mg PO QPM ibuprofen 800 mg tablet 800 mg PO Q6 PRN (Reason: Pain) acetaminophen [Tylenol Extra Strength] 500 mg Tablet 500 mg PO Q6H PRN (Reason: Fever Or Pain) lamotrigine 25 mg tablet 100 mg PO HS Rx Instructions: 4 tablet dose magnesium hydroxide [Milk of Magnesia] 400 mg/5 mL Suspension 30 ml PO DAILY PRN (Reason: Constipation) betamethasone dipropionate 0.05 % cream 1 applic TOPICAL DAILY PRN (Reason: Skin Irritation) Rx Instructions: arms and legs loratadine 10 mg Tablet 10 mg PO DAILY PRN (Reason: allergies) duloxetine 60 mg capsule,delayed release(DR/EC) 60 mg PO QAM diclofenac sodium 1 % gel 2 g TOPICAL QID PRN (Reason: Pain) menthol-zinc oxide [Calmoseptine] 0.44-20.6 % Ointment 1 applic TOPICAL BID Rx Instructions: Applly to inflamed area Medical Marijuana 0 inh inhalation TID Rx Instructions: Resident self administer & secured in apartment ascorbic acid (vitamin C) [Vitamin C] 500 mg Tablet 500 mg PO QAM Rx Instructions: take for 14 days / stop date 03/05/22 (DME) Oxygen Home Liters Per Minute See Rx Instructions .ROUTE .MEDSUPPLY Qty: 1 0RF Rx Instructions: 2 liters NC O2 continuously. polyethylene glycol 3350 [Miralax] 17 gram Powder In Packet 17 g PO BID Qty: 60 2RF aspirin [Aspirin Childrens] 81 mg Tablet,Chewable 81 mg PO DAILY Rx Instructions: start 02/19/22 take for 1 month for covid tolterodine 1 mg tablet 1 mg PO BID pregabalin 150 mg capsule 150 mg PO TID sennosides-docusate sodium [Senokot-S] 8.6-50 mg Tablet 12 tab-cap PO BID sennosides [senna] 8.6 mg Tablet 34.4 mg PO HS Rx Instructions: 4 tablets = 34.4 cholecalciferol (vitamin D3) [Vitamin D3] 125 mcg (5,000 unit) Tablet 125 mcg PO DAILY Rx Instructions: start 02/19/22 take for 14 days loperamide [Imodium A-D] 2 mg Tablet 2 mg PO QID PRN (Reason: Loose Stool) zinc gluconate 50 mg Tablet 50 mg PO DAILY Rx Instructions: start 02/19/22 take for 14 days oxymorphone 30 mg Tablet Extended Release 12 Hr 30 mg PO BID molnupiravir 200 mg Capsule 800 mg PO Q12H Rx Instructions: start 02/19/22 take for 5 days Referrals [place]errals: [place] [Primary Care Provider] -
[2022-02-18 23:00] LABS: Base Excess VBG 3.9 mEq/L; HCO3 VBG 31 mmol/L; PCO2 VBG 58 mmHg (38-50); PO2 VBG 49 mmHg; pH VBG 7.34 (7.36-7.41)
[2022-02-18 23:02] LABS: iSTAT Creatinine 1.5 mg/dl (0.6-1.3); iSTAT Hemoglobin 12.6 g/dl (12.0-16.0); iSTAT Ionized Calcium 1.09 mmol/l (1.12-1.32); iSTAT Potassium 3.5 mmol/L (3.3-5.0)
[2022-02-18 23:21] LABS: Albumin Globulin Ratio 1.1 (0.9-2); Albumin Level 3.7 gm/dl (3.4-5.0); BUN Creatinine Ratio 18.9 (10-20); Bilirubin,Total 0.6 mg/dl (0.2-1.0); C Reactive Protein 15.54 mg/dl (0-0.5); Calcium 8.8 mg/dl (8.5-10.1); Creatinine Clr Calc Pharmacy 35.2 ml/min; Est GFR (African American) 45.8 ml/min; Est GFR (Non-African American) 39.5 ml/min; Globulin 3.3 gm/dl (2.5-4.0); Potassium 3.5 mmol/L (3.5-5.1)
[2022-02-18] MEDS ORDERED: OPTIRAY 320 500ml IV ONE (23:23)
--- NOTE | 2022-02-18 23:55 | History & Physical Report ---
Date of Service February 18, 2022 Assessment & Plan (1) Acute respiratory failure with hypoxia: Plan: Acute respiratory failure with hypoxia/ oxygen dependent COPD, COVID-19 pneumonia/secondary bacterial pneumonia- Patient requiring significantly higher amounts of oxygen to mean pulse ox in the low 90s, presently on a 15 L nonrebreather Unclear timing of onset of infections Intensity of infection with suggest longer than just a few days Patient did receive dexamethasone 6 mg IV in the ED Will continue dexamethasone 6 mg IV every morning Patient is not presently a candidate for remdesivir, even if the timing were known, due to acute kidney injury Vancomycin IV per pharmacokinetic monitoring. We will stop vancomycin if MRSA swab negative Zosyn 4.5 g IV every 8 hours (2) COVID-19: Plan: Will admit with COVID-19 precautions (3) Secondary bacterial pneumonia: (4) Acute kidney injury: Plan: Creatinine 1.27 on admission, with base range 0.79-0.98 NSS + KCl 20 mEq at 60 mils per hour, recheck laboratories in a.m. (5) Non-ST elevation [place] (NSTEMI): Plan: Troponin 1649.9 on admission EKG with normal sinus rhythm at [address]-T changes CTA chest negative for PE, but does show significant infection, and probable mild right heart strain. The patient will be admitted to telemetry for serial cardiac enzymes, serial EKG's, cardiac rhythm monitoring and a 2-D echocardiogram with Dopplers. (6) COPD (chronic obstructive pulmonary disease): (7) Fibromyalgia: (8) Hypothyroidism: Plan: Holding Synthroid while n.p.o. (9) Anxiety and depression: Plan: Holding buspirone, duloxetine, lamotrigine, mirtazapine and pregabalin while n.p.o. (10) Bladder spasms: Plan: Hold tolterodine while n.p.o. History of Present Illness Chief Complaint: The patient is referred to the emergency room from [facility] where she lives, due to concern about becoming ill overnight, and testing positive for COVID 19 last night. She was reportedly more confused and hypoxic at baseline, with pulse ox into the 40s and 50s on her baseline oxygen. The patient is a poor historian, and was nonresponsive during my assessment. She is known to be a DNR/DNI per records at [facility]. Primary Care Provider: [facility] The patient is a 81-year-old female with past medical history including oxygen dependent COPD, NSTEMI, chronic anemia, fibromyalgia, mood disorder, dermatitis, hypothyroidism, allergic rhinitis, insomnia and bladder spasm. As noted above she is a poor historian, and is not able to contribute to her HPI or ROS. In the emergency department, she was found to be 88% pulse ox on 6 L nasal cannula O2, and then had to be moved to 15 L nonrebreather to get pulse ox to 96%. As noted, patient was COVID-19 positive as a cause of Bailey last night, and she is COVID-19 positive in the emergency department this evening. Significant imaging: Chest x-ray and CT angiography of chest reveal a dense right middle lobe and right lower lobe consolidation, also including right upper lobe, lingula and left lower lobe. Allergies Allergy/AdvReac Type Severity Reaction Status Date / Time No Known Allergies Allergy Verified 02/19/22 00:22 Home Medications Medication Instructions Recorded Confirmed Type amlodipine 10 mg tablet (Norvasc) 10 mg PO QAM Hypertension #90 tabs 12/21/18 02/18/22 History folic acid 1 mg tablet 1 mg PO QAM 12/21/18 02/19/22 History levothyroxine 25 mcg tablet 25 mcg PO QAM 12/21/18 02/18/22 History (Synthroid) lidocaine 5 % topical patch 2 patch topical UD PRN Pain 02/18/19 02/19/22 Hist ory peg 400-propylene glycol (PF) 0.4 1 drp ophthalmic (eye) QID PRN Dry 02/18/19 02/19/22 History %-0.3 % eye drops in a dropperette Eyes (Systane (PF)) ammonium lactate 12 % lotion (Skin 1 applic topical BID Skin Care 04/10/19 02/19/22 History Treatment) prednisolone acetate 1 % eye 1 drp OPB HS Inflamation 04/10/19 02/19/22 History drops,suspension (Pred Forte) buspirone 15 mg tablet 15 mg PO TID 06/19/20 02/18/22 History mirtazapine 30 mg tablet 30 mg PO HS 06/19/20 02/18/22 History duloxetine 30 mg capsule,delayed 30 mg PO QPM Depression 04/12/21 02/18/22 Hi story release (Cymbalta) tolterodine 1 mg tablet (Detrol) 1 mg PO BID 04/12/21 02/19/22 History calcitriol 0.5 mcg capsule 0.5 mcg PO DAILY #90 caps 04/25/21 02/18/22 Rx Medical Marijuana 0 inh inhalation TID 07/22/21 02/19/22 History acetaminophen 500 mg tablet 500 mg PO Q6H PRN Fever Or Pain 07/22/21 02/19/22 History (Tylenol Extra Strength) betamethasone dipropionate 0.05 % 1 applic topical DAILY PRN Skin 07/22/21 02/19/22 History topical cream Irritation diclofenac sodium 1 % topical gel 2 g topical QID PRN Pain 07/22/21 02/19/22 History duloxetine 60 mg capsule,delayed 60 mg PO QAM 07/22/21 02/18/22 History release ibuprofen 800 mg tablet 800 mg PO Q6 PRN Pain 07/22/21 02/19/22 History lamotrigine 25 mg tablet 100 mg PO HS 07/22/21 02/19/22 History loratadine 10 mg tablet 10 mg PO DAILY PRN allergies 07/22/21 02/19/22 History magnesium hydroxide 400 mg/5 mL 30 ml PO DAILY PRN Constipation 07/22/21 02/19/22 History oral suspension (Milk of Magnesia) menthol 0.44 %-zinc oxide 20.6 % 1 applic topical BID 07/22/21 02/18/22 History topical ointment (Calmoseptine) ascorbic acid (vitamin C) 500 mg 500 mg PO QAM 08/08/21 02/18/22 History tablet (Vitamin C) Oxygen Home #1 ea 08/10/21 02/19/22 Rx polyethylene glycol 3350 17 gram 17 g PO BID #60 packets 08/10/21 02/18/22 Rx oral powder packet (Miralax) aspirin 81 mg chewable tablet 81 mg PO DAILY 02/18/22 02/18/22 History (Aspirin Childrens) pregabalin 150 mg capsule 150 mg PO TID 02/18/22 02/18/22 History tolterodine 1 mg tablet 1 mg PO BID 02/18/22 02/18/22 History cholecalciferol (vitamin D3) 125 125 mcg PO DAILY 02/19/22 02/19/22 History mcg (5,000 unit) tablet (Vitamin D3) loperamide 2 mg tablet (Imodium 2 mg PO QID PRN Loose Stool 02/19/22 02/19/22 History A-D) molnupiravir 200 mg capsule (EUA) 800 mg PO Q12H 02/19/22 02/19/22 History oxymorphone 30 mg tablet,extended 30 mg PO BID 02/19/22 02/19/22 History release,12 hr sennosides 8.6 mg tablet (senna) 34.4 mg PO HS 02/19/22 02/19/22 History sennosides 8.6 mg-docusate sodium 12 tab-cap PO BID 02/19/22 02/19/22 History 50 mg tablet (Senokot-S) zinc gluconate 50 mg tablet 50 mg PO DAILY 02/19/22 02/19/22 History Past Med/Surg History Medical History (Updated 02/19/22 @ 04:17 by Toby Lilly MD) Anxiety and depression Chronic anemia Chronic pain Chronic steroid use Constipation COPD (chronic obstructive pulmonary disease) Fibromyalgia Hypothyroidism Hypoxemia Mood disorder Osteopenia Pneumonia involving right lung Vitamin D deficiency Surgical History Hx of tonsillectomy Family History Other Family history non-contributory Social History Smoking Status: Never smoker Hx Alcohol Use: No Hx Substance Use: Yes ([employer] MARIJUANA) Last Used Substance: Hours (ago) Last Used Substance Other:: MORNING OF 08/08/21 Preferred Language: Czech Communication Ability: Effective Die Developer Required: No Beliefs That Will Affect Care: None Current Living Situation: Personal Care Facility Current Living Situation Comment: [facility] current occupational status: retired Feels Safe at Home: Yes Assistive Devices: Wheelchair Review of Systems Review of Systems: Review of systems is limited due to patient's baseline mental state and acute exacerbation Physical Exam Physical Exam: The patient is lethargic and not arousable, normocephalic and atraumatic, lying in bed with grossly audible coarse breath sounds and wheezes. HEENT--PERRL, EOMI, mucous membranes and oropharynx dry. Neck--supple. No JVD. No bruits. Thyroid normal, trachea midline, no adeno regan. Heart--normal S1 and S2. No murmurs, rubs or gallops. Lungs--coarse breath sounds and wheezes, right greater than left. Abdomen--normal bowel sounds and soft. Nontender. Nondistended. Extremities--no cyanosis or clubbing. No edema. Dermatologic--normal skin turgor, normal color, no abnormal lymph nodes, no rash. Neurologic--cranial nerves II through XII grossly intact. Exam limited Rheumatologic--limited exam Psychiatric--lethargic and not arousable Results & Data Results & Data ([facility]) Vital Signs (Past 12 Hours) Vital Signs Temp Pulse Pulse Resp BP BP Pulse Ox 02/18/22 23:36 74 26 H 123/51 L 95 02/18/22 23:25 22 96 02/18/22 22:22 37.0 C 86 20 110/49 L 88 L O2 Del Method O2 Flow Rate 02/18/22 23:36 Non-rebreather 15 02/18/22 23:25 Non-rebreather 15 02/18/22 22:22 Oxymask 6 Laboratory Results Laboratory Results WBC 9.49 K/ul (4.8-10.8) 02/18/22 22: RBC 4.32 M/uL (3.93-5.22) 02/18/22 22:29 Hgb 11.8 g/dl (12.0-16.0) L 02/18/22 22: POC Hgb 12.6 g/dl (12.0-16.0) 02/18/22 22:49 Hct 37.7 % (34.1-44.9) 02/18/22 22: POC Hct 37 % (37-47) 02/18/22 22:49 MCV 87.3 fL (80.0-100.0) 02/18/22 22:29 MCH 27.3 pg (25.0-34.0) 02/18/22 22: MCHC 31.3 g/dL (32.0-36.0) L 02/18/22: RDW Std Deviation 48.7 fL (36.4-46.3) H 02/18/22: RDW Coeff of Lloyd 15.1 % (11.5-14.5) H 02/18/22: Plt Count 169 K/uL (130-400) 02/18/22: MPV 9.0 fL (9.4-12.3) L 02/18/22: Immature Gran % (Auto) 0.4 % 02/18/22: Neut % (Auto) 69.4 % 02/18/22: Lymph % (Auto) 18.0 % 02/18/22: Bonner % (Auto) 11.9 % 02/18/22: Eos % (Auto) 0.2 % 02/18/22 Baso % (Auto) 0.1 % 02/18/22 Neut # (Auto) 6.58 K/uL (1.4-6.5) H 02/18/22: Lymph # (Auto) 1.71 K/uL (1.2-3.4) 02/18/22: Bonner # (Auto) 1.13 K/uL (0.24-0.82) H 02/18/22: Eos # (Auto) 0.02 K/uL (0-0.50) 02/18/22: Baso # (Auto) 0.01 K/uL (0-0.2) 02/18/22: Immature Gran # (Auto) 0.04 K/uL (0.00-0.02) H 02/18/22: PT 11.0 Seconds (9.0-12.0) 02/18/22: INR 1.0 (0.9-1.1) 02/18/22: VBG pH 7.34 (7.36-7.41) L 02/18/22: VBG pCO2 58 mmHg (38-50) H 02/18/22: VBG pO2 49 mmHg 02/18/22: VBG HCO3 31 mmol/L 02/18/22: VBG O2 Saturation 79.0 % 02/18/22 VBG Base Excess 3.9 mEq/L 02/18/22 22:29 POC Sodium 137 mmol/L (135-144) 02/18/22 22:49 Sodium 135 mmol/L (136-145) L 02/18/22 22:29 POC Potassium 3.5 mmol/L (3.3-5.0) 02/18/22 22:49 Potassium 3.5 mmol/L (3.5-5.1) 02/18/22 22:29 POC Chloride 98 mmol/L (101-112) L 02/18/22 22:49 Chloride 99 mmol/L (98-107) 02/18/22 22:29 Carbon Dioxide 30 mmol/L (21-32) 02/18/22 22:29 POC Total CO2 29 mmol/L (24-31) 02/18/22 22:49 Anion Gap 6 (3-11) 02/18/22 22:29 POC Anion Gap 15.0 mmol/L (16-25) L 02/18/22 22:49 POC BUN 22 mg/dl (7-18) H 02/18/22 22:49 BUN 24 mg/dl (6-23) H 02/18/22 22:29 Creatinine 1.27 mg/dl (0.6-1.2) H 02/18/22 22: POC Creatinine 1.5 mg/dl (0.6-1.3) H 02/18/22 22:49 Est Cr Clr Drug Dosing 35.2 ml/min 02/18/22 22:29 Est GFR ( Amer) 45.8 ml/min 02/18/22 22: Est GFR (Non-Af Amer) 39.5 ml/min 02/18/22 22: BUN/Creatinine Ratio 18.9 (10-20) 02/18/22 22:29 Glucose 137 mg/dl (70-99(Fasting)) H 02/18/22 22:29 POC Glucose (other) 144 mg/dl (70-99) H 02/18/22 22:49 Lactate 1.3 mmol/L (0.4-2.0) 02/18/22 22:29 Calcium 8.8 mg/dl (8.5-10.1) 02/18/22 22:29 POC Ioniz Calcium Kirsten 1.09 mmol/l (1.12-1.32) L 02/18/22 22:49 Total Bilirubin 0.6 mg/dl (0.2-1.0) 02/18/22 22:29 AST 25 U/L (13-39) 02/18/22 22:29 ALT 8 U/L (7-52) 02/18/22 22:29 Alkaline Phosphatase 72 U/L (34-104) 02/18/22 22:29 Troponin I High Sens 1649.9 pg/ml (0-14) H* 02/18/22 22:29 C-Reactive Protein 15.54 mg/dl (0-0.5) H 02/18/22 22:29 Total Protein 7.0 gm/dl (6.0-8.3) 02/18/22 22:29 Albumin 3.7 gm/dl (3.4-5.0) 02/18/22 22:29 Globulin 3.3 gm/dl (2.5-4.0) 02/18/22 22:29 Albumin/Globulin Ratio 1.1 (0.9-2) 02/18/22 22:29 Procalcitonin 0.57 ng/ml (0-0.5) H 02/18/22 22:29 SARS-CoV-2, RNA, NAAT POSITIVE (NEGATIVE) A* 02/18/22 23:25 Code Status & VTE Plan Code Status DNR/DNI per record review VTE Prophylaxis Plan VTE Prophylaxis will be ordered: Yes (1) COPD (chronic obstructive pulmonary disease) COPD type: chronic bronchitis
[2022-02-19 00:18] LABS: Troponin I High Sensitivity 1649.9 pg/ml (0-14)
--- NOTE | 2022-02-19 04:18 | Billing Data ---
Date of Service February 19, 2022 Coding Level of Care Code 95787 Initial Inpt Care Lvl 3
[2022-02-19] MEDS ORDERED: VANCOMYCIN HCL 1,000 MG in SODIUM CHLORIDE 0.9% 250 ML IV STA (04:33)
[2022-02-19] MEDS ORDERED: ONDANSETRON INJ 2 MG/ML 2 ML VIAL IV PRN (04:33)
[2022-02-19] MEDS ORDERED: VANCOMYCIN CONSULT ACTIVE PRN (04:33)
[2022-02-19 04:57] LABS: Basophils # (auto) 0.01 K/uL (0-0.2); Basophils % (auto) 0.1 %; Eosinophils # (auto) 0.01 K/uL (0-0.50); Eosinophils % (auto) 0.1 %; Hemoglobin 12.1 g/dl (12.0-16.0); Immature Granulocytes # (auto) 0.03 K/uL (0.00-0.02); Immature Granulocytes % (auto) 0.3 %; Lymphocytes # (auto) 1.11 K/uL (1.2-3.4); Lymphocytes % (auto) 11.3 %; Mean Corpuscular Hemoglobin 27.3 pg (25.0-34.0); Mean Platelet Volume 9.3 fL (9.4-12.3); Monocytes # (auto) 0.42 K/uL (0.24-0.82); Monocytes % (auto) 4.3 %; Neutrophils # (auto) 8.23 K/uL (1.4-6.5); Neutrophils % (auto) 83.9 %; Platelet Count 152 K/uL (130-400); RDW Standard Deviation 48.2 fL (36.4-46.3); Red Blood Count 4.43 M/uL (3.93-5.22); White Blood Count 9.81 K/ul (4.8-10.8)
[2022-02-19 05:34] LABS: Albumin Level 3.7 gm/dl (3.4-5.0); BUN Creatinine Ratio 19.8 (10-20); Calcium 8.9 mg/dl (8.5-10.1); Creatinine Clr Calc Pharmacy 38.5 ml/min; Est GFR (African American) 51.1 ml/min; Est GFR (Non-African American) 44.1 ml/min; Magnesium 2.3 mg/dl (1.7-2.4); Potassium 4.2 mmol/L (3.5-5.1); Troponin I High Sensitivity 905.7 pg/ml (0-14)
[2022-02-19] MEDS ORDERED: PIPERACILLIN/TAZOBACTAM 4.5 GM in DEXTROSE 5% 100 ML IV ONE (05:45)
[2022-02-19] MEDS ORDERED: VANCOMYCIN HCL 1,750 MG in SODIUM CHLORIDE 0.9% 500 ML IV ONE (05:45)
[2022-02-19] MEDS: PIPERACILLIN/TAZOBACTAM 4.5 GM in DEXTROSE 5% 100 ML IV SCH ×3 (05:54→19:28)
[2022-02-19] MEDS: NSS + 20MEQ KCL 20 MEQ/1,000 ML BAG IV SCH ×2 (06:03→21:45)
[2022-02-19] MEDS: dexAMETHasone 6 MG in SYRINGE 0 ML IV SCH (08:06)
[2022-02-19] MEDS: ENOXAPARIN INJ 40 MG/0.4 ML SYR SQ SCH (08:08)
--- NOTE | 2022-02-19 08:39 | CT Scan Report ---
CT angio chest PE protocol CLINICAL HISTORY: PE, severe hypoxia, covid TECHNIQUE: Multidetector row helical CT of the chest was performed with angiographic protocol. Aragon l and sagittal reformations were obtained. Coronal and sagittal MIPS were obtained from the axial shashi a set and were submitted for review. Automated dose lowering techniques and/or adjustment according to patient size were utilized for this exam. CT DOSE: 1205.57 mGy.cm Comparison: Comparison is made to CTA chest 04/10/2019 FINDINGS: Lungs and pleura: Consolidative densities are seen most prominently in the right lower lobe with a fa t-containing bilateral lungs. Atelectasis is seen. Bronchial wall thickening is seen. The right lower lobe bronchus is occluded. Heart and pericardium: Cardiomegaly is seen with biatrial enlargement. Vessels: No evidence of pulmonary embolism. Mediastinum and jas: Subcentimeter lymph nodes are seen. Chest wall and lower neck: Subcentimeter axillary lymph nodes noted. Abdomen: Unremarkable. Bones: Degenerative changes in the thoracic spine. IMPRESSION: Extensive bronchial wall thickening with narrowing of multiple bronchi including the right lower lobe bronchus. Extensive consolidations are seen. Findings are compatible with infectious/inflammatory br onchitis and pneumonia. No evidence of pulmonary embolus. Mediastinal and hilar lymph nodes are likel y reactive. ACT 112: Negative or not required by law. Electronically signed by: Carlos Eduardo Evans M.D. 02/19/2022 8:38 AM
--- NOTE | 2022-02-19 09:08 | CT Scan Report ---
CT OF THE HEAD WITHOUT CONTRAST CLINICAL HISTORY: Confusion. COMPARISON STUDY: MRI of the brain August 07, [address] October 04, 2015. TECHNIQUE: Helical axial images of the head were obtained without IV contrast. Automated exposure con trol was utilized for the study. A dose lowering technique was utilized adhering to the principles o f ALARA. FINDINGS: No acute intracranial hemorrhage, midline shift or mass effect is present. The ventricular system is unremarkable. The basal cisterns are patent. No extra-axial collections are present. There are no findings to suggest acute dural sinus thrombosis or acute territorial infarct. The appearance of the brain is unchanged. Mild white matter hypodensity suggests small vessel disease. IMPRESSION: No acute intracranial findings. ACT 112: Negative or not required by law. Electronically signed by: Venkat Dean M.D. 02/19/2022 9:07 AM
--- NOTE | 2022-02-19 09:11 | XRay Report ---
XR chest 1V portable CLINICAL HISTORY: Shortness of breath, hypoxia COMPARISON STUDY: Chest CT April 10, 2019 and chest radiograph October 13, 2021. FINDINGS: There is no pneumothorax. Trace right pleural effusion is present. Bibasilar consolidation is greater on the right. There is no evidence for pulmonary edema. Cardiomegaly is unchanged. IMPRESSION: Bibasilar consolidation suggestive of pneumonia. Post treatment radiographs to ensure re solution are recommended. ACT 112: Negative or not required by law. Electronically signed by: Venkat Dean M.D. 02/19/2022 9:10 AM
[2022-02-19] MEDS ORDERED: REMDESIVIR 200 MG in SODIUM CHLORIDE 0.9% 210 ML IV STA (11:12)
[2022-02-19] MEDS ORDERED: LIDOCAINE 5% 1 PATCH TD PRN (14:54)
[2022-02-19] MEDS ORDERED: MOLNUPIRAVIR 200 MG PO SCH (15:00)
--- NOTE | 2022-02-19 16:38 | Electrocardiogram Report ---
Test Reason : Blood Pressure : / mmHG Vent. Rate : 075 BPM Atrial Rate : 075 BPM P-R Int : 162 ms QRS Dur : 106 ms QT Int : 424 ms P-R-T Axes : 047 026 036 degrees QTc Int : 473 ms Normal sinus rhythm Normal ECG When compared with ECG of 13-OCT-2021 16:42, No significant change was found Confirmed by Govind Shaffer ([id number]) on 02/19/2022 4:38:19 PM Referred By: [facility] Confirmed By:Govind Shaffer
[2022-02-19] MEDS: busPIRone 15 MG TAB PO SCH ×2 (17:34→22:08)
--- NOTE | 2022-02-19 20:11 | Hospitalist Progress Note ---
Date of Service February 19, 2022 Assessment & Plan (1) Acute respiratory failure with hypoxia: Plan: Acute respiratory failure with hypoxia/ oxygen dependent COPD, COVID-19 pneumonia/secondary bacterial pneumonia- Patient requiring significantly higher amounts of oxygen to mean pulse ox in the low 90s, presently on a 15 L nonrebreather Unclear timing of onset of infections Intensity of infection with suggest longer than just a few days Patient did receive dexamethasone 6 mg IV in the ED Will continue dexamethasone 6 mg IV every morning Will place on remdesevir, as kidney function improved. stopped vancomycin. Zosyn 4.5 g IV every 8 hours continue on 2 liters nasal cannula (2) COVID-19: Plan: Will admit with COVID-19 precautions (3) Secondary bacterial pneumonia: (4) Acute kidney injury: Plan: creatinine appears to have improved. (5) Non-ST elevation [place] (NSTEMI): Plan: Troponin 1649.9 on admission EKG with normal sinus rhythm at [address]-T changes CTA chest negative for PE, but does show significant infection, and probable mild right heart strain. The patient will be admitted to telemetry for serial cardiac enzymes, serial EKG's, cardiac rhythm monitoring and a 2-D echocardiogram with Dopplers. (6) COPD (chronic obstructive pulmonary disease): (7) Fibromyalgia: (8) Hypothyroidism: Plan: will resume (9) Anxiety and depression: Plan: resumed her meds (10) Bladder spasms: Plan: resumed her meds Admission and Anticipated Discharge Date Admission Date: February 18, 2022 Subjective Patient reports no new symptoms. Review of Systems Review of Systems: All systems reviewed & are unremarkable except as noted in HPI & below Physical Exam Physical Exam: The patient is awake alert and oriente atraumatic, lying in bed with grossly audible coarse breath sounds and wheezes. HEENT--PERRL, EOMI, mucous membranes and oropharynx dry. Neck--supple. No JVD. No bruits. Thyroid normal, trachea midline, no adenopathy. Heart--normal S1 and S2. No murmurs, rubs or gallops. Lungs--decreased wheezing. Abdomen--normal bowel sounds and soft. Nontender. Nondistended. Extremities--no cyanosis or clubbing. No edema. Dermatologic--normal skin turgor, normal color, no abnormal lymph nodes, no rash. Neurologic--cranial nerves II through XII grossly intact. Exam limited Rheumatologic--limited exam Psychiatric--lethargic and not arousable Results & Data Results & Data ([facility]) Vital Signs (Past 12 Hours) Vital Signs Temp Pulse Resp BP Pulse Ox O2 Del Method O2 Flow Rate 02/19/22 19:21 36.6 C 73 19 131/68 94 Nasal Cannula 4 02/19/22 16:00 36.4 C L 66 18 100/55 L Nasal Cannula 4.0 02/19/22 11:30 Nasal Cannula 6 02/19/22 11:40 36.5 C 75 18 130/71 97 Oxymask 8 02/19/22 11:00 58 L 17 100/51 L 92 Oxymask 10 02/19/22 10:00 63 17 112/51 L 90 Oxymask 10 02/19/22 10:53 Oxymask 02/19/22 09:00 60 11 L 114/52 L 92 Oxymask 10 PG Care Time/CCT Total # of Minutes Spent Total Time Spent with Patient: Total time spent is greater than 50% in coordination of care (as documented) at patient's floor/unit and/or counseling patient: Coding Level of Care Code 44121 Subseq Hosp Care Lvl 2 Diagnoses Acute respiratory failure with hypoxia J96.01 COVID-19 U07.1 Secondary bacterial pneumonia J15.9 Acute kidney injury N17.9 Non-ST elevation [place] (NSTEMI) I21.4 COPD (chronic obstructive pulmonary disease) J44.9 COPD type: chronic bronchitis Fibromyalgia M79.7 Hypothyroidism E03.9 Anxiety and depression F41.9; F32.9 Bladder spasms N32.89 Time Spent (min) 25 (1) COPD (chronic obstructive pulmonary disease) COPD type: chronic bronchitis
[2022-02-19] MEDS: TOLTERODINE TARTRATE 1 MG TAB PO SCH (21:03)
[2022-02-19] MEDS: DULoxetine HCL 30 MG CAP PO SCH (21:03)
[2022-02-19] MEDS: SENNA 8.6 MG TAB PO SCH (21:03)
[2022-02-19] MEDS: lamoTRIgine 100 MG TAB PO SCH (21:04)
[2022-02-19] MEDS: MIRTAZAPINE TAB 15 MG TAB PO SCH (21:04)
[2022-02-19] MEDS: ACETAMINOPHEN 500 MG TAB PO PRN (21:06)
[2022-02-19] MEDS: PREGABALIN 150 MG CAP PO SCH (21:18)
[2022-02-19] MEDS: LOPERAMIDE HCL 2 MG CAP PO PRN (21:20)
[2022-02-20] MEDS: PIPERACILLIN/TAZOBACTAM 4.5 GM in DEXTROSE 5% 100 ML IV SCH ×3 (03:06→19:16)
[2022-02-20] MEDS: LEVOTHYROXINE SODIUM 25 MCG TABLET PO SCH (06:13)
[2022-02-20 07:33] LABS: Hematocrit (blood only) 37.1 % (34.1-44.9); Hemoglobin 11.8 g/dl (12.0-16.0); Immature Granulocytes # (auto) 0.06 K/uL (0.00-0.02); Immature Granulocytes % (auto) 0.6 %; Lymphocytes % (auto) 12.6 %; Mean Corpuscular Hemoglobin 27.1 pg (25.0-34.0); Mean Corpuscular Hgb Conc 31.8 g/dL (32.0-36.0); Mean Corpuscular Volume 85.3 fL (80.0-100.0); Mean Platelet Volume 9.6 fL (9.4-12.3); Monocytes # (auto) 0.49 K/uL (0.24-0.82); Monocytes % (auto) 5.2 %; Neutrophils # (auto) 7.74 K/uL (1.4-6.5); Neutrophils % (auto) 81.6 %; Platelet Count 171 K/uL (130-400); RDW Coefficient of Variation 14.6 % (11.5-14.5); RDW Standard Deviation 45.9 fL (36.4-46.3); Red Blood Count 4.35 M/uL (3.93-5.22); White Blood Count 9.49 K/ul (4.8-10.8)
[2022-02-20] MEDS: ASPIRIN 81 MG CHEW PO SCH (07:34)
[2022-02-20] MEDS: dexAMETHasone 6 MG in SYRINGE 0 ML IV SCH (07:34)
[2022-02-20] MEDS: DULoxetine HCL 60 MG CAP PO SCH (07:34)
[2022-02-20] MEDS: CALCITRIOL 0.25 MCG CAPSULE PO SCH (07:34)
[2022-02-20] MEDS: ENOXAPARIN INJ 40 MG/0.4 ML SYR SQ SCH (07:35)
[2022-02-20] MEDS: TOLTERODINE TARTRATE 1 MG TAB PO SCH ×2 (07:35→20:54)
[2022-02-20] MEDS: ACETAMINOPHEN 500 MG TAB PO PRN ×2 (07:55→19:23)
[2022-02-20] MEDS: PREGABALIN 150 MG CAP PO SCH ×3 (07:55→20:53)
[2022-02-20] MEDS: LOPERAMIDE HCL 2 MG CAP PO PRN ×3 (07:55→19:23)
[2022-02-20 08:00] LABS: Albumin Level 3.5 gm/dl (3.4-5.0); BUN Creatinine Ratio 22.9 (10-20); C Reactive Protein 10.94 mg/dl (0-0.5); Calcium 8.8 mg/dl (8.5-10.1); Creatinine Clr Calc Pharmacy 65.3 ml/min; Est GFR (African American) 94.2 ml/min; Est GFR (Non-African American) 81.3 ml/min; Magnesium 2.1 mg/dl (1.7-2.4); Phosphorus 1.7 mg/dl (2.5-4.9); Potassium 3.9 mmol/L (3.5-5.1)
[2022-02-20] MEDS: REMDESIVIR 100 MG in SODIUM CHLORIDE 0.9% 230 ML IV SCH (11:34)
[2022-02-20] MEDS: busPIRone 15 MG TAB PO SCH ×3 (11:38→22:14)
[2022-02-20] MEDS: SENNA 8.6 MG TAB PO SCH (19:27)
[2022-02-20] MEDS: lamoTRIgine 100 MG TAB PO SCH (20:53)
[2022-02-20] MEDS: MIRTAZAPINE TAB 15 MG TAB PO SCH (20:54)
[2022-02-20] MEDS: DULoxetine HCL 30 MG CAP PO SCH (20:55)
--- NOTE | 2022-02-20 21:18 | Hospitalist Progress Note ---
Date of Service February 20, 2022 Assessment & Plan (1) Acute respiratory failure with hypoxia: Plan: Acute respiratory failure with hypoxia/ oxygen dependent COPD, COVID-19 pneumonia/secondary bacterial pneumonia- Patient requiring significantly higher amounts of oxygen to mean pulse ox in the low 90s, presently on a 15 L nonrebreather Unclear timing of onset of infections Intensity of infection with suggest longer than just a few days Patient did receive dexamethasone 6 mg IV in the ED Will continue dexamethasone 6 mg IV every morning Will place on remdesevir, as kidney function improved. stopped vancomycin. Zosyn 4.5 g IV every 8 hours continue on 2 liters nasal cannula Patient is feeling better on 02/20 Will obtain a 2 step on 02/21 to confirm she does not require more oxygen. zwill continue antibiotics and transition to augmentin at discharge. (2) COVID-19: Plan: Will admit with COVID-19 precautions (3) Secondary bacterial pneumonia: Plan: as above. (4) Acute kidney injury: Plan: creatinine appears to have improved. (5) Non-ST elevation [place] (NSTEMI): Plan: Troponin 1649.9 on admission EKG with normal sinus rhythm at [address]-T changes CTA chest negative for PE, but does show significant infection, and probable mild right heart strain. The patient will be admitted to telemetry for serial cardiac enzymes, serial EKG's, cardiac rhythm monitoring and a 2-D echocardiogram with Dopplers. (6) COPD (chronic obstructive pulmonary disease): (7) Fibromyalgia: (8) Hypothyroidism: Plan: will resume (9) Anxiety and depression: Plan: resumed her meds (10) Bladder spasms: Plan: resumed her meds Admission and Anticipated Discharge Date Admission Date: February 18, 2022 Subjective 81 yo female reports feeling close to baseline. Now back to her 2 liters at baseline Review of Systems Review of Systems: All systems reviewed & are unremarkable except as noted in HPI & below Physical Exam Physical Exam: The patient is awake alert and oriente atraumatic, lying in bed HEENT--PERRL, EOMI, mucous membranes and oropharynx dry. Neck--supple. No JVD. No bruits. Thyroid normal, trachea midline, no adenopathy. Heart--normal S1 and S2. No murmurs, rubs or gallops. Lungs--decreased wheezing. Abdomen--normal bowel sounds and soft. Nontender. Nondistended. Extremities--no cyanosis or clubbing. No edema. Dermatologic--normal skin turgor, normal color, no abnormal lymph nodes, no rash. Neurologic--cranial nerves II through XII grossly intact. Exam limited Rheumatologic--limited exam Psychiatric--awake alert oriented by 3. Results & Data Results & Data ([facility]) Vital Signs (Past 12 Hours) Vital Signs Temp Pulse Resp BP Pulse Ox O2 Del Method O2 Flow Rate 02/20/22 19:21 36.5 C 89 17 149/74 H 97 Nasal Cannula 2 02/20/22 11:29 36.7 C 88 19 155/75 H 96 Nasal Cannula 2.0 PG Care Time/CCT Total # of Minutes Spent Total Time Spent with Patient: Total time spent is greater than 50% in coordination of care (as documented) at patient's floor/unit and/or counseling patient: Coding Level of Care Code 31755 Subseq Hosp Care Lvl 2 Diagnoses Acute respiratory failure with hypoxia J96.01 COVID-19 U07.1 Secondary bacterial pneumonia J15.9 Acute kidney injury N17.9 Non-ST elevation [place] (NSTEMI) I21.4 COPD (chronic obstructive pulmonary disease) J44.9 COPD type: chronic bronchitis Fibromyalgia M79.7 Hypothyroidism E03.9 Anxiety and depression F41.9; F32.9 Bladder spasms N32.89 Time Spent (min) 25 (1) COPD (chronic obstructive pulmonary disease) COPD type: chronic bronchitis
[2022-02-21] MEDS: PIPERACILLIN/TAZOBACTAM 4.5 GM in DEXTROSE 5% 100 ML IV SCH ×2 (04:53→12:00)
[2022-02-21] MEDS: LEVOTHYROXINE SODIUM 25 MCG TABLET PO SCH (05:00)
[2022-02-21 06:44] LABS: Basophils # (auto) 0.02 K/uL (0-0.2); Basophils % (auto) 0.2 %; Hematocrit (blood only) 40.7 % (34.1-44.9); Hemoglobin 13.2 g/dl (12.0-16.0); Immature Granulocytes # (auto) 0.08 K/uL (0.00-0.02); Immature Granulocytes % (auto) 0.8 %; Lymphocytes # (auto) 1.92 K/uL (1.2-3.4); Lymphocytes % (auto) 20.1 %; Mean Corpuscular Hemoglobin 27.5 pg (25.0-34.0); Mean Corpuscular Hgb Conc 32.4 g/dL (32.0-36.0); Mean Corpuscular Volume 84.8 fL (80.0-100.0); Mean Platelet Volume 9.4 fL (9.4-12.3); Monocytes # (auto) 0.71 K/uL (0.24-0.82); Monocytes % (auto) 7.4 %; Neutrophils # (auto) 6.84 K/uL (1.4-6.5); Neutrophils % (auto) 71.5 %; Platelet Count 227 K/uL (130-400); RDW Coefficient of Variation 14.9 % (11.5-14.5); RDW Standard Deviation 45.5 fL (36.4-46.3); White Blood Count 9.57 K/ul (4.8-10.8)
[2022-02-21 06:56] LABS: Albumin Level 3.9 gm/dl (3.4-5.0); BUN Creatinine Ratio 20.5 (10-20); Calcium 9.4 mg/dl (8.5-10.1); Creatinine Clr Calc Pharmacy 55.2 ml/min; Est GFR (African American) 76.6 ml/min; Est GFR (Non-African American) 66.1 ml/min; Potassium 3.5 mmol/L (3.5-5.1)
[2022-02-21] MEDS: CALCITRIOL 0.25 MCG CAPSULE PO SCH (08:31)
[2022-02-21] MEDS: ENOXAPARIN INJ 40 MG/0.4 ML SYR SQ SCH (08:32)
[2022-02-21] MEDS: TOLTERODINE TARTRATE 1 MG TAB PO SCH ×2 (08:32→20:56)
[2022-02-21] MEDS: ASPIRIN 81 MG CHEW PO SCH (08:32)
[2022-02-21] MEDS: dexAMETHasone 6 MG in SYRINGE 0 ML IV SCH (08:34)
[2022-02-21] MEDS: PREGABALIN 150 MG CAP PO SCH ×3 (08:34→20:55)
--- NOTE | 2022-02-21 10:51 | Hospitalist Progress Note ---
Date of Service February 21, 2022 Assessment & Plan (1) COVID-19: Plan: COVID-19 isolation precautions Dexamethasone 6mg IV daily for total 10 days + remdesivir (5 day standard course) (2) Secondary bacterial pneumonia: Plan: Switch Zosyn to Unasyn for more usual CAP coverage, add azithromycin for atypical coverage (3) Acute respiratory failure with hypoxia: Plan: Acute respiratory failure with hypoxia/ oxygen dependent COPD, COVID-19 pneumonia/secondary bacterial pneumonia- Aim O2 sats > 90% (4) Acute kidney injury: Plan: creatinine appears to have improved. (5) Non-ST elevation NV (NSTEMI): Plan: Troponin 1649.9 on admission - downtrended consistent with demand-ischemia EKG with normal sinus rhythm at [address]-T changes CTA chest negative for PE, but does show significant infection, and probable mild right heart strain. TTE - no regional wall abnormalities Stable to come off PCU (6) COPD (chronic obstructive pulmonary disease): (7) Fibromyalgia: (8) Hypothyroidism: Plan: Continue levothyroxine (9) Anxiety and depression: Plan: Continue her routine home meds (10) Bladder spasms: Plan: Continue her routine home meds Plan VTE Prophylaxis - Lovenox 40mg SQ daily Diet - heart healthy Disposition - stable for downgrade to med/surg, PT/OT evals ordered Admission and Anticipated Discharge Date Admission Date: February 18, 2022 Subjective Reports significant improvement since admission. Remains very fatigued with loss of taste. Cough improved. Less short of breath.Eating and drinking well. Tried calling nephew to update but no answer on number on EHR. Review of Systems Review of Systems: All systems reviewed & are unremarkable except as noted in Subjective Physical Exam Constitutional: WD/WN, vitals as above Respiratory: normal respiratory effort; no respiratory distress Auscul tation: + crackles (bibasal) and + rhonchi (anteriorly); breath sounds present, no diminished lung sounds and no wheezes Cardiovascular: RRR, no murmur, no edema Gastrointestinal (Abdomen): normal bowel sounds, soft, nontender, no hepatosplenomegaly Musculoskeletal: no cyanosis or clubbing, extremities motor strength 5/5 Psychiatric: A+Ox3, euthymic affect Results & Data Results & Data ([facility]) Vital Signs (Past 12 Hours) Vital Signs Temp Pulse Pulse Resp BP Pulse Ox O2 Del Method 02/21/22 08:00 36.6 C 82 18 149/76 H 95 Nasal Cannula 02/21/22 02:10 36.6 C 97 H 18 164/80 H 97 Nasal Cannula 02/21/22 00:08 92 H O2 Flow Rate 02/21/22 08:00 2 02/21/22 02:10 2 02/21/22 00:08 PG Care Time/CCT Total # of Minutes Spent Total Time Spent with Patient: Total time spent is greater than 50% in coordination of care (as documented) at patient's floor/unit and/or counseling patient: Coding Level of Care Code 37032 Subseq Hosp Care Lvl 2 Diagnoses COVID-19 U07.1 Secondary bacterial pneumonia J15.9 Acute respiratory failure with hypoxia J96.01 Acute kidney injury N17.9 Non-ST elevation NV (NSTEMI) I21.4 COPD (chronic obstructive pulmonary disease) J44.9 COPD type: chronic bronchitis Fibromyalgia M79.7 Hypothyroidism E03.9 Anxiety and depression F41.9; F32.9 Bladder spasms N32.89 (1) COPD (chronic obstructive pulmonary disease) COPD type: chronic bronchitis
[2022-02-21] MEDS: DULoxetine HCL 60 MG CAP PO SCH (11:18)
[2022-02-21] MEDS: busPIRone 15 MG TAB PO SCH ×3 (11:18→20:53)
[2022-02-21] MEDS: REMDESIVIR 100 MG in SODIUM CHLORIDE 0.9% 230 ML IV SCH (14:08)
[2022-02-21] MEDS: AZITHROMYCIN 250 MG TAB PO SCH (15:26)
--- NOTE | 2022-02-21 16:43 | XCELERA ---
[id number]
[2022-02-21] MEDS: AMPICILLIN/SULBACTAM SOD 3,000 MG in 0.9 % SODIUM CHLORIDE 100 ML IV SCH (20:47)
[2022-02-21] MEDS: DULoxetine HCL 30 MG CAP PO SCH (20:54)
[2022-02-21] MEDS: lamoTRIgine 100 MG TAB PO SCH (20:55)
[2022-02-21] MEDS: MIRTAZAPINE TAB 15 MG TAB PO SCH (20:56)
[2022-02-21] MEDS: MELATONIN 3 MG TAB PO PRN (21:21)
[2022-02-22] MEDS: AMPICILLIN/SULBACTAM SOD 3,000 MG in 0.9 % SODIUM CHLORIDE 100 ML IV SCH ×4 (02:22→20:40)
[2022-02-22] MEDS: LEVOTHYROXINE SODIUM 25 MCG TABLET PO SCH (05:39)
[2022-02-22 06:33] LABS: Basophils # (auto) 0.02 K/uL (0-0.2); Basophils % (auto) 0.3 %; Hematocrit (blood only) 43.7 % (34.1-44.9); Hemoglobin 14.2 g/dl (12.0-16.0); Immature Granulocytes # (auto) 0.08 K/uL (0.00-0.02); Lymphocytes # (auto) 1.99 K/uL (1.2-3.4); Mean Corpuscular Hemoglobin 26.8 pg (25.0-34.0); Mean Corpuscular Hgb Conc 32.5 g/dL (32.0-36.0); Mean Corpuscular Volume 82.5 fL (80.0-100.0); Mean Platelet Volume 9.4 fL (9.4-12.3); Monocytes # (auto) 0.68 K/uL (0.24-0.82); Monocytes % (auto) 8.5 %; Neutrophils # (auto) 5.19 K/uL (1.4-6.5); Neutrophils % (auto) 65.2 %; Platelet Count 229 K/uL (130-400); RDW Coefficient of Variation 14.5 % (11.5-14.5); RDW Standard Deviation 43.6 fL (36.4-46.3); White Blood Count 7.96 K/ul (4.8-10.8)
[2022-02-22 07:00] LABS: Calcium 9.4 mg/dl (8.5-10.1); Creatinine Clr Calc Pharmacy 50.3 ml/min; Est GFR (African American) 68.6 ml/min; Est GFR (Non-African American) 59.2 ml/min; Potassium 3.1 mmol/L (3.5-5.1)
[2022-02-22] MEDS: CALCITRIOL 0.25 MCG CAPSULE PO SCH (10:01)
[2022-02-22] MEDS: busPIRone 15 MG TAB PO SCH ×3 (10:01→20:48)
[2022-02-22] MEDS: PREGABALIN 150 MG CAP PO SCH ×3 (10:01→20:48)
[2022-02-22] MEDS: ASPIRIN 81 MG CHEW PO SCH (10:02)
[2022-02-22] MEDS: TOLTERODINE TARTRATE 1 MG TAB PO SCH ×2 (10:02→20:49)
[2022-02-22] MEDS: ENOXAPARIN INJ 40 MG/0.4 ML SYR SQ SCH (10:02)
[2022-02-22] MEDS: DULoxetine HCL 60 MG CAP PO SCH (10:03)
[2022-02-22] MEDS: dexAMETHasone 6 MG in SYRINGE 0 ML IV SCH (10:06)
[2022-02-22] MEDS ORDERED: POTASSIUM CHLORIDE CRTAB 20 MEQ TABCR PO STA (11:42)
[2022-02-22] MEDS: AZITHROMYCIN 250 MG TAB PO SCH (11:45)
[2022-02-22] MEDS: REMDESIVIR 100 MG in SODIUM CHLORIDE 0.9% 230 ML IV SCH (11:47)
--- NOTE | 2022-02-22 19:33 | Hospitalist Progress Note ---
Date of Service February 22, 2022 Assessment & Plan (1) COVID-19: Plan: COVID-19 isolation precautions Dexamethasone 6mg IV daily for total 10 days + remdesivir (5 day standard course) (2) Secondary bacterial pneumonia: Plan: Switched Zosyn to Unasyn for more usual CAP coverage (can switch to Augmentin to finish 7 day course tomorrow), continue azithromycin for atypical coverage (3) Acute respiratory failure with hypoxia: Plan: Acute respiratory failure with hypoxia/ oxygen dependent COPD, COVID-19 pneumonia/secondary bacterial pneumonia- Aim O2 sats > 90% On baseline 2LPm O2 at current time (4) Acute kidney injury: Plan: Resolved (5) Non-ST elevation ID (NSTEMI): Plan: Type 2 - demand ischemia Troponin 1649.9 on admission - downtrended consistent with demand-ischemia EKG with normal sinus rhythm at [address]-T changes CTA chest negative for PE, but does show significant infection, and probable mild right heart strain. TTE - no regional wall abnormalities (6) COPD (chronic obstructive pulmonary disease): (7) Fibromyalgia: (8) Hypothyroidism: Plan: Continue levothyroxine (9) Anxiety and depression: Plan: Continue her routine home meds (10) Bladder spasms: Plan: Continue her routine home meds Plan VTE Prophylaxis - Lovenox 40mg SQ daily Diet - heart healthy Disposition - continue on med/surg, medically stable for discharge however pending [facility] accepting her back Friday per case management note Admission and Anticipated Discharge Date Admission Date: February 18, 2022 Subjective Patient keen for discharge. Reports feeling quite restless in the hospital setting. Fatigue and shortness of breath ongoing but improving on a daily basis. Dry Cough. No fever or chills. Review of Systems Review of Systems: All systems reviewed & are unremarkable except as noted in Subjective Physical Exam Constitutional: WD/WN, vitals as above Respiratory: normal respiratory effort; no respiratory distress Auscultation: + crackles (bibasal) and + rhonchi (anteriorly); breath sounds present, no diminished lung sounds and no wheezes Cardiovascular: RRR, no murmur, no edema Gastrointestinal (Abdomen): normal bowel sounds, soft, nontender, no hepatosplenomegaly Musculoskeletal: no cyanosis or clubbing, extremities motor strength 5/5 Psychiatric: A+Ox3, euthymic affect Results & Data Results & Data ([facility]) Vital Signs (Past 12 Hours) Vital Signs Temp Pulse Pulse Resp BP Pulse Ox Pulse Ox 02/22/22 19:20 36.8 C 85 18 147/69 H 94 02/22/22 14:07 83 02/22/22 15:48 36.9 C 88 19 149/79 H 95 02/22/22 13:14 95 02/22/22 11:48 36.8 C 81 18 163/72 H 96 02/22/22 09:59 02/22/22 07:42 36.6 C 78 18 160/71 H 93 O2 Del Method O2 Flow Rate O2 Flow Rate 02/22/22 19:20 Nasal Cannula 2 02/22/22 14:07 02/22/22 15:48 Nasal Cannula 2 02/22/22 13:14 2 02/22/22 11:48 Nasal Cannula 2 02/22/22 09:59 Nasal Cannula 2 02/22/22 07:42 Nasal Cannula 2 PG Care Time/CCT Total # of Minutes Spent Total Time Spent with Patient: Total time spent is greater than 50% in coordination of care (as documented) at patient's floor/unit and/or counseling patient: Coding Level of Care Code 15267 Subseq Hosp Care Lvl 2 Diagnoses COVID-19 U07.1 Secondary bacterial pneumonia J15.9 Acute respiratory failure with hypoxia J96.01 Acute kidney injury N17.9 Non-ST elevation ID (NSTEMI) I21.4 COPD (chronic obstructive pulmonary disease) J44.9 COPD type: chronic bronchitis Fibromyalgia M79.7 Hypothyroidism E03.9 Anxiety and depression F41.9; F32.9 Bladder spasms N32.89 (1) COPD (chronic obstructive pulmonary disease) COPD type: chronic bronchitis
[2022-02-22] MEDS: DULoxetine HCL 30 MG CAP PO SCH (20:49)
[2022-02-22] MEDS: MIRTAZAPINE TAB 15 MG TAB PO SCH (20:51)
[2022-02-22] MEDS: lamoTRIgine 100 MG TAB PO SCH (20:51)
[2022-02-23] MEDS: AMPICILLIN/SULBACTAM SOD 3,000 MG in 0.9 % SODIUM CHLORIDE 100 ML IV SCH (01:02)
[2022-02-23] MEDS: LEVOTHYROXINE SODIUM 25 MCG TABLET PO SCH (05:56)
[2022-02-23 08:29] LABS: Calcium 8.8 mg/dl (8.5-10.1); Creatinine Clr Calc Pharmacy 46.2 ml/min; Est GFR (African American) 64.3 ml/min; Est GFR (Non-African American) 55.5 ml/min; Potassium 3.4 mmol/L (3.5-5.1)
[2022-02-23] MEDS: AMOXICILLIN/CLAVULANATE 875 MG TAB PO SCH ×2 (09:37→18:13)
[2022-02-23] MEDS: ENOXAPARIN INJ 40 MG/0.4 ML SYR SQ SCH (09:37)
[2022-02-23] MEDS: dexAMETHasone 6 MG in SYRINGE 0 ML IV SCH (09:37)
[2022-02-23] MEDS: PREGABALIN 150 MG CAP PO SCH ×3 (09:37→22:02)
[2022-02-23] MEDS: AZITHROMYCIN 250 MG TAB PO SCH (09:37)
[2022-02-23] MEDS: CALCITRIOL 0.25 MCG CAPSULE PO SCH (09:38)
[2022-02-23] MEDS: ASPIRIN 81 MG CHEW PO SCH (09:38)
[2022-02-23] MEDS: DULoxetine HCL 60 MG CAP PO SCH (09:38)
[2022-02-23] MEDS: TOLTERODINE TARTRATE 1 MG TAB PO SCH ×2 (09:38→22:01)
[2022-02-23] MEDS: busPIRone 15 MG TAB PO SCH ×3 (12:08→22:01)
[2022-02-23] MEDS: REMDESIVIR 100 MG in SODIUM CHLORIDE 0.9% 230 ML IV SCH (12:11)
[2022-02-23] MEDS: DULoxetine HCL 30 MG CAP PO SCH (22:01)
[2022-02-23] MEDS: lamoTRIgine 100 MG TAB PO SCH (22:01)
[2022-02-23] MEDS: MIRTAZAPINE TAB 15 MG TAB PO SCH (22:01)
[2022-02-23] MEDS: POLYETHYLENE (MIRALAX) 17 GM PACK PO SCH (23:04)
--- NOTE | 2022-02-23 23:25 | Hospitalist Progress Note ---
Date of Service February 23, 2022 Assessment & Plan (1) COVID-19: Plan: COVID-19 isolation precautions per protocol Treatment started 02/18/2022 Dexamethasone 6mg IV daily for total 10 days + remdesivir (5 day standard course) Patient had started on Molnupiravir as an outpatient. This should not be continued on discharge Patient is now back to baseline as far as her oxygenation at 2 L/min via nasal cannula. No acute shortness of breath. No fever. (2) Secondary bacterial pneumonia: Plan: Switched Zosyn to Unasyn for more usual CAP coverage (can switch to Augmentin to finish 7 day course tomorrow), Azithromycin for atypical coverage was completed and has been stopped (3) Acute respiratory failure with hypoxia: Plan: Resolved Acute respiratory failure with hypoxia/ oxygen dependent COPD, COVID-19 pneumonia/secondary bacterial pneumonia- Aim O2 sats > 90% On baseline 2LPm O2 at home (4) Acute kidney injury: Plan: Resolved (5) Non-ST elevation NE (NSTEMI): Plan: Type 2 - demand ischemia Troponin 1649.9 on admission - downtrended consistent with demand-ischemia EKG with normal sinus rhythm at [address]-T changes CTA chest negative for PE, but does show significant infection, and probable mild right heart strain. TTE - no regional wall abnormalities (6) COPD (chronic obstructive pulmonary disease): Plan: Does not appear to be on any home inhalers or nebulizer treatments. No wheezes on examination Baseline oxygen requirements of 2L/min per nasal cannula (7) Fibromyalgia: Plan: No acute complaints (8) Hypothyroidism: Plan: Continue levothyroxine (9) Anxiety and depression: Plan: Continue her routine home meds (10) Bladder spasms: Plan: Continue her routine home meds Plan VTE Prophylaxis - Lovenox 40mg SQ daily Diet - heart healthy Disposition - continue on med/surg, medically stable for discharge however pending [facility] accepting her back Friday per case management note Admission and Anticipated Discharge Date Admission Date: February 18, 2022 Supervising Physician Co-Signing Physician Notes Attending Attestation - Chart reviewed, care plan d/w MARISABEL Pereyra. I agree with the tolbert components of his documentation. Wong Acharya MD Subjective Attending: Dr. Acharya Patient seen and examined in room 232. She is doing relatively well. She has no shortness of breath. She is on 2 L of supplemental oxygen which is her baseline at home and saturating 94%. She has no cough. She has no sputum production. She denies any chest pain. She further denies any fever. Primary complaint today is she has constipation. She would like bowel regimen reviewed and is agreeable to use senna, Colace, MiraLAX. No other acute complaints. Review of Systems Review of Systems: A total of 10 systems was reviewed and is negative other than as listed in the HPI Physical Exam Physical Exam: GENERAL : No acute distress EYES: No icterus, gaze conjugate NOSE: No evidence of epistaxis. Nasal cannula is in place and secure MOUTH: No lesions or candidiasis NECK: Supple LUNGS: Very fine bibasilar crackles. Otherwise, CTA B/L, no wheezes, other rales or rhonchi HEART: Regular, rate controlled ABDOMEN: Soft, NT, ND, BS Present EXTREMITIES: No LE edema, pedal pulses intact NEURO: A&OX3 Results & Data Results & Data ([facility]) Vital Signs (Past 12 Hours) Vital Signs Temp Pulse Resp BP BP Pulse Ox O2 Del Method 02/23/22 22:29 36.9 C 94 H 18 143/81 H 96 Nasal Cannula 02/23/22 18:41 36.7 C 91 H 18 144/80 H 99 Nasal Cannula 02/23/22 13:35 94 O2 Flow Rate 02/23/22 22:29 2 02/23/22 18:41 2 02/23/22 13:35 Critical Care Results & Data Vital Signs (Past 12 Hours) Vital Signs Temp Pulse Resp BP BP Pulse Ox O2 Del Method 02/23/22 22:29 36.9 C 94 H 18 143/81 H 96 Nasal Cannula 02/23/22 18:41 36.7 C 91 H 18 144/80 H 99 Nasal Cannula 02/23/22 13:35 94 O2 Flow Rate 02/23/22 22:29 2 02/23/22 18:41 2 02/23/22 13:35 Lab & Micro Results (Past 24 Hours) No Data to Display No Data to Display No Data to Display I & O Totals 24 Hours 02/22/22 02/23/22 02/24/22 06:59 06:59 06:59 Intake Total 964 / 964 1054 / 1054 250 / 250 Balance 964 / 964 1054 / 1054 250 / 250 Cumulative 02/18/22 22:03 thru 02/23/22 13:18 Intake Total 6236 Output Total 4 Balance 6232 RT Ventilator Mngmt (Last Documented) Ventilator Ordered Settings Respiratory Rate 18 02/23/22 22:29 Ventilator - PT Measurements Respiratory Rate 18 PG Care Time/CCT Total # of Minutes Spent Total Time Spent with Patient: Total time spent is greater than 50% in coordination of care (as documented) at patient's floor/unit and/or counseling patient: Coding Level of Care Code 30711 Subseq Hosp Care Lvl 2 Diagnoses COVID-19 U07.1 Secondary bacterial pneumonia J15.9 Acute respiratory failure with hypoxia J96.01 Acute kidney injury N17.9 Non-ST elevation NE (NSTEMI) I21.4 COPD (chronic obstructive pulmonary disease) J44.9 COPD type: chronic bronchitis Fibromyalgia M79.7 Hypothyroidism E03.9 Anxiety and depression F41.9; F32.9 Bladder spasms N32.89 (1) COPD (chronic obstructive pulmonary disease) COPD type: chronic bronchitis
[2022-02-24] MEDS: LEVOTHYROXINE SODIUM 25 MCG TABLET PO SCH (05:32)
[2022-02-24 06:09] LABS: BUN Creatinine Ratio 29.8 (10-20); Calcium 8.9 mg/dl (8.5-10.1); Creatinine Clr Calc Pharmacy 52.4 ml/min; Est GFR (African American) 75.5 ml/min; Est GFR (Non-African American) 65.2 ml/min; Potassium 3.6 mmol/L (3.5-5.1)
[2022-02-24] MEDS: CALCITRIOL 0.25 MCG CAPSULE PO SCH (08:54)
[2022-02-24] MEDS: DULoxetine HCL 60 MG CAP PO SCH (08:55)
[2022-02-24] MEDS: ENOXAPARIN INJ 40 MG/0.4 ML SYR SQ SCH (08:55)
[2022-02-24] MEDS: TOLTERODINE TARTRATE 1 MG TAB PO SCH ×2 (08:55→20:24)
[2022-02-24] MEDS: ASPIRIN 81 MG CHEW PO SCH (08:55)
[2022-02-24] MEDS: AMOXICILLIN/CLAVULANATE 875 MG TAB PO SCH ×2 (08:55→17:47)
[2022-02-24] MEDS: dexAMETHasone 6 MG in SYRINGE 0 ML IV SCH (08:56)
[2022-02-24] MEDS: SENNA 8.6 MG TAB PO SCH (08:56)
[2022-02-24] MEDS: POLYETHYLENE (MIRALAX) 17 GM PACK PO SCH ×2 (08:56→20:22)
[2022-02-24] MEDS: PREGABALIN 150 MG CAP PO SCH ×3 (09:04→20:24)
[2022-02-24] MEDS: busPIRone 15 MG TAB PO SCH ×3 (11:22→22:08)
[2022-02-24] MEDS ORDERED: SENNA 8.6 MG TAB PO STA (13:30)
[2022-02-24] MEDS: MIRTAZAPINE TAB 15 MG TAB PO SCH (20:24)
[2022-02-24] MEDS: DULoxetine HCL 30 MG CAP PO SCH (20:24)
[2022-02-24] MEDS: lamoTRIgine 100 MG TAB PO SCH (20:24)
[2022-02-24] MEDS ORDERED: SENNA 8.6 MG TAB PO SCH (21:00)
[2022-02-24] MEDS: MELATONIN 3 MG TAB PO PRN (22:08)
--- NOTE | 2022-02-24 22:19 | Hospitalist Progress Note ---
Date of Service February 24, 2022 Assessment & Plan (1) COVID-19: Plan: COVID-19 isolation precautions per protocol Treatment started 02/18/2022 Dexamethasone 6mg IV daily for total 10 days + remdesivir (5 day standard course). Patient considerably improved. Will not require remdesivir or dexamethasone on discharge Patient had started on Molnupiravir as an outpatient. This should not be continued on discharge Patient is now back to baseline as far as her oxygenation at 2 L/min via nasal cannula. No acute shortness of breath. No fever. Anticipate discharge back to [facility] in [place] tomorrow after she completes her 7-day quarantine (2) Secondary bacterial pneumonia: Plan: Switched Zosyn to Unasyn for more usual CAP coverage (can switch to Augmentin to finish 7 day course tomorrow), Azithromycin for atypical coverage was completed and has been stopped No further cough or sputum production. Afebrile. (3) Acute respiratory failure with hypoxia: Plan: Resolved Acute respiratory failure with hypoxia/ oxygen dependent COPD, COVID-19 pneumonia/secondary bacterial pneumonia- Aim O2 sats > 90% On baseline 2LPm O2 at home (4) Acute kidney injury: Plan: Resolved (5) Non-ST elevation ID (NSTEMI): Plan: Type 2 - demand ischemia Troponin 1649.9 on admission - downtrended consistent with demand-ischemia EKG with normal sinus rhythm at [address]-T changes and unchanged as compared to EKGs going back to 2019 CTA chest negative for PE, but does show significant infection, and probable mild right heart strain. TTE - no regional wall abnormalities or other structural changes. (6) COPD (chronic obstructive pulmonary disease): Plan: Does not appear to be on any home inhalers or nebulizer treatments. No wheezes on examination Baseline oxygen requirements of 2L/min per nasal cannula Patient does smoke marijuana. Advised her that this may complicate her lung disease. (7) Fibromyalgia: Plan: No acute complaints (8) Hypothyroidism: Plan: Continue levothyroxine (9) Anxiety and depression: Plan: Continue her routine home meds (10) Bladder spasms: Plan: Continue her routine home meds Plan VTE Prophylaxis - Lovenox 40mg SQ daily Diet - heart healthy Disposition - continue on med/surg, medically stable for discharge however pending [facility] accepting her back tomorrow per case management note Admission and Anticipated Discharge Date Admission Date: February 18, 2022 Supervising Physician Co-Signing Physician Notes Attending Attestation - Chart reviewed, care plan d/w MARISABEL Pereyra. I agree with the tolbert components of his documentation. Wong Acharya MD Subjective Attending: Dr. Acharya Patient seen and examined in room 358. On arrival patient states that she did have bowel movement. She has no acute pain or discomfort. She is anxious to be discharged back to home tomorrow and is hopeful that [facility] in [place] will accept her. She is stable with her oxygenation and is using supplemental oxygen 2 L/min via nasal cannula. She denies fever, chills, sweats, rigors. No other acute complaints at this time. Review of Systems Review of Systems: A total of 10 systems was reviewed and is negative other than as listed in the HPI Physical Exam Physical Exam: GENERAL : No acute distress EYES: No icterus, gaze conjugate NOSE: No evidence of epistaxis. Nasal cannula is in place and secure MOUTH: No lesions or candidiasis NECK: Supple LUNGS: Very fine bibasilar crackles. Otherwise, CTA B/L, no wheezes, other rales or rhonchi HEART: Regular, rate controlled ABDOMEN: Soft, NT, ND, BS Present EXTREMITIES: No LE edema, pedal pulses intact NEURO: A&OX3 Results & Data Results & Data ([facility]) Vital Signs (Past 12 Hours) Vital Signs Temp Pulse Resp BP Pulse Ox O2 Del Method O2 Flow Rate 02/24/22 20:48 36.5 C 84 18 158/75 H 97 Nasal Cannula 2 02/24/22 15:19 37.4 C 86 16 146/72 H 97 Nasal Cannula 3 02/24/22 11:07 Nasal Cannula 2 Critical Care Results & Data Vital Signs (Past 12 Hours) Vital Signs Temp Pulse Resp BP Pulse Ox O2 Del Method O2 Flow Rate 02/24/22 20:48 36.5 C 84 18 158/75 H 97 Nasal Cannula 2 02/24/22 15:19 37.4 C 86 16 146/72 H 97 Nasal Cannula 3 02/24/22 11:07 Nasal Cannula 2 Lab & Micro Results (Past 24 Hours) No Data to Display No Data to Display No Data to Display Microbiology 02/18/22 22:29 Aerobic Blood Culture - Final Blood No growth in Aerobic bottle after 5 days. Anaerobic Blood Culture - Final No growth in Anaerobic bottle after 5 days. 02/18/22 22:29 Aerobic Blood Culture - Final Blood No growth in Aerobic bottle after 5 days. Anaerobic Blood Culture - Final No growth in Anaerobic bottle after 5 days. I & O Totals 24 Hours 02/23/22 02/24/22 02/25/22 06:59 06:59 06:59 Intake Total 1054 / 1054 250 / 250 Output Total Balance 1054 / 1054 249 / 249 - Cumulative 02/18/22 22:03 thru 02/24/22 20:50 Intake Total 6236 Output Total 6 Balance 6230 RT Ventilator Mngmt (Last Documented) Ventilator Ordered Settings Respiratory Rate 18 02/24/22 20:48 Ventilator - PT Measurements Respiratory Rate 18 PG Care Time/CCT Total # of Minutes Spent Total Time Spent with Patient: Total time spent is greater than 50% in coordination of care (as documented) at patient's floor/unit and/or counseling patient: Coding Level of Care Code 69677 Subseq Hosp Care Lvl 2 Diagnoses COVID-19 U07.1 Secondary bacterial pneumonia J15.9 Acute respiratory failure with hypoxia J96.01 Acute kidney injury N17.9 Non-ST elevation ID (NSTEMI) I21.4 COPD (chronic obstructive pulmonary disease) J44.9 COPD type: chronic bronchitis Fibromyalgia M79.7 Hypothyroidism E03.9 Anxiety and depression F41.9; F32.9 Bladder spasms N32.89 (1) COPD (chronic obstructive pulmonary disease) COPD type: chronic bronchitis
[2022-02-25] MEDS: LEVOTHYROXINE SODIUM 25 MCG TABLET PO SCH (05:57)
[2022-02-25 06:39] LABS: BUN Creatinine Ratio 18.4 (10-20); Calcium 8.6 mg/dl (8.5-10.1); Creatinine Clr Calc Pharmacy 38.6 ml/min; Est GFR (African American) 52.2 ml/min; Est GFR (Non-African American) 45.1 ml/min; Potassium 3.5 mmol/L (3.5-5.1)
[2022-02-25] MEDS: AMOXICILLIN/CLAVULANATE 875 MG TAB PO SCH ×2 (08:58→17:29)
[2022-02-25] MEDS: SENNA 8.6 MG TAB PO SCH (09:00)
[2022-02-25] MEDS: ENOXAPARIN INJ 40 MG/0.4 ML SYR SQ SCH (09:00)
[2022-02-25] MEDS: TOLTERODINE TARTRATE 1 MG TAB PO SCH (09:00)
[2022-02-25] MEDS: CALCITRIOL 0.25 MCG CAPSULE PO SCH (09:00)
[2022-02-25] MEDS: DULoxetine HCL 60 MG CAP PO SCH (09:00)
[2022-02-25] MEDS: POLYETHYLENE (MIRALAX) 17 GM PACK PO SCH (09:00)
[2022-02-25] MEDS: dexAMETHasone 6 MG in SYRINGE 0 ML IV SCH (09:06)
[2022-02-25] MEDS: ASPIRIN 81 MG CHEW PO SCH (09:06)
[2022-02-25] MEDS: PREGABALIN 150 MG CAP PO SCH ×2 (09:06→13:53)
[2022-02-25] MEDS: busPIRone 15 MG TAB PO SCH ×2 (12:08→17:29)
--- NOTE | 2022-03-04 11:17 | Discharge Summary ---
Date of Service February 25, 2022 Admission HPI Per Admitting Provider The patient is a 81-year-old female with past medical history including oxygen dependent COPD, NSTEMI, chronic anemia, fibromyalgia, mood disorder, dermatitis, hypothyroidism, allergic rhinitis, insomnia and bladder spasm. As noted above she is a poor historian, and is not able to contribute to her HPI or ROS. In the emergency department, she was found to be 88% pulse ox on 6 L nasal cannula O2, and then had to be moved to 15 L nonrebreather to get pulse ox to 96%. As noted, patient was COVID-19 positive as a cause of [place] last night, and she is COVID-19 positive in the emergency department this evening. Significant imaging: Chest x-ray and CT angiography of chest reveal a dense right middle lobe and right lower lobe consolidation, also including right upper lobe, lingula and left lower lobe. Admission Exam Per Admitting Provider Physical Exam: The patient is lethargic and not arousable, normocephalic and atraumatic, lying in bed with grossly audible coarse breath sounds and wheezes. HEENT--PERRL, EOMI, mucous membranes and oropharynx dry. Neck--supple. No JVD. No bruits. Thyroid normal, trachea midline, no adenopathy. Heart--normal S1 and S2. No murmurs, rubs or gallops. Lungs--coarse breath sounds and wheezes, right greater than left. Abdomen--normal bowel sounds and soft. Nontender. Nondistended. Extremities--no cyanosis or clubbing. No edema. Dermatologic--normal skin turgor, normal color, no abnormal lymph nodes, no rash. Neurologic--cranial nerves II through XII grossly intact. Exam limited Rheumatologic--limited exam Psychiatric--lethargic and not arousable Principal Diagnosis Acute respiratory failure with hypoxia secondary to COVID-19 infection Discharge Exam GENERAL : No acute distress EYES: No icterus, gaze conjugate NOSE: No evidence of epistaxis. Nasal cannula is in place and secure MOUTH: No lesions or candidiasis NECK: Supple LUNGS: Very fine bibasilar crackles. Otherwise, CTA B/L, no wheezes, other rales or rhonchi HEART: Regular, rate controlled ABDOMEN: Soft, NT, ND, BS Present EXTREMITIES: No LE edema, pedal pulses intact NEURO: A&OX3 Discharge Data Allergies Allergy/AdvReac Type Severity Reaction Status Date / Time No Known Allergies Allergy Verified 02/19/22 00:22 Consultations 02/18/22 23:31 ED Decision to Admit Stat Ordered Studies 02/18/22 22:50 CT angio chest PE protocol Stat CT angio chest PE protocol CLINICAL HISTORY: PE, severe hypoxia, covid TECHNIQUE: Multidetector row helical CT of the chest was performed with angiographic protocol. Coronal and sagittal reformations were obtained. Coronal and sagittal MIPS were obtained from the axial data set and were submitted for review. Automated dose lowering techniques and/or adjustment according to patient size were utilized for this exam. CT DOSE: 1205.57 mGy.cm Comparison: Comparison is made to CTA chest 04/10/2019 FINDINGS: Lungs and pleura: Consolidative densities are seen most prominently in the right lower lobe with a fat-containing bilateral lungs. Atelectasis is seen. Bronchial wall thickening is seen. The right lower lobe bronchus is occluded. Heart and pericardium: Cardiomegaly is seen with biatrial enlargement. Vessels: No evidence of pulmonary embolism. Mediastinum and jas: Subcentimeter lymph nodes are seen. Chest wall and lower neck: Subcentimeter axillary lymph nodes noted. Abdomen: Unremarkable. Bones: Degenerative changes in the thoracic spine. IMPRESSION: Extensive bronchial wall thickening with narrowing of multiple bronchi including the right lower lobe bronchus. Extensive consolidations are seen. Findings are compatible with infectious/inflammatory bronchitis and pneumonia. No evidence of pulmonary embolus. Mediastinal and hilar lymph nodes are likely reactive. ACT 112: Negative or not required by law. Electronically signed by: Carlos Eduardo Evans M.D. 02/19/2022 8:[address] head/brain wo con Stat 02/19/2022 CT OF THE HEAD WITHOUT CONTRAST CLINICAL HISTORY: Confusion. COMPARISON STUDY: MRI of the brain August 07, [address] October 04, 2015. TECHNIQUE: Helical axial images of the head were obtained without IV contrast. Automated exposure control was utilized for the study. A dose lowering technique was utilized adhering to the principles of ALARA. FINDINGS: No acute intracranial hemorrhage, midline shift or mass effect is present. The ventricular system is unremarkable. The basal cisterns are patent. No extra-axial collections are present. There are no findings to suggest acute dural sinus thrombosis or acute territorial infarct. The appearance of the brain is unchanged. Mild white matter hypodensity suggests small vessel disease. IMPRESSION: No acute intracranial findings. ACT 112: Negative or not required by law. Electronically signed by: Venkat Dean M.D. 02/19/2022 9:07 AM Hospital Course (1) COVID-19: COVID-19 isolation precautions per protocol Treatment started 02/18/2022 Dexamethasone 6mg IV daily for total 10 days + remdesivir (5 day standard course). Patient considerably improved. Will not require remdesivir or dexamethasone on discharge Patient had started on Molnupiravir as an outpatient. This should not be continued on discharge Patient is now back to baseline as far as her oxygenation at 2 L/min via nasal cannula. No acute shortness of breath. No fever. Discharge back to [facility]. She has completed her 7-day quarantine (2) Secondary bacterial pneumonia: Switched Zosyn to Unasyn for more usual CAP coverage. Completed treatment with Augmentin to finish 7 day course. No antibiotics needed on discharge Azithromycin for atypical coverage was completed and has been stopped No further cough or sputum production. Afebrile. (3) Acute respiratory failure with hypoxia: Resolved Acute respiratory failure with hypoxia/ oxygen dependent COPD, COVID-19 pneumonia/secondary bacterial pneumonia- Aim O2 sats > 90% On baseline 2LPm O2 at home (4) Acute kidney injury: Resolved (5) Non-ST elevation FL (NSTEMI): Type 2 - demand ischemia Troponin 1649.9 on admission - downtrended consistent with demand-ischemia EKG with normal sinus rhythm at [address]-T changes and unchanged as compared to EKGs going back to 2019 CTA chest negative for PE, but does show significant infection, and probable mild right heart strain. TTE - no regional wall abnormalities or other structural changes. (6) COPD (chronic obstructive pulmonary disease): Does not appear to be on any home inhalers or nebulizer treatments. No wheezes on examination Baseline oxygen requirements of 2L/min per nasal cannula Patient does smoke marijuana. Advised her that this may complicate her lung disease. (7) Fibromyalgia: No acute complaints (8) Hypothyroidism: Continue levothyroxine (9) Anxiety and depression: Continue her routine home meds (10) Bladder spasms: Continue her routine home meds Plan VTE Prophylaxis - Lovenox 40mg SQ daily Diet - heart healthy Disposition - discharge back to [place] per case management Total Time Total Time Spent Total Time Spent (In Minutes): 40 Discharge Plan Discharge Items Patient Disposition: Personal [facility] Reason For Visit: ACUTE RESP FAIL W/ HYPOXIA, COVID 19, BACTERIAL PN Discharge Diagnosis: ACUTE RESP FAIL W/ HYPOXIA, COVID 19, BACTERIAL PNEUMONIA Activity: Resume your previous activity Lifting: Gradually increase as tolerated Bathing: No limitations Exercise/Sports: Gradually increase as tolerated Weightbearing: Full weightbearing Non-emergency contact: Primary Care Provider Call non-emergency contact if: your symptoms worsen and you have a fever Follow-up/Referrals: [facility] [Primary Care Provider] - Diet: Heart Healthy Addtl Attending Provider Instructions: You were admitted for acute shortness of breath and found to be positive for Covid-19.You were not a candidate for antiviral medications but did receive IV steroids. These do not need to be continued on discharge. It was also a concern that you may have a secondary bacterial pneumonia so were started on IV antibiotics. These were converted to oral antibiotics using Augmentin. You do not need any further antibiotics on discharge. Your oxygen levels returned to baseline and are currently good with 2 L/min via nasal cannula. You can resume all of your home medications and follow up with your family doc tor. No follow up is needed with pulmonary and no further imaging is needed. You also had a significant elevation of your troponin which is an enzyme released from the heart when it is under strain or injured. You had no changes to your EKG as compared to 10/13/2021, 04/10/2021, and 02/02/2019. You also had no findings on your echocardiogram consistent with a heart attack or acute ischemic changes. Most likely, this elevation was due to your acute Covid infection. If you should develop any unexplained acute chest pain or shortness of breath, you should seek evaluation from your family doctor or the emergency room. You should follow up with your primary care physician in the next 7-10 days. Pending Studies at Discharge: No Stand-Alone Forms: My [facility] Skilled Items Patient informed of condition?: Yes DNR: Yes Discharge Level of Care: Other Communicable Disease: Yes (Covids 19 infection) Discharge Prognosis: Improving Lines: None Urinary Catheter: No Medications and DC Order Prescriptions: Continued tolterodine [Detrol] 1 mg tablet 1 mg PO BID calcitriol 0.5 mcg capsule 0.5 mcg PO DAILY Qty: 90 3RF amlodipine [Norvasc] 10 mg tablet 10 mg PO QAM Qty: 90 folic acid 1 mg tablet 1 mg PO QAM levothyroxine [Synthroid] 25 mcg tablet 25 mcg PO QAM mirtazapine 30 mg tablet 30 mg PO HS lidocaine 5 % Adhesive Patch,Medicated 2 patch TOPICAL UD PRN (Reason: Pain) Rx Instructions: remove patches after 12 hours Systane (PF) 0.4-0.3 % Dropperette 1 drp OPHTHALMIC (EYE) QID PRN (Reason: Dry Eyes) ammonium lactate [Skin Treatment] 12 % Lotion 1 applic TOPICAL BID prednisolone acetate [Pred Forte] 1 % drops,suspension 1 drp OPB HS buspirone 15 mg tablet 15 mg PO TID Rx Instructions: TAKES AT 1100, 1700, & 2300 duloxetine [Cymbalta] 30 mg capsule,delayed release(DR/EC) 30 mg PO QPM ibuprofen 800 mg tablet 800 mg PO Q6 PRN (Reason: Pain) acetaminophen [Tylenol Extra Strength] 500 mg Tablet 500 mg PO Q6H PRN (Reason: Fever Or Pain) lamotrigine 25 mg tablet 100 mg PO HS Rx Instructions: 4 tablet dose magnesium hydroxide [Milk of Magnesia] 400 mg/5 mL Suspension 30 ml PO DAILY PRN (Reason: Constipation) betamethasone dipropionate 0.05 % cream 1 applic TOPICAL DAILY PRN (Reason: Skin Irritation) Rx Instructions: arms and legs loratadine 10 mg Tablet 10 mg PO DAILY PRN (Reason: allergies) duloxetine 60 mg capsule,delayed release(DR/EC) 60 mg PO QAM diclofenac sodium 1 % gel 2 g TOPICAL QID PRN (Reason: Pain) menthol-zinc oxide [Calmoseptine] 0.44-20.6 % Ointment 1 applic TOPICAL BID Rx Instructions: Applly to inflamed area Medical Marijuana 0 inh inhalation TID Rx Instructions: Resident self administer & secured in apartment ascorbic acid (vitamin C) [Vitamin C] 500 mg Tablet 500 mg PO QAM Rx Instructions: take for 14 days / stop date 03/05/22 (DME) Oxygen Home Liters Per Minute See Rx Instructions .ROUTE .MEDSUPPLY Qty: 1 0RF Rx Instructions: 2 liters NC O2 continuously. polyethylene glycol 3350 [Miralax] 17 gram Powder In Packet 17 g PO BID Qty: 60 2RF aspirin [Aspirin Childrens] 81 mg Tablet,Chewable 81 mg PO DAILY Rx Instructions: start 02/19/22 take for 1 month for covid pregabalin 150 mg capsule 150 mg PO TID sennosides-docusate sodium [Senokot-S] 8.6-50 mg Tablet 12 tab-cap PO BID sennosides [senna] 8.6 mg Tablet 34.4 mg PO HS Rx Instructions: 4 tablets = 34.4 cholecalciferol (vitamin D3) [Vitamin D3] 125 mcg (5,000 unit) Tablet 125 mcg PO DAILY Rx Instructions: start 02/19/22 take for 14 days loperamide [Imodium A-D] 2 mg Tablet 2 mg PO QID PRN (Reason: Loose Stool) zinc gluconate 50 mg Tablet 50 mg PO DAILY Rx Instructions: start 02/19/22 take for 14 days oxymorphone 30 mg Tablet Extended Release 12 Hr 30 mg PO BID Discontinued tolterodine 1 mg tablet 1 mg PO BID molnupiravir 200 mg Capsule 800 mg PO Q12H Rx Instructions: start 02/19/22 take for 5 days Discharge Orders: Discharge Order (Routine); Ordered 02/25/22 Ordered By: Stevie Pereyra Admission Data Admit Date/Time: 02/18/22 23:54 Attending Provider: Wong Acharya Admit Provider: Toby Lilly Primary Care Provider: Vivi bellaRobert Lee Other Providers: Toby Lilly Other Interventions: Discharge Summary Assessment (RN) Last Done: 02/25/22 18:08 Coding Level of Care Code D/C DAY MANAGEMENT >30 MINS Diagnoses COVID-19 U07.1 Secondary bacterial pneumonia J15.9 Acute respiratory failure with hypoxia J96.01 Acute kidney injury N17.9 Non-ST elevation FL (NSTEMI) I21.4 COPD (chronic obstructive pulmonary disease) J44.9 COPD type: chronic bronchitis Fibromyalgia M79.7 Hypothyroidism E03.9 Anxiety and depression F41.9; F32.9 Bladder spasms N32.89 Time Spent (min) 40
== END 2022-02-25 16:20 | disposition home or self-care (01) | DRG 177 ==
LOC: ED 22:08 → EDINP 23:47 → SUATTDRO 23:47 → 2S 02-19 10:53 → 3W 02-23 18:32